=== PATIENT | male | born 1960 | race Caucasian/White ===

== ENCOUNTER 2017-07-22 06:05 | Day surgery (SDC) | payer OTHER ==
[2017-07-21 16:17] VITALS: BMI 27.3
[2017-07-22] MEDS ORDERED: BUPIVACAINE HCL/PF 0.5% (5MG/ML) 10 ML VIAL ONE (07:23)
[2017-07-22] MEDS ORDERED: MIDAZOLAM HCL 2 MG/2 ML SINGLE DOSE VIAL ONE (08:08)
--- NOTE | 2017-07-22 08:19 | HP ---
Admitting History and Physical - Admission Chief Complaint: epigastric bulge History of Present Illness: 56 y.o. male s/p open heart surgery developed bulging at the epigastric end of the median sternotomy scar. CT scan showed incisional hernia History Source: Patient Limitations to Obtaining History: No Limitations - Past Medical History Cardiovascular: Yes: CAD - Smoking History Smoking history: Former smoker Have you smoked in the past 12 months: No Aproximately how many cigarettes per day: 20 - Alcohol/Substance Use Hx Alcohol Use: Yes (occ beer) Home Medications - Allergies Allergies/Adverse Reactions: Allergies Allergy/AdvReac Type Severity Reaction Status Date / Time No Known Allergies Allergy Verified 07/21/17 15:59 - Home Medications Home Medications: Ambulatory Orders Aspirin [ASA -] 81 mg PO HS 10/12/15 Atorvastatin Ca [Lipitor] 40 mg PO HS 10/12/15 Clopidogrel Bisulfate [Plavix -] 75 mg PO DAILY 10/12/15 Metoprolol Tartrate 50 mg PO BID 10/12/15 Minocycline HCl 75 mg PO HS 10/12/15 Pantoprazole Sodium [Protonix] 40 mg PO DAILY 10/12/15 Ubidecarenone/Vit E Acet [Co Q-10 100 mg Softgel] 100 mg PO DAILY 07/21/17 Physical Examination Vital Signs: Vital Signs Temperature 98.8 F 07/22/17 06:29 Pulse Rate 60 07/22/17 06:29 Respiratory Rate 20 07/22/17 06:29 Blood Pressure 106/71 07/22/17 06:29 O2 Sat by Pulse Oximetry (%) Constitutional: Yes: Well Nourished Eyes: Yes: Conjunctiva Clear HENT: Yes: Normocephalic Neck: Yes: Supple Cardiovascular: Yes: Regular Rate and Rhythm Respiratory: Yes: CTA Bilaterally Gastrointestinal: Yes: Normal Bowel Sounds, Soft, Hernia (8 cm epigastric bulge) ...Rectal Exam: Yes: Deferred Wound/Incision: Yes: Other (+ median sternotomy scar) Psychiatric: Yes: Alert, Oriented Imaging - Results Cat Scan: Report Reviewed, Image Reviewed Problem List - Problems (1) Incisional hernia Assessment/Plan: Robotic assisted incisional hernia repair with mesh Code(s): K43.2 - INCISIONAL HERNIA WITHOUT OBSTRUCTION OR GANGRENE
[2017-07-22] MEDS ORDERED: PROPOFOL 20 ML ONE (08:23)
[2017-07-22] MEDS ORDERED: ROCURONIUM BROMIDE 50 MG/5 ML VIAL ONE ×5 (08:24→09:26)
[2017-07-22] MEDS ORDERED: ceFAZolin SODIUM 1 GM VIAL IVPB ONE (08:25)
[2017-07-22] MEDS ORDERED: BUPIVACAINE HCL/PF (5 MG/ML) 30 ML VIAL IJ ONE (08:47)
[2017-07-22] MEDS ORDERED: NEOSTIGMINE METHYLSULFATE 0.5 MG/ML - 10 ML MDV ONE (10:32)
[2017-07-22] MEDS ORDERED: ONDANSETRON 4 MG/2 ML VIAL IVPUSH PRN ×2 (10:59→11:14)
--- NOTE | 2017-07-22 11:03 | OP ---
Operative Note - Note: Operative Date: 07/22/17 Pre-Operative Diagnosis: epigastric incisional hernia Operation: Robotic incisional hernia repair with mesh Findings: 6 x 6 cm incisional hernia at epigastric region at level of xyphoid process Implants: progrip mesh Post-Operative Diagnosis: Same as Pre-op Surgeon: Elliot Price [employer]ry Go Round Attendant: Dandy Geiger Anesthesia: General Estimated Blood Loss (mls): 15 Operative Report Dictated: Yes
--- NOTE | 2017-07-22 11:38 | OP ---
DATE OF OPERATION: 07/22/2017 PROCEDURE: Robotic-assisted laparoscopic incisional hernia repair. PREOPERATIVE DIAGNOSIS: Epigastric incisional hernia. POSTOPERATIVE DIAGNOSIS: Epigastric incisional hernia. SURGEON: Elliot Price MD SUBCONTRACT ADMINISTRATOR: BULL Hernandes ANESTHESIA: General endotracheal. FINDINGS ON PROCEDURE: This is a 56-year-old male who is status post CABG Jun, 2015, who developed a bulge of the epigastric region just below the xiphoid process. On physical examination, patient has a long median sternotomy scar, which extended down through the epigastric region where a 6 x 6 cm bulge is palpable and visible. When patient is asked to perform a Valsalva maneuver, the defect of about the same size was noted. A CT scan of the abdomen and pelvis showed a hernia of the area in question. So, patient was advised elective incisional hernia repair, and consent was obtained after discussing the risks, benefits, and alternatives of the procedure. DESCRIPTION OF PROCEDURE: Patient was brought to the operating room and placed in supine position. General endotracheal anesthesia was administered. The abdomen was prepped and draped in the usual sterile fashion. Using 0.5% Marcaine, local anesthesia was administered to the proposed incision site. The peritoneal cavity was entered using the Veress needle technique via an 8-mm periumbilical incision to the left of midline using scalpel blade No. 15. The pneumoperitoneum was established. An 8-mm port was then inserted through the peritoneal incision followed by insertion of the 3D 30-degree laparoscope. The peritoneal cavity was carefully inspected and was noted to be free of inadvertent injury. Two other 8-mm ports were inserted, one at the left, 8 mm away from the middle, and the umbilical port on both sides. Afterwards, the robotic arms were out. The target organ was sent, and the robotic arms were docked to the ports. The fenestrated bipolar forceps was inserted to the right-sided port, and EndoWrist betsy was inserted in the left-sided port and connected to monopolar cautery. The undersigned then scrubbed out to commence the consult part of the procedure. A preperitoneal pocket was made by making a 15-cm incision of the parietal peritoneum about 5 cm away from the hernia. At this point, the hernia defect was visualized and was noted to contain an empty hernia sac. The pocket was dissected, dissection was carried superiorly towards the hernia with careful dissection using the EndoWrist betsy aided by the bipolar forceps for traction. Dissection was carried also laterally to provide adequate space for the mesh placement. The superior dissection was carried superiorly with at least 5 cm from the superior edge of the hernia. Afterwards, the hernia defect was primarily closed with continuous V-Loc No. 1 non-absorbable suture. An 8 x 12 cm ProGrip mesh was then deployed to reinforce the primary closure of the hernia defect. After deployment was deemed satisfactory, the peritoneal pocket was closed by suturing the peritoneal incision with continuous V-Loc 2-0 absorbable sutures. The abdominal cavity was again carefully inspected and was noted to be free of active bleeding. The pneumoperitoneum was evacuated, all the robotic arms were undocked, and the pneumoperitoneum was evacuated. The ports were removed, and the wounds were closed with subcuticular Biosyn 4-0 sutures. The closure was reinforced with Dermabond. The patient was successfully extubated and transferred to the post-anesthesia care unit in satisfactory condition. ESTIMATED BLOOD LOSS: About 15 mL. WOUND CLASS: Clean. The patient received 2 g of Ancef prior to the start of the procedure. Renan [id number]
--- NOTE | 2017-07-22 13:18 | SURG ---
Surgery Medical Clerical Assistant Note Medical Clerical Assistant: Dandy Geiger PA-C Date of Service: 07/22/17 Diagnosis: epigastric incisional hernia Procedure: Robotic incisional hernia repair with mesh I was present for the entirety of the operative procedure. For further detail, please refer to operative report. Visit type - Case Type Case Type: Scheduled - New patient This patient is new to me today: Yes Date on this admission: 07/22/17
[2017-07-22] MEDS ORDERED: ACETAMINOPHEN 500 MG TABLET (FP) PO PRN (17:42)
[2017-07-22] MEDS ORDERED: PT OWN MED DRAWER 7, Y5N ONE (18:44)
[2017-07-22] MEDS: METOPROLOL TARTRATE 50 MG TABLET (FP) PO SCH (21:16)
[2017-07-22] MEDS: ASPIRIN 81 MG CHEWABLE TABLETS PO SCH ×2 (21:16→22:23)
[2017-07-22] MEDS: oxyCODONE HCL 5 MG TABLET PO PRN (21:17)
[2017-07-22] MEDS ORDERED: ATORVASTATIN CA 40 MG TABLET (FP) PO SCH (22:00)
[2017-07-22] MEDS ORDERED: MINOCYCLINE PO SCH (22:00)
[2017-07-22] MEDS ORDERED: ASPIRIN COATED 81 MG TABLET.EC PO SCH (22:15)
[2017-07-23] MEDS: oxyCODONE HCL 5 MG TABLET PO PRN ×3 (01:34→10:23)
[2017-07-23] MEDS: METOPROLOL TARTRATE 50 MG TABLET (FP) PO SCH (09:39)
[2017-07-23] MEDS ORDERED: ASPIRIN 81 MG CHEWABLE TABLETS PO SCH (10:00)
[2017-07-23] MEDS ORDERED: CLOPIDOGREL BISULFATE 75 MG TABLET (FP) PO SCH (10:00)
[2017-07-23] MEDS ORDERED: PANTOPRAZOLE 40 MG TABLET (FP) PO SCH (10:00)
--- NOTE | 2017-07-23 10:15 | PN ---
Progress Note, Physician Chief Complaint: Pt. pain controlled, no GA complaints. - Current Medication List Current Medications: Active Medications Acetaminophen (Tylenol -) 1,000 mg PO Q6H PRN PRN Reason: FEVER Last Admin: 07/22/17 18:46 Dose: 1,000 mg Aspirin (Ecotrin -) 81 mg PO [facility] Last Admin: 07/22/17 22:30 Dose: 81 mg Atorvastatin Calcium (Lipitor -) 40 mg PO [facility] Last Admin: 07/22/17 21:16 Dose: 40 mg Clopidogrel Bisulfate (Plavix -) 75 mg PO DAILY [facility] Last Admin: 07/23/17 09:38 Dose: 75 mg Fentanyl (Sublimaze Injection -) 50 mcg IVPUSH Q5M PRN PRN Reason: PAIN-PACU ORDER X 4 DOSES ONLY Metoprolol Tartrate (Lopressor -) 50 mg PO BID [facility] Last Admin: 07/23/17 09:39 Dose: 50 mg Non-Formulary Med ( Minocycline 75mg Cap ) 1 each PO [facility] Ondansetron HCl (Zofran Injection) 4 mg IVPUSH Q6H PRN PRN Reason: NAUSEA AND/OR VOMITING Oxycodone HCl (Roxicodone -) 5 mg PO Q4H PRN PRN Reason: PAIN Last Admin: 07/23/17 05:51 Dose: 5 mg Pantoprazole Sodium (Protonix -) 40 mg PO DAILY [facility] Last Admin: 07/23/17 09:39 Dose: 40 mg - Objective Vital Signs: Vital Signs Temperature 98.7 F 07/23/17 06:00 Pulse Rate 56 L 07/23/17 06:00 Respiratory Rate 18 07/23/17 06:00 Blood Pressure 132/74 07/23/17 06:00 O2 Sat by Pulse Oximetry (%) 97 07/22/17 15:45 Constitutional: Yes: Well Nourished, No Distress, Calm Musculoskeletal: Yes: WNL Neurological: Yes: WNL, Alert, Oriented Assessment/Plan POD#1 s/p Robotic lap incisional hernia repair with mesh under GA. Doing well. D/C from anesthesia care.
[2017-07-23 10:27] VITALS: BP 119/79; PULSE 76; TEMP 98.8
== END 2017-07-23 10:48 | disposition home or self-care (01) ==
LOC: JASUSAT 06:05 → J5S 15:47 → JASUSAT 07-23 10:48
PROVIDERS: ATTEND Surgery
PROC: 8E0W4CZ Robotic Assisted Procedure of Trunk Region, Percutaneous Endoscopic Approach (ICD-10-PCS; 2017-07-22)
PROC: 0WUF4JZ Supplement Abdominal Wall with Synthetic Substitute, Percutaneous Endoscopic Approach (ICD-10-PCS; principal; 2017-07-22 08:00)
DX: K43.2 Incisional hernia without obstruction or gangrene (principal)
CPT/HCPCS: 49654; S2900; 94760

== ENCOUNTER 2018-07-02 21:44 | Inpatient (IN) | payer BC, OTHER | END 2018-07-05 15:13 | disposition home or self-care (01) | LOC: J4W 07-03 16:22 → JER 21:44 → JERBED 23:47 ==

== ENCOUNTER 2019-03-08 08:20 | Day surgery (SDC) | payer OTHER ==
[2019-03-07 11:27] VITALS: BMI 27.3
[2019-03-08 09:21] LABS: BASO % 0.6 % (0-2.0); EOS % 3.6 % (0-4.5); HEMATOCRIT 39.8 % (35.4-49); HEMOGLOBIN 13.7 GM/dL (11.7-16.9); LYMPH % 16.3 % (8-40); MCH 31.2 pg (25.7-33.7); MCHC 34.5 g/dl (32.0-35.9); MEAN CELL VOLUME 90.4 fl (80-96); MEAN PLT VOLUME 7.4 fl (7.5-11.1); MONO % 7.5 % (3.8-10.2); PLATELET COUNT 156 K/MM3 (134-434); RDW 13.4 % (11.9-15.9); WHITE BLOOD COUNT 7.7 K/mm3 (4.0-10.0)
[2019-03-08 10:47] LABS: INR 1.05 (0.83-1.09); PROTHROMBIN TIME (PATIENT) 12.4 SEC (9.7-13.0)
[2019-03-08] MEDS ORDERED: ACETAMINOPHEN 325 MG TABLET (FP) PO ONE (12:22)
[2019-03-08] MEDS ORDERED: ACETAMINOPHEN 325 MG TABLET (FP) ONE (12:24)
[2019-03-08 15:54] VITALS: TEMP 98.3
[2019-03-08 15:59] VITALS: BP 140/77
[2019-03-08 16:08] VITALS: PULSE 80
--- NOTE | 2019-03-23 18:45 | PATH ---
Surgical Pathology Report Patient Name: HARRISON MUHAMMAD [facility]. Rec. #: [id number] /Age/Gender: 1960 (Age: 58) / M Account: [id number] Location: RADIOLOGY INTER Taken: 03/08/2019 Received: 03/08/2019 Reported: 03/23/2019 Physicians: Soy Foster M.D. Specimen(s) Received RIGHT LUNG BIOPSY Clinical History 58-year-old male with COPD and IPF. 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 Foci of highly atypical gland-like structures and nests with lumen-formation are also seen, as are scattered entrapped reactive alveoli. There are areas of tumor necrosis and scattered mitoses are seen. Immunohistochemical stains performed in your laboratory show that the tumor is positive for vimentin, Cam5.2 (weak), and TTF-1(patchy). Focal staining with CK7 and cytokeratin AE1/AE3 is seen in the atypical gland-like areas, that are also intensely TTF-1 positive. Napsin A stains scattered entrapped pneumocytes. No mucin is seen on mucicarmine stain, and the tumor is negative for p40, CK5/6, NKX3.1, S100, Melan-A, and CD45, the latter of which highlights scattered inflammatory cells. In summary, the right lung biopsy shows a non-small cell carcinoma, favor adenocarcinoma. This diagnosis is supported by the tumor immunophenotype (positive Cam5.2 and TTF-1), which in the absence of the thyroid mass is consistent with lung origin. 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 However, this diagnosis requires a resection on which at least 10% of the tumor should be comprised of the spindle cell and/or giant cell component. This case was sent to Dr. Hugo Goldberg at [facility], [address] [place] [address] for his expertise and this diagnosis reflects his opinion. Electronically Signed Sergey Guzman M.D. Gross Description Received in formalin labeled "right lung biopsy," are 3 guzman, cylindrical portions of soft tissue ranging from 0.4-0.7 cm in length and averaging 0.1 cm in diameter. The specimens are submitted in toto in one cassette. 03/08/201903/08/2019
== END 2019-03-08 15:30 | disposition home or self-care (01) ==
LOC: JRADIR 08:20
PROVIDERS: ATTEND Internal Medicine Pulmonary Disease
PROC: 0BBC3ZX Excision of Right Upper Lung Lobe, Percutaneous Approach, Diagnostic (ICD-10-PCS; principal; 2019-03-08)
DX: C34.11 Malignant neoplasm of upper lobe, right bronchus or lung (principal)
CPT/HCPCS: 32405; 36415; 71045-TC-FY; 77012-TC; 85025; 85610; 88305-TC

== ENCOUNTER 2019-03-28 14:36 | Inpatient (IN) | payer OTHER ==
[2019-03-28 14:48] VITALS: BMI 26.7
--- NOTE | 2019-03-28 14:53 | PDOC ---
History of Present Illness - General Chief Complaint: Shortness of Breath Stated Complaint: SHORTNESS OF BREATH Time Seen by Provider: 03/28/19 14:52 History Source: Patient Exam Limitations: No Limitations - History of Present Illness Initial Comments: 03/28/19 14:53 58yM w PMHx COPD (RA day, 2L night), interstitial pulmonary fibrosis, RUL lung CA stage 1, HTN, HLD, angina, CAD (STEMI s/p stent 2013, quadruple bypass 2015) , past smoker, GERD presenting w sudden onset SOB 9worse lying down) and miah chest tightness after vacuuming yesterday evening. Turned portable O2 to 5L NC overnight, did not take any meds for symptoms. Had lung biopsy done 03/08/[address] Pleitez, told he had RUL lung CA stage 1 5d ago, hasnt started treatment. Denies fever, cough, nausea/vomiting, abd pain. CT surgeon - Dr Eron Canchola - Dr Pleitez Past History - Past Medical History Allergies/Adverse Reactions: Allergies Allergy/AdvReac Type Severity Reaction Status Date / Time No Known Allergies Allergy Verified 03/08/19 09:25 Home Medications: Ambulatory Orders Atorvastatin Ca [Lipitor] 20 mg PO HS 10/12/15 Clopidogrel Bisulfate [Plavix -] 75 mg PO DAILY 10/12/15 Metoprolol Tartrate 50 mg PO BID 10/12/15 Minocycline HCl 75 mg PO HS 10/12/15 Pantoprazole Sodium [Protonix] 40 mg PO DAILY 10/12/15 Umeclidinium Brm/Vilanterol Tr [Anoro Ellipta 62.5-25 Mcg INH] 1 each IH DAILY 07/03/18 Pirfenidone [Esbriet] 801 mg PO TID 03/07/19 Ubidecarenone/Vit E Acet [Co Q-10 100 mg Softgel] 2 each PO DAILY 03/08/19 Aspirin [Aspirin EC] 81 mg PO DAILY 03/28/19 Anemia: No Asthma: No Cancer: No Cardiac Disorders: Yes (CO 04/06/13 with stent, quadruple bypass 2015 ([facility])) CVA: No COPD: Yes (IPF) CHF: Yes Dementia: No Diabetes: No GI Disorders: Yes (GERD) Disorders: No HTN: Yes (HX) Hypercholesterolemia: Yes (HX) Liver Disease: No Seizures: No Thyroid Disease: No - Surgical History Abdominal Surgery: No Appendectomy: No Cardiac Surgery: Yes (05/2013-CABG 1 stent, angioplasty, 4byp2015) Cholecystectomy: No Lung Surgery: No Neurologic Surgery: No Orthopedic Surgery: Yes - Psycho Social/Smoking Cessation Hx Smoking History: Former smoker Have you smoked in the past 12 months: No Number of Cigarettes Smoked Daily: 20 Information on smoking cessation initiated: No Hx Alcohol Use: No Drug/Substance Use Hx: No Substance Use Type: None Hx Substance Use Treatment: No Review of Systems - Review of Systems Constitutional: No: Chills, Fever HEENTM: No: Eye Pain, Nose Pain, Nose Congestion Respiratory: Yes: Shortness of Breath. No: Cough Cardiac (ROS): Yes: Chest Pain. No: Palpitations ABD/GI: No: Abdominal Distended, Constipated, Diarrhea, Nausea, Vomiting : No: Burning, Dysuria Musculoskeletal: No: Back Pain, Joint Pain Integumentary: No: Bruising, Flushing Neurological: No: Headache, Seizure Psychiatric: No: Anxiety, Depression Endocrine: No: Intolerance to Cold, Intolerance to Heat Hematologic/Lymphatic: No: Anemia, Blood Clots *Physical Exam - Vital Signs Last Vital Signs Temp Pulse Resp BP Pulse Ox 98.2 F 87 22 H 145/90 91 L 03/28/19 14:46 03/28/19 14:46 03/28/19 14:46 03/28/19 14:46 03/28/19 14:46 - Physical Exam General Appearance: Yes: Nourished, Appropriately Dressed, Mild Distress HEENT: positive: EOMI, DEWAYNE Respiratory/Chest: positive: Decreased Breath Sounds (R lung), Crackles (LLL). negative: Chest Tender, Rhonchi, Stridor, Wheezing Cardiovascular: positive: Regular Rhythm, Regular Rate, S1, S2. negative: Murmur Gastrointestinal/Abdominal: positive: Normal Bowel Sounds, Flat, Soft. negative : Tender, Organomegaly Extremity: negative: Pedal Edema Integumentary: positive: Normal Color. negative: Dry Neurologic: positive: guard lieutenant II-XII NML intact, Fully Oriented, Alert, Normal Response, Responsive. negative: Sensory Deficit, Confused, Disoriented ED Treatment Course - LABORATORY CBC & Chemistry Diagram: 03/28/19 15:45 03/28/19 15:50 Medical Decision Making - Medical Decision Making 03/28/19 14:57 CXR - 50% R sided pneumothorax EKG - NSR, RBBB, HR 73, QTc 500, unchanged TWI V1, lateral q waves since 2019 --- 58yM w PMHx COPD (RA day, 2L night), interstitial pulmonary fibrosis, RUL lung CA stage 1, HTN, HLD, angina, STEMI( s/p stent 2013, quadruple bypass 2015), past smoker, GERD presenting w 1d sudden onset SOB and miah chest tightness d/t R sided pneuomthorax (hx somker). Low concern for ACS (no ST changes, neg trop) Given 2 morphine. Placed on 4L O2. Pt consented procedure, placed pigtail catheter, confirmed placement w CXR w resolving PTX Updated Dr Daniel/Maik and Dr Awad (detention deputy for Dr Littlejohn) w pt's ED course, all agreed to plan. Admitted tele Dr Soler for pneumothorax, acute on chronic respiratory failure requiring supplemental O2 Discharge - Discharge Information Problems reviewed: Yes Clinical Impression/Diagnosis: Pneumothorax Qualifiers: Pneumothorax type: spontaneous, primary Qualified Code(s): J93.11 - Primary spontaneous pneumothorax Acute and chronic respiratory failure Qualifiers: Respiratory failure complication: hypoxia Qualified Code(s): J96.21 - Acute and chronic respiratory failure with hypoxia Condition: Improved - Follow up/Referral Referrals: Sp Galloway MD [Primary Care Provider] - - Patient Discharge Instructions - Post Discharge Activity
[2019-03-28 16:25] LABS: BASO % 0.4 % (0-2.0); EOS % 2.1 % (0-4.5); HEMATOCRIT 42.4 % (35.4-49); HEMOGLOBIN 14.7 GM/dL (11.7-16.9); LYMPH % 15.4 % (8-40); MCH 32.1 pg (25.7-33.7); MCHC 34.6 g/dl (32.0-35.9); MEAN CELL VOLUME 92.5 fl (80-96); MEAN PLT VOLUME 7.4 fl (7.5-11.1); MONO % 7.3 % (3.8-10.2); NEUT % 74.8 % (42.8-82.8); PLATELET COUNT 164 K/MM3 (134-434); RBC 4.58 M/mm3 (4.00-5.60); RDW 13.8 % (11.9-15.9); WHITE BLOOD COUNT 8.6 K/mm3 (4.0-10.0)
[2019-03-28 16:38] LABS: INR 1.14 (0.83-1.09); PROTHROMBIN TIME (PATIENT) 13.5 SEC (9.7-13.0)
[2019-03-28 16:53] LABS: ALBUMIN 4.2 g/dl (3.4-5.0); BILIRUBIN,TOTAL 0.5 mg/dL (0.2-1); BLOOD UREA NITROGEN 22.3 mg/dL (7-18); CREATININE 1.2 mg/dL (0.55-1.3); POTASSIUM 3.8 mmol/L (3.5-5.1); TOT PROT 7.4 g/dl (6.4-8.2)
--- NOTE | 2019-03-28 16:53 | PDOC ---
Documentation entered by Maritza Wharton SCRIBE, acting as scribe for Peter Dc MD. Peter Dc MD: This documentation has been prepared by the Dio reyna Adrianna, SCRIBE, under my direction and personally reviewed by me in its entirety. I confirm that the documentation accurately reflects all work, treatment, procedures, and medical decision making performed by me. Attending Attestation - Resident Resident Name: Mello Melgoza - ED Attending Attestation I have performed the following: I have examined & evaluated the patient, The case was reviewed & discussed with the resident, I agree w/resident's findings & plan, Exceptions are as noted - HPI HPI: The patient is a 58 year old male, with a significant PMH of COPD, interstitial pulmonary fibrosis, RUL lung CA stage 1, HTN, HLD, CHF, angina, STEMI( s/p stent 2013, quadruple bypass 2015) and GERD, who presents to the ED for evaluation of SOB for one day. Patient notes he was vacuuming yesterday, when he developed sudden onset SOB. Patient had a lung biopsy ~2 weeks ago. Allergies: NKA, NKDA Surgical History: CABG. stent, angioplasty, quadruple bypass Social History: Former smoker PCP: Dr. Galloway Pulm: Dr. Pleitez - Physicial Exam PE: Vitals: Triage vital signs reviewed General Appearance: No acute distress, well nourished, well developed Chest Wall: Nontender Cardiac: Regular rate and rhythm, no murmurs, no rubs, no gallops Lungs: +Decreased breath sounds of the right lung. Abdomen: Soft, nondistended, normal bowel sounds, nontender to palpation Extremities: Full range of motion to all extremities, no cyanosis, clubbing, or edema Skin: Warm and dry, no rashes or lesions, no rash, no petechiae Neuro: AOX3; Cranial Nerves 2-12 grossly intact, Strength intact to all extremities, Sensation intact to all extremities. Psych: Normal mood, normal affect - Medical Decision Making 58 year old male, with history of COPD, interstitial pulmonary fibrosis, RUL lung CA stage 1, HTN, HLD, CHF, angina, STEMI( s/p stent 2013, quadruple bypass 2015) and GERD, presents to the ED with SOB. Plan: labs, CXR, ECG, PICC tail 03/28/19 16:53 Status post lung biopsy March 08 with sudden onset shortness of breath yesterday chest x-ray demonstrates pneumothorax no obvious tension patient hemodynamically stable Given that patient is stable will check labs CT to rule out bleb observe and reassess Dr. Martinez to follow CT. Chest tube if not a bleb
[2019-03-28] MEDS ORDERED: BUPIVACAINE HCL 0.5% 250 MG/50 ML VIAL IJ ONE (17:09)
[2019-03-28] MEDS ORDERED: BUPIVACAINE HCL/PF 0.5% (5 MG/ML) 30 ML VIAL IJ ONE (17:18)
[2019-03-28] MEDS ORDERED: MORPHINE SULFATE 2 MG/ML VIAL ONE ×2 (18:01→20:54)
[2019-03-28] MEDS ORDERED: morphine CARPU-JECT 4 MG/1 ML DISP.SYRIN IVPUSH ONE (18:43)
[2019-03-28 19:47] LABS: ARTERIAL BLOOD GAS BASE EXCESS 1.6 meq/l (-2-2); ARTERIAL BLOOD GAS PO2 74.3 mmHg (80-100); ARTERIAL BLOOD GAS pH 7.45 (7.35-7.45); CARBOXYHEMOGLOBIN 1.6 % (0-2)
[2019-03-28 19:50] LABS: ALLENS TEST POSITIVE
[2019-03-28] MEDS ORDERED: morphine CARPU-JECT 2 MG/1 ML DISP.SYRIN IVPUSH ONE (20:33)
--- NOTE | 2019-03-28 22:54 | HP ---
Admitting History and Physical - Admission History of Present Illness: Pt is a 58 y/o male w/ PMH significant for COPD (RA day, 2L night), interstitial pulmonary fibrosis, RUL lung CA stage 1, HTN, HLD, angina, CAD ( STEMI s/p stent 2013, quadruple bypass 2015), and GERD. Pt underwent lung bx on 03/08/19 and dx'ed w/ stage 1 lung cancer. Pt now presented to ER w/ sudden onset SOB associated w/ chest tightness after vacuuming yesterday evening. Turned portable O2 to 5L NC overnight, did not take any meds for symptoms. 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[place], [place]) History of Recent Travel: No Home Medications - Allergies Allergies/Adverse Reactions: Allergies Allergy/AdvReac Type Severity Reaction Status Date / Time No Known Allergies Allergy Verified 03/08/19 09:25 - Home Medications Home Medications: Ambulatory Orders Atorvastatin Ca [Lipitor] 20 mg PO HS 10/12/15 Clopidogrel Bisulfate [Plavix -] 75 mg PO DAILY 10/12/15 Metoprolol Tartrate 50 mg PO BID 10/12/15 Minocycline HCl 75 mg PO HS 10/12/15 Pantoprazole Sodium [Protonix] 40 mg PO DAILY 10/12/15 Umeclidinium Brm/Vilanterol Tr [Anoro Ellipta 62.5-25 Mcg INH] 1 each IH DAILY 07/03/18 Pirfenidone [Esbriet] 801 mg PO TID 03/07/19 Ubidecarenone/Vit E Acet [Co Q-10 100 mg Softgel] 2 each PO DAILY 03/08/19 Aspirin [Aspirin EC] 81 mg PO DAILY 03/28/19 Family Medical History Family History: Unremarkable Review of Systems - Review of Systems Constitutional: reports: No Symptoms Eyes: reports: No Symptoms HENT: reports: No Symptoms Neck: reports: No Symptoms Cardiovascular: reports: Chest Pain, Shortness of Breath Respiratory: reports: SOB Gastrointestinal: reports: No Symptoms Genitourinary: reports: No Symptoms Physical Examination Vital Signs: Vital Signs Temperature 98.2 F 03/28/19 14:46 Pulse Rate 78 03/28/19 18:25 Respiratory Rate 22 H 03/28/19 18:25 Blood Pressure 139/106 H 03/28/19 18:25 O2 Sat by Pulse Oximetry (%) 100 03/28/19 18:25 Eyes: Yes: WNL HENT: Yes: WNL Neck: Yes: WNL, Supple Cardiovascular: Yes: WNL, Regular Rate and Rhythm Respiratory: Yes: Diminished, Other ((+) cath Rt chest wall) Gastrointestinal: Yes: WNL, Normal Bowel Sounds, Soft Extremities: Yes: WNL Edema: No Neurological: Yes: WNL, Alert, Oriented ...Motor Strength: WNL Labs: CBC, BMP 03/28/19 15:45 03/28/19 15:50 Problem List - Problems (1) Pneumothorax Assessment/Plan: Cont chest tube Check CXR in am Pulmonary consult Cont nebulizers Code(s): J93.9 - PNEUMOTHORAX, UNSPECIFIED Qualifiers: Pneumothorax type: spontaneous, primary Qualified Code(s): J93.11 - Primary spontaneous pneumothorax (2) Lung cancer Assessment/Plan: As per pulmonary Code(s): C34.90 - MALIGNANT NEOPLASM OF UNSP PART OF UNSP BRONCHUS OR LUNG (3) COPD (chronic obstructive pulmonary disease) Assessment/Plan: Cont nebulizers Code(s): J44.9 - CHRONIC OBSTRUCTIVE PULMONARY DISEASE, UNSPECIFIED (4) HTN (hypertension) Assessment/Plan: BP stable Code(s): I10 - ESSENTIAL (PRIMARY) HYPERTENSION (5) Interstitial lung disease Code(s): J84.9 - INTERSTITIAL PULMONARY DISEASE, UNSPECIFIED
[2019-03-29] MEDS ORDERED: morphine CARPU-JECT 2 MG/1 ML DISP.SYRIN IVPUSH ONE ×2 (00:14→04:54)
[2019-03-29] MEDS ORDERED: MORPHINE SULFATE 2 MG/ML VIAL ONE ×5 (00:17→18:49)
[2019-03-29] MEDS ORDERED: ALBUTEROL SO4 2.5/IPRATROPIUM 0.5 INH SOL 3 ML VIAL.NEB. NEB PRN (00:43)
[2019-03-29 07:07] LABS: BILIRUBIN,TOTAL 0.6 mg/dL (0.2-1); CREATININE 1.2 mg/dL (0.55-1.3); POTASSIUM 4.1 mmol/L (3.5-5.1); TOT PROT 7.3 g/dl (6.4-8.2)
[2019-03-29 07:14] LABS: BASO % 0.3 % (0-2.0); EOS % 3.8 % (0-4.5); HEMATOCRIT 41.2 % (35.4-49); HEMOGLOBIN 14.3 GM/dL (11.7-16.9); LYMPH % 15.8 % (8-40); MCH 31.9 pg (25.7-33.7); MCHC 34.7 g/dl (32.0-35.9); MEAN CELL VOLUME 91.8 fl (80-96); MEAN PLT VOLUME 7.3 fl (7.5-11.1); MONO % 7.4 % (3.8-10.2); NEUT % 72.7 % (42.8-82.8); PLATELET COUNT 162 K/MM3 (134-434); RBC 4.48 M/mm3 (4.00-5.60); RDW 13.9 % (11.9-15.9); WHITE BLOOD COUNT 8.2 K/mm3 (4.0-10.0)
[2019-03-29] MEDS ORDERED: ASPIRIN COATED 81 MG TABLET.EC PO SCH (10:00)
[2019-03-29] MEDS ORDERED: CLOPIDOGREL BISULFATE 75 MG TABLET (FP) PO SCH (10:00)
[2019-03-29] MEDS ORDERED: PATIENT'S OWN MEDICATION (NON-FORMULARY) (Ubidecarenone/Vit E Acet [Co Q-10 100 Mg Softgel PO SCH (10:00)
[2019-03-29] MEDS ORDERED: UMECLIDINIUM/VILANTEROL (ANORO) 62.5/25 MCG INHALER IH SCH (10:00)
[2019-03-29] MEDS ORDERED: PANTOPRAZOLE 40 MG TABLET PO SCH (10:00)
[2019-03-29] MEDS ORDERED: HEPARIN NA (PORCINE) 5,000 UNITS/ML 1ML VIAL ONE ×2 (10:26→23:16)
[2019-03-29] MEDS: HEPARIN NA (PORCINE) 5,000 UNITS/ML 1ML VIAL SQ SCH ×2 (10:35→23:27)
[2019-03-29] MEDS: METOPROLOL TARTRATE 50 MG TABLET (FP) PO SCH ×2 (10:35→23:28)
[2019-03-29] MEDS: MORPHINE SULFATE 2 MG/ML VIAL IVPUSH PRN ×2 (10:35→18:55)
--- NOTE | 2019-03-29 11:13 | PN ---
Progress Note (short form) - Note Progress Note: PULMONARY CONSULTATION DICTATED 03/29/19 IMP ACUTE ON CHRONIC HYPOXEMIC RESPIRATORY FAILURE LARGE R PNEUMOTHORAX ?SPONTANEOUS,? IATROGENIC ADVANCED EMPHYSEMA/ILD ON NOCTURNAL 02 RUL NODULE + ADENO CA ASHD S/P [place],S/P CABG X4 HTN HLD GERD PLAN PIGTAIL INSERTION THORACIC SURGERY EVALUATION PET SCAN OUTPATIENT O2 F/U CHEST X-RAYS DR HANSON Problem List - Problems (1) Acute and chronic respiratory failure Code(s): J96.20 - ACUTE AND CHR RESP FAILURE, UNSP W HYPOXIA OR HYPERCAPNIA Qualifiers: Respiratory failure complication: hypoxia Qualified Code(s): J96.21 - Acute and chronic respiratory failure with hypoxia (2) Lung cancer Code(s): C34.90 - MALIGNANT NEOPLASM OF UNSP PART OF UNSP BRONCHUS OR LUNG (3) Pneumothorax Code(s): J93.9 - PNEUMOTHORAX, UNSPECIFIED Qualifiers: Pneumothorax type: spontaneous, primary Qualified Code(s): J93.11 - Primary spontaneous pneumothorax (4) COPD (chronic obstructive pulmonary disease) Code(s): J44.9 - CHRONIC OBSTRUCTIVE PULMONARY DISEASE, UNSPECIFIED (5) HLD (hyperlipidemia) Code(s): E78.5 - HYPERLIPIDEMIA, UNSPECIFIED (6) HTN (hypertension) Code(s): I10 - ESSENTIAL (PRIMARY) HYPERTENSION (7) Interstitial lung disease Code(s): J84.9 - INTERSTITIAL PULMONARY DISEASE, UNSPECIFIED
--- NOTE | 2019-03-29 12:10 | CONS ---
PULMONARY CONSULTATION DATE OF CONSULTATION: 03/29/2019 REFERRING PHYSICIAN: Enriqueta Sloer MD HISTORY OF PRESENT ILLNESS: Patient is a 58-year-old male with past medical history ASHD, status post NE, status post CABG with 4-vessel disease, advanced interstitial pulmonary fibrosis, emphysema on nocturnal O2 as well as with exertion, a recently diagnosed right upper lobe lung adenocarcinoma currently being worked up for possible surgery and/or radiation, hypertension, hyperlipidemia, GERD, admitted to [facility] with acute onset of shortness of breath. Patient underwent a CT-guided needle aspiration biopsy on March 08, 2019. At the time he had a followup chest x-ray which revealed within normal limits. Yesterday he started developing increasing shortness of breath, chest tightness. He started increasing his O2 without any significant improvement at which time he presented to the emergency room. In the ER he was found to have a large right pneumothorax at which time a pigtail catheter was inserted. Patient has a history of tobacco use, quit approximately 6 years ago. There is no history of occupational exposure to chemical fumes. As stated before, he was recently diagnosed with combination emphysema, pulmonary fibrosis and was to be scheduled for a possible transplant. Of note is he recently underwent a CAT scan which revealed a new nodule in the right upper lobe for which a biopsy was obtained which revealed adenocarcinoma. He was evaluated by Thoracic Surgery for possible resection and/or localized radiation. Patient denies any cough or hemoptysis, denies any fevers, weight loss or night sweats. PAST MEDICAL HISTORY: Again, includes advanced pulmonary fibrosis, emphysema on O2 at night as well as with exertion, a history of recent right upper lobe lung nodule consistent with adenocarcinoma, hypertension, hyperlipidemia, ASHD, status post stent 2013, status post quadruple bypass in 2015, GERD. REVIEW OF SYSTEMS: No orthopnea. Positive dyspnea. Positive chest tightness. No fever. No chills. No hemoptysis. No abdominal pain. CURRENT MEDICATIONS: Include , Anoro Ellipta, DuoNeb, Lopressor, Lipitor, Ecotrin, morphine, Plavix and Protonix. PHYSICAL EXAMINATION: General: Patient is a well-developed, well-nourished male awake, alert in no acute distress. Vital Signs: He is afebrile. Blood pressure is 135/93. Respiratory rate is 25. HEENT: Normocephalic, atraumatic. Neck: Supple. Heart: Regular S1, S2. Chest: Diminished, bilateral crackles throughout. Abdomen: Soft, bowel sounds are positive. Extremities: No cyanosis or edema. LABORATORIES: WBC is 8.2, hemoglobin 14.3, hematocrit 41.2 and platelet count 162,000. INR is 1.14. Blood gas: pH 7.45, pCO2 of 37, a pO2 of 74, bicarbonate of 25, saturating 94%. That was on unknown quantity of oxygen. Chemistries: BUN 22, creatinine 1.2. Chest CT reveals right upper lobe nodule which increased in size from previous, shotty mediastinal adenopathy with no significant change. IMPRESSION: [id number] hypoxic respiratory failure secondary to: 1. Large right pneumothorax, questionable spontaneous, questionable iatrogenic. 2. Advanced emphysema, interstitial lung disease on nocturnal O2. 3. Right upper lobe nodule consistent with adenocarcinoma. 4. Arteriosclerotic heart disease, status post myocardial infarction, status post coronary artery bypass grafting x4. 5. Hypertension. 6. Hyperlipidemia. 7. Gastroesophageal reflux disease. PLAN: Continue pigtail insertion, chest tube insertion. Follow up chest x-ray. Supplemental O2. Obtain PET scan as outpatient. Also, thoracic surgical consultation. ANUJ HANSON M.D. [id number]
--- NOTE | 2019-03-29 12:38 | CONSULT ---
Consultation: CONSULT SERVICE: Hematology/Oncology Resident HISTORY OF PRESENT ILLNESS: 58yo M with h/o CAD s/p CABG, COPD (2LNC nights), Interstitial lung Disease, HTN, HLD and newly diagnosed adenocarcinoma of the lung who presents originally due to sudden shortness of breath. Pt received biopsy on 03/08/19 which diagnosed his lung Ca. Since then he reports he was vacuuming and then developed his sudden shortness of breath. On workup, pt was noted to have PTX and pigtail was placed. We were asked to medically evaluate this patient due to his new lung Ca. PMHx: As above PSHx: CABG and Lung biopsy SoHx; Tobacco - None currently, previous smoker Alcohol - None Drugs- None REVIEW OF SYSTEMS: As per HPI PHYSICAL EXAMINATION Vital Signs - 24 hr 03/28/19 03/28/19 03/28/19 14:46 15:15 18:25 Temperature 98.2 F Pulse Rate 87 Pulse Rate [ 78 Apical] Respiratory 22 H 22 H Rate Blood Pressure 145/90 Blood Pressure 139/106 H [Right Arm] O2 Sat by Pulse 91 L 96 100 Oximetry (%) 03/28/19 03/28/19 03/29/19 19:45 23:00 01:00 Temperature Pulse Rate Pulse Rate [ 73 67 Apical] Respiratory 18 24 H Rate Blood Pressure Blood Pressure 123/90 123/90 [Right Arm] O2 Sat by Pulse 96 99 100 Oximetry (%) 03/29/19 03/29/19 03/29/19 06:00 07:30 11:10 Temperature 98.5 F 98.5 F Pulse Rate Pulse Rate [ 75 71 73 Apical] Respiratory 22 H 23 H 25 H Rate Blood Pressure Blood Pressure 123/83 132/89 135/93 [Right Arm] O2 Sat by Pulse 98 100 100 Oximetry (%) GENERAL: Awake, alert, and fully oriented, in no acute distress. HEENT: NC/AT, EOMI, [place], sclera anicteric, MMM NECK: No JVD, no LN, trachea midline. LUNGS: Diminished on R side. CT in place without leak. No wheezes. No accessory muscle use. NC HEART: RRRR, normal S1 and S2 without murmur ABDOMEN: Soft, Nt/ND, normoactive bowel sounds, no guarding, No hepatomegaly EXTREMITIES: 2+ pulses, warm, well-perfused. No calf tenderness. No peripheral edema. PSYCHIATRIC: Cooperative. Good eye contact. Appropriate mood and affect. SKIN: Warm, dry, no rashes or lesions noted. Laboratory Results - last 24 hr 03/28/19 03/28/19 03/28/19 15:45 15:45 15:45 WBC 8.6 RBC 4.58 Hgb 14.7 Hct 42.4 MCV 92.5 MCH 32.1 MCHC 34.6 RDW 13.8 Plt Count 164 MPV 7.4 L Absolute Neuts (auto) 6.4 Neutrophils % 74.8 Lymphocytes % 15.4 Monocytes % 7.3 Eosinophils % 2.1 Basophils % 0.4 Nucleated RBC % 0 PT with INR 13.50 H INR 1.14 H PTT (Actin FS) 33.0 Puncture Site ABG pH ABG pCO2 at Pt Temp ABG pO2 at Pt Temp ABG HCO3 ABG O2 Sat (Measured) ABG O2 Content ABG Base Excess Elfego Test Carboxyhemoglobin Methemoglobin Oxygen Flow Rate Sodium Potassium Chloride Carbon Dioxide Anion Gap BUN Creatinine Est GFR (CKD-EPI)AfAm Est GFR (CKD-EPI)NonAf Random Glucose Calcium Total Bilirubin AST ALT Alkaline Phosphatase Creatine Kinase Creatine Kinase Index CK-MB (CK-2) Troponin I B-Natriuretic Peptide 858.4 H Total Protein Albumin 03/28/19 03/28/19 03/29/19 15:50 19:40 06:05 WBC 8.2 RBC 4.48 Hgb 14.3 Hct 41.2 MCV 91.8 MCH 31.9 MCHC 34.7 RDW 13.9 Plt Count 162 MPV 7.3 L Absolute Neuts (auto) 6.0 Neutrophils % 72.7 Lymphocytes % 15.8 Monocytes % 7.4 Eosinophils % 3.8 D Basophils % 0.3 Nucleated RBC % 0 PT with INR INR PTT (Actin FS) Puncture Site Right radial ABG pH 7.45 ABG pCO2 at Pt Temp 37.0 ABG pO2 at Pt Temp 74.3 L ABG HCO3 25.0 ABG O2 Sat (Measured) 94.0 L ABG O2 Content 18.2 ABG Base Excess 1.6 Elfego Test Positive Carboxyhemoglobin 1.6 Methemoglobin 1.1 Oxygen Flow Rate Yes Sodium 137 Potassium 3.8 Chloride 105 Carbon Dioxide 26 Anion Gap 7 L BUN 22.3 H Creatinine 1.2 Est GFR (CKD-EPI)AfAm 75.72 Est GFR (CKD-EPI)NonAf 65.33 Random Glucose 86 Calcium 9.0 Total Bilirubin 0.5 AST 20 ALT 20 Alkaline Phosphatase 86 Creatine Kinase 190 Creatine Kinase Index 2.0 CK-MB (CK-2) 3.9 H Troponin I 0.03 B-Natriuretic Peptide Total Protein 7.4 Albumin 4.2 03/29/19 06:05 WBC RBC Hgb Hct MCV MCH MCHC RDW Plt Count MPV Absolute Neuts (auto) Neutrophils % Lymphocytes % Monocytes % Eosinophils % Basophils % Nucleated RBC % PT with INR INR PTT (Actin FS) Puncture Site ABG pH ABG pCO2 at Pt Temp ABG pO2 at Pt Temp ABG HCO3 ABG O2 Sat (Measured) ABG O2 Content ABG Base Excess Elfego Test Carboxyhemoglobin Methemoglobin Oxygen Flow Rate Sodium 139 Potassium 4.1 Chloride 105 Carbon Dioxide 29 Anion Gap 6 L BUN 22.0 H Creatinine 1.2 Est GFR (CKD-EPI)AfAm 75.72 Est GFR (CKD-EPI)NonAf 65.33 Random Glucose 95 Calcium 9.0 Total Bilirubin 0.6 AST 18 ALT 18 Alkaline Phosphatase 87 Creatine Kinase Creatine Kinase Index CK-MB (CK-2) Troponin I B-Natriuretic Peptide Total Protein 7.3 Albumin 4.0 Active Medications Generic Name Dose Route Start Last Admin Trade Name Freq PRN Reason Stop Dose Admin Albuterol/Ipratropium 1 amp 03/29/19 00:43 Duoneb - NEB Q6H PRN SHORTNESS OF BREATH Aspirin 81 mg 03/29/19 10:00 03/29/19 10:35 Ecotrin - PO 81 mg DAILY VEENA Administration Atorvastatin Calcium 20 mg 03/29/19 22:00 Lipitor - PO HS VEENA Clopidogrel Bisulfate 75 mg 03/29/19 10:00 03/29/19 10:35 Plavix - PO 75 mg DAILY VEENA Administration Heparin Sodium (Porcine) 5,000 unit 03/29/19 10:00 03/29/19 10:35 Heparin - SQ 5,000 unit BID VEENA Administration Metoprolol Tartrate 50 mg 03/29/19 10:00 03/29/19 10:35 Lopressor - PO 50 mg BID VEENA Administration Morphine Sulfate 2 mg 03/29/19 08:51 03/29/19 10:35 Morphine Sulfate IVPUSH 2 mg Q6H PRN Administration PAIN LEVEL 6-10 Non-Formulary Medication 801 mg 03/29/19 14:00 Pirfenidone [Esbriet] PO TID VEENA Non-Formulary Medication 2 each 03/29/19 10:00 Ubidecarenone/Vit E Acet [Co Q-10 100 Mg Softgel] PO DAILY VEENA Pantoprazole Sodium 40 mg 03/29/19 10:00 03/29/19 10:35 Protonix - PO 40 mg DAILY VEENA Administration Umeclidinium/Vilanterol 1 puff 03/29/19 10:00 03/29/19 11:19 Anoro Ellipta 62.5-25 Mcg Inh IH 1 puff DAILY VEENA Administration ASSESSMENT/PLAN: Right Pneumothorax Adenocarcinoma of the lung Atherosclerotic cardiac disease COPD Interstitial lung disease History of HTN History of HLD --CT reviewed with questionable mediastinal lymphadenopathy --Would benefit from PET scan for assessment as this would change staging --CT Surgery consult --Pending above workup may change surgery vs. surgery + adjuvant therapy Case discussed with Dr. Bri Phipps Visit type - Emergency Visit Emergency Visit: Yes ED Registration Date: 03/28/19 Care time: The patient presented to the Emergency Department on the above date and was hospitalized for further evaluation of their emergent condition. - New Patient This patient is new to me today: Yes Date on this admission: 03/29/19 - Critical Care Critical Care patient: No ATTENDING PHYSICIAN STATEMENT I saw and evaluated the patient. I reviewed the resident's note and discussed the case with the resident. I agree with the resident's findings and plan as documented. SUBJECTIVE: OBJECTIVE: ASSESSMENT AND PLAN:
[2019-03-29] MEDS ORDERED: PIRFENIDONE 801 MG PO SCH (14:00)
--- NOTE | 2019-03-29 14:18 | EKG ---
Test Reason : Blood Pressure : / mmHG Vent. Rate : 073 BPM Atrial Rate : 073 BPM P-R Int : 144 ms QRS Dur : 138 ms QT Int : 454 ms P-R-T Axes : -19 198 022 degrees QTc Int : 500 ms NORMAL SINUS RHYTHM RIGHT BUNDLE BRANCH BLOCK , PLUS RIGHT VENTRICULAR HYPERTROPHY LATERAL INFARCT (CITED ON OR BEFORE 02-JUL-2018) ABNORMAL ECG WHEN COMPARED WITH ECG OF 02-JUL-2018 21:56, CRITERIA FOR INFERIOR INFARCT ARE NO LONGER PRESENT QUESTIONABLE CHANGE IN INITIAL FORCES OF LATERAL LEADS Confirmed by MUNIR THACKER MD ([id number]) on 03/29/2019 2:17:52 PM Referred By: Confirmed By:MUNIR THACKER MD
[2019-03-29 18:32] VITALS: TEMP 99
--- NOTE | 2019-03-29 21:39 | PN ---
Teaching Attending Note Name of Resident: Owen Phipps ATTENDING PHYSICIAN STATEMENT I saw and evaluated the patient. I reviewed the resident's note and discussed the case with the resident. I agree with the resident's findings and plan as documented. ASSESSMENT AND PLAN: Right Pneumothorax s/p bx of RUL nodular lesions Adenocarcinoma of the lung + TTF1,?? pleomorphic/ sarcomatoid variant Atherosclerotic cardiac disease COPD Interstitial lung disease History of HTN History of HLD 3cm RUL nodular lesion ---pneumothorax s/p biopsy reportedly had PET in 01/25 which was neg. for distant mets needs MRI brain w/ and w/o contrast when medically stabilized for staging w/u Mediastinal node sampling per CT surgery team , given nonspecific adenopathy on CT scan discussed with patient
[2019-03-29] MEDS ORDERED: ATORVASTATIN CA 20 MG TABLET (FP) PO SCH (22:00)
[2019-03-29] MEDS ORDERED: ATORVASTATIN CA 20 MG TABLET (FP) ONE (23:15)
[2019-03-29] MEDS ORDERED: METOPROLOL TARTRATE 50 MG TABLET (FP) ONE (23:16)
--- NOTE | 2019-03-29 23:35 | PN ---
Progress Note, Physician - Current Medication List Current Medications: Active Medications Albuterol/Ipratropium (Duoneb -) 1 amp NEB Q6H PRN PRN Reason: SHORTNESS OF BREATH Aspirin (Ecotrin -) 81 mg PO DAILY [facility] Last Admin: 03/29/19 10:35 Dose: 81 mg Atorvastatin Calcium (Lipitor -) 20 mg PO HS [facility] Last Admin: 03/29/19 23:28 Dose: 20 mg Clopidogrel Bisulfate (Plavix -) 75 mg PO DAILY [facility] Last Admin: 03/29/19 10:35 Dose: 75 mg Heparin Sodium (Porcine) (Heparin -) 5,000 unit SQ BID [facility] Last Admin: 03/29/19 23:27 Dose: 5,000 unit Metoprolol Tartrate (Lopressor -) 50 mg PO BID [facility] Last Admin: 03/29/19 23:28 Dose: 50 mg Morphine Sulfate (Morphine Sulfate) 2 mg IVPUSH Q6H PRN PRN Reason: PAIN LEVEL 6-10 Last Admin: 03/29/19 18:55 Dose: 2 mg Non-Formulary Medication (Pirfenidone [Esbriet]) 801 mg PO TID [facility] Non-Formulary Medication (Ubidecarenone/Vit E Acet [Co Q-10 100 Mg Softgel]) 2 each PO DAILY [facility] Pantoprazole Sodium (Protonix -) 40 mg PO DAILY [facility] Last Admin: 03/29/19 10:35 Dose: 40 mg Umeclidinium/Vilanterol (Anoro Ellipta 62.5-25 Mcg Inh) 1 puff IH DAILY [facility] Last Admin: 03/29/19 11:19 Dose: 1 puff - Objective Vital Signs: Vital Signs Temperature 99 F 03/29/19 18:00 Pulse Rate 78 03/29/19 23:25 Respiratory Rate 16 03/29/19 23:25 Blood Pressure 122/89 03/29/19 23:25 O2 Sat by Pulse Oximetry (%) 98 03/29/19 23:25 Labs: CBC, BMP 03/29/19 06:05 03/29/19 06:05 INR, PTT INR 1.14 (0.83-1.09) H 03/28/19 15:45 Problem List - Problems (1) Pneumothorax Code(s): J93.9 - PNEUMOTHORAX, UNSPECIFIED Qualifiers: Pneumothorax type: spontaneous, primary Qualified Code(s): J93.11 - Primary spontaneous pneumothorax (2) Lung cancer Code(s): C34.90 - MALIGNANT NEOPLASM OF UNSP PART OF UNSP BRONCHUS OR LUNG (3) COPD (chronic obstructive pulmonary disease) Code(s): J44.9 - CHRONIC OBSTRUCTIVE PULMONARY DISEASE, UNSPECIFIED (4) HTN (hypertension) Code(s): I10 - ESSENTIAL (PRIMARY) HYPERTENSION (5) Interstitial lung disease Code(s): J84.9 - INTERSTITIAL PULMONARY DISEASE, UNSPECIFIED
[2019-03-30] MEDS ORDERED: MORPHINE SULFATE 2 MG/ML VIAL ONE (01:51)
[2019-03-30] MEDS: MORPHINE SULFATE 2 MG/ML VIAL IVPUSH PRN (01:55)
[2019-03-30 06:05] VITALS: BP 115/80; PULSE 61
--- NOTE | 2019-03-30 09:46 | PN ---
Progress Note (short form) - Note Progress Note: THORACIC SURGERY 58 y/o male w/ PMH significant for COPD (RA day, on 2L night), interstitial pulmonary fibrosis, RUL lung CA stage 1, HTN, HLD, angina, CAD (STEMI s/p stent 2013, quadruple bypass 2015), Presents to [facility] w/ c/o sudden onset SOB and chest tightness. STAT CXR identified a RIGHT pneumothorax. A pigtail cath introduced and placed on to pleurovac suction. Repeat CXR yesterday showed complete lung re-expansion. Currently, resting in position of comfort. C/o mild incisional discomfort where tube is inserted. Denies n/v/f/c, CP, SOB or ERICKSON. Last Vital Signs Temp Pulse Resp BP Pulse Ox 99 F 61 19 115/80 99 03/29/19 18:00 03/30/19 06:03 03/30/19 06:03 03/30/19 06:03 03/30/19 06:03 Gen: alert. nad Right Chest: pigtail on wall suction Problem List - Problems (1) Pneumothorax Assessment/Plan: f/u CXR, possible place on waterseal pending results Cont medical management Surgery team to cont following Code(s): J93.9 - PNEUMOTHORAX, UNSPECIFIED Qualifiers: Pneumothorax type: spontaneous, primary Qualified Code(s): J93.11 - Primary spontaneous pneumothorax (2) Lung cancer Code(s): C34.90 - MALIGNANT NEOPLASM OF UNSP PART OF UNSP BRONCHUS OR LUNG (3) CAD (coronary artery disease) Code(s): I25.10 - ATHSCL HEART DISEASE OF [place] CORONARY ARTERY W/O ANG PCTRS (4) COPD (chronic obstructive pulmonary disease) Code(s): J44.9 - CHRONIC OBSTRUCTIVE PULMONARY DISEASE, UNSPECIFIED (5) HLD (hyperlipidemia) Code(s): E78.5 - HYPERLIPIDEMIA, UNSPECIFIED (6) HTN (hypertension) Code(s): I10 - ESSENTIAL (PRIMARY) HYPERTENSION (7) Interstitial lung disease Code(s): J84.9 - INTERSTITIAL PULMONARY DISEASE, UNSPECIFIED
--- NOTE | 2019-03-30 13:40 | PN ---
Progress Note, Physician - Current Medication List Current Medications: Active Medications Albuterol/Ipratropium (Duoneb -) 1 amp NEB Q6H PRN PRN Reason: SHORTNESS OF BREATH Aspirin (Ecotrin -) 81 mg PO DAILY [facility] Last Admin: 03/29/19 10:35 Dose: 81 mg Atorvastatin Calcium (Lipitor -) 20 mg PO HS [facility] Last Admin: 03/29/19 23:28 Dose: 20 mg Clopidogrel Bisulfate (Plavix -) 75 mg PO DAILY [facility] Last Admin: 03/29/19 10:35 Dose: 75 mg Heparin Sodium (Porcine) (Heparin -) 5,000 unit SQ BID [facility] Last Admin: 03/29/19 23:27 Dose: 5,000 unit Metoprolol Tartrate (Lopressor -) 50 mg PO BID [facility] Last Admin: 03/29/19 23:28 Dose: 50 mg Morphine Sulfate (Morphine Sulfate) 2 mg IVPUSH Q6H PRN PRN Reason: PAIN LEVEL 6-10 Last Admin: 03/30/19 01:55 Dose: 2 mg Non-Formulary Medication (Pirfenidone [Esbriet]) 801 mg PO TID [facility] Non-Formulary Medication (Ubidecarenone/Vit E Acet [Co Q-10 100 Mg Softgel]) 2 each PO DAILY [facility] Pantoprazole Sodium (Protonix -) 40 mg PO DAILY [facility] Last Admin: 03/29/19 10:35 Dose: 40 mg Umeclidinium/Vilanterol (Anoro Ellipta 62.5-25 Mcg Inh) 1 puff IH DAILY [facility] Last Admin: 03/29/19 11:19 Dose: 1 puff - Objective Vital Signs: Vital Signs Temperature 99 F 03/29/19 18:00 Pulse Rate 61 03/30/19 06:03 Respiratory Rate 19 03/30/19 06:03 Blood Pressure 115/80 03/30/19 06:03 O2 Sat by Pulse Oximetry (%) 99 03/30/19 06:03 Labs: CBC, BMP 03/29/19 06:05 03/29/19 06:05 INR, PTT INR 1.14 (0.83-1.09) H 03/28/19 15:45 Problem List - Problems (1) Acute and chronic respiratory failure Code(s): J96.20 - ACUTE AND CHR RESP FAILURE, UNSP W HYPOXIA OR HYPERCAPNIA Qualifiers: Respiratory failure complication: hypoxia Qualified Code(s): J96.21 - Acute and chronic respiratory failure with hypoxia (2) Lung cancer Code(s): C34.90 - MALIGNANT NEOPLASM OF UNSP PART OF UNSP BRONCHUS OR LUNG (3) Pneumothorax Code(s): J93.9 - PNEUMOTHORAX, UNSPECIFIED Qualifiers: Pneumothorax type: spontaneous, primary Qualified Code(s): J93.11 - Primary spontaneous pneumothorax (4) COPD (chronic obstructive pulmonary disease) Code(s): J44.9 - CHRONIC OBSTRUCTIVE PULMONARY DISEASE, UNSPECIFIED (5) HLD (hyperlipidemia) Code(s): E78.5 - HYPERLIPIDEMIA, UNSPECIFIED (6) HTN (hypertension) Code(s): I10 - ESSENTIAL (PRIMARY) HYPERTENSION (7) Interstitial lung disease Code(s): J84.9 - INTERSTITIAL PULMONARY DISEASE, UNSPECIFIED Assessment/Plan Problem List - Problems (1) Pneumonia Code(s): J18.9 - PNEUMONIA, UNSPECIFIED ORGANISM Qualifiers: Pneumonia type: due to unspecified organism Laterality: right Lung location: lower lobe of lung Qualified Code(s): J18.9 - Pneumonia, unspecified organism (2) Anemia Code(s): D64.9 - ANEMIA, UNSPECIFIED Qualifiers: Anemia type: unspecified type Qualified Code(s): D64.9 - Anemia, unspecified (3) Chronic renal insufficiency Code(s): N18.9 - CHRONIC KIDNEY DISEASE, UNSPECIFIED (4) ERICKSON (dyspnea on exertion) Code(s): R06.09 - OTHER FORMS OF DYSPNEA (5) Presence of stent in coronary artery in patient with coronary artery disease Code(s): I25.10 - ATHSCL HEART DISEASE OF [place] CORONARY ARTERY W/O ANG PCTRS; Z95.5 - PRESENCE OF CORONARY ANGIOPLASTY IMPLANT AND GRAFT (6) Retinopathy due to secondary diabetes Code(s): E13.319 - OTH DIABETES W UNSP DIABETIC RETINOPATHY W/O MACULAR EDEMA (7) SOB (shortness of breath) Code(s): R06.02 - SHORTNESS OF BREATH (8) CAD (coronary artery disease) Code(s): I25.10 - ATHSCL HEART DISEASE OF [place] CORONARY ARTERY W/O ANG PCTRS (9) COPD (chronic obstructive pulmonary disease) Code(s): J44.9 - CHRONIC OBSTRUCTIVE PULMONARY DISEASE, UNSPECIFIED (10) Diabetes mellitus Code(s): E11.9 - TYPE 2 DIABETES MELLITUS WITHOUT COMPLICATIONS (11) HLD (hyperlipidemia) Code(s): E78.5 - HYPERLIPIDEMIA, UNSPECIFIED (12) HTN (hypertension) Code(s): I10 - ESSENTIAL (PRIMARY) HYPERTENSION Assessment/Plan Rocephin / Zithromax BD TX standing and PRN Medrol Urine antigen Do not suspect Influenza No smoking was counseled Will follow Thank you. Dr Daniel
== END 2019-03-30 06:45 | disposition short-term general hospital (02) | DRG 199 ==
LOC: JER 14:36 → JERBED 15:28
PROVIDERS: ADMIT Internal Medicine; ATTEND Internal Medicine
PROC: 0W9930Z Drainage of Right Pleural Cavity with Drainage Device, Percutaneous Approach (ICD-10-PCS; principal; 2019-03-30)
DX: J93.9 Pneumothorax, unspecified (principal); J96.21 Acute and chronic respiratory failure with hypoxia; J84.9 Interstitial pulmonary disease, unspecified; C34.90 Malignant neoplasm of unspecified part of unspecified bronchus or lung; J44.9 Chronic obstructive pulmonary disease, unspecified; E78.5 Hyperlipidemia, unspecified; I10 Essential (primary) hypertension; I25.10 Atherosclerotic heart disease of native coronary artery without angina pectoris; J84.10 Pulmonary fibrosis, unspecified; Z95.1 Presence of aortocoronary bypass graft; K21.9 Gastro-esophageal reflux disease without esophagitis
CPT/HCPCS: 36415; 36600; 71045-TC-FY; 71250-TC; 80053; 82375; 82550; 82553; 82803; 83050; 83880; 84484; 85025; 85610; 85730; 93005; 93010; 99285-25; J1644

== ENCOUNTER 2019-08-24 09:14 | Inpatient (IN) | payer OTHER ==
--- NOTE | 2019-08-24 09:52 | PDOC ---
History of Present Illness - General Chief Complaint: Back Pain Stated Complaint: BACK PAIN Time Seen by Provider: 08/24/19 09:29 - History of Present Illness Initial Comments: Cali Castro is a 58 y/o male with PMH significant for COPD, CAD, ILD, Stage 3 lung CA s/p chemo, currently on radiation, presenting today with back pain. Reports that he was recently diagnosed with lung CA, seen for chemotherapy with Dr. Gregory, and started radiation therapy a couple weeks ago. Reports that he has had chronic lower back pain, but on Tuesday started having severe lower and upper back pain. Reports that this is exacerbated with movement. Pain is usually in the right lower and left lower back with intermittent radiation to the upper back. No fall or trauma to the back. No fever. No chills. No chest pain. Chronically short of breath. No abd pain. No dysuria/diarrhea. No urinary or stool incontinence. At present no back pain at rest. Pain does not radiate down the legs. No weakness, numbness, tingling. Past History - Medical History Allergies/Adverse Reactions: Allergies Allergy/AdvReac Type Severity Reaction Status Date / Time No Known Allergies Allergy Verified 08/24/19 09:30 Home Medications: Ambulatory Orders Acetaminophen W/ Codeine #3 [Tylenol # 3 -] 1 - 2 tab PO Q4H 08/24/19 Aspirin 81 mg PO HS 08/24/19 Atorvastatin Ca [Lipitor] 20 mg PO HS 08/24/19 Cyclobenzaprine HCl [Flexeril -] 10 mg PO TID 08/24/19 Metoprolol Tartrate 50 mg PO BID 08/24/19 Pantoprazole Sodium [Protonix] 40 mg PO BID 08/24/19 Prednisone 10 mg PO DAILY 08/24/19 Anemia: No Asthma: No Cancer: (Yes; Lung CA -stage 2) Cardiac Disorders: Yes ([place] 04/06/13 with stent, quadruple bypass 2015 ([facility])) CVA: No COPD: No CHF: Yes Dementia: No Diabetes: No GI Disorders: Yes (GERD) Disorders: No HTN: Yes Hypercholesterolemia: Yes Liver Disease: No Seizures: No Thyroid Disease: No Lung CA: Yes (RIGHT) - Surgical History Abdominal Surgery: No Appendectomy: No Cardiac Surgery: Yes (05/2013-CABG 1 stent, angioplasty, yp2015) Cholecystectomy: No Lung Surgery: No Neurologic Surgery: No Orthopedic Surgery: Yes (1989 Fractured Ankle) - Immunization History Immunization Up to Date: Yes - Psycho-Social/Smoking History Smoking History: Former smoker Have you smoked in the past 12 months: No Number of Cigarettes Smoked Daily: 20 If you are a former smoker, when did you quit?: 2013 Information on smoking cessation initiated: No - Substance Abuse Hx (Audit-C & DAST Scrn) How often the patient has a drink containing alcohol: Never Score: In Men: 4 or > Positive; In Women: 3 or > Positive: 0 Screen Result (Pos requires Nsg. Audit-10AR): Negative In the last yr the pt used illegal drug/Rx for NonMed reason: No Score: Yes response is considered Positive: 0 Screen Result (Positive result requires Nsg. DAST-10): Negative Review of Systems - Review of Systems Comments:: GENERAL/CONSTITUTIONAL: No fever or chills. No weakness._ HEAD, EYES, EARS, NOSE AND THROAT: No change in vision. No change in hearing. No sore throat._ CARDIOVASCULAR: No chest pain or shortness of breath_ RESPIRATORY: Denies cough, hemoptysis_ GASTROINTESTINAL: No nausea, vomiting, diarrhea or constipation._ GENITOURINARY: No dysuria, frequency, or change in urination._ MUSCULOSKELETAL: No joint or muscle swelling or pain. No neck. Reports back pain. SKIN: No rash_ NEUROLOGIC: No headache, vertigo, loss of consciousness, or change in strength/sensation._ ENDOCRINE: No increased thirst. No abnormal weight change_ HEMATOLOGIC/LYMPHATIC: No anemia, easy bleeding, or history of blood clots._ ALLERGIC/IMMUNOLOGIC: No hives or skin allergy._ *Physical Exam - Vital Signs Last Vital Signs Temp Pulse Resp BP Pulse Ox 98.2 F 100 H 18 118/80 97 08/24/19 09:30 08/24/19 09:30 08/24/19 09:30 08/24/19 09:30 08/24/19 09:30 - Physical Exam GENERAL: Awake, alert, and oriented to person/place/time, in no acute distress_ HEAD: No signs of trauma, normocephalic, atraumatic _ EYES: PERRLA, EOMI, sclera anicteric, conjunctiva clear_ ENT: Hearing grossly normal, nares patent, oropharynx clear without exudates. No uvular deviation. Moist mucosa_ NECK: Normal ROM, supple, no lymphadenopathy, JVD, or masses_ LUNGS: No distress, speaks in full sentences, clear to auscultation bilaterally _ HEART: Tachycardic, regular rhythm, normal S1 and S2, no murmurs appreciated, peripheral pulses normal and equal bilaterally._ ABDOMEN: Soft, nontender, normoactive bowel sounds. No guarding, no rebound. No masses_ EXTREMITIES: Normal inspection, Normal range of motion, no edema. No clubbing or cyanosis_ BACK: No c-spine, T-spine, or L-spine TTP. No obvious bruising or trauma. Negative straight leg test. NEUROLOGICAL: Cranial nerves II through XII grossly intact. Normal speech, normal gait. No loss of sensation in the bilateral lower extremities. 5/5 strength hip flexion/extension, knee flexion/extension, and ankle dorsi and plantar flexion in bilateral lower extremities. 2+ DP/PT pulses intact bilaterally. SKIN: Warm, Dry, normal turgor, no rashes or lesions noted_ ED Treatment Course - LABORATORY CBC & Chemistry Diagram: 08/24/19 13:00 08/24/19 13:00 Medical Decision Making - Medical Decision Making 08/24/19 10:01 58M hx of recently diagnosed stage III lung CA presenting with worsening back pain since Tuesday. No infectious symptoms. No acute neuro findings. DDx includes MSK back pain vs spine mets from primary CA. -CT thoracic and lumbar spine -lidoderm patch -percocet 08/24/19 12:42 D/w Dr. Hutchinson. Concern for compression fx T12 and possible spinal cord involvement. Will obtain MRI and neurosurgery consult. 08/24/19 12:54 EKG shows 101 bpm, sinus tachycardia, RBBB (seen on prior EKG June 2019), no ST elevation, QTc 495, normal axis. 08/24/19 12:56 D/w Dr. Gregory oncology who agrees with plan. 08/24/19 13:04 D/w Dr. Soler who accepts the patient for admission. 08/24/19 13:30 D/w Dr. Borges neurosurgery who is aware of this patient. 08/24/19 16:30 Called by MRI techs. Unable to perform MRI 2/2 pt body habitus (kyphosis). Dr. Borges aware. Prior to MRI Pt given 2 mg valium IV for anxiolysis. Discharge - Discharge Information Problems reviewed: Yes Clinical Impression/Diagnosis: Compression fracture of T12 vertebra Qualifiers: Encounter type: initial encounter Qualified Code(s): S22.080A - Wedge magui maria victoria fracture of T11-T12 vertebra, initial encounter for closed fracture Condition: Guarded - Admission Yes - Follow up/Referral - Patient Discharge Instructions - Post Discharge Activity
[2019-08-24] MEDS ORDERED: LIDOCAINE 5% TOPICAL PATCH TP ONE (10:06)
[2019-08-24] MEDS ORDERED: LIDOCAINE 5% TOPICAL PATCH ONE (11:00)
[2019-08-24 13:13] LABS: BASO % 0.2 % (0-2.0); EOS % 0.5 % (0-4.5); HEMATOCRIT 35.7 % (35.4-49); HEMOGLOBIN 12.4 GM/dL (11.7-16.9); LYMPH % 2.3 % (8-40); MCH 31.5 pg (25.7-33.7); MCHC 34.7 g/dl (32.0-35.9); MEAN CELL VOLUME 90.8 fl (80-96); MONO % 13.4 % (3.8-10.2); NEUT % 83.6 % (42.8-82.8); PLATELET COUNT 121 K/MM3 (134-434); RBC 3.93 M/mm3 (4.00-5.60); RDW 17.3 % (11.9-15.9); WHITE BLOOD COUNT 6.3 K/mm3 (4.0-10.0)
--- NOTE | 2019-08-24 13:15 | PDOC ---
Documentation entered by Hugo Howard SCRIBE, acting as scribe for Peter Dc MD. Peter Dc MD: This documentation has been prepared by the Lee reyna Nirvannie, SCRIBE, under my direction and personally reviewed by me in its entirety. I confirm that the documentation accurately reflects all work, treatment, procedures, and medical decision making performed by me. Attending Attestation - Resident Resident Name: Tommy Spangler - ED Attending Attestation I have performed the following: I have examined & evaluated the patient, The case was reviewed & discussed with the resident, I agree w/resident's findings & plan, Exceptions are as noted - HPI HPI: 08/24/19 11:07 The patient is a 58 year old male with a significant past ,medical history of COPD (chronic SOB), CAD, ILD, Stage 3 lung CA (s/p chemo, currently on radiation with Dr. Gregory) who presents to the ED with 5 days of acute on chronic lower back pain. As per patient, his chronic back pain was acutely exacerbated 5 days ago worsened with movement and radiating to the upper back. He denies any recent trauma to the back. He denies any weakness, numbness, or weight loss. Allergies: NKDA - Physicial Exam PE: 08/24/19 13:09 Vitals: Triage Vital signs reviewed General Appearance: No acute distress, well nourished well developed, Head: Atraumatic, Neck: Supple; no Nucal rigidity Chest Wall: Nontender Cardiac: Regular rate and rhythym, no murmurs, no rubs, no gallops, Lungs: Clear to auscultation bilateral, good air movement bilaterally, Abdomen: Soft, non distended, normal bowel sounds, non tender to palpation Musculoskeletal: Midline tenderness to palpation T11-L1 Extremities: Full range of motion to all extremities, no cyanosis, clubbing, or edema Skin: Warm and dry, no rashes or lesions, no rash, no petechiae Neuro: AOX3; cranial Nerves 2-12 grossly intact, strength intact to all extremities, sensation intact to all extremities, gait normal Psych: Normal mood, normal affect 08/24/19 13:15 - Medical Decision Making 08/24/19 13:09 58-year-old male stage III lung cancer on chemo acute on chronic back pain despite medication treatment at home pain medications ordered in ED sent to CAT scan for further evaluation received call from radiologist which demonstrates a T12 compression fracture likely secondary to underlying metastasis recommends MRI Will admit to medicine for further management. Heart Score/ECG Review - ECG Impressions Comment:: 08/24/19 13:15 EKG performed at 1255 demonstrates sinus tachycardia right bundle branch block ventricular hypertrophy no ST elevations Discharge - Discharge Information Problems reviewed: Yes Clinical Impression/Diagnosis: Compression fracture of T12 vertebra Qualifiers: Encounter type: initial encounter Qualified Code(s): S22.080A - Wedge compression fracture of T11-T12 vertebra, initial encounter for closed fracture Condition: Guarded - Admission Yes - Follow up/Referral - Patient Discharge Instructions - Post Discharge Activity
[2019-08-24 13:20] LABS: INR 1.04 (0.83-1.09); PROTHROMBIN TIME (PATIENT) 12.3 SEC (9.7-13.0)
[2019-08-24 13:23] LABS: ACTIVATED PTT 30.1 SECONDS (25.2-36.5)
[2019-08-24 13:39] LABS: ALBUMIN 3.4 g/dl (3.4-5.0); BILIRUBIN,TOTAL 0.5 mg/dL (0.2-1); BLOOD UREA NITROGEN 19.1 mg/dL (7-18); CALCIUM 9.7 mg/dL (8.5-10.1); TOT PROT 6.6 g/dl (6.4-8.2)
[2019-08-24] MEDS ORDERED: diazePAM 5 MG TABLET PO ONE (14:49)
[2019-08-24] MEDS ORDERED: diazePAM CARPU-JECT 10 MG/2 ML DISP.SYRIN IVPUSH ONE (14:50)
[2019-08-24] MEDS ORDERED: diazePAM CARPU-JECT 10 MG/2 ML DISP.SYRIN ONE (14:52)
--- NOTE | 2019-08-24 17:17 | PN ---
Progress Note (short form) - Note Progress Note: NEUROSURGERY CONSULT DICTATED Pt examined History obtained CT T and LS spine reviewed 3 week h/o worsening mid and low back pain; no weakness/numbness/tingling LE or sphinchter dysfunction PE: AF, VSS General- unremarkable CN- intact; Motor- 5/5 b UE/LE; Sensation- intact LT; DTR- 2+; Back- tender over TL junction R > L T/LS spine CT (prelim)- osteopenia; T11 vertebral fx with kyphosis and mild sup endplate retropulsion Lung CA (NSC) on chemo and RT Osteoporosis (steroid related) vs metastatic vertebral involvement Needs T spine MRI with indira to r/o pathological fx/met : Unable to tolerate [facility] closed MRI Neurosurgical intervention not recommended TLSO brace for immobilization when OOB, though may be poorly tolerated due to COPD/ILD; pt will consider trying it but is thinking about it Vertebroplasty a possibility though adjacent level fx incidence could increase and canal could be further compromise by possible cement leak Pros and cons of tx approaches discussed All questions answered
[2019-08-24] MEDS: LIDOCAINE PATCH REMOVAL MC SCH ×2 (21:34→21:39)
[2019-08-24] MEDS ORDERED: ACETAMINOPHEN 325 MG TABLET (FP) PO PRN (22:32)
[2019-08-24] MEDS ORDERED: ASPIRIN 81 MG CHEWABLE TABLETS ONE (22:55)
[2019-08-24] MEDS: ASPIRIN 81 MG CHEWABLE TABLETS PO SCH (22:56)
[2019-08-24] MEDS: METOPROLOL TARTRATE 50 MG TABLET (FP) PO SCH (22:56)
[2019-08-24] MEDS: oxyCODONE HCL 5 MG TABLET PO PRN (22:59)
[2019-08-24] MEDS: ATORVASTATIN CA 20 MG TABLET (FP) PO SCH (22:59)
[2019-08-25] MEDS: CYCLOBENZAPRINE HCL 10 MG TABLET (FP) PO SCH ×3 (05:49→22:22)
[2019-08-25 07:54] LABS: BASO % 0.5 % (0-2.0); EOS % 1.9 % (0-4.5); HEMATOCRIT 35.1 % (35.4-49); MCH 30.9 pg (25.7-33.7); MCHC 34.2 g/dl (32.0-35.9); MEAN CELL VOLUME 90.2 fl (80-96); MONO % 17.2 % (3.8-10.2); NEUT % 72.4 % (42.8-82.8); PLATELET COUNT 125 K/MM3 (134-434); RBC 3.89 M/mm3 (4.00-5.60); RDW 17.5 % (11.9-15.9)
[2019-08-25 08:21] LABS: ALBUMIN 3.2 g/dl (3.4-5.0); CALCIUM 9.6 mg/dL (8.5-10.1)
[2019-08-25 08:36] LABS: BILIRUBIN,TOTAL 0.7 mg/dL (0.2-1); TOT PROT 6.4 g/dl (6.4-8.2)
--- NOTE | 2019-08-25 08:44 | CONSULT ---
Consult - text type - Consultation Consultation Note: Cali Castro is a 58 y/o male with PMH significant for COPD, CAD, ILD, Stage IIIC lung CA s/p RT 08/21, presenting today with back pain. Reports that he has had chronic lower back pain, but on Tuesday started having severe lower and upper back pain. Reports that this is exacerbated with movement. Pain is usually in the right lower and left lower back with intermittent radiation to the upper back. No fall or trauma to the back. No fever. No chills. No chest pain. Chronically short of breath. No abd pain. No dysuria/diarrhea. No urinary or stool incontinence. At present no back pain at rest. Pain does not radiate down the legs. No weakness, numbness, tingling. Past History - Medical History Allergies/Adverse Reactions: Allergies Allergy/AdvReac Type Severity Reaction Status Date / Time No Known Allergies Allergy Verified 08/24/19 09:30 Home Medications: Ambulatory Orders Acetaminophen W/ Codeine #3 [Tylenol # 3 -] 1 - 2 tab PO Q4H 08/24/19 Aspirin 81 mg PO HS 08/24/19 Atorvastatin Ca [Lipitor] 20 mg PO HS 08/24/19 Cyclobenzaprine HCl [Flexeril -] 10 mg PO TID 08/24/19 Metoprolol Tartrate 50 mg PO BID 08/24/19 Pantoprazole Sodium [Protonix] 40 mg PO BID 08/24/19 Prednisone 10 mg PO DAILY 08/24/19 PMH Cancer: (Yes; Lung CA -stage IIIC) Cardiac Disorders: Yes ([place] 04/06/13 with stent, quadruple bypass 2015 ([facility])) CHF: Yes GI Disorders: Yes (GERD) HTN: Yes Hypercholesterolemia: Yes Lung CA: Yes (RIGHT) - Surgical History Cardiac Surgery: Yes (05/2013-CABG 1 stent, angioplasty, 4bypass 2015) Orthopedic Surgery: Yes (1989 Fractured Ankle) - Immunization History Immunization Up to Date: Yes - Psycho-Social/Smoking History Smoking History: Former smoker *Physical Exam - Vital Signs Last Vital Signs Temp Pulse Resp BP Pulse Ox 98.2 F 100 H 18 118/80 97 08/24/19 09:30 08/24/19 09:30 08/24/19 09:30 08/24/19 09:30 07/17/20 09:30 - Physical Exam Cor: RSR, No murmurs, No gallops Lungs: Crackles at bases Abd: Soft, Normal bowel sounds, No organomegaly Ext:No significant edema Skin: No rashes, Integument intact A/P 58M hx of 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 T/LS spine CT (prelim)- osteopenia; T11 vertebral fx with kyphosis and mild sup endplate retropulsion Osteoporosis (steroid related) vs metastatic vertebral involvement Needs T spine MRI with indira to r/o pathological fx/met : Unable to tolerate closed MRI. Will schedule outpatient Neurosurgical intervention not recommended TLSO brace for immobilization per neurosurgery Vertebroplasty --will discuss with IR Tylenol/flexeril systemic therapy f/u liquid biopsy will follow
[2019-08-25] MEDS ORDERED: ACETAMINOPHEN 325 MG TABLET (FP) PO PRN (09:05)
[2019-08-25] MEDS: oxyCODONE HCL 5 MG TABLET PO PRN (09:16)
[2019-08-25] MEDS: PANTOPRAZOLE 40 MG TABLET PO SCH (09:16)
[2019-08-25] MEDS: predniSONE 10 MG TABLET (UD) PO SCH (09:17)
[2019-08-25] MEDS: METOPROLOL TARTRATE 50 MG TABLET (FP) PO SCH ×2 (09:17→22:22)
--- NOTE | 2019-08-25 09:34 | PN ---
Progress Note (short form) - Note Progress Note: NEUROSURGERY 3 week h/o worsening mid and low back pain; no weakness/numbness/tingling LE or sphinchter dysfunction PE: Tmax 99, AF, VSS General- unremarkable CN- intact; Motor- 5/5 b UE/LE; Sensation- intact LT; DTR- 2+; Back- tender over TL junction R > L T/LS spine CT (prelim)- osteopenia; T11 vertebral fx with kyphosis and mild sup endplate retropulsion Lung CA (NSC) on chemo and RT Osteoporosis (steroid related?) vs metastatic vertebral involvement Needs T spine MRI with indira to r/o pathological fx/met : Unable to tolerate [facility] closed MRI, possible outpatient open MRI Neurosurgical intervention not recommended TLSO brace for immobilization when OOB, though may be poorly tolerated due to COPD/ILD; pt decided to try it; please order from central supply a large TLSO Vertebroplasty also possibility though adjacent level fx incidence could increase and canal could be further compromise by possible cement leak Pros and cons of tx approaches discussed Bowel regimen as pt is on narotic painkillers All questions answered
[2019-08-25 09:58] LABS: ANISOCYTOSIS 1+; PLATELET ESTIMATE DECREASED
[2019-08-25] MEDS: UMECLIDINIUM/VILANTEROL (ANORO) 62.5/25 MCG INHALER IH SCH (13:02)
--- NOTE | 2019-08-25 14:07 | CON.PULM ---
Consult Consult Specialty:: PULM/CCM Referred by:: FIDE Reason for Consultation:: COPD - History of Present Illness Chief Complaint: LBP History of Present Illness: 58 M, COPD on home O2, CAD, ILD, and Stage 3 lung CA (chemo/radiation). Admitted via the ER due to 5 days of acute on chronic lower back pain. Pain seems worsened with movement and radiation to the upper back. He denies any recent trauma to the back. He denies any weakness, numbness, or weight loss. He does report some chronic ERICKSON. - History Source History Provided By: Patient Limitations to Obtaining History: No Limitations - Past Medical History Cardio/Vascular: Yes: CAD, HTN, Hyperlipdemia, [place] Pulmonary: Yes: COPD, O2 Dependent, Pulmonary Fibrosis, Other (Post biopsy pneumothorax) Gastrointestinal: Yes: GERD - Past Surgical History Past Surgical History: Yes: CABG, Hernia Repair, Tonsillectomy - Alcohol/Substance Use Hx Alcohol Use: No History of Substance Use: reports: None - Smoking History Smoking history: Former smoker Have you smoked in the past 12 months: No Aproximately how many cigarettes per day: 20 If you are a former smoker, when did you quit?: 2013 - Social History Usual Living Arrangement: With Spouse 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[place], [place]) History of Recent Travel: No Home Medications - Allergies Allergies/Adverse Reactions: Allergies Allergy/AdvReac Type Severity Reaction Status Date / Time No Known Allergies Allergy Verified 08/24/19 09:30 - Home Medications Home Medications: Ambulatory Orders Acetaminophen W/ Codeine #3 [Tylenol # 3 -] 1 - 2 tab PO Q4H 08/24/19 Aspirin 81 mg PO HS 08/24/19 Atorvastatin Ca [Lipitor] 20 mg PO HS 08/24/19 Cyclobenzaprine HCl [Flexeril -] 10 mg PO TID 08/24/19 Metoprolol Tartrate 50 mg PO BID 08/24/19 Pantoprazole Sodium [Protonix] 40 mg PO BID 08/24/19 Prednisone 10 mg PO DAILY 08/24/19 Review of Systems - Review of Systems Constitutional: reports: Malaise. denies: Chills, Fever, Night Sweats Eyes: reports: No Symptoms HENT: reports: No Symptoms Neck: reports: Decreased ROM, Pain on Movement, Stiffness Cardiovascular: reports: Shortness of Breath. denies: Chest Pain, Edema, Palpitations Respiratory: reports: Cough, SOB, SOB on Exertion. denies: Snoring, Wheezing Gastrointestinal: reports: No Symptoms Genitourinary: reports: No Symptoms Breasts: reports: No Symptoms Reported Musculoskeletal: reports: Back Pain, Decreased ROM, Extremity Pain, Joint Pain, Joint Swelling, Muscle Cramps, Muscle Weakness Integumentary: reports: No Symptoms Neurological: reports: No Symptoms Endocrine: reports: No Symptoms Hematology/Lymphatic: reports: No Symptoms Psychiatric: reports: No Symptoms Physical Exam Vital Sings: Vital Signs Temperature 97.8 F 08/25/19 09:00 Pulse Rate 118 H 08/25/19 09:00 Respiratory Rate 20 08/25/19 09:00 Blood Pressure 107/66 08/25/19 09:00 O2 Sat by Pulse Oximetry (%) 91 L 08/25/19 09:00 Constitutional: Yes: No Distress Eyes: Yes: Conjunctiva Clear, EOM Intact HENT: Yes: Atraumatic, Normocephalic Neck: Yes: Supple, Trachea Midline Cardiovascular: Yes: Regular Rate and Rhythm Respiratory: Yes: Cough, Diminished, Rhonchi, SOB on Exertion. No: Accessory Muscle Use, Rales, SOB, Stridor, Tachypnea, Wheezes ...Inspection: Yes: WNL ...Clubbing: No Gastrointestinal: Yes: Normal Bowel Sounds, Soft Renal/: Yes: WNL Musculoskeletal: Yes: WNL Extremities: Yes: WNL Edema: No Peripheral Pulses WNL: Yes Integumentary: Yes: WNL Neurological: Yes: WNL, Alert, Oriented ...Motor Strength: WNL Psychiatric: Yes: WNL, Alert, Oriented Labs: CBC, BMP 08/25/19 07:05 08/25/19 07:05 Imaging - Results Chest X-ray: Report Reviewed, Image Reviewed Problem List - Problems (1) Chronic respiratory failure Code(s): J96.10 - CHRONIC RESPIRATORY FAILURE, UNSP W HYPOXIA OR HYPERCAPNIA (2) Compression fracture of T12 vertebra Code(s): S22.080A - WEDGE COMPRESSION FRACTURE OF T11-T12 VERTEBRA, INIT Qualifiers: Encounter type: initial encounter Qualified Code(s): S22.080A - Wedge compression fracture of T11-T12 vertebra, initial encounter for closed fracture (3) CAD (coronary artery disease) Code(s): I25.10 - ATHSCL HEART DISEASE OF [place] CORONARY ARTERY W/O ANG PCTRS (4) COPD (chronic obstructive pulmonary disease) Code(s): J44.9 - CHRONIC OBSTRUCTIVE PULMONARY DISEASE, UNSPECIFIED (5) HLD (hyperlipidemia) Code(s): E78.5 - HYPERLIPIDEMIA, UNSPECIFIED (6) HTN (hypertension) Code(s): I10 - ESSENTIAL (PRIMARY) HYPERTENSION (7) Interstitial lung disease Code(s): J84.9 - INTERSTITIAL PULMONARY DISEASE, UNSPECIFIED (8) Lung cancer Code(s): C34.90 - MALIGNANT NEOPLASM OF UNSP PART OF UNSP BRONCHUS OR LUNG Assessment/Plan Supplemental O2 as needed Noted Prednisone 10mg OD BD TX PRN Back pain workup per Neurosurgery VTE prophylaxis Anoro OD No smoking Will follow Thank you. Dr Dnaiel
--- NOTE | 2019-08-25 15:06 | EKG ---
Test Reason : Blood Pressure : / mmHG Vent. Rate : 101 BPM Atrial Rate : 101 BPM P-R Int : 120 ms QRS Dur : 138 ms QT Int : 382 ms P-R-T Axes : 017 179 -07 degrees QTc Int : 495 ms SINUS TACHYCARDIA INDETERMINATE AXIS RIGHT BUNDLE BRANCH BLOCK , PLUS RIGHT VENTRICULAR HYPERTROPHY POSSIBLE LATERAL INFARCT (CITED ON OR BEFORE 02-JUL-2018) ABNORMAL ECG WHEN COMPARED WITH ECG OF 07-JUL-2019 00:28, CRITERIA FOR INFERIOR INFARCT ARE NO LONGER PRESENT QUESTIONABLE CHANGE IN INITIAL FORCES OF LATERAL LEADS T WAVE INVERSION NOW EVIDENT IN INFERIOR LEADS T WAVE INVERSION NO LONGER EVIDENT IN LATERAL LEADS Confirmed by GIANNA BROWN MD ([id number]) on 08/25/2019 3:05:46 PM Referred By: Confirmed By:GIANNA BROWN MD
--- NOTE | 2019-08-25 15:42 | HP ---
Admitting History and Physical - Admission History of Present Illness: Pt is a 58 y/o male with PMH significant for COPD, HTN, HLD, CAD, [place](S/P cardiac stents/CABG), COPD, ILD, Stage IIIC lung CA(s/p RT 08/22/19), GERD presenting to ER w/ back pain. Reports that he has had chronic lower back pain, but on Tuesday started having increased severe lower and upper back pain. Reports that this is exacerbated with movement. Pain is in the right lower and left lower back with intermittent radiation to the upper back. No fall or trauma to the back. 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[place], [place]) History of Recent Travel: No Home Medications - Allergies Allergies/Adverse Reactions: Allergies Allergy/AdvReac Type Severity Reaction Status Date / Time No Known Allergies Allergy Verified 08/24/19 09:30 - Home Medications Home Medications: Ambulatory Orders Acetaminophen W/ Codeine #3 [Tylenol # 3 -] 1 - 2 tab PO Q4H 08/24/19 Aspirin 81 mg PO HS 08/24/19 Atorvastatin Ca [Lipitor] 20 mg PO HS 08/24/19 Cyclobenzaprine HCl [Flexeril -] 10 mg PO TID 08/24/19 Metoprolol Tartrate 50 mg PO BID 08/24/19 Pantoprazole Sodium [Protonix] 40 mg PO BID 08/24/19 Prednisone 10 mg PO DAILY 08/24/19 Family Medical History Family History: Unremarkable Review of Systems - Review of Systems Constitutional: reports: No Symptoms Eyes: reports: No Symptoms HENT: reports: No Symptoms Neck: reports: No Symptoms Cardiovascular: reports: Shortness of Breath Respiratory: reports: SOB Gastrointestinal: reports: No Symptoms Genitourinary: reports: No Symptoms Physical Examination Vital Signs: Vital Signs Temperature 97.8 F 08/25/19 09:00 Pulse Rate 118 H 08/25/19 09:00 Respiratory Rate 20 08/25/19 09:00 Blood Pressure 107/66 08/25/19 09:00 O2 Sat by Pulse Oximetry (%) 91 L 08/25/19 09:00 Constitutional: Yes: Anxious Eyes: Yes: WNL HENT: Yes: WNL Neck: Yes: WNL, Supple Cardiovascular: Yes: WNL, Regular Rate and Rhythm Respiratory: Yes: Diminished Gastrointestinal: Yes: WNL, Normal Bowel Sounds, Soft Edema: No Neurological: Yes: WNL, Alert, Oriented ...Motor Strength: WNL Labs: CBC, BMP 08/25/19 07:05 08/25/19 07:05 Problem List - Problems (1) Vertebral fracture Assessment/Plan: NSG consult noted No surgical intervention at this time Spoke to pt at length about STR however pt refuses TLSO brace ordered however pt has not worn yet PT eval Pain management consult Cont lidocaine patch/oxycodone Code(s): [id number] - (2) Lung cancer Assessment/Plan: Stage IIIC S/P RT As per onco Code(s): C34.90 - MALIGNANT NEOPLASM OF UNSP PART OF UNSP BRONCHUS OR LUNG (3) COPD (chronic obstructive pulmonary disease) Assessment/Plan: Pulmonary consult noted Cont inhalers Code(s): J44.9 - CHRONIC OBSTRUCTIVE PULMONARY DISEASE, UNSPECIFIED (4) HLD (hyperlipidemia) Assessment/Plan: Cont lipitor Code(s): E78.5 - HYPERLIPIDEMIA, UNSPECIFIED (5) HTN (hypertension) Assessment/Plan: BP stable Cont metoprolol Code(s): I10 - ESSENTIAL (PRIMARY) HYPERTENSION (6) Interstitial lung disease Assessment/Plan: Cont prednisone? Code(s): J84.9 - INTERSTITIAL PULMONARY DISEASE, UNSPECIFIED (7) CAD (coronary artery disease) Code(s): I25.10 - ATHSCL HEART DISEASE OF [place] CORONARY ARTERY W/O ANG PCTRS
--- NOTE | 2019-08-25 16:37 | PN.HO ---
Progress Note (short form) - Note Progress Note: Cali Castro is a 58 y/o gentleman with PMH significant for COPD, CAD, ILD, Stage IIIC lung CA s/p RT 08/21, presenting today with back pain. Reports that he has had chronic lower back pain, but on Tuesday started having severe lower and upper back pain. Reports that this is exacerbated with movement. Pain is usually in the right lower and left lower back with intermittent radiation to the upper back. No fall or trauma to the back. No fever. No chills. No chest pain. Chronically short of breath. No abd pain. No dysuria/diarrhea. No urinary or stool incontinence. At present no back pain at rest. Pain does not radiate down the legs. No weakness, numbness, tingling. 08/24: Breathing at baseline. O2 at 4 L (Home 3 1/2 L). OK during interview but screaming in pain several minutes after Past History - Medical History Allergies/Adverse Reactions: Allergies Allergy/AdvReac Type Severity Reaction Status Date / Time No Known Allergies Allergy Verified 08/24/19 09:30 Home Medications: Ambulatory Orders Acetaminophen W/ Codeine #3 [Tylenol # 3 -] 1 - 2 tab PO Q4H 08/24/19 Aspirin 81 mg PO HS 08/24/19 Atorvastatin Ca [Lipitor] 20 mg PO HS 08/24/19 Cyclobenzaprine HCl [Flexeril -] 10 mg PO TID 08/24/19 Metoprolol Tartrate 50 mg PO BID 08/24/19 Pantoprazole Sodium [Protonix] 40 mg PO BID 08/24/19 Prednisone 10 mg PO DAILY 08/24/19 PMH Cancer: (Yes; Lung CA -stage IIIC) Cardiac Disorders: Yes ([place] 04/06/13 with stent, quadruple bypass 2015 ([facility])) CHF: Yes GI Disorders: Yes (GERD) HTN: Yes Hypercholesterolemia: Yes Lung CA: Yes (RIGHT) - Surgical History Cardiac Surgery: Yes (05/2013-CABG 1 stent, angioplasty, yp2015) Orthopedic Surgery: Yes (1989 Fractured Ankle) - Immunization History Immunization Up to Date: Yes - Psycho-Social/Smoking History Smoking History: Former smoker *Physical Exam - Vital Signs Last Vital Signs Temp Pulse Resp BP Pulse Ox 98.5 F 116 H 20 105/65 91 L 08/25/19 15:44 08/25/19 15:44 08/25/19 15:44 08/25/19 15:44 08/25/19 09:00 - Physical Exam Cor: RSR, No murmurs, No gallops Lungs: Crackles at bases Abd: Soft, Normal bowel sounds, No organomegaly Ext:No significant edema Skin: No rashes, Integument intact A/P 58 y/o gentleman hx of 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 T/LS spine CT (prelim)- osteopenia; T11 vertebral fx with kyphosis and mild sup endplate retropulsion Osteoporosis (steroid related) vs metastatic vertebral involvement Needs T spine MRI with indira to r/o pathological fx/met : Unable to tolerate closed MRI. Will schedule outpatient Neurosurgical intervention not recommended TLSO brace for immobilization per neurosurgery delivered Vertebroplasty --will discuss with IR 08/24: Pain management suboptimal with pt screaming at the top of his lungs in pain. Will add Morphine 1 mg IV Q4 prn pain. Will request pain management service consultation systemic therapy f/u liquid biopsy will follow
[2019-08-25] MEDS: MORPHINE SULFATE 2 MG/ML VIAL IVPUSH PRN ×2 (16:47→22:20)
[2019-08-25] MEDS: LIDOCAINE 5% TOPICAL PATCH TP SCH (16:48)
[2019-08-25] MEDS: ATORVASTATIN CA 20 MG TABLET (FP) PO SCH (22:22)
[2019-08-25] MEDS: DOCUSATE SODIUM 100 MG CAPSULE (FP) PO SCH ×2 (22:22→22:50)
[2019-08-25] MEDS: ASPIRIN 81 MG CHEWABLE TABLETS PO SCH (22:22)
[2019-08-25] MEDS: MINOCYCLINE PO SCH (22:23)
[2019-08-26] MEDS: MORPHINE SULFATE 2 MG/ML VIAL IVPUSH PRN ×4 (04:03→21:28)
[2019-08-26] MEDS: ACETAMINOPHEN 325 MG TABLET (FP) PO PRN (04:57)
[2019-08-26] MEDS: oxyCODONE HCL 5 MG TABLET PO PRN ×3 (04:58→18:39)
[2019-08-26] MEDS: LIDOCAINE PATCH REMOVAL MC SCH (05:05)
[2019-08-26] MEDS: CYCLOBENZAPRINE HCL 10 MG TABLET (FP) PO SCH ×3 (05:05→21:29)
[2019-08-26] MEDS: DOCUSATE SODIUM 100 MG CAPSULE (FP) PO SCH ×3 (05:05→21:29)
--- NOTE | 2019-08-26 08:46 | PN ---
Progress Note (short form) - Note Progress Note: NEUROSURGERY 3 week h/o worsening mid and low back pain Intermittent exacerbation Received MS and percocet which helped in combination PE: AF, VSS General- unremarkable CN- intact; Motor- 5/5 b UE/LE; Sensation- intact LT; DTR- 2+; Back- tender over TL junction R > L T/LS spine CT: osteopenia; T11 vertebral fx with kyphosis and mild sup endplate retropulsion Lung CA (NSC) on chemo and RT Osteoporosis (steroid related?) vs metastatic vertebral involvement T spine MRI with indira to r/o pathological fx/met : Unable to tolerate [facility] closed MRI earlier, possible outpatient open MRI Neurosurgical intervention not recommended TLSO brace for immobilization when OOB - large size needed Vertebroplasty also possibility though adjacent level fx incidence could increase and canal could be further compromise by possible cement leak Pros and cons of tx approaches discussed Bowel regimen as pt is on narcotic painkiller regimen can consider pain management input prn All questions answered
[2019-08-26] MEDS: UMECLIDINIUM/VILANTEROL (ANORO) 62.5/25 MCG INHALER IH SCH (10:00)
[2019-08-26] MEDS: predniSONE 10 MG TABLET (UD) PO SCH (10:15)
[2019-08-26] MEDS: METOPROLOL TARTRATE 50 MG TABLET (FP) PO SCH ×2 (10:15→21:29)
[2019-08-26] MEDS: PANTOPRAZOLE 40 MG TABLET PO SCH (10:16)
--- NOTE | 2019-08-26 13:51 | PN ---
Progress Note (short form) - Note Progress Note: Breathing feels stable. Concerned about slightly elevated HR. No CP. Denies SOB. Back pain slightly better. Intake & Output 08/23/19 08/24/19 08/25/19 08/26/19 23:59 23:59 23:59 23:59 Intake Total 390.5 210.5 Output Total 800 500 Balance -409.5 -289.5 Weight 202 lb 8 oz 202 lb 8 oz Last Vital Signs Temp Pulse Resp BP Pulse Ox 98.3 F 95 H 20 91/69 91 L 08/26/19 03:00 08/26/19 03:00 08/26/19 03:00 08/26/19 03:00 08/25/19 23:00 Active Medications Acetaminophen (Tylenol -) 325 mg PO Q6H PRN PRN Reason: PAIN LEVEL 6-10 Last Admin: 08/26/19 04:57 Dose: 325 mg Documented by: Aspirin (Asa -) 81 mg PO [facility] Last Admin: 08/25/19 22:22 Dose: 81 mg Documented by: Atorvastatin Calcium (Lipitor -) 20 mg PO [facility] Last Admin: 08/25/19 22:22 Dose: 20 mg Documented by: Cyclobenzaprine HCl (Flexeril -) 10 mg PO TID [facility] Last Admin: 08/26/19 05:05 Dose: 10 mg Documented by: Docusate Sodium (Colace -) 100 mg PO TID [facility] Last Admin: 08/26/19 05:05 Dose: 100 mg Documented by: Lidocaine (Lidoderm Patch -) 1 patch TP DAILY@1600 [facility] Last Admin: 08/25/19 16:48 Dose: 1 patch Documented by: Metoprolol Tartrate (Lopressor -) 50 mg PO BID [facility] Last Admin: 08/25/19 22:22 Dose: 50 mg Documented by: Miscellaneous (Lidoderm Patch Removal) 1 each MC DAILY@0500 [facility] Last Admin: 08/26/19 05:05 Dose: 1 each Documented by: Morphine Sulfate (Morphine Sulfate) 1 mg IVPUSH Q4H PRN PRN Reason: PAIN LEVEL 4 - 6 Last Admin: 08/26/19 04:03 Dose: 1 mg Documented by: Minocycline 75 Mg Capsule - Patient Own Med 1 each PO [facility] Last Admin: 08/25/19 22:23 Dose: 1 each Documented by: Oxycodone HCl (Roxicodone -) 5 mg PO Q6H PRN PRN Reason: PAIN LEVEL 6-10 Last Admin: 08/26/19 04:58 Dose: 5 mg Documented by: Pantoprazole Sodium (Protonix -) 40 mg PO DAILY [facility] Last Admin: 08/25/19 09:16 Dose: 40 mg Documented by: Prednisone (Deltasone -) 10 mg PO DAILY [facility] Last Admin: 08/25/19 09:17 Dose: 10 mg Documented by: Umeclidinium/Vilanterol (Anoro Ellipta 62.5-25 Mcg Inh) 1 puff IH DAILY [facility] Last Admin: 08/25/19 13:02 Dose: 1 puff Documented by: Constitutional: Yes: No Distress Eyes: Yes: Conjunctiva Clear, EOM Intact HENT: Yes: Atraumatic, Normocephalic Neck: Yes: Supple, Trachea Midline Cardiovascular: Yes: Regular Rate and Rhythm Respiratory: Yes: Cough, Diminished, Rhonchi, SOB on Exertion. No: Accessory Muscle Use, Rales, SOB, Stridor, Tachypnea, Wheezes ...Inspection: Yes: WNL ...Clubbing: No Gastrointestinal: Yes: Normal Bowel Sounds, Soft Renal/: Yes: WNL Musculoskeletal: Yes: WNL Extremities: Yes: WNL Edema: No Peripheral Pulses WNL: Yes Integumentary: Yes: WNL Neurological: Yes: WNL, Alert, Oriented ...Motor Strength: WNL Psychiatric: Yes: WNL, Alert, Oriented Labs: Laboratory Results - last 24 hr 08/24/19 08/25/19 13:00 11:48 COVID-19 ([place]) Not detected Blood Type B POSITIVE Antibody Screen Negative Imaging - Results Chest X-ray: Report Reviewed, Image Reviewed Problem List - Problems (1) Chronic respiratory failure Code(s): J96.10 - CHRONIC RESPIRATORY FAILURE, UNSP W HYPOXIA OR HYPERCAPNIA (2) Compression fracture of T12 vertebra Code(s): S22.080A - WEDGE COMPRESSION FRACTURE OF T11-T12 VERTEBRA, INIT Qualifiers: Encounter type: initial encounter Qualified Code(s): S22.080A - Wedge compression fracture of T11-T12 vertebra, initial encounter for closed fracture (3) CAD (coronary artery disease) Code(s): I25.10 - ATHSCL HEART DISEASE OF [place] CORONARY ARTERY W/O ANG PCTRS (4) COPD (chronic obstructive pulmonary disease) Code(s): J44.9 - CHRONIC OBSTRUCTIVE PULMONARY DISEASE, UNSPECIFIED (5) HLD (hyperlipidemia) Code(s): E78.5 - HYPERLIPIDEMIA, UNSPECIFIED (6) HTN (hypertension) Code(s): I10 - ESSENTIAL (PRIMARY) HYPERTENSION (7) Interstitial lung disease Code(s): J84.9 - INTERSTITIAL PULMONARY DISEASE, UNSPECIFIED (8) Lung cancer Code(s): C34.90 - MALIGNANT NEOPLASM OF UNSP PART OF UNSP BRONCHUS OR LUNG Assessment/Plan Supplemental O2 as needed Noted Prednisone 10mg OD BD TX PRN Back pain workup per Neurosurgery VTE prophylaxis Anoro OD No smoking Dr Daniel Problem List - Problems (1) Chronic respiratory failure Code(s): J96.10 - CHRONIC RESPIRATORY FAILURE, UNSP W HYPOXIA OR HYPERCAPNIA (2) Compression fracture of T12 vertebra Code(s): S22.080A - WEDGE COMPRESSION FRACTURE OF T11-T12 VERTEBRA, INIT Qualifiers: Encounter type: initial encounter Qualified Code(s): S22.080A - Wedge compression fracture of T11-T12 vertebra, initial encounter for closed fracture (3) CAD (coronary artery disease) Code(s): I25.10 - ATHSCL HEART DISEASE OF [place] CORONARY ARTERY W/O ANG PCTRS (4) COPD (chronic obstructive pulmonary disease) Code(s): J44.9 - CHRONIC OBSTRUCTIVE PULMONARY DISEASE, UNSPECIFIED (5) HLD (hyperlipidemia) Code(s): E78.5 - HYPERLIPIDEMIA, UNSPECIFIED (6) HTN (hypertension) Code(s): I10 - ESSENTIAL (PRIMARY) HYPERTENSION (7) Interstitial lung disease Code(s): J84.9 - INTERSTITIAL PULMONARY DISEASE, UNSPECIFIED (8) Lung cancer Code(s): C34.90 - MALIGNANT NEOPLASM OF UNSP PART OF UNSP BRONCHUS OR LUNG
--- NOTE | 2019-08-26 14:31 | CONS ---
DATE OF CONSULTATION: 08/24/2019 REQUESTING PHYSICIAN: Tommy Spangler MD of the Emergency Department. [employer] W[employer]ERGY INSTALLER: Carlos Borges MD, Neurosurgery CHIEF COMPLAINT: Mid and lower back pain. HISTORY OF PRESENT ILLNESS: Patient is a 58-year-old right-handed male with recently diagnosed non-small cell lung cancer who complains of a 3-week history of increasing mid and lower back pain. Approximately 3 months ago he underwent a lung biopsy for a lung lesion and developed pneumothorax subsequently. He had multiple bronchoscopic procedures done to "plug the leaks" and some of the plugs were subsequently removed. His pneumothorax has since improved. He was undergoing chemotherapy treatments for 2 sessions, and subsequently was undergoing irradiation for the lungs. During the start of radiation he started experiencing more midback pain. The pain also radiates to his lower back. It does not radiate down to the lower extremity. Pain is rated 10 on a 1-10 scale when he tries to get up. He denies any recent trauma or falls. He has been a heavy smoker for many years, and also drinks alcohol socially. He has no known history of osteoporosis. He did mention that his activity level has been significantly decreased ever since his lung cancer diagnosis and subsequent episode of the pneumothorax. Presently he denies any leg weakness, numbness and tingling and has no bowel or bladder dysfunction. His pain has gotten worse over the last couple of weeks. PAST MEDICAL HISTORY: Significant for lung CA, pneumothorax, interstitial lung disease, COPD. MEDICATIONS: Include Tylenol, Lipitor, baby aspirin, Flexeril, metoprolol, Protonix and prednisone. ALLERGIES: There is no known drug allergy. REVIEW OF SYSTEMS: Otherwise negative for major constitutional, head, neck, cardiovascular, pulmonary, gastrointestinal, genitourinary, endocrinological, neurological or psychological problem except for coronary stent 6 years ago and cardiac bypass 4 years ago as well as gastroesophageal reflux disease. PHYSICAL EXAMINATION: Vital Signs: Temperature is 98.2. Blood pressure is 118/80 with pulse rate of 100. O2 saturation is 97% on room air. HEENT: Shows him to be normocephalic, atraumatic. Anicteric. Neck: Supple with no carotid bruit. Coronary: Demonstrates a regular rhythm. Lungs: Clear bilaterally. Abdomen: Benign. Extremities: No signs of DVT. Back: Shows tenderness at the thoracolumbar junction, right greater than left. Neurologic: Shows him to have normal mental status with fluent speech. Cranial nerve examination is intact II through XII. Motor examination shows 5/5 strength in the upper and lower extremity. Sensory examination is intact to light touch. Deep tendon reflexes are 2+ throughout. There is no pathologic long tract sign. LABORATORY: Shows white blood cell count of 6.3, hemoglobin of 12.4 and platelet count is 121,000. INR is 1.04 and PTT is 30.1. Serum sodium is 139. Potassium is 4.0. BUN is 19 and creatinine 1.0. LFTs are normal except for borderline elevated AST of 50. Albumin is 3.4. COVID-[address] scan of the thoracic spine and lumbar spine was reviewed and it demonstrated diffuse osteopenia. There is multilevel spondylosis. There is a T11 vertebral fracture with approximately 50% reduction in vertebral column height and mild kyphosis. There is retropulsion of the superior cortex posteriorly into the spinal canal. This is a preliminary reading. IMPRESSION: 1. Probable acute T11 compression fracture with superior bony element retropulsion. 2. Non-small cell lung carcinoma undergoing chemotherapy and radiation. 3. Interstitial lung disease on chronic steroids. 4. Chronic obstructive pulmonary disease. 5. Hypertension. 6. Coronary artery disease. RECOMMENDATION: Patient presents with a 3-week history of increasing mid and lower back pain. He has no radiating pain down the lower extremity and has no sphincter dysfunction. There is no lower extremity weakness, numbness or tingling. His pain was predominantly right-sided. His CT scan demonstrated T11 vertebral fracture with superior bony retropulsion. An MRI of the thoracic spine with and without gadolinium is recommended to rule out metastatic disease versus osteoporotic fracture. He is likely osteoporotic because of the steroid use for his COPD/interstitial lung disease. Nutritional supplement including calcium, vitamin D3 including high protein intake is needed to help counteract some of the forces of osteoporosis. Good activity level is also needed. In the meantime, I do recommend a 3-month use of a TLSO brace whenever out of bed. The above was discussed with the patient and the patient is thinking about the pros and cons of using a brace. A brace is sometimes not well tolerated in somebody with COPD and interstitial lung disease. Vertebroplasty is also a possibility, but one will need to get an MRI first. It is my understanding that patient could not tolerate a closed MRI on site at [facility]. There is the possibility that this may be metastatic disease even though his bone scan was reportedly negative a few months ago. The above was discussed with the patient in detail at bedside in the emergency room. The pros and cons of treatment approaches were discussed and all questions were answered. CARLOS BORGES M.D. EDD/[id number]
--- NOTE | 2019-08-26 14:39 | CONSULT ---
Consult Consult Specialty:: Pain Management Reason for Consultation:: Back pain - History of Present Illness Chief Complaint: Back pain History of Present Illness: 58 yr old male with Back pain s/p Compression Fx with h/o COPD, HTN, CAD and CA lung. He is c/o back pain 0-10/10 , excruciating pain on spine mobility. He is also on o2 via nasal cannula. H was evaluated by spine Surgeon Dr. Borges . - History Source History Provided By: Patient Limitations to Obtaining History: No Limitations - Past Medical History Cardio/Vascular: Yes: CAD, HTN, Hyperlipdemia, [place] Pulmonary: Yes: COPD, O2 Dependent, Pulmonary Fibrosis, Other (Post biopsy pneumothorax) Gastrointestinal: Yes: GERD - Past Surgical History Past Surgical History: Yes: CABG, Hernia Repair, Tonsillectomy - Alcohol/Substance Use Hx Alcohol Use: No History of Substance Use: reports: None - Smoking History Smoking history: Former smoker Have you smoked in the past 12 months: No Aproximately how many cigarettes per day: 20 If you are a former smoker, when did you quit?: 2013 - Social History Usual Living Arrangement: With Spouse 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[employer] [place] History of Recent Travel: No Home Medications - Allergies Allergies/Adverse Reactions: Allergies Allergy/AdvReac Type Severity Reaction Status Date / Time No Known Allergies Allergy Verified 08/24/19 09:30 - Home Medications Home Medications: Ambulatory Orders Acetaminophen W/ Codeine #3 [Tylenol # 3 -] 1 - 2 tab PO Q4H 08/24/19 Aspirin 81 mg PO HS 08/24/19 Atorvastatin Ca [Lipitor] 20 mg PO HS 08/24/19 Cyclobenzaprine HCl [Flexeril -] 10 mg PO TID 08/24/19 Metoprolol Tartrate 50 mg PO BID 08/24/19 Pantoprazole Sodium [Protonix] 40 mg PO BID 08/24/19 Prednisone 10 mg PO DAILY 08/24/19 Review of Systems - Review of Systems Constitutional: reports: No Symptoms Eyes: reports: No Symptoms HENT: reports: No Symptoms Respiratory: reports: SOB Gastrointestinal: reports: Constipation Genitourinary: reports: No Symptoms Musculoskeletal: reports: Back Pain Neurological: reports: No Symptoms Hematology/Lymphatic: reports: No Symptoms Pain Intensity: 0 Physical Exam Vital Signs: Vital Signs Temperature 98.3 F 08/26/19 03:00 Pulse Rate 95 H 08/26/19 03:00 Respiratory Rate 20 08/26/19 03:00 Blood Pressure 91/69 08/26/19 03:00 O2 Sat by Pulse Oximetry (%) 91 L 08/25/19 23:00 Constitutional: Yes: Well Nourished Eyes: Yes: WNL HENT: Yes: WNL Neck: Yes: WNL Respiratory: Yes: On Nasal O2 Gastrointestinal: Yes: WNL Musculoskeletal: Yes: Back Pain, Other (kyphotic spine) Extremities: Yes: WNL Edema: No Neurological: Yes: WNL ...Motor Strength: WNL Labs: CBC, BMP 08/25/19 07:05 08/25/19 07:05 Current Medications Generic Name Dose Route Start Last Admin Trade Name Freq PRN Reason Stop Dose Admin Acetaminophen 325 mg 08/25/19 16:30 08/26/19 04:57 Tylenol - PO 325 mg Q6H PRN Administration PAIN LEVEL 6-10 Aspirin 81 mg 08/24/19 23:00 08/25/19 22:22 Asa - PO 81 mg HS VEENA Administration Atorvastatin Calcium 20 mg 08/24/19 23:00 08/25/19 22:22 Lipitor - PO 20 mg HS VEENA Administration Cyclobenzaprine HCl 10 mg 08/25/19 06:00 08/26/19 05:05 Flexeril - PO 10 mg TID VEENA Administration Docusate Sodium 100 mg 08/25/19 22:00 08/26/19 05:05 Colace - PO 100 mg TID VEENA Administration Lidocaine 1 patch 08/25/19 16:00 08/25/19 16:48 Lidoderm Patch - TP 1 patch DAILY@1600 VEENA Administration Metoprolol Tartrate 50 mg 08/24/19 22:30 08/25/19 22:22 Lopressor - PO 50 mg BID VEENA Administration Miscellaneous 1 each 08/26/19 05:00 08/26/19 05:05 Lidoderm Patch Removal MC 1 each DAILY@0500 VEENA Administration Morphine Sulfate 1 mg 08/25/19 16:28 08/26/19 04:03 Morphine Sulfate IVPUSH 1 mg Q4H PRN Administration PAIN LEVEL 4 - 6 Minocycline 75 Mg 1 each 08/25/19 22:00 08/25/19 22:23 Capsule - Patient PO 1 each Own Med HS VEENA Administration Oxycodone HCl 5 mg 08/25/19 16:30 08/26/19 04:58 Roxicodone - PO 5 mg Q6H PRN Administration PAIN LEVEL 6-10 Pantoprazole Sodium 40 mg 08/25/19 10:00 08/25/19 09:16 Protonix - PO 40 mg DAILY VEENA Administration Prednisone 10 mg 08/25/19 10:00 08/25/19 09:17 Deltasone - PO 10 mg DAILY VEENA Administration Umeclidinium/Vilanterol 1 puff 08/25/19 12:15 08/25/19 13:02 Anoro Ellipta 62.5-25 Mcg Inh IH 1 puff DAILY VEENA Administration Imaging - Results Cat Scan: Image Reviewed Problem List - Problems (1) Back pain Code(s): M54.9 - DORSALGIA, UNSPECIFIED Assessment/Plan Discussed in detail and answered all his question. 1. contiue Oxycodone and Morphine . 2. Weaning of medication 3. Neurontin 100 mg PO BID 4. Physical therapy 5. Regular Vitals check/ O2 sat 6. use of TLSO if possible 7. Ambulation on floor with RW with supervision. Thanks for allowing me to participate in his care. Farshad Cates MD.\ [phone]
[2019-08-26] MEDS ORDERED: GABAPENTIN 100 MG CAPSULE PO SCH (15:00)
[2019-08-26] MEDS: LIDOCAINE 5% TOPICAL PATCH TP SCH (16:00)
--- NOTE | 2019-08-26 16:54 | PN.HO ---
Progress Note (short form) - Note Progress Note: Cali Castro is a 58 y/o gentleman with PMH significant for COPD, CAD, ILD, Stage IIIC lung CA s/p RT 08/21, presenting today with back pain. Reports that he has had chronic lower back pain, but on Tuesday started having severe lower and upper back pain. Reports that this is exacerbated with movement. Pain is usually in the right lower and left lower back with intermittent radiation to the upper back. No fall or trauma to the back. No fever. No chills. No chest pain. Chronically short of breath. No abd pain. No dysuria/diarrhea. No urinary or stool incontinence. At present no back pain at rest. Pain does not radiate down the legs. No weakness, numbness, tingling. 08/25: Doing well with the combination of Morphine and Oxycodone. Breathing at baseline. O2 at 4.5 L (Home 3 1/2 L). Past History - Medical History Allergies/Adverse Reactions: Allergies Allergy/AdvReac Type Severity Reaction Status Date / Time No Known Allergies Allergy Verified 08/24/19 09:30 PMH Cancer: (Yes; Lung CA -stage IIIC) Cardiac Disorders: Yes ([place] 04/06/13 with stent, quadruple bypass 2015 ([facility])) CHF: Yes GI Disorders: Yes (GERD) HTN: Yes Hypercholesterolemia: Yes Lung CA: Yes (RIGHT) - Surgical History Cardiac Surgery: Yes (05/2013-CABG 1 stent, angioplasty, 4bypass 2015) Orthopedic Surgery: Yes (1989 Fractured Ankle) - Immunization History Immunization Up to Date: Yes - Psycho-Social/Smoking History Smoking History: Former smoker *Physical Exam - Vital Signs Last Vital Signs Temp Pulse Resp BP Pulse Ox 98.3 F 95 H 20 91/69 91 L 08/26/19 03:00 08/26/19 03:00 08/26/19 03:00 08/26/19 03:00 08/25/19 23:00 - Physical Exam Cor: RSR, No murmurs, No gallops Lungs: Crackles at bases Abd: Soft, Normal bowel sounds, No organomegaly Ext:No significant edema Skin: No rashes, Integument intact 08/25/19 07:05 08/25/19 07:05 Current Medications Generic Name Dose Route Start Last Admin Trade Name Freq PRN Reason Stop Dose Admin Acetaminophen 325 mg 08/25/19 16:30 08/26/19 04:57 Tylenol - PO 325 mg Q6H PRN Administration PAIN LEVEL 6-10 Aspirin 81 mg 08/24/19 23:00 08/25/19 22:22 Asa - PO 81 mg HS VEENA Administration Atorvastatin Calcium 20 mg 08/24/19 23:00 08/25/19 22:22 Lipitor - PO 20 mg HS VEENA Administration Cyclobenzaprine HCl 10 mg 08/25/19 06:00 08/26/19 05:05 Flexeril - PO 10 mg TID VEENA Administration Docusate Sodium 100 mg 08/25/19 22:00 08/26/19 05:05 Colace - PO 100 mg TID VEENA Administration Gabapentin 100 mg 08/26/19 15:00 Neurontin - PO DAILY [facility] Lidocaine 1 patch 08/25/19 16:00 08/25/19 16:48 Lidoderm Patch - TP 1 patch DAILY@1600 VEENA Administration Metoprolol Tartrate 50 mg 08/24/19 22:30 08/25/19 22:22 Lopressor - PO 50 mg BID VEENA Administration Miscellaneous 1 each 08/26/19 05:00 08/26/19 05:05 Lidoderm Patch Removal MC 1 each DAILY@0500 VEENA Administration Morphine Sulfate 1 mg 08/25/19 16:28 08/26/19 04:03 Morphine Sulfate IVPUSH 1 mg Q4H PRN Administration PAIN LEVEL 4 - 6 Minocycline 75 Mg 1 each 08/25/19 22:00 08/25/19 22:23 Capsule - Patient PO 1 each Own Med HS VEENA Administration Oxycodone HCl 5 mg 08/25/19 16:30 08/26/19 04:58 Roxicodone - PO 5 mg Q6H PRN Administration PAIN LEVEL 6-10 Pantoprazole Sodium 40 mg 08/25/19 10:00 08/25/19 09:16 Protonix - PO 40 mg DAILY VEENA Administration Prednisone 10 mg 08/25/19 10:00 08/25/19 09:17 Deltasone - PO 10 mg DAILY VEENA Administration Umeclidinium/Vilanterol 1 puff 08/25/19 12:15 08/25/19 13:02 Anoro Ellipta 62.5-25 Mcg Inh IH 1 puff DAILY VEENA Administration A/P 58 y/o gentleman hx of 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 T/LS spine CT (prelim)- osteopenia; T11 vertebral fx with kyphosis and mild sup endplate retropulsion Osteoporosis (steroid related) vs metastatic vertebral involvement Needs T spine MRI with indira to r/o pathological fx/met : Unable to tolerate closed MRI. Will schedule outpatient Neurosurgical intervention not recommended TLSO brace for immobilization per neurosurgery delivered Vertebroplasty --will discuss with IR 08/25: Pain management has now improved with the combination of Morphine IV and Oxycodone. Padmini Dr. Cates's input. Added Neurontin. systemic therapy planned f/u liquid biopsy will follow
[2019-08-26] MEDS ORDERED: PT OWN MED DRAWER 7, Y5N ONE ×2 (21:25→22:26)
[2019-08-26] MEDS: ASPIRIN 81 MG CHEWABLE TABLETS PO SCH (21:29)
[2019-08-26] MEDS: ATORVASTATIN CA 20 MG TABLET (FP) PO SCH (21:29)
[2019-08-26] MEDS: MINOCYCLINE PO SCH (21:32)
--- NOTE | 2019-08-26 21:35 | PN ---
Progress Note, Physician History of Present Illness: Pain is improving - Current Medication List Current Medications: Active Medications Acetaminophen (Tylenol -) 325 mg PO Q6H PRN PRN Reason: PAIN LEVEL 6-10 Last Admin: 08/26/19 04:57 Dose: 325 mg Documented by: Aspirin (Asa -) 81 mg PO [facility] Last Admin: 08/25/19 22:22 Dose: 81 mg Documented by: Atorvastatin Calcium (Lipitor -) 20 mg PO [facility] Last Admin: 08/25/19 22:22 Dose: 20 mg Documented by: Cyclobenzaprine HCl (Flexeril -) 10 mg PO TID [facility] Last Admin: 08/26/19 14:16 Dose: 10 mg Documented by: Docusate Sodium (Colace -) 100 mg PO TID [facility] Last Admin: 08/26/19 14:10 Dose: 100 mg Documented by: Gabapentin (Neurontin -) 100 mg PO DAILY [facility] Last Admin: 08/26/19 16:00 Dose: 100 mg Documented by: Lidocaine (Lidoderm Patch -) 1 patch TP DAILY@1600 [facility] Last Admin: 08/26/19 16:00 Dose: Not Given Documented by: Metoprolol Tartrate (Lopressor -) 50 mg PO BID [facility] Last Admin: 08/26/19 10:15 Dose: 50 mg Documented by: Miscellaneous (Lidoderm Patch Removal) 1 each MC DAILY@0500 [facility] Last Admin: 08/26/19 05:05 Dose: 1 each Documented by: Morphine Sulfate (Morphine Sulfate) 1 mg IVPUSH Q4H PRN PRN Reason: PAIN LEVEL 4 - 6 Last Admin: 08/26/19 15:41 Dose: 1 mg Documented by: Minocycline 75 Mg Capsule - Patient Own Med 1 each PO [facility] Last Admin: 08/25/19 22:23 Dose: 1 each Documented by: Oxycodone HCl (Roxicodone -) 5 mg PO Q6H PRN PRN Reason: PAIN LEVEL 6-10 Last Admin: 08/26/19 18:39 Dose: 5 mg Documented by: Pantoprazole Sodium (Protonix -) 40 mg PO DAILY [facility] Last Admin: 08/26/19 10:16 Dose: 40 mg Documented by: Prednisone (Deltasone -) 10 mg PO DAILY [facility] Last Admin: 08/26/19 10:15 Dose: 10 mg Documented by: Umeclidinium/Vilanterol (Anoro Ellipta 62.5-25 Mcg Inh) 1 puff IH DAILY [facility] Last Admin: 08/26/19 10:00 Dose: 1 puff Documented by: - Objective Vital Signs: Vital Signs Temperature 98.7 F 08/26/19 15:00 Pulse Rate 93 H 08/26/19 15:00 Respiratory Rate 16 08/26/19 15:00 Blood Pressure 101/66 08/26/19 15:00 O2 Sat by Pulse Oximetry (%) 92 L 08/26/19 15:00 Cardiovascular: Yes: WNL, Regular Rate and Rhythm Respiratory: Yes: WNL, Regular, CTA Bilaterally Gastrointestinal: Yes: WNL, Normal Bowel Sounds, Soft Labs: CBC, BMP 08/25/19 07:05 08/25/19 07:05 INR, PTT INR 1.04 (0.83-1.09) 08/24/19 13:00 Problem List - Problems (1) Vertebral fracture Assessment/Plan: NSG consult noted No surgical intervention at this time Spoke to pt at length about STR however pt refuses TLSO brace ordered however pt has not worn yet PT eval Pain management consult noted Neurontin aded Cont lidocaine patch/oxycodone/morphine Code(s): [id number] - (2) Lung cancer Assessment/Plan: Stage IIIC S/P RT As per onco Code(s): C34.90 - MALIGNANT NEOPLASM OF UNSP PART OF UNSP BRONCHUS OR LUNG (3) COPD (chronic obstructive pulmonary disease) Assessment/Plan: Pulmonary consult noted Cont inhalers Code(s): J44.9 - CHRONIC OBSTRUCTIVE PULMONARY DISEASE, UNSPECIFIED (4) HLD (hyperlipidemia) Assessment/Plan: Cont lipitor Code(s): E78.5 - HYPERLIPIDEMIA, UNSPECIFIED (5) HTN (hypertension) Assessment/Plan: BP stable Cont metoprolol Code(s): I10 - ESSENTIAL (PRIMARY) HYPERTENSION (6) Interstitial lung disease Assessment/Plan: Cont prednisone? Code(s): J84.9 - INTERSTITIAL PULMONARY DISEASE, UNSPECIFIED (7) CAD (coronary artery disease) Code(s): I25.10 - ATHSCL HEART DISEASE OF [place] CORONARY ARTERY W/O ANG PCTRS
[2019-08-27] MEDS: oxyCODONE HCL 5 MG TABLET PO PRN ×4 (01:09→20:14)
[2019-08-27] MEDS: ACETAMINOPHEN 325 MG TABLET (FP) PO PRN ×4 (01:10→20:14)
[2019-08-27] MEDS: MORPHINE SULFATE 2 MG/ML VIAL IVPUSH PRN ×4 (04:49→21:58)
[2019-08-27] MEDS: LIDOCAINE PATCH REMOVAL MC SCH (05:22)
[2019-08-27] MEDS: CYCLOBENZAPRINE HCL 10 MG TABLET (FP) PO SCH ×3 (05:45→21:43)
[2019-08-27] MEDS: DOCUSATE SODIUM 100 MG CAPSULE (FP) PO SCH ×3 (05:45→21:43)
[2019-08-27] MEDS: GABAPENTIN 100 MG CAPSULE PO SCH ×2 (10:47→21:43)
[2019-08-27] MEDS: PANTOPRAZOLE 40 MG TABLET PO SCH (10:47)
[2019-08-27] MEDS: predniSONE 10 MG TABLET (UD) PO SCH (10:47)
[2019-08-27] MEDS: METOPROLOL TARTRATE 50 MG TABLET (FP) PO SCH ×2 (10:47→21:46)
[2019-08-27] MEDS: UMECLIDINIUM/VILANTEROL (ANORO) 62.5/25 MCG INHALER IH SCH (10:58)
--- NOTE | 2019-08-27 12:32 | PN ---
Progress Note (short form) - Note Progress Note: Breathing feels stable. No CP. Denies SOB. Back pain slightly better. Intake & Output 08/24/19 08/25/19 08/26/19 08/27/19 23:59 23:59 23:59 23:59 Intake Total 390.5 510.5 10.5 Output Total 800 2050 500 Balance -409.5 -1539.5 -489.5 Weight 202 lb 8 oz 202 lb 8 oz Last Vital Signs Temp Pulse Resp BP Pulse Ox 98 F 108 H 18 106/85 93 L 08/27/19 10:00 08/27/19 10:00 08/27/19 10:00 08/27/19 10:00 08/27/19 10:00 Active Medications Acetaminophen (Tylenol -) 325 mg PO Q6H PRN PRN Reason: PAIN LEVEL 6-10 Last Admin: 08/27/19 07:20 Dose: 325 mg Documented by: Aspirin (Asa -) 81 mg PO [facility] Last Admin: 08/26/19 21:29 Dose: 81 mg Documented by: Atorvastatin Calcium (Lipitor -) 20 mg PO [facility] Last Admin: 08/26/19 21:29 Dose: 20 mg Documented by: Cyclobenzaprine HCl (Flexeril -) 10 mg PO TID [facility] Last Admin: 08/27/19 05:45 Dose: 10 mg Documented by: Docusate Sodium (Colace -) 100 mg PO TID [facility] Last Admin: 08/27/19 05:45 Dose: 100 mg Documented by: Gabapentin (Neurontin -) 100 mg PO BID [facility] Last Admin: 08/27/19 10:47 Dose: 100 mg Documented by: Lidocaine (Lidoderm Patch -) 1 patch TP DAILY@1600 [facility] Last Admin: 08/26/19 16:00 Dose: Not Given Documented by: Metoprolol Tartrate (Lopressor -) 50 mg PO BID [facility] Last Admin: 08/27/19 10:47 Dose: 50 mg Documented by: Miscellaneous (Lidoderm Patch Removal) 1 each MC DAILY@0500 [facility] Last Admin: 08/27/19 05:22 Dose: Not Given Documented by: Morphine Sulfate (Morphine Sulfate) 1 mg IVPUSH Q4H PRN PRN Reason: PAIN LEVEL 4 - 6 Last Admin: 08/27/19 10:48 Dose: 1 mg Documented by: Minocycline 75 Mg Capsule - Patient Own Med 1 each PO HS [facility] Last Admin: 08/26/19 21:32 Dose: 1 each Documented by: Oxycodone HCl (Roxicodone -) 5 mg PO Q6H PRN PRN Reason: PAIN LEVEL 6-10 Last Admin: 08/27/19 07:20 Dose: 5 mg Documented by: Pantoprazole Sodium (Protonix -) 40 mg PO DAILY [facility] Last Admin: 08/27/19 10:47 Dose: 40 mg Documented by: Prednisone (Deltasone -) 10 mg PO DAILY [facility] Last Admin: 08/27/19 10:47 Dose: 10 mg Documented by: Umeclidinium/Vilanterol (Anoro Ellipta 62.5-25 Mcg Inh) 1 puff IH DAILY [facility] Last Admin: 08/27/19 10:58 Dose: 1 puff Documented by: Constitutional: Yes: No Distress Eyes: Yes: Conjunctiva Clear, EOM Intact HENT: Yes: Atraumatic, Normocephalic Neck: Yes: Supple, Trachea Midline Cardiovascular: Yes: Regular Rate and Rhythm Respiratory: Yes: Cough, Diminished, Rhonchi. No: Accessory Muscle Use, Rales, SOB, Stridor, Tachypnea, Wheezes ...Inspection: Yes: WNL ...Clubbing: No Gastrointestinal: Yes: Normal Bowel Sounds, Soft Renal/: Yes: WNL Musculoskeletal: Yes: WNL Extremities: Yes: WNL Edema: No Peripheral Pulses WNL: Yes Integumentary: Yes: WNL Neurological: Yes: WNL, Alert, Oriented ...Motor Strength: WNL Psychiatric: Yes: WNL, Alert, Oriented Labs: Imaging - Results Chest X-ray: Report Reviewed, Image Reviewed Problem List - Problems (1) Chronic respiratory failure Code(s): J96.10 - CHRONIC RESPIRATORY FAILURE, UNSP W HYPOXIA OR HYPERCAPNIA (2) Compression fracture of T12 vertebra Code(s): S22.080A - WEDGE COMPRESSION FRACTURE OF T11-T12 VERTEBRA, INIT Qualifiers: Encounter type: initial encounter Qualified Code(s): S22.080A - Wedge compression fracture of T11-T12 vertebra, initial encounter for closed fracture (3) CAD (coronary artery disease) Code(s): I25.10 - ATHSCL HEART DISEASE OF [place] CORONARY ARTERY W/O ANG PCTRS (4) COPD (chronic obstructive pulmonary disease) Code(s): J44.9 - CHRONIC OBSTRUCTIVE PULMONARY DISEASE, UNSPECIFIED (5) HLD (hyperlipidemia) Code(s): E78.5 - HYPERLIPIDEMIA, UNSPECIFIED (6) HTN (hypertension) Code(s): I10 - ESSENTIAL (PRIMARY) HYPERTENSION (7) Interstitial lung disease Code(s): J84.9 - INTERSTITIAL PULMONARY DISEASE, UNSPECIFIED (8) Lung cancer Code(s): C34.90 - MALIGNANT NEOPLASM OF UNSP PART OF UNSP BRONCHUS OR LUNG Assessment/Plan Supplemental O2 as needed Noted Prednisone 10mg OD BD TX PRN Back pain workup per Neurosurgery VTE prophylaxis Anoro OD No smoking Dr Daniel Problem List - Problems (1) Chronic respiratory failure Code(s): J96.10 - CHRONIC RESPIRATORY FAILURE, UNSP W HYPOXIA OR HYPERCAPNIA (2) Compression fracture of T12 vertebra Code(s): S22.080A - WEDGE COMPRESSION FRACTURE OF T11-T12 VERTEBRA, INIT Qualifiers: Encounter type: initial encounter Qualified Code(s): S22.080A - Wedge compression fracture of T11-T12 vertebra, initial encounter for closed fracture (3) CAD (coronary artery disease) Code(s): I25.10 - ATHSCL HEART DISEASE OF [place] CORONARY ARTERY W/O ANG PCTRS (4) COPD (chronic obstructive pulmonary disease) Code(s): J44.9 - CHRONIC OBSTRUCTIVE PULMONARY DISEASE, UNSPECIFIED (5) HLD (hyperlipidemia) Code(s): E78.5 - HYPERLIPIDEMIA, UNSPECIFIED (6) HTN (hypertension) Code(s): I10 - ESSENTIAL (PRIMARY) HYPERTENSION (7) Interstitial lung disease Code(s): J84.9 - INTERSTITIAL PULMONARY DISEASE, UNSPECIFIED (8) Lung cancer Code(s): C34.90 - MALIGNANT NEOPLASM OF UNSP PART OF UNSP BRONCHUS OR LUNG
--- NOTE | 2019-08-27 15:45 | PN ---
Progress Note (short form) - Note Progress Note: NEUROSURGERY 3 week h/o worsening mid and low back pain Intermittent exacerbation Pain better Sitting up at bedside TLSO brace delivered PE: AF, VSS General- unremarkable CN- intact; Motor- 5/5 b UE/LE; Sensation- intact LT; DTR- 2+; Back- tender over TL junction R > L T/LS spine CT: osteopenia; T11 vertebral fx with kyphosis and mild sup endplate retropulsion Lung CA (NSC) on chemo and RT Osteoporosis (steroid related?) vs metastatic vertebral involvement T spine MRI with indira to r/o pathological fx/met Neurosurgical intervention not recommended TLSO brace for immobilization when OOB Vertebroplasty also possibility though adjacent level fx incidence could in crease and canal could be further compromise by possible cement leak Pros and cons of tx approaches discussed Bowel regimen as pt is on narcotic painkiller regimen can consider pain management input prn All questions answered
[2019-08-27] MEDS: LIDOCAINE 5% TOPICAL PATCH TP SCH ×2 (16:28→18:11)
[2019-08-27] MEDS: ATORVASTATIN CA 20 MG TABLET (FP) PO SCH (21:43)
[2019-08-27] MEDS: ASPIRIN 81 MG CHEWABLE TABLETS PO SCH (21:43)
[2019-08-27] MEDS: MINOCYCLINE PO SCH (21:43)
--- NOTE | 2019-08-27 21:52 | PN ---
Progress Note, Physician History of Present Illness: Pt is awaiting KYE middleton - Current Medication List Current Medications: Active Medications Acetaminophen (Tylenol -) 325 mg PO Q6H PRN PRN Reason: PAIN LEVEL 6-10 Last Admin: 08/27/19 20:14 Dose: 325 mg Documented by: Aspirin (Asa -) 81 mg PO [facility] Last Admin: 08/27/19 21:43 Dose: 81 mg Documented by: Atorvastatin Calcium (Lipitor -) 20 mg PO [facility] Last Admin: 08/27/19 21:43 Dose: 20 mg Documented by: Cyclobenzaprine HCl (Flexeril -) 10 mg PO TID [facility] Last Admin: 08/27/19 21:43 Dose: 10 mg Documented by: Docusate Sodium (Colace -) 100 mg PO TID [facility] Last Admin: 08/27/19 21:43 Dose: 100 mg Documented by: Gabapentin (Neurontin -) 100 mg PO BID [facility] Last Admin: 08/27/19 21:43 Dose: 100 mg Documented by: Lidocaine (Lidoderm Patch -) 1 patch TP DAILY@1600 [facility] Last Admin: 08/27/19 18:11 Dose: 1 patch Documented by: Metoprolol Tartrate (Lopressor -) 50 mg PO BID [facility] Last Admin: 08/27/19 21:46 Dose: 50 mg Documented by: Miscellaneous (Lidoderm Patch Removal) 1 each MC DAILY@0500 [facility] Last Admin: 08/27/19 05:22 Dose: Not Given Documented by: Morphine Sulfate (Morphine Sulfate) 1 mg IVPUSH Q4H PRN PRN Reason: PAIN LEVEL 4 - 6 Last Admin: 08/27/19 17:20 Dose: 1 mg Documented by: Minocycline 75 Mg Capsule - Patient Own Med 1 each PO [facility] Last Admin: 08/27/19 21:43 Dose: 1 each Documented by: Oxycodone HCl (Roxicodone -) 5 mg PO Q6H PRN PRN Reason: PAIN LEVEL 6-10 Last Admin: 08/27/19 20:14 Dose: 5 mg Documented by: Pantoprazole Sodium (Protonix -) 40 mg PO DAILY [facility] Last Admin: 08/27/19 10:47 Dose: 40 mg Documented by: Prednisone (Deltasone -) 10 mg PO DAILY [facility] Last Admin: 08/27/19 10:47 Dose: 10 mg Documented by: Umeclidinium/Vilanterol (Anoro Ellipta 62.5-25 Mcg Inh) 1 puff IH DAILY [facility] Last Admin: 08/27/19 10:58 Dose: 1 puff Documented by: - Objective Vital Signs: Vital Signs Temperature 98.3 F 08/27/19 18:00 Pulse Rate 118 H 08/27/19 18:00 Respiratory Rate 18 08/27/19 18:00 Blood Pressure 96/75 08/27/19 18:00 O2 Sat by Pulse Oximetry (%) 93 L 08/27/19 18:00 Cardiovascular: Yes: WNL, Regular Rate and Rhythm Respiratory: Yes: WNL, Regular, CTA Bilaterally Gastrointestinal: Yes: WNL, Normal Bowel Sounds, Soft Labs: CBC, BMP 08/25/19 07:05 08/25/19 07:05 INR, PTT INR 1.04 (0.83-1.09) 08/24/19 13:00 Problem List - Problems (1) Vertebral fracture Assessment/Plan: NSG consult noted No surgical intervention at this time Spoke to pt at length about STR however pt refuses TLSO brace ordered however pt has not worn yet PT eval Pain management consult noted Neurontin aded Cont lidocaine patch/oxycodone Will dc morphine Code(s): [id number] - (2) Lung cancer Assessment/Plan: Stage IIIC S/P RT As per onco Code(s): C34.90 - MALIGNANT NEOPLASM OF UNSP PART OF UNSP BRONCHUS OR LUNG (3) COPD (chronic obstructive pulmonary disease) Assessment/Plan: Pulmonary consult noted Cont inhalers Code(s): J44.9 - CHRONIC OBSTRUCTIVE PULMONARY DISEASE, UNSPECIFIED (4) HLD (hyperlipidemia) Assessment/Plan: Cont lipitor Code(s): E78.5 - HYPERLIPIDEMIA, UNSPECIFIED (5) HTN (hypertension) Assessment/Plan: BP stable Cont metoprolol Pt slightly tachy Will get cardio consult Code(s): I10 - ESSENTIAL (PRIMARY) HYPERTENSION (6) Interstitial lung disease Assessment/Plan: Cont prednisone? Code(s): J84.9 - INTERSTITIAL PULMONARY DISEASE, UNSPECIFIED (7) CAD (coronary artery disease) Code(s): I25.10 - ATHSCL HEART DISEASE OF [place] CORONARY ARTERY W/O ANG PCTRS
[2019-08-28] MEDS: oxyCODONE HCL 5 MG TABLET PO PRN ×4 (02:33→22:42)
[2019-08-28] MEDS: ACETAMINOPHEN 325 MG TABLET (FP) PO PRN ×4 (02:34→22:43)
[2019-08-28] MEDS: DOCUSATE SODIUM 100 MG CAPSULE (FP) PO SCH ×3 (05:13→21:11)
[2019-08-28] MEDS: CYCLOBENZAPRINE HCL 10 MG TABLET (FP) PO SCH ×3 (05:13→21:12)
[2019-08-28] MEDS: LIDOCAINE PATCH REMOVAL MC SCH (05:13)
--- NOTE | 2019-08-28 05:30 | PN.HO ---
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 T/LS spine CT (prelim)- osteopenia; T11 vertebral fx with kyphosis and mild sup endplate retropulsion Osteoporosis (steroid related) vs metastatic vertebral involvement Needs T spine MRI with indira to r/o pathological fx/met : Unable to tolerate closed MRI. Will schedule outpatient Neurosurgical intervention not recommended TLSO brace for immobilization per neurosurgery Vertebroplasty --will discuss with IR. Patient has some reservations . pain control systemic therapy f/u liquid biopsy will follow
--- NOTE | 2019-08-28 08:48 | PN ---
Progress Note (short form) - Note Progress Note: NEUROSURGERY 3 week h/o worsening mid and low back saadia Pain better Sitting up at bedside TLSO brace delivered but not tried yet PE: AF, VSS General- unremarkable CN- intact; Motor- 5/5 b UE/LE; Sensation- intact LT; DTR- 2+; Back- tender over TL junction R > L T/LS spine CT: osteopenia; T11 vertebral fx with kyphosis and mild sup endplate retropulsion Lung CA (NSC) on chemo and RT Osteoporosis (steroid related?) vs metastatic vertebral involvement T spine MRI with indira to r/o pathological fx/met; being done outpatient Neurosurgical intervention not recommended TLSO brace for immobilization when OOB; trial use before dsicharage Bowel regimen as pt is on narcotic painkiller regimen can consider pain management input prn
[2019-08-28] MEDS: METOPROLOL TARTRATE 50 MG TABLET (FP) PO SCH ×2 (09:35→21:12)
[2019-08-28] MEDS: PANTOPRAZOLE 40 MG TABLET PO SCH (09:35)
[2019-08-28] MEDS: GABAPENTIN 100 MG CAPSULE PO SCH ×2 (09:35→21:12)
[2019-08-28] MEDS: predniSONE 10 MG TABLET (UD) PO SCH (09:35)
[2019-08-28] MEDS: UMECLIDINIUM/VILANTEROL (ANORO) 62.5/25 MCG INHALER IH SCH (09:40)
--- NOTE | 2019-08-28 12:08 | PN ---
Progress Note (short form) - Note Progress Note: Pain is better today. Now with ERICKSON on 4.5 L NC O2. Saturation remains stable @ 94%. No wheezing or increase in cough. Constitutional: Yes: mildly tachypneic at rest Eyes: Yes: Conjunctiva Clear, EOM Intact HENT: Yes: Atraumatic, Normocephalic Neck: Yes: Supple, Trachea Midline Cardiovascular: Yes: Regular Rate and Rhythm Respiratory: Yes: Cough, Diminished, Rhonchi. No: Accessory Muscle Use, Rales, SOB, Stridor, Tachypnea, Wheezes ...Inspection: Yes: WNL ...Clubbing: No Gastrointestinal: Yes: Normal Bowel Sounds, Soft Renal/: Yes: WNL Musculoskeletal: Yes: WNL Extremities: Yes: WNL Edema: No Peripheral Pulses WNL: Yes Integumentary: Yes: WNL Neurological: Yes: WNL, Alert, Oriented ...Motor Strength: WNL Psychiatric: Yes: WNL, Alert, Oriented Labs: Imaging - Results Chest X-ray: Report Reviewed, Image Reviewed Problem List - Problems (1) Chronic respiratory failure Code(s): J96.10 - CHRONIC RESPIRATORY FAILURE, UNSP W HYPOXIA OR HYPERCAPNIA (2) Compression fracture of T12 vertebra Code(s): S22.080A - WEDGE COMPRESSION FRACTURE OF T11-T12 VERTEBRA, INIT Qualifiers: Encounter type: initial encounter Qualified Code(s): S22.080A - Wedge compression fracture of T11-T12 vertebra, initial encounter for closed fracture (3) CAD (coronary artery disease) Code(s): I25.10 - ATHSCL HEART DISEASE OF [place] CORONARY ARTERY W/O ANG PCTRS (4) COPD (chronic obstructive pulmonary disease) Code(s): J44.9 - CHRONIC OBSTRUCTIVE PULMONARY DISEASE, UNSPECIFIED (5) HLD (hyperlipidemia) Code(s): E78.5 - HYPERLIPIDEMIA, UNSPECIFIED (6) HTN (hypertension) Code(s): I10 - ESSENTIAL (PRIMARY) HYPERTENSION (7) Interstitial lung disease Code(s): J84.9 - INTERSTITIAL PULMONARY DISEASE, UNSPECIFIED (8) Lung cancer Code(s): C34.90 - MALIGNANT NEOPLASM OF UNSP PART OF UNSP BRONCHUS OR LUNG Assessment/Plan Supplemental O2 as needed Prednisone 10mg OD BD TX PRN Back pain workup per Neurosurgery VTE prophylaxis Anoro OD No smoking Monitor off IV systemic steroids for now Dr Daniel Problem List - Problems (1) Chronic respiratory failure Code(s): J96.10 - CHRONIC RESPIRATORY FAILURE, UNSP W HYPOXIA OR HYPERCAPNIA (2) Compression fracture of T12 vertebra Code(s): S22.080A - WEDGE COMPRESSION FRACTURE OF T11-T12 VERTEBRA, INIT Qualifiers: Encounter type: initial encounter Qualified Code(s): S22.080A - [place] compression fracture of T11-T12 vertebra, initial encounter for closed fracture (3) CAD (coronary artery disease) Code(s): I25.10 - ATHSCL HEART DISEASE OF [place] CORONARY ARTERY W/O ANG PCTRS (4) COPD (chronic obstructive pulmonary disease) Code(s): J44.9 - CHRONIC OBSTRUCTIVE PULMONARY DISEASE, UNSPECIFIED (5) HLD (hyperlipidemia) Code(s): E78.5 - HYPERLIPIDEMIA, UNSPECIFIED (6) HTN (hypertension) Code(s): I10 - ESSENTIAL (PRIMARY) HYPERTENSION (7) Interstitial lung disease Code(s): J84.9 - INTERSTITIAL PULMONARY DISEASE, UNSPECIFIED (8) Lung cancer Code(s): C34.90 - MALIGNANT NEOPLASM OF UNSP PART OF UNSP BRONCHUS OR LUNG
--- NOTE | 2019-08-28 13:36 | CON.CARD ---
Cardiology Consult (text) - Consultation Consultation Note: Consult Specialty:: Cardiology Referred by:: Medicine Reason for Consultation:: tachycardia - History of Present Illness Chief Complaint: tachycardia, back pain History of Present Illness: 58M h/o CAD s/p CABG, COPD, IPF, HTN, HLD, lung adenoca stage IIA s/p umbrella valve placement p/w back pain. Notes HR is higher than usual here, often 90s- 120s. Sees Dr. Portillo for cardio. No chest pain. Dyspnea stable but has episodes where it feels worse. 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[place], [place]) History of Recent Travel: No Home Medications - Allergies Allergies/Adverse Reactions: Allergies Allergy/AdvReac Type Severity Reaction Status Date / Time No Known Allergies Allergy Verified 08/24/19 09:30 Home Medications Medication Instructions Recorded Acetaminophen W/ Codeine #3 1 - 2 tab PO Q4H 08/24/19 [Tylenol # 3 -] Aspirin 81 mg PO HS 08/24/19 Atorvastatin Ca [Lipitor] 20 mg PO HS 08/24/19 Cyclobenzaprine HCl [Flexeril -] 10 mg PO TID 08/24/19 Metoprolol Tartrate 50 mg PO BID 08/24/19 Pantoprazole Sodium [Protonix] 40 mg PO BID 08/24/19 Prednisone 10 mg PO DAILY 08/24/19 Family Medical History Family History: Unremarkable Review of Systems - Review of Systems Constitutional: reports: No Symptoms Eyes: reports: No Symptoms HENT: reports: No Symptoms Neck: reports: No Symptoms Cardiovascular: reports: No Symptoms Respiratory: reports: No Symptoms Gastrointestinal: reports: No Symptoms Genitourinary: reports: No Symptoms Musculoskeletal: reports: No Symptoms Integumentary: reports: No Symptoms Neurological: reports: No Symptoms Endocrine: reports: No Symptoms Hematology/Lymphatic: reports: No Symptoms Psychiatric: reports: No Symptoms Vital Signs Period Temp Pulse Resp BP Sys/Dodge Pulse Ox Last 24 Hr 97.7 F-98.3 F 92-122 18-22 96-116/75-79 90-93 Constitutional: Yes: No Distress, Calm Eyes: Yes: Conjunctiva Clear, EOM Intact HENT: Yes: Atraumatic, Normocephalic Neck: Yes: Supple, Trachea Midline Respiratory: Yes: Regular, Rales, Wheezes Gastrointestinal: Yes: Normal Bowel Sounds, Soft Cardiovascular: Yes: Regular Rate and Rhythm JVD: No Extremities: No: Cold Edema: Yes Edema: LLE: Trace, RLE: Trace Integumentary: No: Jaundice Neurological: Yes: Alert, Oriented Psychiatric: No: Agitated Laboratory Last Values WBC 5.0 K/mm3 (4.0-10.0) 08/25/19 07:05 RBC 3.89 M/mm3 (4.00-5.60) L 08/25/19 07:05 Hgb 12.0 GM/dL (11.7-16.9) 08/25/19 07:05 Hct 35.1 % (35.4-49) L 08/25/19 07:05 MCV 90.2 fl (80-96) 08/25/19 07:05 MCH 30.9 pg (25.7-33.7) 08/25/19 07:05 MCHC 34.2 g/dl (32.0-35.9) 08/25/19 07:05 RDW 17.5 % (11.9-15.9) H 08/25/19 07:05 Plt Count 125 K/MM3 (134-434) L 08/25/19 07:05 MPV 7.0 fl (7.5-11.1) L 08/25/19 07:05 Absolute Neuts (auto) 3.6 K/mm3 (1.5-8.0) 08/25/19 07:05 Neutrophils % 72.4 % (42.8-82.8) 08/25/19 07:05 Neutrophils % (Manual) 74.8 % (42.8-82.8) 08/25/19 07:05 Band Neutrophils % 2.0 % 08/25/19 07:05 Lymphocytes % 8.0 % (8-40) D 08/25/19 07:05 Lymphocytes % (Manual) 8.1 % (8-40) 08/25/19 07:05 Monocytes % 17.2 % (3.8-10.2) H 08/25/19 07:05 Monocytes % (Manual) 11 % (3.8-10.2) H 08/25/19 07:05 Eosinophils % 1.9 % (0-4.5) D 08/25/19 07:05 Eosinophils % (Manual) 2.0 % (0-4.5) D 08/25/19 07:05 Basophils % 0.5 % (0-2.0) 08/25/19 07:05 Basophils % (Manual) 0.0 % (0-2.0) 08/25/19 07:05 Myelocytes % (Man) 0 % (0-2) D 08/25/19 07:05 Promyelocytes % (Man) 0 % (0-2) 08/25/19 07:05 Blast Cells % (Manual) 0 % (0-0) 08/25/19 07:05 Nucleated RBC % 0 % (0-0) 08/25/19 07:05 Metamyelocytes 1 % (0-2) D 08/25/19 07:05 Hypochromia 0 08/25/19 07:05 Platelet Estimate Decreased 08/25/19 07:05 Polychromasia 0 08/25/19 07:05 Anisocytosis 1+ 08/25/19 07:05 Microcytosis 1+ 08/25/19 07:05 PT with INR 12.30 SEC (9.7-13.0) 08/24/19 13:00 INR 1.04 (0.83-1.09) 08/24/19 13:00 PTT (Actin FS) 30.1 SECONDS (25.2-36.5) 08/24/19 13:00 Sodium 137 mmol/L (136-145) 08/25/19 07:05 Potassium 4.0 mmol/L (3.5-5.1) 08/25/19 07:05 Chloride 98 mmol/L (98-107) 08/25/19 07:05 Carbon Dioxide 32 mmol/L (21-32) 08/25/19 07:05 Anion Gap 7 MMOL/L (8-16) L 08/25/19 07:05 BUN 19.0 mg/dL (7-18) H 08/25/19 07:05 Creatinine 1.0 mg/dL (0.55-1.3) 08/25/19 07:05 Est GFR (CKD-EPI)AfAm 94.39 08/25/19 07:05 Est GFR (CKD-EPI)NonAf 81.44 08/25/19 07:05 Random Glucose 92 mg/dL (74-106) 08/25/19 07:05 Calcium 9.6 mg/dL (8.5-10.1) 08/25/19 07:05 Total Bilirubin 0.7 mg/dL (0.2-1) 08/25/19 07:05 AST 52 U/L (15-37) H 08/25/19 07:05 ALT 14 U/L (13-61) 08/25/19 07:05 Alkaline Phosphatase 80 U/L (45-117) 08/25/19 07:05 Troponin I < 0.02 ng/ml (0.00-0.05) 08/24/19 21:05 Total Protein 6.4 g/dl (6.4-8.2) 08/25/19 07:05 Albumin 3.2 g/dl (3.4-5.0) L 08/25/19 07:05 COVID-19 (BRITTNEY) Not detected (Not Detected) 08/24/19 13:00 Blood Type B POSITIVE 08/25/19 11:48 Antibody Screen Negative 08/25/19 11:48 Assessment/Plan EKG: sinus tach, RBBB, RVH stress echo 07/2018 nl EF, no ischemia tachycardia - sinus tachycardia likely in the setting of back pain - management of back pain per neurosurgery, primary - cont metoprolol abnormal EKG - EKG with RBBB, RVH likely 2/2 underlying pulmonary dz, stable COPD, lung adenoca - manage per onc, pulm CAD s/p CABG - cont aspirin, statin, bb, plavix HTN - cont home meds HLD - cont statin
[2019-08-28] MEDS: LIDOCAINE 5% TOPICAL PATCH TP SCH (19:26)
[2019-08-28] MEDS: ASPIRIN 81 MG CHEWABLE TABLETS PO SCH (21:12)
[2019-08-28] MEDS: ATORVASTATIN CA 20 MG TABLET (FP) PO SCH (21:12)
[2019-08-28] MEDS: MINOCYCLINE PO SCH (21:12)
[2019-08-28] MEDS ORDERED: PT OWN MED DRAWER 7, Y5N ONE (21:17)
--- NOTE | 2019-08-28 21:21 | PN ---
Progress Note, Physician History of Present Illness: Pt is unabke to wear TLSO while sitting/lying - Current Medication List Current Medications: Active Medications Acetaminophen (Tylenol -) 325 mg PO Q6H PRN PRN Reason: PAIN LEVEL 6-10 Last Admin: 08/28/19 16:42 Dose: 325 mg Documented by: Aspirin (Asa -) 81 mg PO [facility] Last Admin: 08/28/19 21:12 Dose: 81 mg Documented by: Atorvastatin Calcium (Lipitor -) 20 mg PO [facility] Last Admin: 08/28/19 21:12 Dose: 20 mg Documented by: Cyclobenzaprine HCl (Flexeril -) 10 mg PO TID [facility] Last Admin: 08/28/19 21:12 Dose: 10 mg Documented by: Docusate Sodium (Colace -) 100 mg PO TID [facility] Last Admin: 08/28/19 21:11 Dose: 100 mg Documented by: Gabapentin (Neurontin -) 100 mg PO BID [facility] Last Admin: 08/28/19 21:12 Dose: 100 mg Documented by: Lidocaine (Lidoderm Patch -) 1 patch TP DAILY@1600 [facility] Last Admin: 08/28/19 19:26 Dose: Not Given Documented by: Metoprolol Tartrate (Lopressor -) 50 mg PO BID [facility] Last Admin: 08/28/19 21:12 Dose: 50 mg Documented by: Miscellaneous (Lidoderm Patch Removal) 1 each MC DAILY@0500 [facility] Last Admin: 08/28/19 05:13 Dose: 1 each Documented by: Minocycline 75 Mg Capsule - Patient Own Med 1 each PO [facility] Last Admin: 08/28/19 21:12 Dose: 1 each Documented by: Oxycodone HCl (Roxicodone -) 5 mg PO Q6H PRN PRN Reason: PAIN LEVEL 6-10 Last Admin: 08/28/19 16:41 Dose: 5 mg Documented by: Pantoprazole Sodium (Protonix -) 40 mg PO DAILY [facility] Last Admin: 08/28/19 09:35 Dose: 40 mg Documented by: Prednisone (Deltasone -) 10 mg PO DAILY [facility] Last Admin: 08/28/19 09:35 Dose: 10 mg Documented by: Umeclidinium/Vilanterol (Anoro Ellipta 62.5-25 Mcg Inh) 1 puff IH DAILY [facility] Last Admin: 08/28/19 09:40 Dose: 1 puff Documented by: - Objective Vital Signs: Vital Signs Temperature 98.2 F 08/28/19 18:00 Pulse Rate 116 H 08/28/19 18:00 Respiratory Rate 20 08/28/19 18:00 Blood Pressure 100/63 08/28/19 18:00 O2 Sat by Pulse Oximetry (%) 93 L 08/28/19 18:00 Cardiovascular: Yes: WNL, Regular Rate and Rhythm Respiratory: Yes: WNL, Regular, CTA Bilaterally Gastrointestinal: Yes: WNL, Normal Bowel Sounds, Soft Labs: CBC, BMP 08/25/19 07:05 08/25/19 07:05 INR, PTT INR 1.04 (0.83-1.09) 08/24/19 13:00 Problem List - Problems (1) Vertebral fracture Assessment/Plan: NSG consult noted No surgical intervention at this time Spoke to pt at length about STR however pt refuses Cont lidocaine patch/oxycodone/neurontin Morphine dc'ed ?Lumbar brace bc pt unable to tolerate TLSO brace Code(s): [id number] - (2) Lung cancer Assessment/Plan: Stage IIIC S/P RT As per onco Code(s): C34.90 - MALIGNANT NEOPLASM OF UNSP PART OF UNSP BRONCHUS OR LUNG (3) COPD (chronic obstructive pulmonary disease) Assessment/Plan: Pulmonary consult noted Cont inhalers Code(s): J44.9 - CHRONIC OBSTRUCTIVE PULMONARY DISEASE, UNSPECIFIED (4) HLD (hyperlipidemia) Assessment/Plan: Cont lipitor Code(s): E78.5 - HYPERLIPIDEMIA, UNSPECIFIED (5) HTN (hypertension) Assessment/Plan: BP stable Cont metoprolol Pt slightly tachy Will get cardio consult Code(s): I10 - ESSENTIAL (PRIMARY) HYPERTENSION (6) Interstitial lung disease Assessment/Plan: Cont prednisone? Code(s): J84.9 - INTERSTITIAL PULMONARY DISEASE, UNSPECIFIED (7) CAD (coronary artery disease) Code(s): I25.10 - ATHSCL HEART DISEASE OF [place] CORONARY ARTERY W/O ANG PCTRS
[2019-08-29] MEDS: LIDOCAINE 5% TOPICAL PATCH TP SCH ×3 (03:38→18:59)
[2019-08-29] MEDS: DOCUSATE SODIUM 100 MG CAPSULE (FP) PO SCH ×3 (05:59→21:41)
[2019-08-29] MEDS: oxyCODONE HCL 5 MG TABLET PO PRN ×3 (05:59→19:00)
[2019-08-29] MEDS: CYCLOBENZAPRINE HCL 10 MG TABLET (FP) PO SCH ×3 (05:59→21:41)
[2019-08-29] MEDS: ACETAMINOPHEN 325 MG TABLET (FP) PO PRN ×3 (06:00→19:00)
[2019-08-29] MEDS: LIDOCAINE PATCH REMOVAL MC SCH (06:01)
[2019-08-29] MEDS: METOPROLOL TARTRATE 50 MG TABLET (FP) PO SCH ×2 (09:14→21:41)
[2019-08-29] MEDS: GABAPENTIN 100 MG CAPSULE PO SCH ×2 (09:14→21:42)
[2019-08-29] MEDS: predniSONE 10 MG TABLET (UD) PO SCH (09:14)
[2019-08-29] MEDS: PANTOPRAZOLE 40 MG TABLET PO SCH (09:14)
[2019-08-29] MEDS: UMECLIDINIUM/VILANTEROL (ANORO) 62.5/25 MCG INHALER IH SCH (09:15)
--- NOTE | 2019-08-29 09:19 | PN ---
Progress Note (short form) - Note Progress Note: NEUROSURGERY Pain better Sitting up at bedside eating PE: AF, VSS General- unremarkable CN- intact; Motor- 5/5 B UE/LE; Sensation- intact LT; DTR- 2+; Back- tender over TL junction R > L T/LS spine CT: osteopenia; T11 vertebral fx with kyphosis and mild sup endplate retropulsion Lung CA (NSC) on chemo and RT Osteoporosis (likely steroid related) vs metastatic vertebral involvement Outpatient T spine MRI with indira to r/o pathological fx/met; pt states he is following up with Dr Gregory Neurosurgical intervention not recommended TLSO brace adjusted and applied with RN at bedside Instructions and use timing d/w pt in detail Bowel regimen as pt is on narcotic painkiller regimen Consider pain management input prn
--- NOTE | 2019-08-29 10:05 | PN ---
Progress Note, Physician History of Present Illness: pulmonary alert,c/o sob with exertion,comfortable at rest on nasal o2,back pain improving - Current Medication List Current Medications: Active Medications Acetaminophen (Tylenol -) 325 mg PO Q6H PRN PRN Reason: PAIN LEVEL 6-10 Last Admin: 08/29/19 06:00 Dose: 325 mg Documented by: Aspirin (Asa -) 81 mg PO [facility] Last Admin: 08/28/19 21:12 Dose: 81 mg Documented by: Atorvastatin Calcium (Lipitor -) 20 mg PO [facility] Last Admin: 08/28/19 21:12 Dose: 20 mg Documented by: Cyclobenzaprine HCl (Flexeril -) 10 mg PO TID [facility] Last Admin: 08/29/19 05:59 Dose: 10 mg Documented by: Docusate Sodium (Colace -) 100 mg PO TID [facility] Last Admin: 08/29/19 05:59 Dose: 100 mg Documented by: Gabapentin (Neurontin -) 100 mg PO BID [facility] Last Admin: 08/29/19 09:14 Dose: 100 mg Documented by: Lidocaine (Lidoderm Patch -) 1 patch TP DAILY@1600 [facility] Last Admin: 08/29/19 03:38 Dose: 1 patch Documented by: Metoprolol Tartrate (Lopressor -) 50 mg PO BID [facility] Last Admin: 08/29/19 09:14 Dose: 50 mg Documented by: Miscellaneous (Lidoderm Patch Removal) 1 each MC DAILY@0500 [facility] Last Admin: 08/29/19 06:01 Dose: Not Given Documented by: Minocycline 75 Mg Capsule - Patient Own Med 1 each PO [facility] Last Admin: 08/28/19 21:12 Dose: 1 each Documented by: Oxycodone HCl (Roxicodone -) 5 mg PO Q6H PRN PRN Reason: PAIN LEVEL 6-10 Last Admin: 08/29/19 05:59 Dose: 5 mg Documented by: Pantoprazole Sodium (Protonix -) 40 mg PO DAILY [facility] Last Admin: 08/29/19 09:14 Dose: 40 mg Documented by: Prednisone (Deltasone -) 10 mg PO DAILY [facility] Last Admin: 08/29/19 09:14 Dose: 10 mg Documented by: Umeclidinium/Vilanterol (Anoro Ellipta 62.5-25 Mcg Inh) 1 puff IH DAILY [facility] Last Admin: 08/29/19 09:15 Dose: 1 puff Documented by: - Objective Vital Signs: Vital Signs Temperature 98 F 08/29/19 09:15 Pulse Rate 121 H 08/29/19 09:15 Respiratory Rate 18 08/29/19 09:15 Blood Pressure 110/70 08/29/19 09:15 O2 Sat by Pulse Oximetry (%) 95 08/29/19 09:15 Constitutional: Yes: Well Nourished, Calm Eyes: Yes: WNL HENT: Yes: WNL Neck: Yes: WNL Cardiovascular: Yes: Regular Rate and Rhythm, Pulse Irregular, S1 Respiratory: Yes: Rales (bilateral crackles) Gastrointestinal: Yes: Normal Bowel Sounds, Soft Extremities: Yes: WNL Edema: No Labs: CBC, BMP 08/25/19 07:05 08/25/19 07:05 INR, PTT INR 1.04 (0.83-1.09) 08/24/19 13:00 Assessment/Plan - Problems (1) Chronic respiratory failure Code(s): J96.10 - CHRONIC RESPIRATORY FAILURE, UNSP W HYPOXIA OR HYPERCAPNIA (2) Compression fracture of T12 vertebra Code(s): S22.080A - WEDGE COMPRESSION FRACTURE OF T11-T12 VERTEBRA, INIT Qualifiers: Encounter type: initial encounter Qualified Code(s): S22.080A - Wedge compression fracture of T11-T12 vertebra, initial encounter for closed fracture (3) CAD (coronary artery disease) Code(s): I25.10 - ATHSCL HEART DISEASE OF [place] CORONARY ARTERY W/O ANG PCTRS (4) COPD (chronic obstructive pulmonary disease) Code(s): J44.9 - CHRONIC OBSTRUCTIVE PULMONARY DISEASE, UNSPECIFIED (5) HLD (hyperlipidemia) Code(s): E78.5 - HYPERLIPIDEMIA, UNSPECIFIED (6) HTN (hypertension) Code(s): I10 - ESSENTIAL (PRIMARY) HYPERTENSION (7) Interstitial lung disease Code(s): J84.9 - INTERSTITIAL PULMONARY DISEASE, UNSPECIFIED (8) Lung cancer Code(s): C34.90 - MALIGNANT NEOPLASM OF UNSP PART OF UNSP BRONCHUS OR LUNG Assessment/Plan Supplemental O2 as needed Prednisone 10mg OD BD TX PRN Back pain workup per Neurosurgery VTE prophylaxis Anoro OD analgesics DR HANSON Problem List - Problems (1) Chronic respiratory failure Code(s): J96.10 - CHRONIC RESPIRATORY FAILURE, UNSP W HYPOXIA OR HYPERCAPNIA (2) Compression fracture of T12 vertebra Code(s): S22.080A - WEDGE COMPRESSION FRACTURE OF T11-T12 VERTEBRA, INIT Qualifiers: Encounter type: initial encounter Qualified Code(s): S22.080A - Wedge compression fracture of T11-T12 vertebra, initial encounter for closed fracture (3) CAD (coronary artery disease) Code(s): I25.10 - ATHSCL HEART DISEASE OF [place] CORONARY ARTERY W/O ANG PCTRS (4) COPD (chronic obstructive pulmonary disease) Code(s): J44.9 - CHRONIC OBSTRUCTIVE PULMONARY DISEASE, UNSPECIFIED (5) HLD (hyperlipidemia) Code(s): E78.5 - HYPERLIPIDEMIA, UNSPECIFIED (6) HTN (hypertension) Code(s): I10 - ESSENTIAL (PRIMARY) HYPERTENSION (7) Interstitial lung disease Code(s): J84.9 - INTERSTITIAL PULMONARY DISEASE, UNSPECIFIED (8) Lung cancer Code(s): C34.90 - MALIGNANT NEOPLASM OF UNSP PART OF UNSP BRONCHUS OR LUNG
--- NOTE | 2019-08-29 12:47 | PN ---
Progress Note (short form) - Note Progress Note: cc: tachycardia s: no chest pain, palps, dizziness Current Medications Generic Name Dose Route Start Last Admin Trade Name Freq PRN Reason Stop Dose Admin Acetaminophen 325 mg 08/25/19 16:30 08/29/19 06:00 Tylenol - PO 325 mg Q6H PRN Administration PAIN LEVEL 6-10 Aspirin 81 mg 08/24/19 23:00 08/28/19 21:12 Asa - PO 81 mg HS VEENA Administration Atorvastatin Calcium 20 mg 08/24/19 23:00 08/28/19 21:12 Lipitor - PO 20 mg HS VEENA Administration Cyclobenzaprine HCl 10 mg 08/25/19 06:00 08/29/19 05:59 Flexeril - PO 10 mg TID VEENA Administration Docusate Sodium 100 mg 08/25/19 22:00 08/29/19 05:59 Colace - PO 100 mg TID VEENA Administration Gabapentin 100 mg 08/27/19 03:14 08/29/19 09:14 Neurontin - PO 100 mg BID VEENA Administration Lidocaine 1 patch 08/25/19 16:00 08/29/19 03:38 Lidoderm Patch - TP 1 patch DAILY@1600 VEENA Administration Metoprolol Tartrate 50 mg 08/24/19 22:30 08/29/19 09:14 Lopressor - PO 50 mg BID VEENA Administration Miscellaneous 1 each 08/26/19 05:00 08/29/19 06:01 Lidoderm Patch Removal MC Not Given DAILY@0500 VEENA Minocycline 75 Mg 1 each 08/25/19 22:00 08/28/19 21:12 Capsule - Patient PO 1 each Own Med HS VEENA Administration Oxycodone HCl 5 mg 08/25/19 16:30 08/29/19 05:59 Roxicodone - PO 5 mg Q6H PRN Administration PAIN LEVEL 6-10 Pantoprazole Sodium 40 mg 08/25/19 10:00 08/29/19 09:14 Protonix - PO 40 mg DAILY [facility]EENA Administration Prednisone 10 mg 08/25/19 10:00 08/29/19 09:14 Deltasone - PO 10 mg DAILY [facility]EENA Administration Umeclidinium/Vilanterol 1 puff 08/25/19 12:15 08/29/19 09:15 Anoro Ellipta 62.5-25 Mcg Inh IH 1 puff DAILY [facility]EENA Administration Vital Signs Period Temp Pulse Resp BP Sys/Dodge Pulse Ox Last 24 Hr 97.7 F-98.8 F 97-121 18-22 93-110/63-83 91-95 Constitutional: Yes: No Distress, Calm Eyes: Yes: Conjunctiva Clear, EOM Intact HENT: Yes: Atraumatic, Normocephalic Neck: Yes: Supple, Trachea Midline Respiratory: Yes: Regular, Rales, Wheezes Gastrointestinal: Yes: Normal Bowel Sounds, Soft Cardiovascular: Yes: Regular Rate and Rhythm JVD: No Extremities: No: Cold Edema: Yes Edema: LLE: Trace, RLE: Trace Integumentary: No: Jaundice Neurological: Yes: Alert, Oriented Psychiatric: No: Agitated Assessment/Plan EKG: sinus tach, RBBB, RVH stress echo 07/2018 nl EF, no ischemia tachycardia - sinus tachycardia likely in the setting of back pain - management of back pain per neurosurgery, primary - pain improving - cont metoprolol abnormal EKG - EKG with RBBB, RVH likely 2/2 underlying pulmonary dz, stable COPD, lung adenoca - manage per onc, pulm CAD s/p CABG - cont aspirin, statin, bb, plavix HTN - cont home meds HLD - cont statin
--- NOTE | 2019-08-29 17:13 | PN ---
Progress Note, Physician History of Present Illness: ambulating has back pain now - Current Medication List Current Medications: Active Medications Acetaminophen (Tylenol -) 325 mg PO Q6H PRN PRN Reason: PAIN LEVEL 6-10 Last Admin: 08/29/19 12:51 Dose: 325 mg Documented by: Aspirin (Asa -) 81 mg PO [facility] Last Admin: 08/28/19 21:12 Dose: 81 mg Documented by: Atorvastatin Calcium (Lipitor -) 20 mg PO [facility] Last Admin: 08/28/19 21:12 Dose: 20 mg Documented by: Calcium Carbonate/Cholecalciferol (Os-Faisal 500+D -) 1 tab PO BID [facility] Cyclobenzaprine HCl (Flexeril -) 10 mg PO TID [facility] Last Admin: 08/29/19 14:11 Dose: 10 mg Documented by: Docusate Sodium (Colace -) 100 mg PO TID [facility] Last Admin: 08/29/19 14:11 Dose: 100 mg Documented by: Gabapentin (Neurontin -) 100 mg PO BID [facility] Last Admin: 08/29/19 09:14 Dose: 100 mg Documented by: Lidocaine (Lidoderm Patch -) 1 patch TP DAILY@1600 [facility] Last Admin: 08/29/19 15:59 Dose: Not Given Documented by: Metoprolol Tartrate (Lopressor -) 50 mg PO BID [facility] Last Admin: 08/29/19 09:14 Dose: 50 mg Documented by: Miscellaneous (Lidoderm Patch Removal) 1 each MC DAILY@0500 [facility] Last Admin: 08/29/19 06:01 Dose: Not Given Documented by: Minocycline 75 Mg Capsule - Patient Own Med 1 each PO [facility] Last Admin: 08/28/19 21:12 Dose: 1 each Documented by: Oxycodone HCl (Roxicodone -) 5 mg PO Q6H PRN PRN Reason: PAIN LEVEL 6-10 Last Admin: 08/29/19 12:50 Dose: 5 mg Documented by: Pantoprazole Sodium (Protonix -) 40 mg PO DAILY [facility] Last Admin: 08/29/19 09:14 Dose: 40 mg Documented by: Prednisone (Deltasone -) 10 mg PO DAILY [facility] Last Admin: 08/29/19 09:14 Dose: 10 mg Documented by: Umeclidinium/Vilanterol (Anoro Ellipta 62.5-25 Mcg Inh) 1 puff IH DAILY [facility] Last Admin: 08/29/19 09:15 Dose: 1 puff Documented by: - Objective Vital Signs: Vital Signs Temperature 98.7 F 08/29/19 14:02 Pulse Rate 111 H 08/29/19 14:02 Respiratory Rate 08/29/19 14:02 Blood Pressure 96/64 08/29/19 14:02 O2 Sat by Pulse Oximetry (%) 91 L 08/29/19 14:02 Constitutional: Yes: No Distress HENT: Yes: Atraumatic Neck: Yes: Supple Cardiovascular: Yes: Regular Rate and Rhythm Respiratory: Yes: Rhonchi Gastrointestinal: Yes: Normal Bowel Sounds Extremities: Yes: WNL Edema: No Neurological: Yes: Alert Labs: CBC, BMP 08/25/19 07:05 08/25/19 07:05 INR, PTT INR 1.04 (0.83-1.09) 08/24/19 13:00 Problem List - Problems (1) Back pain Assessment/Plan: pain control back brace ALL CONSULTS REVIEWED Code(s): M54.9 - DORSALGIA, UNSPECIFIED (2) Compression fracture of T12 vertebra Code(s): S22.080A - WEDGE COMPRESSION FRACTURE OF T11-T12 VERTEBRA, INIT Qualifiers: Encounter type: initial encounter Qualified Code(s): S22.080A - Wedge compression fracture of T11-T12 vertebra, initial encounter for closed fracture (3) Vertebral fracture Code(s): [id number] - (4) COPD (chronic obstructive pulmonary disease) Assessment/Plan: prn nebs prn oxygen Code(s): J44.9 - CHRONIC OBSTRUCTIVE PULMONARY DISEASE, UNSPECIFIED (5) HLD (hyperlipidemia) Assessment/Plan: on meds Code(s): E78.5 - HYPERLIPIDEMIA, UNSPECIFIED (6) HTN (hypertension) Assessment/Plan: on meds Code(s): I10 - ESSENTIAL (PRIMARY) HYPERTENSION Assessment/Plan COVERING FOR DR YUNIOR BLAKELY
--- NOTE | 2019-08-29 18:58 | PN.HO ---
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 T/LS spine CT (prelim)- osteopenia; T4, T11 vertebral fx with kyphosis and mild sup endplate retropulsion Osteoporosis (steroid related) vs metastatic vertebral involvement Needs T spine MRI with indira to r/o pathological fx/met : Unable to tolerate closed MRI. Will schedule outpatient Neurosurgical intervention not recommended TLSO brace for immobilization per neurosurgery Vertebroplasty -- patient reluctant after he discussed risks/benefits with neurosurgery CT suggestive of osteoporotic fx pain control start oscal + D3 prolia as outpatient systemic therapy after discharge f/u liquid biopsy Discussed with patient and his mother
[2019-08-29] MEDS ORDERED: PT OWN MED DRAWER 7, Y5N ONE (20:50)
[2019-08-29] MEDS: ATORVASTATIN CA 20 MG TABLET (FP) PO SCH (21:41)
[2019-08-29] MEDS: ASPIRIN 81 MG CHEWABLE TABLETS PO SCH (21:41)
[2019-08-29] MEDS: CALCIUM 500MG/VIT-D 200 UNITS COMBO TABLET (FP) PO SCH (21:42)
[2019-08-29] MEDS: MINOCYCLINE PO SCH (21:42)
[2019-08-29] MEDS: HEPARIN NA (PORCINE) 5,000 UNITS/ML 1ML VIAL SQ SCH (22:46)
[2019-08-30] MEDS ORDERED: PT OWN MED DRAWER 7, Y5N ONE (00:07)
[2019-08-30] MEDS: oxyCODONE HCL 5 MG TABLET PO PRN ×2 (00:55→06:59)
[2019-08-30] MEDS: ACETAMINOPHEN 325 MG TABLET (FP) PO PRN ×3 (00:56→22:38)
[2019-08-30] MEDS: DOCUSATE SODIUM 100 MG CAPSULE (FP) PO SCH ×3 (05:24→21:42)
[2019-08-30] MEDS: CYCLOBENZAPRINE HCL 10 MG TABLET (FP) PO SCH ×3 (05:24→21:42)
[2019-08-30] MEDS: LIDOCAINE PATCH REMOVAL MC SCH (05:27)
[2019-08-30 07:32] LABS: BASO % 0.5 % (0-2.0); EOS % 2.1 % (0-4.5); HEMATOCRIT 31.5 % (35.4-49); HEMOGLOBIN 10.8 GM/dL (11.7-16.9); LYMPH % 7.2 % (8-40); MCH 30.9 pg (25.7-33.7); MCHC 34.2 g/dl (32.0-35.9); MEAN CELL VOLUME 90.3 fl (80-96); MONO % 17.1 % (3.8-10.2); NEUT % 73.1 % (42.8-82.8); PLATELET COUNT 121 K/MM3 (134-434); RBC 3.49 M/mm3 (4.00-5.60); RDW 18.6 % (11.9-15.9); WHITE BLOOD COUNT 5.1 K/mm3 (4.0-10.0)
[2019-08-30 08:09] LABS: ALBUMIN 2.8 g/dl (3.4-5.0); BILIRUBIN,TOTAL 0.4 mg/dL (0.2-1); BLOOD UREA NITROGEN 20.8 mg/dL (7-18); CALCIUM 8.8 mg/dL (8.5-10.1); CREATININE 0.9 mg/dL (0.55-1.3); POTASSIUM 3.9 mmol/L (3.5-5.1); TOT PROT 5.8 g/dl (6.4-8.2)
[2019-08-30 08:17] LABS: ANISOCYTOSIS 0; MACROCYTOSIS 0; PLATELET ESTIMATE DECREASED
[2019-08-30] MEDS: CALCIUM 500MG/VIT-D 200 UNITS COMBO TABLET (FP) PO SCH ×2 (11:01→21:43)
[2019-08-30] MEDS: predniSONE 10 MG TABLET (UD) PO SCH (11:01)
[2019-08-30] MEDS: UMECLIDINIUM/VILANTEROL (ANORO) 62.5/25 MCG INHALER IH SCH (11:01)
[2019-08-30] MEDS: HEPARIN NA (PORCINE) 5,000 UNITS/ML 1ML VIAL SQ SCH ×2 (11:01→21:42)
[2019-08-30] MEDS: METOPROLOL TARTRATE 50 MG TABLET (FP) PO SCH ×2 (11:01→21:43)
[2019-08-30] MEDS: GABAPENTIN 100 MG CAPSULE PO SCH ×2 (11:01→21:43)
[2019-08-30] MEDS: PANTOPRAZOLE 40 MG TABLET PO SCH (11:01)
--- NOTE | 2019-08-30 11:25 | PN ---
Progress Note (short form) - Note Progress Note: cc: tachycardia s: no chest pain, palps, dizziness; +chronic garza Current Medications Generic Name Dose Route Start Last Admin Trade Name Freq PRN Reason Stop Dose Admin Acetaminophen 325 mg 08/25/19 16:30 08/30/19 07:00 Tylenol - PO 325 mg Q6H PRN Administration PAIN LEVEL 6-10 Aspirin 81 mg 08/24/19 23:00 08/29/19 21:41 Asa - PO 81 mg HS VEENA Administration Atorvastatin Calcium 20 mg 08/24/19 23:00 08/29/19 21:41 Lipitor - PO 20 mg HS VEENA Administration Calcium Carbonate/Cholecalciferol 1 tab 08/29/19 22:00 08/30/19 11:01 Os-Faisal 500+D - PO 1 tab BID VEENA Administration Cyclobenzaprine HCl 10 mg 08/25/19 06:00 08/30/19 05:24 Flexeril - PO 10 mg TID VEENA Administration Docusate Sodium 100 mg 08/25/19 22:00 08/30/19 05:24 Colace - PO Not Given TID VEENA Gabapentin 100 mg 08/27/19 03:14 08/30/19 11:01 Neurontin - PO 100 mg BID VEENA Administration Heparin Sodium (Porcine) 5,000 unit 08/29/19 22:15 08/30/19 11:01 Heparin - SQ 5,000 unit BID VEENA Administration Lidocaine 1 patch 08/25/19 16:00 08/29/19 18:59 Lidoderm Patch - TP 1 patch DAILY@1600 VEENA Administration Metoprolol Tartrate 50 mg 08/24/19 22:30 08/30/19 11:01 Lopressor - PO 50 mg BID VEENA Administration Miscellaneous 1 each 08/26/19 05:00 08/30/19 05:27 Lidoderm Patch Removal MC Not Given DAILY@0500 COUNT INCLUDES [facility] Minocycline 75 Mg 1 each 08/25/19 22:00 08/29/19 21:42 Capsule - Patient PO 1 each Own Med HS VEENA Administration Oxycodone HCl 5 mg 08/25/19 16:30 08/30/19 06:59 Roxicodone - PO 5 mg Q6H PRN Administration PAIN LEVEL 6-10 Pantoprazole Sodium 40 mg 08/25/19 10:00 08/30/19 11:01 Protonix - PO 40 mg DAILY VEENA Administration Prednisone 10 mg 08/25/19 10:00 08/30/19 11:01 Deltasone - PO 10 mg DAILY VEENA Administration Umeclidinium/Vilanterol 1 puff 08/25/19 12:15 08/30/19 11:01 Anoro Ellipta 62.5-25 Mcg Inh IH 1 puff DAILY VEENA Administration Vital Signs Period Temp Pulse Resp BP Sys/Dodge Pulse Ox Last 24 Hr 97.6 F-99.1 F 101-128 - 96-108/63-74 90-96 Constitutional: Yes: No Distress, Calm Eyes: Yes: Conjunctiva Clear, EOM Intact HENT: Yes: Atraumatic, Normocephalic Neck: Yes: Supple, Trachea Midline Respiratory: Yes: Regular, Rales, Wheezes Gastrointestinal: Yes: Normal Bowel Sounds, Soft Cardiovascular: Yes: Regular Rate and Rhythm JVD: No Extremities: No: Cold Edema: no Integumentary: No: Jaundice Neurological: Yes: Alert, Oriented Psychiatric: No: Agitated CBC, BMP 08/30/19 06:40 08/30/19 06:40 Assessment/Plan EKG: sinus tach, RBBB, RVH stress echo 07/2018 nl EF, no ischemia tachycardia - sinus tachycardia likely in the setting of back pain - management of back pain per neurosurgery, primary - pain improving - cont metoprolol abnormal EKG - EKG with RBBB, RVH likely 2/2 underlying pulmonary dz, stable COPD, lung adenoca - manage per onc, pulm CAD s/p CABG - cont aspirin, statin, bb, plavix HTN - cont home meds HLD - cont statin
--- NOTE | 2019-08-30 12:58 | PN ---
Progress Note (short form) - Note Progress Note: Still with ERICKSON. Remains on 4.5 L NC O2. Saturation remains stable @ 94%. No wheezing or increase in cough. Intake & Output 08/27/19 08/28/19 08/29/19 08/30/19 23:59 23:59 23:59 23:59 Intake Total 530.5 980 800 200 Output Total 500 1700 1450 600 Balance 30.5 -720 -650 -400 Weight 207 lb 9.6 oz 207 lb 9.6 oz Last Vital Signs Temp Pulse Resp BP Pulse Ox 97.6 F 101 H 20 100/74 93 L 08/30/19 05:47 08/30/19 05:47 08/30/19 09:00 08/30/19 05:47 08/30/19 09:00 Active Medications Acetaminophen (Tylenol -) 325 mg PO Q6H PRN PRN Reason: PAIN LEVEL 6-10 Last Admin: 08/30/19 07:00 Dose: 325 mg Documented by: Aspirin (Asa -) 81 mg PO [facility] Last Admin: 08/29/19 21:41 Dose: 81 mg Documented by: Atorvastatin Calcium (Lipitor -) 20 mg PO [facility] Last Admin: 08/29/19 21:41 Dose: 20 mg Documented by: Calcium Carbonate/Cholecalciferol (Os-Faisal 500+D -) 1 tab PO BID [facility] Last Admin: 08/30/19 11:01 Dose: 1 tab Documented by: Cyclobenzaprine HCl (Flexeril -) 10 mg PO TID [facility] Last Admin: 08/30/19 05:24 Dose: 10 mg Documented by: Docusate Sodium (Colace -) 100 mg PO TID [facility] Last Admin: 08/30/19 05:24 Dose: Not Given Documented by: Gabapentin (Neurontin -) 100 mg PO BID [facility] Last Admin: 08/30/19 11:01 Dose: 100 mg Documented by: Heparin Sodium (Porcine) (Heparin -) 5,000 unit SQ BID [facility] Last Admin: 08/30/19 11:01 Dose: 5,000 unit Documented by: Lidocaine (Lidoderm Patch -) 1 patch TP DAILY@1600 [facility] Last Admin: 08/29/19 18:59 Dose: 1 patch Documented by: Metoprolol Tartrate (Lopressor -) 50 mg PO BID [facility] Last Admin: 08/30/19 11:01 Dose: 50 mg Documented by: Miscellaneous (Lidoderm Patch Removal) 1 each MC DAILY@0500 [facility] Last Admin: 08/30/19 05:27 Dose: Not Given Documented by: Minocycline 75 Mg Capsule - Patient Own Med 1 each PO HS [facility] Last Admin: 08/29/19 21:42 Dose: 1 each Documented by: Oxycodone HCl (Roxicodone -) 5 mg PO Q6H PRN PRN Reason: PAIN LEVEL 6-10 Last Admin: 08/30/19 06:59 Dose: 5 mg Documented by: Pantoprazole Sodium (Protonix -) 40 mg PO DAILY [facility] Last Admin: 08/30/19 11:01 Dose: 40 mg Documented by: Prednisone (Deltasone -) 10 mg PO DAILY [facility] Last Admin: 08/30/19 11:01 Dose: 10 mg Documented by: Umeclidinium/Vilanterol (Anoro Ellipta 62.5-25 Mcg Inh) 1 puff IH DAILY [facility] Last Admin: 08/30/19 11:01 Dose: 1 puff Documented by: Constitutional: Yes: mildly tachypneic at rest Eyes: Yes: Conjunctiva Clear, EOM Intact HENT: Yes: Atraumatic, Normocephalic Neck: Yes: Supple, Trachea Midline Cardiovascular: Yes: Regular Rate and Rhythm Respiratory: Yes: Cough, Diminished, Rhonchi. No: Accessory Muscle Use, Rales, SOB, Stridor, Tachypnea, Wheezes ...Inspection: Yes: WNL ...Clubbing: No Gastrointestinal: Yes: Normal Bowel Sounds, Soft Renal/: Yes: WNL Musculoskeletal: Yes: WNL Extremities: Yes: WNL Edema: No Peripheral Pulses WNL: Yes Integumentary: Yes: WNL Neurological: Yes: WNL, Alert, Oriented ...Motor Strength: WNL Psychiatric: Yes: WNL, Alert, Oriented Labs: Laboratory Results - last 24 hr 08/30/19 08/30/19 06:40 06:40 WBC 5.1 RBC 3.49 L Hgb 10.8 L Hct 31.5 L MCV 90.3 MCH 30.9 MCHC 34.2 RDW 18.6 H Plt Count 121 L MPV 7.0 L Absolute Neuts (auto) 3.7 Neutrophils % 73.1 Neutrophils % (Manual) 79.0 Band Neutrophils % 0.0 Lymphocytes % 7.2 L Lymphocytes % (Manual) 6.0 L D Monocytes % 17.1 H Monocytes % (Manual) 14 H Eosinophils % 2.1 Eosinophils % (Manual) 1.0 Basophils % 0.5 Basophils % (Manual) 0.0 Myelocytes % (Man) 0 Promyelocytes % (Man) 0 Blast Cells % (Manual) 0 Nucleated RBC % 1 H Metamyelocytes 0 D Hypochromia 0 Platelet Estimate Decreased Polychromasia 1+ Poikilocytosis 0 Anisocytosis 0 Macrocytosis 0 Sodium 142 Potassium 3.9 Chloride 102 Carbon Dioxide 31 Anion Gap 9 BUN 20.8 H Creatinine 0.9 Est GFR (CKD-EPI)AfAm 107.22 Est GFR (CKD-EPI)NonAf 92.51 Random Glucose 82 Calcium 8.8 Total Bilirubin 0.4 AST 46 H ALT 12 L Alkaline Phosphatase 73 Total Protein 5.8 L Albumin 2.8 L Imaging - Results Chest X-ray: Report Reviewed, Image Reviewed Problem List - Problems (1) Chronic respiratory failure Code(s): J96.10 - CHRONIC RESPIRATORY FAILURE, UNSP W HYPOXIA OR HYPERCAPNIA (2) Compression fracture of T12 vertebra Code(s): S22.080A - WEDGE COMPRESSION FRACTURE OF T11-T12 VERTEBRA, INIT Qualifiers: Encounter type: initial encounter Qualified Code(s): S22.080A - Wedge compression fracture of T11-T12 vertebra, initial encounter for closed fracture (3) CAD (coronary artery disease) Code(s): I25.10 - ATHSCL HEART DISEASE OF [place] CORONARY ARTERY W/O ANG PCTRS (4) COPD (chronic obstructive pulmonary disease) Code(s): J44.9 - CHRONIC OBSTRUCTIVE PULMONARY DISEASE, UNSPECIFIED (5) HLD (hyperlipidemia) Code(s): E78.5 - HYPERLIPIDEMIA, UNSPECIFIED (6) HTN (hypertension) Code(s): I10 - ESSENTIAL (PRIMARY) HYPERTENSION (7) Interstitial lung disease Code(s): J84.9 - INTERSTITIAL PULMONARY DISEASE, UNSPECIFIED (8) Lung cancer Code(s): C34.90 - MALIGNANT NEOPLASM OF UNSP PART OF UNSP BRONCHUS OR LUNG Assessment/Plan Incentive Spirometry Supplemental O2 as needed Prednisone 10mg OD BD TX PRN Pain control VTE prophylaxis Anoro OD No smoking Dr Daniel Problem List - Problems (1) Chronic respiratory failure Code(s): J96.10 - CHRONIC RESPIRATORY FAILURE, UNSP W HYPOXIA OR HYPERCAPNIA (2) Compression fracture of T12 vertebra Code(s): S22.080A - WEDGE COMPRESSION FRACTURE OF T11-T12 VERTEBRA, INIT Qualifiers: Encounter type: initial encounter Qualified Code(s): S22.080A - [place] compression fracture of T11-T12 vertebra, initial encounter for closed fracture (3) CAD (coronary artery disease) Code(s): I25.10 - ATHSCL HEART DISEASE OF [place] CORONARY ARTERY W/O ANG PCTRS (4) COPD (chronic obstructive pulmonary disease) Code(s): J44.9 - CHRONIC OBSTRUCTIVE PULMONARY DISEASE, UNSPECIFIED (5) HLD (hyperlipidemia) Code(s): E78.5 - HYPERLIPIDEMIA, UNSPECIFIED (6) HTN (hypertension) Code(s): I10 - ESSENTIAL (PRIMARY) HYPERTENSION (7) Interstitial lung disease Code(s): J84.9 - INTERSTITIAL PULMONARY DISEASE, UNSPECIFIED (8) Lung cancer Code(s): C34.90 - MALIGNANT NEOPLASM OF UNSP PART OF UNSP BRONCHUS OR LUNG
[2019-08-30] MEDS: LIDOCAINE 5% TOPICAL PATCH TP SCH (16:47)
[2019-08-30] MEDS: ASPIRIN 81 MG CHEWABLE TABLETS PO SCH (21:42)
[2019-08-30] MEDS: ATORVASTATIN CA 20 MG TABLET (FP) PO SCH (21:43)
[2019-08-30] MEDS: MINOCYCLINE PO SCH (21:43)
--- NOTE | 2019-08-30 21:52 | PN ---
Progress Note, Physician - Current Medication List Current Medications: Active Medications Acetaminophen (Tylenol -) 325 mg PO Q6H PRN PRN Reason: PAIN LEVEL 6-10 Last Admin: 08/30/19 07:00 Dose: 325 mg Documented by: Aspirin (Asa -) 81 mg PO [facility] Last Admin: 08/30/19 21:42 Dose: 81 mg Documented by: Atorvastatin Calcium (Lipitor -) 20 mg PO [facility] Last Admin: 08/30/19 21:43 Dose: 20 mg Documented by: Calcium Carbonate/Cholecalciferol (Os-Faisal 500+D -) 1 tab PO BID [facility] Last Admin: 08/30/19 21:43 Dose: 1 tab Documented by: Cyclobenzaprine HCl (Flexeril -) 10 mg PO TID [facility] Last Admin: 08/30/19 21:42 Dose: 10 mg Documented by: Docusate Sodium (Colace -) 100 mg PO TID [facility] Last Admin: 08/30/19 21:42 Dose: Not Given Documented by: Gabapentin (Neurontin -) 100 mg PO BID [facility] Last Admin: 08/30/19 21:43 Dose: Not Given Documented by: Heparin Sodium (Porcine) (Heparin -) 5,000 unit SQ BID [facility] Last Admin: 08/30/19 21:42 Dose: 5,000 unit Documented by: Lidocaine (Lidoderm Patch -) 1 patch TP DAILY@1600 [facility] Last Admin: 08/30/19 16:47 Dose: 1 patch Documented by: Metoprolol Tartrate (Lopressor -) 50 mg PO BID [facility] Last Admin: 08/30/19 21:43 Dose: 50 mg Documented by: Miscellaneous (Lidoderm Patch Removal) 1 each MC DAILY@0500 [facility] Last Admin: 08/30/19 05:27 Dose: Not Given Documented by: Minocycline 75 Mg Capsule - Patient Own Med 1 each PO [facility] Last Admin: 08/30/19 21:43 Dose: 1 each Documented by: Oxycodone HCl (Roxicodone -) 5 mg PO Q6H PRN PRN Reason: PAIN LEVEL 6-10 Last Admin: 08/30/19 06:59 Dose: 5 mg Documented by: Pantoprazole Sodium (Protonix -) 40 mg PO DAILY [facility] Last Admin: 08/30/19 11:01 Dose: 40 mg Documented by: Prednisone (Deltasone -) 10 mg PO DAILY [facility] Last Admin: 08/30/19 11:01 Dose: 10 mg Documented by: Umeclidinium/Vilanterol (Anoro Ellipta 62.5-25 Mcg Inh) 1 puff IH DAILY [facility] Last Admin: 08/30/19 11:01 Dose: 1 puff Documented by: - Objective Vital Signs: Vital Signs Temperature 98.3 F 08/30/19 18:00 Pulse Rate 116 H 08/30/19 18:00 Respiratory Rate 08/30/19 18:00 Blood Pressure 117/69 08/30/19 18:00 O2 Sat by Pulse Oximetry (%) 93 L 08/30/19 18:00 Labs: CBC, BMP 08/30/19 06:40 08/30/19 06:40 INR, PTT INR 1.04 (0.83-1.09) 08/24/19 13:00 Problem List - Problems (1) Vertebral fracture Code(s): [id number] - (2) Lung cancer Code(s): C34.90 - MALIGNANT NEOPLASM OF UNSP PART OF UNSP BRONCHUS OR LUNG (3) COPD (chronic obstructive pulmonary disease) Code(s): J44.9 - CHRONIC OBSTRUCTIVE PULMONARY DISEASE, UNSPECIFIED (4) HLD (hyperlipidemia) Code(s): E78.5 - HYPERLIPIDEMIA, UNSPECIFIED (5) HTN (hypertension) Code(s): I10 - ESSENTIAL (PRIMARY) HYPERTENSION (6) Interstitial lung disease Code(s): J84.9 - INTERSTITIAL PULMONARY DISEASE, UNSPECIFIED (7) CAD (coronary artery disease) Code(s): I25.10 - ATHSCL HEART DISEASE OF [place] CORONARY ARTERY W/O ANG PCTRS
[2019-08-30] MEDS ORDERED: ACETAMINOPHEN 325 MG TABLET (FP) PO PRN (22:00)
[2019-08-31] MEDS: LIDOCAINE PATCH REMOVAL MC SCH (05:25)
[2019-08-31] MEDS: ACETAMINOPHEN 325 MG TABLET (FP) PO PRN (05:26)
[2019-08-31] MEDS: CYCLOBENZAPRINE HCL 10 MG TABLET (FP) PO SCH ×2 (05:26→14:24)
[2019-08-31] MEDS: DOCUSATE SODIUM 100 MG CAPSULE (FP) PO SCH ×2 (05:26→14:24)
[2019-08-31] MEDS: METOPROLOL TARTRATE 50 MG TABLET (FP) PO SCH (09:44)
[2019-08-31] MEDS: CALCIUM 500MG/VIT-D 200 UNITS COMBO TABLET (FP) PO SCH (09:44)
[2019-08-31] MEDS: predniSONE 10 MG TABLET (UD) PO SCH (09:44)
[2019-08-31] MEDS: PANTOPRAZOLE 40 MG TABLET PO SCH (09:44)
[2019-08-31] MEDS: HEPARIN NA (PORCINE) 5,000 UNITS/ML 1ML VIAL SQ SCH (09:44)
[2019-08-31] MEDS: GABAPENTIN 100 MG CAPSULE PO SCH (09:47)
[2019-08-31] MEDS: UMECLIDINIUM/VILANTEROL (ANORO) 62.5/25 MCG INHALER IH SCH (09:56)
--- NOTE | 2019-08-31 09:59 | PN ---
Progress Note, Physician Chief Complaint: denies CP Chronic ERICKSON No dizziness History of Present Illness: CAD Lung CA Back pain Former smoker - Current Medication List Current Medications: Active Medications Acetaminophen (Tylenol -) 325 mg PO Q6H PRN PRN Reason: PAIN LEVEL 6-10 Last Admin: 08/30/19 07:00 Dose: 325 mg Documented by: Acetaminophen (Tylenol -) 650 mg PO Q6H PRN PRN Reason: PAIN SCALE 4-6 Last Admin: 08/31/19 05:26 Dose: 650 mg Documented by: Aspirin (Asa -) 81 mg PO [facility] Last Admin: 08/30/19 21:42 Dose: 81 mg Documented by: Atorvastatin Calcium (Lipitor -) 20 mg PO [facility] Last Admin: 08/30/19 21:43 Dose: 20 mg Documented by: Calcium Carbonate/Cholecalciferol (Os-Faisal 500+D -) 1 tab PO BID [facility] Last Admin: 08/31/19 09:44 Dose: 1 tab Documented by: Cyclobenzaprine HCl (Flexeril -) 10 mg PO TID [facility] Last Admin: 08/31/19 05:26 Dose: 10 mg Documented by: Docusate Sodium (Colace -) 100 mg PO TID [facility] Last Admin: 08/31/19 05:26 Dose: Not Given Documented by: Gabapentin (Neurontin -) 100 mg PO BID [facility] Last Admin: 08/31/19 09:47 Dose: Not Given Documented by: Heparin Sodium (Porcine) (Heparin -) 5,000 unit SQ BID [facility] Last Admin: 08/31/19 09:44 Dose: 5,000 unit Documented by: Lidocaine (Lidoderm Patch -) 1 patch TP DAILY@1600 [facility] Last Admin: 08/30/19 16:47 Dose: 1 patch Documented by: Metoprolol Tartrate (Lopressor -) 50 mg PO BID [facility] Last Admin: 08/31/19 09:44 Dose: 50 mg Documented by: Miscellaneous (Lidoderm Patch Removal) 1 each MC DAILY@0500 [facility] Last Admin: 08/31/19 05:25 Dose: 1 each Documented by: Minocycline 75 Mg Capsule - Patient Own Med 1 each PO [facility] Last Admin: 08/30/19 21:43 Dose: 1 each Documented by: Oxycodone HCl (Roxicodone -) 5 mg PO Q6H PRN PRN Reason: PAIN LEVEL 6-10 Last Admin: 08/30/19 06:59 Dose: 5 mg Documented by: Pantoprazole Sodium (Protonix -) 40 mg PO DAILY [facility] Last Admin: 08/31/19 09:44 Dose: 40 mg Documented by: Prednisone (Deltasone -) 10 mg PO DAILY [facility] Last Admin: 08/31/19 09:44 Dose: 10 mg Documented by: Umeclidinium/Vilanterol (Anoro Ellipta 62.5-25 Mcg Inh) 1 puff IH DAILY [facility] Last Admin: 08/31/19 09:56 Dose: 1 puff Documented by: - Objective Vital Signs: Vital Signs Temperature 98.0 F 08/31/19 05:50 Pulse Rate 92 H 08/31/19 05:50 Respiratory Rate 08/31/19 05:50 Blood Pressure 99/63 08/31/19 05:50 O2 Sat by Pulse Oximetry (%) 93 L 08/31/19 05:50 Constitutional: Yes: No Distress Cardiovascular: Yes: Regular Rate and Rhythm Respiratory: Yes: Other (decreased breath sounds right) Gastrointestinal: Yes: Soft (nt) Edema: No Neurological: Yes: Alert, Oriented Labs: CBC, BMP 08/30/19 06:40 08/30/19 06:40 INR, PTT INR 1.04 (0.83-1.09) 08/24/19 13:00 Assessment/Plan Assessment/Plan EKG: sinus tach, RBBB, RVH stress echo 07/2018 nl EF, no ischemia tachycardia: - sinus tachycardia likely in the setting of back pain - management of back pain per neurosurgery, primary - pain improving - cont metoprolol abnormal EKG: - EKG with RBBB, RVH likely 2/2 underlying pulmonary dz, stable COPD, lung adenoca: - manage per onc, pulm CAD s/p CABG: - cont aspirin, statin, bb, plavix HTN: - cont home meds HLD: - cont statin
[2019-08-31 11:44] VITALS: BMI 25.2
--- NOTE | 2019-08-31 12:57 | PN ---
Progress Note, Physician History of Present Illness: ambulating has back pain - Current Medication List Current Medications: Active Medications Acetaminophen (Tylenol -) 325 mg PO Q6H PRN PRN Reason: PAIN LEVEL 6-10 Last Admin: 08/30/19 07:00 Dose: 325 mg Documented by: Acetaminophen (Tylenol -) 650 mg PO Q6H PRN PRN Reason: PAIN SCALE 4-6 Last Admin: 08/31/19 05:26 Dose: 650 mg Documented by: Aspirin (Asa -) 81 mg PO [facility] Last Admin: 08/30/19 21:42 Dose: 81 mg Documented by: Atorvastatin Calcium (Lipitor -) 20 mg PO [facility] Last Admin: 08/30/19 21:43 Dose: 20 mg Documented by: Calcium Carbonate/Cholecalciferol (Os-Faisal 500+D -) 1 tab PO BID [facility] Last Admin: 08/31/19 09:44 Dose: 1 tab Documented by: Cyclobenzaprine HCl (Flexeril -) 10 mg PO TID [facility] Last Admin: 08/31/19 05:26 Dose: 10 mg Documented by: Docusate Sodium (Colace -) 100 mg PO TID [facility] Last Admin: 08/31/19 05:26 Dose: Not Given Documented by: Gabapentin (Neurontin -) 100 mg PO BID [facility] Last Admin: 08/31/19 09:47 Dose: Not Given Documented by: Heparin Sodium (Porcine) (Heparin -) 5,000 unit SQ BID [facility] Last Admin: 08/31/19 09:44 Dose: 5,000 unit Documented by: Lidocaine (Lidoderm Patch -) 1 patch TP DAILY@1600 [facility] Last Admin: 08/30/19 16:47 Dose: 1 patch Documented by: Metoprolol Tartrate (Lopressor -) 50 mg PO BID [facility] Last Admin: 08/31/19 09:44 Dose: 50 mg Documented by: Miscellaneous (Lidoderm Patch Removal) 1 each MC DAILY@0500 [facility] Last Admin: 08/31/19 05:25 Dose: 1 each Documented by: Minocycline 75 Mg Capsule - Patient Own Med 1 each PO [facility] Last Admin: 08/30/19 21:43 Dose: 1 each Documented by: Oxycodone HCl (Roxicodone -) 5 mg PO Q6H PRN PRN Reason: PAIN LEVEL 6-10 Last Admin: 08/30/19 06:59 Dose: 5 mg Documented by: Pantoprazole Sodium (Protonix -) 40 mg PO DAILY [facility] Last Admin: 08/31/19 09:44 Dose: 40 mg Documented by: Prednisone (Deltasone -) 10 mg PO DAILY [facility] Last Admin: 08/31/19 09:44 Dose: 10 mg Documented by: Umeclidinium/Vilanterol (Anoro Ellipta 62.5-25 Mcg Inh) 1 puff IH DAILY [facility] Last Admin: 08/31/19 09:56 Dose: 1 puff Documented by: - Objective Vital Signs: Vital Signs Temperature 98.0 F 08/31/19 05:50 Pulse Rate 92 H 08/31/19 05:50 Respiratory Rate 20 08/31/19 05:50 Blood Pressure 99/63 08/31/19 05:50 O2 Sat by Pulse Oximetry (%) 93 L 08/31/19 05:50 Constitutional: Yes: Anxious HENT: Yes: Atraumatic Neck: Yes: Supple Cardiovascular: Yes: Regular Rate and Rhythm Respiratory: Yes: Rhonchi Gastrointestinal: Yes: Normal Bowel Sounds Extremities: Yes: WNL Neurological: Yes: Alert, Oriented Labs: CBC, BMP 08/30/19 06:40 08/30/19 06:40 INR, PTT INR 1.04 (0.83-1.09) 08/24/19 13:00 Problem List - Problems (1) Back pain Assessment/Plan: pain control back brace Code(s): M54.9 - DORSALGIA, UNSPECIFIED (2) Compression fracture of T12 vertebra Assessment/Plan: need mri Code(s): S22.080A - WEDGE COMPRESSION FRACTURE OF T11-T12 VERTEBRA, INIT Qualifiers: Encounter type: initial encounter Qualified Code(s): S22.080A - Wedge compression fracture of T11-T12 vertebra, initial encounter for closed fracture (3) Vertebral fracture Code(s): [id number] - (4) COPD (chronic obstructive pulmonary disease) Assessment/Plan: prn nebs prn oxygen Code(s): J44.9 - CHRONIC OBSTRUCTIVE PULMONARY DISEASE, UNSPECIFIED (5) HLD (hyperlipidemia) Assessment/Plan: on meds Code(s): E78.5 - HYPERLIPIDEMIA, UNSPECIFIED (6) HTN (hypertension) Assessment/Plan: on meds Code(s): I10 - ESSENTIAL (PRIMARY) HYPERTENSION (7) Lung cancer Assessment/Plan: oncology note reviewed out patint treatment in plan Code(s): C34.90 - MALIGNANT NEOPLASM OF UNSP PART OF UNSP BRONCHUS OR LUNG Assessment/Plan COVERING DR MOJICA TODAY
--- NOTE | 2019-08-31 16:09 | DS ---
Physical Examination Vital Signs: Vital Signs Temperature 98.0 F 08/31/19 05:50 Pulse Rate 92 H 08/31/19 05:50 Respiratory Rate 20 08/31/19 05:50 Blood Pressure 99/63 08/31/19 05:50 O2 Sat by Pulse Oximetry (%) 93 L 08/31/19 05:50 Constitutional: Yes: No Distress HENT: Yes: Atraumatic Neck: Yes: Supple Cardiovascular: Yes: Regular Rate and Rhythm Respiratory: Yes: CTA Bilaterally Gastrointestinal: Yes: Normal Bowel Sounds Extremities: Yes: WNL Neurological: Yes: Alert, Oriented Labs: CBC, BMP 08/30/19 06:40 08/30/19 06:40 Discharge Summary Problems reviewed: Yes Reason For Visit: COMPRESSION FRACTURE OF T12 VERTEBRA Current Active Problems Back pain (Acute) Chronic respiratory failure (Acute) Compression fracture of T12 vertebra (Acute) Vertebral fracture (Acute) Condition: Good - Instructions Diet, Activity, Other Instructions: Regular diet See Dr sp Galloway in 1 week Referrals: Sp Galloway MD [Primary Care Provider] - Disposition: HOME - Home Medications Comprehensive Discharge Medication List: Ambulatory Orders Aspirin 81 mg PO HS 08/24/19 Atorvastatin Ca [Lipitor] 20 mg PO HS 08/24/19 Cyclobenzaprine HCl [Flexeril -] 10 mg PO TID 08/24/19 Metoprolol Tartrate 50 mg PO BID 08/24/19 Prednisone 10 mg PO DAILY 08/24/19 Acetaminophen [Tylenol .Regular Strength -] 325 mg PO Q6H PRN #90 tablet 08/31/19 Calcium 500Mg/Vit-D 200 Units [Os-Faisal 500+D -] 1 tab PO BID tab 08/31/19 Docusate Sodium [Colace -] 100 mg PO TID #90 capsule 08/31/19 Gabapentin [Neurontin -] 100 mg PO BID #60 capsule 08/31/19 Lidocaine 5% Patch [Lidoderm -] 1 patch TP DAILY@1600 #30 patch 08/31/19 Umeclidinium Brm/Vilanterol Tr [Anoro Ellipta 62.5-25 Mcg INH] 1 puff IH DAILY inhaler 08/31/19 dc home d/w dr giron\ COVERING FOR DR GIRON
[2019-08-31 16:40] VITALS: BP 139/89; PULSE 115; TEMP 97.8
== END 2019-08-31 16:33 | disposition home or self-care (01) | DRG 552 ==
LOC: JER 09:14 → JERBED 13:04 → J7W 20:30
PROVIDERS: ADMIT Internal Medicine; ATTEND Internal Medicine
DX: S22.080A Wedge compression fracture of T11-T12 vertebra, initial encounter for closed fracture (principal); C34.91 Malignant neoplasm of unspecified part of right bronchus or lung; J84.9 Interstitial pulmonary disease, unspecified; J96.10 Chronic respiratory failure, unspecified whether with hypoxia or hypercapnia; I10 Essential (primary) hypertension; E78.5 Hyperlipidemia, unspecified; J44.9 Chronic obstructive pulmonary disease, unspecified; I25.10 Atherosclerotic heart disease of native coronary artery without angina pectoris; K21.9 Gastro-esophageal reflux disease without esophagitis; E78.00 Pure hypercholesterolemia, unspecified; I45.10 Unspecified right bundle-branch block; M81.8 Other osteoporosis without current pathological fracture; M81.0 Age-related osteoporosis without current pathological fracture; Z95.1 Presence of aortocoronary bypass graft; R00.0 Tachycardia, unspecified; X58.XXXA Exposure to other specified factors, initial encounter; Y93.9 Activity, unspecified; Y92.89 Other specified places as the place of occurrence of the external cause; Y99.9 Unspecified external cause status
CPT/HCPCS: 36415; 71045-TC-FY; 72128-TC; 72131-TC; 80053; 84484; 85025; 85610; 85730; 86850; 86900; 86901; 93005; 93010; 94010; 97116-GP; 97161-GP; 99285-25; J1644; U0003

== ENCOUNTER 2019-09-22 17:31 | Inpatient (IN) | payer OTHER ==
[2019-09-22] MEDS ORDERED: MINERAL OIL ENEMA 133 ML ENEMA PR ONE (18:21)
[2019-09-22] MEDS ORDERED: SODIUM PHOSPHATE/NA BIPHOS 133 ML ENEMA PR ONE ×2 (18:21→19:30)
--- NOTE | 2019-09-22 18:45 | PDOC ---
History of Present Illness - General Chief Complaint: Constipation Stated Complaint: CONSTIPATION/RECTAL/PAIN Time Seen by Provider: 09/22/19 18:02 History Source: Patient Exam Limitations: No Limitations - History of Present Illness Initial Comments: 09/22/19 18:45 Pt is a 58 y/o male with PMH significant for COPD, HTN, HLD, CAD, [place](S/P cardiac stents/CABG), COPD, ILD, Stage IIIC lung CA(s/p RT 08/22/19), GERD, new spine fracture, recently admitted here for back pain presents to the ED with 2 weeks of no bowel movement. Pt states he was placed on oxycodone when he was found to have a spinal compression fracture and since starting the narcotics hsa had trouble having a bowel movement. Pt states that he has the urge to go but is unable to pass stool. He is also complaining of diffuse abdominal pain which is non radiaing. Of note pt using home O2 and his normal O2 sat is between 88-92 on 5-6L at rest. Pt otherwise denies: fevers, chills, syncope, lightheadedness, dizziness, headaches, neck pain, chest pain, palpitations, nausea, vomiting, diarrhea. Past History - Medical History Allergies/Adverse Reactions: Allergies Allergy/AdvReac Type Severity Reaction Status Date / Time No Known Allergies Allergy Verified 09/22/19 18:20 Home Medications: Ambulatory Orders Aspirin 81 mg PO HS 08/24/19 Atorvastatin Ca [Lipitor] 20 mg PO HS 08/24/19 Cyclobenzaprine HCl [Flexeril -] 10 mg PO TID 08/24/19 Metoprolol Tartrate 50 mg PO BID 08/24/19 Prednisone 10 mg PO DAILY 08/24/19 Acetaminophen [Tylenol .Regular Strength -] 325 mg PO Q6H PRN #90 tablet 08/30 Calcium 500Mg/Vit-D 200 Units [Os-Faisal 500+D -] 1 tab PO BID tab 08/31/19 Docusate Sodium [Colace -] 100 mg PO TID #90 capsule 08/31/19 Gabapentin [Neurontin -] 100 mg PO BID #60 capsule 08/31/19 Lidocaine 5% Patch [Lidoderm -] 1 patch TP DAILY@1600 #30 patch 08/31/19 Umeclidinium Brm/Vilanterol Tr [Anoro Ellipta 62.5-25 Mcg INH] 1 puff IH DAILY inhaler 08/31/19 Pantoprazole Sodium [Protonix -] 20 mg PO DAILY 09/22/19 Polyethylene Glycol 3350 [Miralax (For Bowel Prep) -] 17 gm PO DAILY 09/22/19 Anemia: No Asthma: No Cancer: (Yes; Lung CA -stage 2) Cardiac Disorders: Yes (LA 04/06/13 with stent, quadruple bypass 2015 ([facility])) CVA: No COPD: Yes CHF: Yes Dementia: No Diabetes: No GI Disorders: Yes (GERD) Disorders: No HTN: Yes Hypercholesterolemia: Yes Liver Disease: No Seizures: No Thyroid Disease: No Lung CA: Yes (RIGHT) - Surgical History Abdominal Surgery: No Appendectomy: No Cardiac Surgery: Yes (05/2013-CABG 1 stent, angioplasty, 4bypass 2015) Cholecystectomy: No Lung Surgery: No Neurologic Surgery: No Orthopedic Surgery: Yes (1989 Fractured Ankle) - Immunization History Immunization Up to Date: Yes - Psycho-Social/Smoking History Smoking History: Unknown if ever smoked Have you smoked in the past 12 months: No Number of Cigarettes Smoked Daily: 20 If you are a former smoker, when did you quit?: 2013 Information on smoking cessation initiated: No - Substance Abuse Hx (Audit-C & DAST Scrn) How often the patient has a drink containing alcohol: Never Score: In Men: 4 or > Positive; In Women: 3 or > Positive: 0 Screen Result (Pos requires Nsg. Audit-10AR): Negative In the last yr the pt used illegal drug/Rx for NonMed reason: No Score: Yes response is considered Positive: 0 Screen Result (Positive result requires Nsg. DAST-10): Negative *Physical Exam - Vital Signs Last Vital Signs Temp Pulse Resp BP Pulse Ox 97.9 F 118 H 24 H 113/76 100 09/22/19 17:35 09/22/19 17:35 09/22/19 17:35 09/22/19 17:35 09/22/19 17:35 - Physical Exam 09/22/19 19:20 Gen: AAOx 3, no acute distress, comfortable, no signs of respiratory distress HENT: atraumatic, normocephalic with no laceration or contusion. Nasal mucosa without erythema. Oropharynx without erythema or exudates. Mucous membranes mo ist. EYES: PERRL, EOM intact, conjunctiva pink NECK: supple; trachea midline; no JVD, no lymphadenopathy, or thyromegaly CV: RRR no murmurs, gallops, or rubs. CHEST: CTA b/l no wheezing, rales or rhonchi ABD: +BS/ND. mildly TTP throughout; no rebound, no guarding RECTAL: no rectal tenderness; non tender, no discharge/bleeding; hard brown stool in the vault EXTREMITY: no cyanosis or erythema. 2+ dorsalis pedis, posterior tibial, and radial pulse. No pedal edema; no calf swelling or tenderness SKIN: no rash, warm and dry, no diaphoresis HEME: no purpura or ecchymosis NEURO: normal speech, CN II-XII intact, sensation intact, normal gait, no cerebellar deficits MS: 5/5 strength in all extremities, FROM intact in all extremities. ED Treatment Course - LABORATORY CBC & Chemistry Diagram: 09/22/19 20:04 09/22/19 20:04 Medical Decision Making - Medical Decision Making 09/22/19 19:21 Pt is a 58 y/o male with PMH significant for COPD, HTN, HLD, CAD, [place](S/P cardiac stents/CABG), COPD, ILD, Stage IIIC lung CA(s/p RT 08/22/19), GERD spinal compression fracture Vitals sigficant for O2 sat of 90% on 6L NC and tachycardia to 120's Will obtain labs, EKG, CT abdomen and pelvis with PO contrast Will give NS and 2 enemas Will reassess based on results Three attempts were made to reach Dr Soler's service without response Pts labs show: WBC 938 H/H 13/37 Plt 160 Cr 1.2 BUN 19.9 AST 93 Trop negative BNP 574 Pt is pending EKG and CT abdomen and pelvis Due to shift change pt signed out pending results and admission Discharge - Discharge Information Problems reviewed: Yes Clinical Impression/Diagnosis: Constipation Qualifiers: Constipation type: drug induced constipation Qualified Code(s): K59.03 - Drug induced constipation - Follow up/Referral Referrals: Enriqueta Soler MD [Primary Care Provider] - - Patient Discharge Instructions - Post Discharge Activity
[2019-09-22] MEDS ORDERED: SODIUM CHLORIDE 0.9% 500 ML INFUS.BAG IV ONE (18:46)
[2019-09-22 20:22] LABS: BASO % 0.3 % (0-2.0); EOS % 0.2 % (0-4.5); HEMATOCRIT 37.7 % (35.4-49); MCH 31.4 pg (25.7-33.7); MCHC 34.4 g/dl (32.0-35.9); MEAN CELL VOLUME 91.1 fl (80-96); MEAN PLT VOLUME 7.5 fl (7.5-11.1); MONO % 9.8 % (3.8-10.2); NEUT % 85.7 % (42.8-82.8); PLATELET COUNT 160 K/MM3 (134-434); RBC 4.14 M/mm3 (4.00-5.60); RDW 17.8 % (11.9-15.9); WHITE BLOOD COUNT 9.8 K/mm3 (4.0-10.0)
[2019-09-22 20:28] LABS: INR 1.13 (0.83-1.09); PROTHROMBIN TIME (PATIENT) 13.3 SEC (9.7-13.0)
[2019-09-22 20:30] LABS: ACTIVATED PTT 29.6 SECONDS (25.2-36.5)
[2019-09-22 21:01] LABS: ALBUMIN 3.7 g/dl (3.4-5.0); ALK PHOS 107 U/L (45-117); ANION GAP 11 MMOL/L (8-16); BILIRUBIN,TOTAL 0.8 mg/dL (0.2-1); BLOOD UREA NITROGEN 19.9 mg/dL (7-18); CALCIUM 10.3 mg/dL (8.5-10.1); CHLORIDE 96 mmol/L (98-107); CO2 30 mmol/L (21-32); CREATININE 1.2 mg/dL (0.55-1.3); GLUCOSE,RANDOM 102 mg/dL (74-106); N-TERMINAL BNP 574.8 pg/ml (5-125); POTASSIUM 5.1 mmol/L (3.5-5.1); SGOT/AST 93 U/L (15-37); SGPT/ALT 20 U/L (13-61); SODIUM 137 mmol/L (136-145); TOT PROT 7.4 g/dl (6.4-8.2)
--- NOTE | 2019-09-22 21:43 | PDOC ---
*Physical Exam - Vital Signs Last Vital Signs Temp Pulse Resp BP Pulse Ox 97.9 F 118 H 24 H 113/76 100 09/22/19 17:35 09/22/19 17:35 09/22/19 17:35 09/22/19 17:35 09/22/19 17:35 - Physical Exam Patient was sign out from [facility]. Patient is a 58 year old M with a hx of COPD, HTN, HLD, CAD, ILD, stage 3C lung cancer, and LA s/p stents and CABG who presented to the emergency department with no bowel movement for 2 weeks A disimpaction was attempted and minimally successful. At the time of sign out, the patient had a pending admission. ED Treatment Course - LABORATORY CBC & Chemistry Diagram: 10/04/19 06:15 10/03/19 20:00 - ADDITIONAL ORDERS Additional order review: Laboratory Results 09/22/19 09/22/19 09/22/19 20:04 20:04 20:04 PT with INR 13.30 H INR 1.13 H PTT (Actin FS) 29.6 Sodium 137 Potassium 5.1 Chloride 96 L Carbon Dioxide 30 Anion Gap 11 BUN 19.9 H Creatinine 1.2 Est GFR (CKD-EPI)AfAm 75.72 Est GFR (CKD-EPI)NonAf 65.33 Random Glucose 102 Calcium 10.3 H Total Bilirubin 0.8 AST 93 H ALT 20 Alkaline Phosphatase 107 Creatine Kinase 54 Troponin I < 0.02 B-Natriuretic Peptide 574.8 H Total Protein 7.4 Albumin 3.7 Lipase 111 09/22/19 20:04 RBC 4.14 MCV 91.1 MCHC 34.4 RDW 17.8 H MPV 7.5 Neutrophils % 85.7 H Lymphocytes % 4.0 L D Monocytes % 9.8 Eosinophils % 0.2 D Basophils % 0.3 - Medications Given in the ED: ED Medications Discontinued Medications Generic Name Dose Route Start Last Admin Trade Name Freq PRN Reason Stop Dose Admin Mineral Oil 133 ml 09/22/19 18:21 09/22/19 19:19 Fleet Mineral Oil Rectal Enema - ND 09/22/19 18:22 133 ml NOW ONE Administration Sodium Chloride 1,000 ml 09/22/19 18:46 09/22/19 20:02 Normal Saline - IV 09/22/19 18:47 1,000 ml ONCE ONE Administration Sodium Phosphate 133 ml 09/22/19 18:21 09/22/19 19:19 Fleet Adult Rectal Enema - ND 09/22/19 18:22 133 ml ONCE ONE Administration Sodium Phosphate 133 ml 09/22/19 19:30 09/22/19 20:03 Fleet Adult Rectal Enema - ND 09/22/19 19:31 133 ml ONCE ONE Administration Medical Decision Making - Medical Decision Making Spoke to admitting team who accepted the patient for admission Discharge - Discharge Information Problems reviewed: Yes Clinical Impression/Diagnosis: Constipation Qualifiers: Constipation type: drug induced constipation Qualified Code(s): K59.03 - Drug induced constipation - Follow up/Referral - Patient Discharge Instructions - Post Discharge Activity
[2019-09-22] MEDS ORDERED: ACETAMINOPHEN 1000 MG/100 ML VIAL (NON FORMULARY) IVPB ONE (21:45)
[2019-09-22] MEDS ORDERED: ACETAMINOPHEN INJECTION 100 ML IVPB ONE (21:55)
--- NOTE | 2019-09-23 01:44 | PN ---
Teaching Attending Note Name of Resident: Gregory Sevilla ATTENDING PHYSICIAN STATEMENT I saw and evaluated the patient. I reviewed the resident's note and discussed the case with the resident. I agree with the resident's findings and plan as documented. SUBJECTIVE: Patient is a 58 year old man with a PMH of COPD (on home oxygen), HTN, HLD, CAD, [place](s/p angioplasty, cardiac stents and CABG), ILD, Stage IIIC L cancer(s/p RT 08/22/19), GERD and new Spine fracture, recently admitted here for back pain presents to the ER with 2 weeks of no bowel movement. States he was placed on Oxycodone when he was found to have a spinal compression fracture and since starting then has had constipation. Has the urge to go but is unable to pass stool. He is also complaining of diffuse abdominal pain which is nonradiating. On home O2 and his normal O2 saturation is between 88-92 on 5-6L at rest. Patient denies fevers, chills, syncope, lightheadedness, dizziness, headaches, neck pain, chest pain, palpitations, nausea, vomiting or diarrhea. Denies alcohol, tobacco or illicit drug use. No sick contacts or recent travels. Family history is unremarkable. OBJECTIVE: Alert Vital Signs Period Temp Pulse Resp BP Sys/Dodge Pulse Ox Last 24 Hr 97.9 F 118 24 113/76 100 HEENT: No Jaundice, eye redness or discharge, PERRLA, EOMI. Normocephalic, atraumatic. External ears are normal and hearing is grossly intact. No nasal discharge. Neck: Supple, nontender. No palpable adenopathy or thyromegaly. No JVD Chest: Good effort. Clear to auscultation and percussion. Heart: Regular. No S3, rub or murmur Abdomen: Not distended, soft, mild periumblical tenderness and no HSM. No rebound or guarding. Normal bowel sounds. Ext: Peripheral pulses intact. No leg edema. Skin: Warm and dry. No petechiae, rash or ecchymosis. Neuro: Alert. Oriented x3. CN 2-12 grossly intact. Sensation grossly intact in all four extremities and DTR are symmetric. Psych: Appropriate mood and affect. Good insight. Home Medications Medication Instructions Recorded Aspirin 81 mg PO HS 08/24/19 Atorvastatin Ca [Lipitor] 20 mg PO HS 08/24/19 Cyclobenzaprine HCl [Flexeril -] 10 mg PO TID 08/24/19 Metoprolol Tartrate 50 mg PO BID 08/24/19 Prednisone 10 mg PO DAILY 08/24/19 Acetaminophen [Tylenol .Regular 325 mg PO Q6H PRN #90 tablet 08/31/19 Strength -] Calcium 500Mg/Vit-D 200 Units 1 tab PO BID tab 08/31/19 [Os-Faisal 500+D -] Docusate Sodium [Colace -] 100 mg PO TID #90 capsule 08/31/19 Gabapentin [Neurontin -] 100 mg PO BID #60 capsule 08/31/19 Lidocaine 5% Patch [Lidoderm -] 1 patch TP DAILY@1600 #30 patch 08/31/19 Umeclidinium Brm/Vilanterol Tr 1 puff IH DAILY inhaler 08/31/19 [Anoro Ellipta 62.5-25 Mcg INH] Pantoprazole Sodium [Protonix -] 20 mg PO DAILY 09/22/19 Polyethylene Glycol 3350 [Miralax 17 gm PO DAILY 09/22/19 (For Bowel Prep) -] Abnormal Lab Results 09/22/19 09/22/19 09/22/19 20:04 20:04 20:04 RDW 17.8 H Absolute Neuts (auto) 8.4 H Neutrophils % 85.7 H Lymphocytes % 4.0 L D PT with INR 13.30 H INR 1.13 H Chloride 96 L BUN 19.9 H Calcium 10.3 H AST 93 H B-Natriuretic Peptide 574.8 H ASSESSMENT AND PLAN: 1. Abdominal pain/drug-induced constipation - CT abdomen/pelvis shows significant stool burden with no evidence of bowel obstruction. Patient given enema x 2 in the ER. Will give one dose of Citroma, repeat enema and continue Miralax 17 gm bid and encourage liberal oral fluids. Will ensure he gets a bowel regimen upon discharge. Consult GI. Mild hypercalcemia may be related Oscal-Vit D therapy and/or lung cancer - will stop Oscal-Vit D, measure PTH and PTH-like substances and give IV NS to enhance calcium excretion. Get CXR and urinalysis. EKG shows sinus tachycardia at 123/minute and QTc 503 with no significant ischemic ST-T wave changes. Initial troponin is negative. Will avoid drugs that may prolong QTc. Viral testing for COVID-19 ordered and patient placed on airborne, droplet and contact isolation. Will continue comprehensive care for all of patients comorbid conditions including cancer care. 2. Hypertension Will restart suitable outpatient antihypertensive drugs when clinically appropriate. Subsequently, will revise regimen to ensure [id number] excellent BP control. Patient counseled on the injurious effects of uncontrolled hypertension. Nonpharmacologic measures to control hypertension like weight loss, salt restriction and exercise stressed. Importance of adherence to treatment regimen and attainment of normotension emphasized. 3. DVT prophylaxis - Lovenox 40 mg SQ q 24 hours. 4. Advance directives - Full code
[2019-09-23] MEDS ORDERED: MAGNESIUM CITRATE 300 ML BOTTLE PO ONE (03:39)
--- NOTE | 2019-09-23 03:47 | HP ---
CHIEF COMPLAINT: constipation X 16 days PCP: HISTORY OF PRESENT ILLNESS: 58 M presents with constipation for 16 days. Last BM was on September 05. Pt had a T11 compression fracture that was evaluated by [facility] neurosurgery, and no surgical intervention was indicated. Due to the intense pain, pt used some of the tylenol/codeine from previous prescriptions given to him during his radiation sessions. The pain was not adequately treated, so he spoke to Dr. Gregory. Pt reported that he was given a script for oxycodone 5 mg. Since starting codeine and oxycodone, the pt was unable to have a BM. Coalce and miralax did not improve his symptoms. ER course was notable for: (1) 3 mineral oil enemas; produced some stool, but not much. pt endorsed feeling slightly better after enema. (2)CTAP: no bowel wall thickening, bowel dilatation, evidence of obstruction. Signficant stool throughout colon (3) BNP 574.8 Recent Travel: denies PAST MEDICAL HISTORY: COPD, HTN, HLD, CAD, [place], (s/p CABG/stent), ILD, stage IIII lung cancer (s/p RT 08/22/19), GERD PAST SURGICAL HISTORY: CABG, umbrella valve placement in right lung Family Hx: denies Social History: Smoking: none. quit smoking in 2013. Formerly 1 ppd Alcohol: denies Drugs: denies Lives with hisi used to work for [employer]. now on disability Allergies No Known Allergies Allergy (Verified 09/22/19 18:20) HOME MEDICATIONS: Home Medications Medication Instructions Recorded Aspirin 81 mg PO HS 08/24/19 Atorvastatin Ca [Lipitor] 20 mg PO HS 08/24/19 Cyclobenzaprine HCl [Flexeril -] 10 mg PO TID 08/24/19 Metoprolol Tartrate 50 mg PO BID 08/24/19 Prednisone 10 mg PO DAILY 08/24/19 Acetaminophen [Tylenol .Regular 325 mg PO Q6H PRN #90 tablet 08/31/19 Strength -] Calcium 500Mg/Vit-D 200 Units 1 tab PO BID tab 08/31/19 [Os-Faisal 500+D -] Docusate Sodium [Colace -] 100 mg PO TID #90 capsule 08/31/19 Gabapentin [Neurontin -] 100 mg PO BID #60 capsule 07/24/20 Lidocaine 5% Patch [Lidoderm -] 1 patch TP DAILY@1600 #30 patch 08/31/19 Umeclidinium Brm/Vilanterol Tr 1 puff IH DAILY inhaler 08/31/19 [Anoro Ellipta 62.5-25 Mcg INH] Pantoprazole Sodium [Protonix -] 20 mg PO DAILY 09/22/19 Polyethylene Glycol 3350 [Miralax 17 gm PO DAILY 09/22/19 (For Bowel Prep) -] REVIEW OF SYSTEMS CONSTITUTIONAL: Absent: fever, chills, diaphoresis, generalized weakness, malaise, loss of appetite, weight change HEENT: Absent: rhinorrhea, nasal congestion, throat pain, throat swelling, difficulty swallowing, mouth swelling, ear pain, eye pain, visual changes CARDIOVASCULAR: Absent: chest pain, syncope, palpitations, irregular heart rate, lightheadedness, peripheral edema RESPIRATORY: Absent: cough, shortness of breath, dyspnea with exertion, orthopnea, wheezing, stridor, hemoptysis GASTROINTESTINAL: constipation Absent: abdominal pain, abdominal distension, nausea, vomiting, diarrhea,, melena, hematochezia GENITOURINARY: Absent: dysuria, frequency, urgency, hesitancy, hematuria, flank pain, genital pain MUSCULOSKELETAL: Absent: myalgia, arthralgia, joint swelling, back pain, neck pain SKIN: Absent: rash, itching, pallor HEMATOLOGIC/IMMUNOLOGIC: Absent: easy bleeding, easy bruising, lymphadenopathy, frequent infections ENDOCRINE: Absent: unexplained weight gain, unexplained weight loss, heat intolerance, cold intolerance NEUROLOGIC: Absent: headache, focal weakness or paresthesias, dizziness, unsteady gait, seizure, mental status changes, bladder or bowel incontinence PSYCHIATRIC: Absent: anxiety, depression, suicidal or homicidal ideation, hallucinations. PHYSICAL EXAMINATION Vital Signs - 24 hr 09/22/19 09/22/19 09/23/19 17:35 21:46 03:38 Temperature 97.9 F Pulse Rate 118 H Pulse Rate [ 115 H 110 H Apical] Respiratory 24 H 20 20 Rate Blood Pressure 113/76 Blood Pressure 134/76 116/86 [Left Arm] O2 Sat by Pulse 100 97 97 Oximetry (%) GENERAL: Awake, alert, and fully oriented, in no acute distress. HEAD: Normal with no signs of trauma. EYES: Pupils equal, round and reactive to light, extraocular movements intact, No lid lag. EARS, NOSE, THROAT: Ears normal, nares patent, oropharynx clear without exudates. Moist mucous membranes. NECK: Normal range of motion, supple without lymphadenopathy, JVD, or masses. LUNGS: Breath sounds equal, clear to auscultation bilaterally. No wheezes, and no crackles. No accessory muscle use. HEART: Regular rate and rhythm, normal S1 and S2 without murmur, rub or gallop. ABDOMEN: nontender, not distended, normoactive bowel sounds, no guarding. Refused rectal exam UPPER EXTREMITIES: 2+ pulses, warm, well-perfused. No cyanosis. No clubbing. No peripheral edema. LOWER EXTREMITIES: 2+ pulses, warm, well-perfused. No calf tenderness. No peripheral edema. NEUROLOGICAL: Cranial nerves II-XII intact. Normal speech PSYCHIATRIC: Cooperative. Good eye contact. Appropriate mood and affect. Laboratory Results - last 24 hr 09/22/19 09/22/19 09/22/19 20:04 20:04 20:04 WBC 9.8 RBC 4.14 Hgb 13.0 Hct 37.7 D MCV 91.1 MCH 31.4 MCHC 34.4 RDW 17.8 H Plt Count 160 D MPV 7.5 Absolute Neuts (auto) 8.4 H Neutrophils % 85.7 H Lymphocytes % 4.0 L D Monocytes % 9.8 Eosinophils % 0.2 D Basophils % 0.3 Nucleated RBC % 0 PT with INR 13.30 H INR 1.13 H PTT (Actin FS) 29.6 Sodium 137 Potassium 5.1 Chloride 96 L Carbon Dioxide 30 Anion Gap 11 BUN 19.9 H Creatinine 1.2 Est GFR (CKD-EPI)AfAm 75.72 Est GFR (CKD-EPI)NonAf 65.33 Random Glucose 102 Calcium 10.3 H Total Bilirubin 0.8 AST 93 H ALT 20 Alkaline Phosphatase 107 Creatine Kinase 54 Troponin I < 0.02 B-Natriuretic Peptide 574.8 H Total Protein 7.4 Albumin 3.7 Lipase 09/22/19 20:04 WBC RBC Hgb Hct MCV MCH MCHC RDW Plt Count MPV Absolute Neuts (auto) Neutrophils % Lymphocytes % Monocytes % Eosinophils % Basophils % Nucleated RBC % PT with INR INR PTT (Actin FS) Sodium Potassium Chloride Carbon Dioxide Anion Gap BUN Creatinine Est GFR (CKD-EPI)AfAm Est GFR (CKD-EPI)NonAf Random Glucose Calcium Total Bilirubin AST ALT Alkaline Phosphatase Creatine Kinase Troponin I B-Natriuretic Peptide Total Protein Albumin Lipase 111 ASSESSMENT/PLAN: 58 YO M PMH COPD, HTN, HLD, CAD, [place], (s/p CABG/stent), ILD, stage IIII lung cancer (s/p RT 08/22/19), GERD, thoracic compression fracture presents with 2 weeks of no bowel movement. #Constipation likely 2/2 medication -took tylenol/codeine and later oxycodone at home -CTAP: no bowel wall thickening, bowel dilatation, evidence of obstruction. Signficant stool throughout colon -ordered citroma, fleet enema, & miralax -f/u GI c/s #Hypercalcemia -2/2 possibly Vitamin D supplement or from cancer -PTH ordered -PTHrp requires pre-authorization -c/w IVF to excrete Calcium #Prolonged QTC -QTC: 503 -avoid QTC prolonging medications #HTN #HLD #CAD #COPD will restart home meds once they have been reconciled with pharmacy. #DVT ppx lovenox 40 mg sq daily #DISPO maintain med surg Family Medical History Family History: As Documented Visit type - Emergency Visit Emergency Visit: Yes ED Registration Date: 09/23/19 Care time: The patient presented to the Emergency Department on the above date and was hospitalized for further evaluation of their emergent condition. - New Patient This patient is new to me today: Yes Date on this admission: 09/23/19 - Critical Care Critical Care patient: No ATTENDING PHYSICIAN STATEMENT I saw and evaluated the patient. I reviewed the resident's note and discussed the case with the resident. I agree with the resident's findings and plan as documented. SUBJECTIVE: OBJECTIVE: ASSESSMENT AND PLAN:
[2019-09-23] MEDS ORDERED: ACETAMINOPHEN 325 MG TABLET (FP) PO ONE (06:31)
[2019-09-23 08:09] LABS: BASO % 0.5 % (0-2.0); HEMATOCRIT 34.9 % (35.4-49); HEMOGLOBIN 12.1 GM/dL (11.7-16.9); LYMPH % 3.4 % (8-40); MCH 31.4 pg (25.7-33.7); MCHC 34.7 g/dl (32.0-35.9); MEAN CELL VOLUME 90.6 fl (80-96); MONO % 10.6 % (3.8-10.2); NEUT % 84.5 % (42.8-82.8); PLATELET COUNT 142 K/MM3 (134-434); RBC 3.85 M/mm3 (4.00-5.60); RDW 17.7 % (11.9-15.9); WHITE BLOOD COUNT 8.6 K/mm3 (4.0-10.0)
[2019-09-23 08:42] LABS: ALBUMIN 3.4 g/dl (3.4-5.0); BLOOD UREA NITROGEN 19.2 mg/dL (7-18); CALCIUM 9.8 mg/dL (8.5-10.1); MAGNESIUM 2.3 mg/dL (1.8-2.4); PHOSPHOROUS 5.1 mg/dL (2.5-4.9); POTASSIUM 3.6 mmol/L (3.5-5.1); TOT PROT 6.9 g/dl (6.4-8.2)
[2019-09-23 08:49] LABS: BILIRUBIN,TOTAL 1.1 mg/dL (0.2-1)
--- NOTE | 2019-09-23 10:26 | PN ---
Physical Exam: SUBJECTIVE: Patient seen and examined 09/23/19: Reports pos lower back pain, had a bm last night; no further abdominal discomfort; no nausea, vomiting, fevers or chills denies any cp, sob is chronic; afraid tot tawanna the pain meds due to constiaption OBJECTIVE: Vital Signs Period Temp Pulse Resp BP Sys/Dodge Pulse Ox Last 24 Hr 97.9 F-98.2 F 110-118 20-24 113-134/76-87 93-100 GENERAL: The patient is awake, alert, and fully oriented, Moaning in pain HEAD: Normal with no signs of trauma. EYES: extraocular movements intact, sclera anicteric, conjunctiva clear. No ptosis. ENT: Ears normal, nares patent, oropharynx clear without exudates, moist mucous membranes. NECK: Trachea midline, full range of motion, supple. LUNGS: Breath sounds equal, clear to auscultation bilaterally, no wheezes, POS crackles JAMES - FINE, no accessory muscle use. DECREASED BS JAMES HEART: Regular rate and rhythm, S1, S2 without murmur, rub or gallop. ABDOMEN: Soft, nontender, nondistended, normoactive bowel sounds, no guarding, no rebound, no hepatosplenomegaly, no masses. EXTREMITIES: 2+ pulses, warm, well-perfused, no edema. NEUROLOGICAL: Cranial nerves II through XII grossly intact. Normal speech, gait not observed. PSYCH: Normal mood, normal affect. SKIN: Warm, dry, normal turgor, no rashes or lesions noted Laboratory Results - last 24 hr 09/22/19 09/22/19 09/22/19 20:04 20:04 20:04 WBC 9.8 RBC 4.14 Hgb 13.0 Hct 37.7 D MCV 91.1 MCH 31.4 MCHC 34.4 RDW 17.8 H Plt Count 160 D MPV 7.5 Absolute Neuts (auto) 8.4 H Neutrophils % 85.7 H Lymphocytes % 4.0 L D Monocytes % 9.8 Eosinophils % 0.2 D Basophils % 0.3 Nucleated RBC % 0 PT with INR 13.30 H INR 1.13 H PTT (Actin FS) 29.6 Sodium 137 Potassium 5.1 Chloride 96 L Carbon Dioxide 30 Anion Gap 11 BUN 19.9 H Creatinine 1.2 Est GFR (CKD-EPI)AfAm 75.72 Est GFR (CKD-EPI)NonAf 65.33 Random Glucose 102 Calcium 10.3 H Phosphorus Magnesium Total Bilirubin 0.8 AST 93 H ALT 20 Alkaline Phosphatase 107 Creatine Kinase 54 Troponin I < 0.02 B-Natriuretic Peptide 574.8 H Total Protein 7.4 Albumin 3.7 Lipase 09/22/19 09/23/19 09/23/19 20:04 07:50 07:50 WBC 8.6 RBC 3.85 L Hgb 12.1 Hct 34.9 L MCV 90.6 MCH 31.4 MCHC 34.7 RDW 17.7 H Plt Count 142 MPV 7.0 L Absolute Neuts (auto) 7.3 Neutrophils % 84.5 H Lymphocytes % 3.4 L Monocytes % 10.6 H Eosinophils % 1.0 D Basophils % 0.5 Nucleated RBC % 1 H PT with INR INR PTT (Actin FS) Sodium 138 Potassium 3.6 Chloride 98 Carbon Dioxide 27 Anion Gap 14 BUN 19.2 H Creatinine 1.0 Est GFR (CKD-EPI)AfAm 94.39 Est GFR (CKD-EPI)NonAf 81.44 Random Glucose 97 Calcium 9.8 Phosphorus 5.1 H Magnesium 2.3 Total Bilirubin 1.1 H AST 95 H ALT 19 Alkaline Phosphatase 100 Creatine Kinase Troponin I B-Natriuretic Peptide Total Protein 6.9 Albumin 3.4 Lipase 111 Active Medications Generic Name Dose Route Start Last Admin Trade Name Freq PRN Reason Stop Dose Admin Acetaminophen 650 mg 09/23/19 10:00 Tylenol - PO Q4H PRN PAIN LEVEL 1-5 Aspirin 81 mg 09/23/19 10:00 Asa - PO DAILY [facility] Atorvastatin Calcium 10 mg 09/23/19 22:00 Lipitor - PO HS [facility] Cyclobenzaprine HCl 10 mg 09/23/19 14:00 Cyclobenzaprine Hcl PO TID [facility] Enoxaparin Sodium 40 mg 09/23/19 10:00 Lovenox - SQ DAILY [facility] Gabapentin 100 mg 09/23/19 10:00 Neurontin - PO BID [facility] Lidocaine 1 patch 09/23/19 10:00 Lidoderm Patch - TP DAILY [facility] Metoprolol Tartrate 50 mg 09/23/19 10:00 Lopressor - PO BID [facility] Miscellaneous 1 each 09/23/19 22:00 Lidoderm Patch Removal MC DAILY@2200 [facility] Oxycodone HCl 5 mg 09/23/19 09:59 Roxicodone - PO Q4H PRN PAIN LEVEL 4 - 6 Pantoprazole Sodium 40 mg 09/23/19 10:00 Protonix - PO DAILY [facility] Polyethylene Glycol 17 gm 09/23/19 10:00 Miralax (For Daily Use) - PO BID [facility] Prednisone 10 mg 09/23/19 10:00 Deltasone - PO DAILY [facility] Umeclidinium/Vilanterol 1 puff 09/23/19 10:00 Anoro Ellipta 62.5-25 Mcg Inh IH DAILY [facility] ASSESSMENT/PLAN: 58 year old man with a PMH of COPD (on home oxygen), HTN, HLD, CAD, [place](s/p angioplasty, cardiac stents and CABG), ILD, Stage IIIC L cancer(s/p RT 08/22/19), GERD and new Spine fracture, recently admitted here for back pain presents to the ER with 2 weeks of CONSTIPATION. States he was placed on Oxycodone when he was found to have a spinal compression fracture and since starting then has had constipation. On home O2 and his normal O2 saturation is b etween 88-92 on 5-6L at rest. 1. Abdominal pain/drug-induced constipation - CT abdomen/pelvis shows significant stool burden with no evidence of bowel obstruction. Patient given enema x 2 in the ER. Will give one dose of Citroma, repeat enema and continue Miralax 17 gm bid and encourage liberal oral fluids. Pt did have a bm last night Also to be givent relistor by GI for opioid induced constipation Will need relistor as an outpt upon dc 2. Mild hypercalcemia may be related Oscal-Vit D therapy and/or lung cancer - will stop Oscal-Vit D, measure PTH and PTH-like substances and give IV NS DC IVF now, crackels on exam Calcium normal today Can consider restarting upon dc, hypercalcemia may have been due to dehydration 3. Hypertension Currently stable. Restarted bb monitor for now Low sodium diet 4. cad - restarted asa, bb, statin 5. Lung Cancer - was getting radiation treatments on chronic steroids On 5liters at home usually, sats stable 6. DVT prophylaxis - Lovenox 40 mg SQ q 24 hours. 7. Advance directives - Full code Visit type - Emergency Visit Emergency Visit: Yes ED Registration Date: 09/23/19 Care time: The patient presented to the Emergency Department on the above date and was hospitalized for further evaluation of their emergent condition. - New Patient This patient is new to me today: Yes Date on this admission: 09/23/19 - Critical Care Critical Care patient: No - Discharge Referral Referred to [facility] No
[2019-09-23] MEDS: ACETAMINOPHEN 325 MG TABLET (FP) PO PRN ×2 (11:14→16:57)
[2019-09-23] MEDS: PANTOPRAZOLE 40 MG TABLET PO SCH (11:14)
[2019-09-23] MEDS: predniSONE 10 MG TABLET (UD) PO SCH (11:15)
[2019-09-23] MEDS: ASPIRIN 81 MG CHEWABLE TABLETS PO SCH (11:15)
[2019-09-23] MEDS: LIDOCAINE 5% TOPICAL PATCH TP SCH (11:15)
[2019-09-23] MEDS: ENOXAPARIN NA (PORCINE) 40 MG/0.4 ML DISP.SYRIN SQ SCH (11:16)
[2019-09-23] MEDS: POLYETHYLENE GLYCOL 3350 119 GM BTL PO SCH ×3 (11:16→23:00)
[2019-09-23] MEDS: METOPROLOL TARTRATE 50 MG TABLET (FP) PO SCH ×3 (11:16→21:00)
[2019-09-23] MEDS: oxyCODONE HCL 5 MG TABLET PO PRN ×3 (11:17→23:43)
[2019-09-23] MEDS: GABAPENTIN 100 MG CAPSULE PO SCH ×3 (11:17→21:00)
--- NOTE | 2019-09-23 11:49 | CON.GI ---
Consult Consult Specialty:: GI Reason for Consultation:: Constipation - History of Present Illness Chief Complaint: Severe constipation since taking narcotics for spinal fracture History of Present Illness: 58 y.o. M with recent spinal fracture, h/o lung ca., on oxycodone for spinal fracture without spontaneous BM x > 1 week, developed worsening distention and abdominal pain yesterday -> to ER. In ER had an enema and citrate of magnesia, according to patient, and had a small BM. Still feels bloated. He says he had a rectal exam in ER and was told that there was hard stool in the rectum, although the exam itself was not recorded in the notes. He says his last colonoscopy was in 2008. - History Source History Provided By: Patient, Medical Record Limitations to Obtaining History: No Limitations - Past Medical History Cardio/Vascular: Yes: CAD, HTN, Hyperlipdemia, [place] Pulmonary: Yes: Cancer, COPD, O2 Dependent, Pulmonary Fibrosis, Other (Post biopsy pneumothorax) Gastrointestinal: Yes: GERD Musculoskeletal: Yes: Other (spinal fracture) - Past Surgical History Past Surgical History: Yes: CABG, Hernia Repair, Tonsillectomy - Alcohol/Substance Use Hx Alcohol Use: No History of Substance Use: reports: None - Smoking History Smoking history: Former smoker Have you smoked in the past 12 months: No Aproximately how many cigarettes per day: 20 If you are a former smoker, when did you quit?: 2013 - Social History Usual Living Arrangement: With Spouse 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[place], [place]) History of Recent Travel: No Home Medications - Allergies Allergies/Adverse Reactions: Allergies Allergy/AdvReac Type Severity Reaction Status Date / Time No Known Allergies Allergy Verified 09/22/19 18:20 - Home Medications Home Medications: Ambulatory Orders Aspirin 81 mg PO HS 08/24/19 Atorvastatin Ca [Lipitor] 20 mg PO HS 08/24/19 Cyclobenzaprine HCl [Flexeril -] 10 mg PO TID 08/24/19 Metoprolol Tartrate 50 mg PO BID 08/24/19 Prednisone 10 mg PO DAILY 08/24/19 Acetaminophen [Tylenol .Regular Strength -] 325 mg PO Q6H PRN #90 tablet 08/31/19 Calcium 500Mg/Vit-D 200 Units [Os-Faisal 500+D -] 1 tab PO BID tab 08/31/19 Docusate Sodium [Colace -] 100 mg PO TID #90 capsule 08/31/19 Gabapentin [Neurontin -] 100 mg PO BID #60 capsule 08/31/19 Lidocaine 5% Patch [Lidoderm -] 1 patch TP DAILY@1600 #30 patch 08/31/19 Umeclidinium Brm/Vilanterol Tr [Anoro Ellipta 62.5-25 Mcg INH] 1 puff IH DAILY inhaler 08/31/19 Pantoprazole Sodium [Protonix -] 20 mg PO DAILY 09/22/19 Polyethylene Glycol 3350 [Miralax (For Bowel Prep) -] 17 gm PO DAILY 09/22/19 Family Medical History Family Hx Cardiac Disorders: Mother Family Hx Coronary Artery Disease: Father Physical Exam-GI Vital Signs: Vital Signs Temperature 98.2 F 09/23/19 05:16 Pulse Rate 110 H 09/23/19 05:16 Respiratory Rate 22 H 09/23/19 05:24 Blood Pressure 127/87 09/23/19 05:16 O2 Sat by Pulse Oximetry (%) 93 L 09/23/19 05:24 Constitutional: Yes: Well Nourished Eyes: Yes: WNL HENT: Yes: WNL Neck: Yes: WNL Cardiovascular: Yes: Regular Rate and Rhythm Respiratory: Yes: Regular ...Auscultate: Yes: Normoactive Bowel Sounds ...Palpate: Yes: Soft ...Rectal Exam: Yes: Other (He says was done in ER) Labs: CBC, BMP 09/23/19 07:50 09/23/19 07:50 INR, PTT INR 1.13 (0.83-1.09) H 09/22/19 20:04 Imaging - Results Cat Scan: Image Reviewed (Fecal retention seen (no radiologist reading yet.)) Problem List - Problems (1) Constipation Code(s): K59.00 - CONSTIPATION, UNSPECIFIED Qualifiers: Constipation type: drug induced constipation Qualified Code(s): K59.03 - Drug induced constipation Assessment/Plan Opiod-induced constipation. Will administer Relistor 12 mg SC today, should result in large BM. Pt can be discharged with either Movantik or Relistor to treat his opioid-induced constipation. With his recent spinal fracture would want to avoid any colonoscopy at present.
[2019-09-23] MEDS ORDERED: Methylnaltrexone Bromide 12 MG/0.6 ML KIT SQ ONE (12:00)
[2019-09-23] MEDS ORDERED: PT OWN MED DRAWER 7, Y5N ONE ×2 (13:12→14:38)
[2019-09-23] MEDS: CYCLOBENZAPRINE HCL 5 MG TABLET PO SCH ×3 (13:51→21:00)
[2019-09-23] MEDS: UMECLIDINIUM/VILANTEROL (ANORO) 62.5/25 MCG INHALER IH SCH (13:51)
[2019-09-23] MEDS: Methylnaltrexone Bromide 12 MG/0.6 ML KIT SQ SCH (14:39)
--- NOTE | 2019-09-23 18:10 | EKG ---
Test Reason : Blood Pressure : / mmHG Vent. Rate : 123 BPM Atrial Rate : 123 BPM P-R Int : 110 ms QRS Dur : 134 ms QT Int : 352 ms P-R-T Axes : 014 204 009 degrees QTc Int : 503 ms POOR DATA QUALITY, INTERPRETATION MAY BE ADVERSELY AFFECTED SINUS TACHYCARDIA WITH SHORT WY WITH PREMATURE SUPRAVENTRICULAR COMPLEXES AND WITH OCCASIONAL PREMATURE VENTRICULAR COMPLEXES RIGHT BUNDLE BRANCH BLOCK , PLUS RIGHT VENTRICULAR HYPERTROPHY POSSIBLE LATERAL INFARCT (CITED ON OR BEFORE 02-JUL-2018) CANNOT RULE OUT INFERIOR INFARCT , AGE UNDETERMINED ABNORMAL ECG Confirmed by MD RICARDA, DAMASO ([id number]) on 09/23/2019 6:09:58 PM Referred By: Confirmed By:DAMASO CHOWDARY MD
[2019-09-23] MEDS: ATORVASTATIN CA 10 MG TABLET (FP) PO SCH ×2 (20:33→21:00)
[2019-09-23] MEDS: LIDOCAINE PATCH REMOVAL MC SCH (21:00)
[2019-09-24] MEDS: CYCLOBENZAPRINE HCL 5 MG TABLET PO SCH ×4 (05:12→22:40)
[2019-09-24] MEDS: oxyCODONE HCL 5 MG TABLET PO PRN ×5 (05:38→23:48)
[2019-09-24 08:16] LABS: HEMATOCRIT 31.3 % (35.4-49); HEMOGLOBIN 10.8 GM/dL (11.7-16.9); MCH 31.5 pg (25.7-33.7); MCHC 34.6 g/dl (32.0-35.9); MEAN CELL VOLUME 90.9 fl (80-96); MEAN PLT VOLUME 7.1 fl (7.5-11.1); PLATELET COUNT 135 K/MM3 (134-434); RBC 3.44 M/mm3 (4.00-5.60); WHITE BLOOD COUNT 6.8 K/mm3 (4.0-10.0)
[2019-09-24 08:51] LABS: BLOOD UREA NITROGEN 17.2 mg/dL (7-18); CALCIUM 8.9 mg/dL (8.5-10.1); CREATININE 1.1 mg/dL (0.55-1.3); POTASSIUM 4.1 mmol/L (3.5-5.1)
[2019-09-24] MEDS ORDERED: PT OWN MED DRAWER 7, Y5N ONE (09:29)
[2019-09-24] MEDS: ASPIRIN 81 MG CHEWABLE TABLETS PO SCH (09:37)
[2019-09-24] MEDS: PANTOPRAZOLE 40 MG TABLET PO SCH (09:37)
[2019-09-24] MEDS: predniSONE 10 MG TABLET (UD) PO SCH (09:37)
[2019-09-24] MEDS: GABAPENTIN 100 MG CAPSULE PO SCH ×3 (09:37→22:41)
[2019-09-24] MEDS: METOPROLOL TARTRATE 50 MG TABLET (FP) PO SCH ×2 (09:37→22:13)
[2019-09-24] MEDS: Methylnaltrexone Bromide 12 MG/0.6 ML KIT SQ SCH (09:39)
[2019-09-24] MEDS: LIDOCAINE 5% TOPICAL PATCH TP SCH (09:44)
[2019-09-24] MEDS: ACETAMINOPHEN 325 MG TABLET (FP) PO PRN ×2 (10:39→23:49)
--- NOTE | 2019-09-24 11:17 | CONSULT ---
Consultation: Heme-Onc Resident note REQUESTING PROVIDER: Dr. Culver CONSULT REQUEST: We have been asked to medically evaluate this patient for metastatic Lung Ca, Breast mass. HISTORY OF PRESENT ILLNESS: Patient is a 58 year old male with past medical history of COPD, HTN, HLD, CAD, [place] s/p CABG, PCI, ILD, st III Lung Cancer (s/p RT 08/21), GERD, was admitted to the hospital for opioid-induced constipation. Patient reports he has not had a bowel movement of more than 2 weeks. Patient is known to have T11 compression fracture, and has been taking oxycodone and tylenol #3 for pain. Since then, patient had irregular bowel movement, and had constipation in the last 16 days prior to admission in the hospital. On admission, patient was started enemas and stool softeners with minimal bm. He was evaluated by GI and was given Relistor with subsequent [address] A/P was done on admission which showed no bowel wall thickening, bowel dilatation, evidence of obstruction. Signficant stool throughout colon. There was also note of a right breast mass with a chest wall mass, and a liver mass noted on CT. Patient reports back pain, but denies any fevers, chills, headache, dizziness, chest pain, SOB, abdominal pain, diarrhea, urinary symptoms. PMHx: COPD, HTN, HLD, CAD, [place] s/p CABG, PCI, ILD, st III Lung Cancer (s/p RT 08/21), GERD PSHx:CABG, umbrella valve placement in right lung Allergies: NKDA SHx: previous smoker, denies Etoh drinking, denies illicit drug use. Lives with . FHx: no history of cancer or blood disorders REVIEW OF SYSTEMS: CONSTITUTIONAL: Absent: fever, chills, diaphoresis, generalized weakness, malaise, loss of appetite, weight change HEENT: Absent: rhinorrhea, nasal congestion, throat pain, throat swelling, difficulty swallowing, mouth swelling, ear pain, eye pain, visual changes CARDIOVASCULAR: Absent: chest pain, syncope, palpitations, irregular heart rate, lightheadedness, peripheral edema RESPIRATORY: Absent: cough, shortness of breath, dyspnea with exertion, orthopnea, wheezing, stridor, hemoptysis GASTROINTESTINAL: Absent: abdominal pain, abdominal distension, nausea, vomiting, diarrhea, constipation, melena, hematochezia GENITOURINARY: Absent: dysuria, frequency, urgency, hesitancy, hematuria, flank pain, genital pain MUSCULOSKELETAL: back pain Absent: myalgia, arthralgia, joint swelling, neck pain SKIN: Absent: rash, itching, pallor HEMATOLOGIC/IMMUNOLOGIC: Absent: easy bleeding, easy bruising, lymphadenopathy, frequent infections ENDOCRINE: Absent: unexplained weight gain, unexplained weight loss, heat intolerance, cold intolerance NEUROLOGIC: Absent: headache, focal weakness or paresthesias, dizziness, unsteady gait, seizure, mental status changes, bladder or bowel incontinence PSYCHIATRIC: Absent: anxiety, depression, suicidal or homicidal ideation, hallucinations. PHYSICAL EXAMINATION Vital Signs - 24 hr 09/23/19 09/23/19 09/23/19 13:26 20:03 20:41 Temperature 98.1 F 98.6 F Pulse Rate 96 H 120 H Respiratory 20 20 20 Rate Blood Pressure 106/76 115/60 O2 Sat by Pulse 90 L 93 L Oximetry (%) 09/24/19 04:00 Temperature 98.9 F Pulse Rate 94 H Respiratory 20 Rate Blood Pressure 100/65 O2 Sat by Pulse 94 L Oximetry (%) GENERAL: Awake, alert, and fully oriented, on 2L NC HEAD: Normal with no signs of trauma. EYES: PERRLA, EOMI, sclera anicteric, conjunctiva clear. . EARS, NOSE, THROAT: Dry mucous membranes. NECK: Normal range of motion, supple LUNGS: bibasilar fine crackles HEART: Regular rate and rhythm, normal S1 and S2 CHEST: port noted on RUQ of right breast ABDOMEN: Soft, nontender, not distended, normoactive bowel sounds MUSCULOSKELETAL: Normal range of motion at all joints. +lower back TTP LOWER EXTREMITIES: 2+ pulses, warm, well-perfused. No calf tenderness. No peripheral edema. NEUROLOGICAL: Cranial nerves II-XII intact. Normal speech. PSYCHIATRIC: Cooperative. Good eye contact. Appropriate mood and affect. SKIN: Warm, dry, normal turgor Laboratory Results - last 24 hr 09/22/19 09/24/19 09/24/19 15:30 07:50 07:50 WBC 6.8 RBC 3.44 L Hgb 10.8 L Hct 31.3 L MCV 90.9 MCH 31.5 MCHC 34.6 RDW 18.0 H Plt Count 135 MPV 7.1 L Sodium 140 Potassium 4.1 Chloride 98 Carbon Dioxide 35 H Anion Gap 7 L BUN 17.2 Creatinine 1.1 Est GFR (CKD-EPI)AfAm 84.12 Est GFR (CKD-EPI)NonAf 72.58 Random Glucose 87 Calcium 8.9 COVID-19 (BRITTNEY) Not detected Active Medications Generic Name Dose Route Start Last Admin Trade Name Freq PRN Reason Stop Dose Admin Acetaminophen 650 mg 09/23/19 10:00 09/24/19 10:39 Tylenol - PO 650 mg Q4H PRN Administration PAIN LEVEL 1-5 Aspirin 81 mg 09/23/19 10:00 09/24/19 09:37 Asa - PO 81 mg DAILY [facility] Administration Atorvastatin Calcium 10 mg 09/23/19 22:00 09/23/19 21:00 Lipitor - PO Not Given HS [facility] Cyclobenzaprine HCl 10 mg 09/23/19 14:00 09/24/19 05:12 Cyclobenzaprine Hcl PO 10 mg TID VEENA Administration Enoxaparin Sodium 40 mg 09/23/19 10:00 09/23/19 11:16 Lovenox - SQ 40 mg DAILY [facility] Administration Folic Acid 1 mg 09/24/19 10:00 Folic Acid - PO DAILY [facility] Gabapentin 100 mg 09/23/19 10:00 09/24/19 09:37 Neurontin - PO 100 mg BID [facility] Administration Lidocaine 1 patch 09/23/19 10:00 09/24/19 09:44 Lidoderm Patch - TP Not Given DAILY [facility] Methylnaltrexone [place] 12 mg 09/23/19 12:15 09/24/19 09:39 Relistor - SQ 12 mg DAILY [facility] Administration Metoprolol Tartrate 50 mg 09/23/19 10:00 09/24/19 09:37 Lopressor - PO 50 mg BID [facility] Administration Miscellaneous 1 each 09/23/19 22:00 09/23/19 21:00 Lidoderm Patch Removal MC Not Given DAILY@2200 [facility] Oxycodone HCl 5 mg 09/23/19 09:59 09/24/19 09:38 Roxicodone - PO 5 mg Q4H PRN Administration PAIN LEVEL 4 - 6 Pantoprazole Sodium 40 mg 09/23/19 10:00 09/24/19 09:37 Protonix - PO 40 mg DAILY [facility] Administration Polyethylene Glycol 17 gm 09/23/19 10:00 09/23/19 22:30 Miralax (For Daily Use) - PO 17 grams BID [facility] Administration Prednisone 10 mg 09/23/19 10:00 09/24/19 09:37 Deltasone - PO 10 mg DAILY [facility] Administration Umeclidinium/Vilanterol 1 puff 09/23/19 10:00 09/23/19 13:51 Anoro Ellipta 62.5-25 Mcg Inh IH 1 puff DAILY [facility] Administration ASSESSMENT/PLAN: Patient is a 58 year old male with past medical history of COPD, HTN, HLD, CAD, [place] s/p CABG, PCI, ILD, st III Lung Cancer (s/p RT 08/21), GERD, was admitted to the hospital for opioid-induced constipation. There was note of a right breast mass with a chest wall mass, and a liver mass noted on CT. We were called for further evaluation. 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 Thank you for this consultative opportunity. Visit type - Emergency Visit Emergency Visit: Yes ED Registration Date: 09/23/19 Care time: The patient presented to the Emergency Department on the above date and was hospitalized for further evaluation of their emergent condition. - New Patient This patient is new to me today: Yes Date on this admission: 09/24/19 - Critical Care Critical Care patient: No ATTENDING PHYSICIAN STATEMENT I saw and evaluated the patient. I reviewed the resident's note and discussed the case with the resident. I agree with the resident's findings and plan as documented. SUBJECTIVE: OBJECTIVE: ASSESSMENT AND PLAN:
[2019-09-24] MEDS: ENOXAPARIN NA (PORCINE) 40 MG/0.4 ML DISP.SYRIN SQ SCH (13:59)
[2019-09-24] MEDS: FOLIC ACID 1 MG TABLET (FP) PO SCH (13:59)
[2019-09-24] MEDS: POLYETHYLENE GLYCOL 3350 119 GM BTL PO SCH ×2 (13:59→22:13)
[2019-09-24] MEDS: UMECLIDINIUM/VILANTEROL (ANORO) 62.5/25 MCG INHALER IH SCH (14:00)
--- NOTE | 2019-09-24 17:57 | PN ---
Teaching Attending Note Name of Resident: Alejandra Sheth ATTENDING PHYSICIAN STATEMENT I saw and evaluated the patient. I reviewed the resident's note and discussed the case with the resident. I agree with the resident's findings and plan as documented. ASSESSMENT AND PLAN: 58 y/o patient with sever ILD , O2 dependent for> 1yr. adenoca with sarcomatoid ffeatures, stage IIIC s/p RT completed 08/23/19 , now with progressive disease PDL1-0%, Liquid biopsy shows no actionable mutations Rt. chest wall mass Discussed with patient regarding progressive disease Will start chemotherapy this admission transfer to when bed available
[2019-09-24] MEDS: ATORVASTATIN CA 10 MG TABLET (FP) PO SCH (22:13)
[2019-09-24] MEDS: LIDOCAINE PATCH REMOVAL MC SCH (22:14)
--- NOTE | 2019-09-24 22:30 | PN ---
Progress Note, Physician History of Present Illness: Pt did have BM today - Current Medication List Current Medications: Active Medications Acetaminophen (Tylenol -) 650 mg PO Q4H PRN PRN Reason: PAIN LEVEL 1-5 Last Admin: 09/24/19 10:39 Dose: 650 mg Documented by: Aspirin (Asa -) 81 mg PO DAILY [facility] Last Admin: 09/24/19 09:37 Dose: 81 mg Documented by: Atorvastatin Calcium (Lipitor -) 10 mg PO HS [facility] Last Admin: 09/24/19 22:13 Dose: 10 mg Documented by: Cyclobenzaprine HCl (Cyclobenzaprine Hcl) 10 mg PO TID [facility] Last Admin: 09/24/19 22:14 Dose: Not Given Documented by: Enoxaparin Sodium (Lovenox -) 40 mg SQ DAILY [facility] Last Admin: 09/24/19 13:59 Dose: 40 mg Documented by: Folic Acid (Folic Acid -) 1 mg PO DAILY [facility] Last Admin: 09/24/19 13:59 Dose: 1 mg Documented by: Gabapentin (Neurontin -) 100 mg PO BID [facility] Last Admin: 09/24/19 22:14 Dose: Not Given Documented by: Lidocaine (Lidoderm Patch -) 1 patch TP DAILY [facility] Last Admin: 09/24/19 09:44 Dose: Not Given Documented by: Methylnaltrexone [place] (Relistor -) 12 mg SQ DAILY [facility] Last Admin: 09/24/19 09:39 Dose: 12 mg Documented by: Metoprolol Tartrate (Lopressor -) 50 mg PO BID [facility] Last Admin: 09/24/19 22:13 Dose: 50 mg Documented by: Miscellaneous (Lidoderm Patch Removal) 1 each MC DAILY@2200 [facility] Last Admin: 09/24/19 22:14 Dose: Not Given Documented by: Oxycodone HCl (Roxicodone -) 5 mg PO Q4H PRN PRN Reason: PAIN LEVEL 4 - 6 Last Admin: 09/24/19 19:43 Dose: 5 mg Documented by: Pantoprazole Sodium (Protonix -) 40 mg PO DAILY [facility] Last Admin: 09/24/19 09:37 Dose: 40 mg Documented by: Polyethylene Glycol (Miralax (For Daily Use) -) 17 gm PO BID [facility] Last Admin: 09/24/19 22:13 Dose: 17 grams Documented by: Prednisone (Deltasone -) 10 mg PO DAILY [facility] Last Admin: 09/24/19 09:37 Dose: 10 mg Documented by: Umeclidinium/Vilanterol (Anoro Ellipta 62.5-25 Mcg Inh) 1 puff IH DAILY [facility] Last Admin: 09/24/19 14:00 Dose: 1 puff Documented by: - Objective Vital Signs: Vital Signs Temperature 98.2 F 09/24/19 22:20 Pulse Rate 109 H 09/24/19 22:20 Respiratory Rate 22 H 09/24/19 22:20 Blood Pressure 125/77 09/24/19 22:20 O2 Sat by Pulse Oximetry (%) 91 L 09/24/19 22:20 Cardiovascular: Yes: WNL, Regular Rate and Rhythm Respiratory: Yes: WNL, Regular, CTA Bilaterally Gastrointestinal: Yes: WNL, Normal Bowel Sounds, Soft Labs: CBC, BMP 09/24/19 07:50 09/24/19 07:50 INR, PTT INR 1.13 (0.83-1.09) H 09/22/19 20:04 Problem List - Problems (1) Therapeutic opioid induced constipation Assessment/Plan: Pt gievn relistor w/ BM Cont miralax Code(s): K59.03 - DRUG INDUCED CONSTIPATION; T40.2X5A - ADVERSE EFFECT OF OTHER OPIOIDS, INITIAL ENCOUNTER (2) Lung cancer Assessment/Plan: As per heme/onc consult Code(s): C34.90 - MALIGNANT NEOPLASM OF UNSP PART OF UNSP BRONCHUS OR LUNG (3) Vertebral fracture Assessment/Plan: Pt still requiring percocet Cont cyclobenzaprine/lidocaine patch Code(s): QVG6062 - (4) COPD (chronic obstructive pulmonary disease) Assessment/Plan: Cont ellipta Code(s): J44.9 - CHRONIC OBSTRUCTIVE PULMONARY DISEASE, UNSPECIFIED (5) Interstitial lung disease Assessment/Plan: Cont prednisone Code(s): J84.9 - INTERSTITIAL PULMONARY DISEASE, UNSPECIFIED (6) HLD (hyperlipidemia) Assessment/Plan: Cont lipitor Code(s): E78.5 - HYPERLIPIDEMIA, UNSPECIFIED (7) HTN (hypertension) Assessment/Plan: BP stable Cont metoprolol Code(s): I10 - ESSENTIAL (PRIMARY) HYPERTENSION (8) CAD (coronary artery disease) Code(s): I25.10 - ATHSCL HEART DISEASE OF [place] CORONARY ARTERY W/O ANG PCTRS
[2019-09-25] MEDS ORDERED: oxyCODONE HCL 5 MG TABLET PO PRN (00:15)
[2019-09-25] MEDS: ACETAMINOPHEN 325 MG TABLET (FP) PO PRN ×2 (04:14→21:20)
[2019-09-25] MEDS: CYCLOBENZAPRINE HCL 5 MG TABLET PO SCH ×3 (06:18→23:15)
[2019-09-25] MEDS ORDERED: CYANOCOBALAMIN (VITAMIN B-12) 1000 MCG/1 ML VIAL IM ONE (06:18)
--- NOTE | 2019-09-25 06:27 | PN.GI ---
GI Progress Note Subjective: patient had several bowel movements yesterday, stage III lung ca complicated by compound fracture of T12 and fracture of C6 - Objective Vital Signs: Vital Signs Temperature 97 F L 09/25/19 05:18 Pulse Rate 93 H 09/25/19 05:18 Respiratory Rate 22 H 09/25/19 05:18 Blood Pressure 109/75 09/25/19 05:18 O2 Sat by Pulse Oximetry (%) 96 09/25/19 05:18 Constitutional: Well Nourished, No Distress Eyes: Yes: Conjunctiva Clear HENT: Yes: Atraumatic Neck: Yes: Trachea Midline Cardiovascular: Yes: Regular Rate and Rhythm Respiratory: Yes: CTA Bilaterally ...Palpate: Yes: Soft. No: Firm/Rigid, Guarding, Hepatomegaly, Mass, Pulsatile Mass, Splenomegaly, Tenderness ...Rectal Exam: Yes: Other (performed in ER reporeted to be normal) Labs: CBC, BMP 09/24/19 07:50 09/24/19 07:50 INR, PTT INR 1.13 (0.83-1.09) H 09/22/19 20:04 Problem List - Problems (1) Constipation Assessment/Plan: opiod induced R> patient is high risk to undergo any GI procedure at this time because of the presence of T12 and C6 fracture, patient agrees to conservative management at this time Movantik 25mg daily as an outpatient if not covered Trulance 3 mg daily Miralax 34 grams tid FITor stool guaiac if not done recently Code(s): K59.00 - CONSTIPATION, UNSPECIFIED Qualifiers: Constipation type: drug induced constipation Qualified Code(s): K59.03 - Drug induced constipation
[2019-09-25] MEDS ORDERED: FOLIC ACID 1 MG TABLET (FP) PO SCH (10:00)
[2019-09-25] MEDS ORDERED: PT OWN MED DRAWER 7, Y5N ONE (10:05)
[2019-09-25] MEDS: CALCIUM 500MG/VIT-D 200 UNITS COMBO TABLET (FP) PO SCH ×2 (10:28→21:17)
[2019-09-25] MEDS: PANTOPRAZOLE 40 MG TABLET PO SCH (10:28)
[2019-09-25] MEDS: GABAPENTIN 100 MG CAPSULE PO SCH ×2 (10:28→21:17)
[2019-09-25] MEDS: predniSONE 10 MG TABLET (UD) PO SCH (10:29)
[2019-09-25] MEDS: ASPIRIN 81 MG CHEWABLE TABLETS PO SCH (10:29)
[2019-09-25] MEDS ORDERED: ACETAMINOPHEN 325 MG TABLET (FP) PO ONE ×2 (10:30→10:45)
[2019-09-25] MEDS ORDERED: oxyCODONE HCL 5 MG TABLET PO ONE ×2 (10:30→10:45)
[2019-09-25] MEDS: LIDOCAINE 5% TOPICAL PATCH TP SCH (10:32)
[2019-09-25] MEDS: METOPROLOL TARTRATE 50 MG TABLET (FP) PO SCH ×2 (10:32→21:17)
[2019-09-25] MEDS: ENOXAPARIN NA (PORCINE) 40 MG/0.4 ML DISP.SYRIN SQ SCH (10:36)
[2019-09-25] MEDS: FOLIC ACID 1 MG TABLET (FP) PO SCH (10:37)
[2019-09-25] MEDS: UMECLIDINIUM/VILANTEROL (ANORO) 62.5/25 MCG INHALER IH SCH (10:37)
[2019-09-25] MEDS: POLYETHYLENE GLYCOL 3350 119 GM BTL PO SCH ×2 (10:37→21:23)
--- NOTE | 2019-09-25 12:50 | PN ---
Physical Exam: SUBJECTIVE: Patient seen and examined. Few bowel movements yesterday. OBJECTIVE: Vital Signs Temperature 97 F L 09/25/19 05:18 Pulse Rate 93 H 09/25/19 05:18 Respiratory Rate 22 H 09/25/19 05:18 Blood Pressure 109/75 09/25/19 05:18 O2 Sat by Pulse Oximetry (%) 96 09/25/19 05:18 GENERAL: Awake, alert, and fully oriented, on 2L NC NECK: Normal range of motion, supple LUNGS: bibasilar fine crackles HEART: Regular rate and rhythm, normal S1 and S2 CHEST: port noted on RUQ of right breast ABDOMEN: Soft, nontender, not distended, normoactive bowel sounds MUSCULOSKELETAL: Normal range of motion at all joints. +lower back TTP LOWER EXTREMITIES: 2+ pulses, warm, well-perfused. No calf tenderness. No peripheral edema. SKIN: Warm, dry, normal turgor Laboratory Results - last 24 hr 09/23/19 07:50 PTH Intact 6 L Active Medications Generic Name Dose Route Start Last Admin Trade Name Gioq PRN Reason Stop Dose Admin Acetaminophen 650 mg 09/23/19 10:00 09/24/19 23:49 Tylenol - PO 325 mg Q4H PRN Administration PAIN LEVEL 1-5 Acetaminophen 325 mg 09/25/19 00:15 09/25/19 04:14 Tylenol - PO 09/28/19 00:14 325 mg Q4H PRN Administration PAIN LEVEL 4 - 6 Aspirin 81 mg 09/23/19 10:00 09/25/19 10:29 Asa - PO 81 mg DAILY VEENA Administration Atorvastatin Calcium 10 mg 09/23/19 22:00 09/24/19 22:13 Lipitor - PO 10 mg HS VEENA Administration Calcium Carbonate/Cholecalciferol 1 tab 09/25/19 10:00 09/25/19 10:28 Os-Faisal 500+D - PO 1 tab BID VEENA Administration Cyclobenzaprine HCl 10 mg 09/23/19 14:00 09/25/19 06:18 Cyclobenzaprine Hcl PO 10 mg TID VEENA Administration Enoxaparin Sodium 40 mg 09/23/19 10:00 09/25/19 10:36 Lovenox - SQ 40 mg DAILY VEENA Administration Folic Acid 1 mg 09/24/19 10:00 09/25/19 10:37 Folic Acid - PO 1 mg DAILY VEENA Administration Gabapentin 100 mg 09/23/19 10:00 09/25/19 10:28 Neurontin - PO 100 mg BID VEENA Administration Lidocaine 1 patch 09/23/19 10:00 09/25/19 10:32 Lidoderm Patch - TP 1 patch DAILY VEENA Administration Methylnaltrexone [place] 12 mg 09/23/19 12:15 09/24/19 09:39 Relistor - SQ 12 mg DAILY VEENA Administration Metoprolol Tartrate 50 mg 09/23/19 10:00 09/25/19 10:32 Lopressor - PO 50 mg BID VEENA Administration Miscellaneous 1 each 09/23/19 22:00 09/24/19 22:14 Lidoderm Patch Removal MC Not Given DAILY@2200 VEENA Oxycodone HCl 5 mg 09/25/19 00:15 09/25/19 04:14 Roxicodone - PO 5 mg Q4H PRN Administration PAIN LEVEL 4 - 6 Pantoprazole Sodium 40 mg 09/23/19 10:00 09/25/19 10:28 Protonix - PO 40 mg DAILY VEENA Administration Polyethylene Glycol 34 gm 09/25/19 06:18 09/25/19 10:37 Miralax (For Daily Use) - PO 34 grams BID VEENA Administration Prednisone 10 mg 09/23/19 10:00 09/25/19 10:29 Deltasone - PO 10 mg DAILY VEENA Administration Umeclidinium/Vilanterol 1 puff 09/23/19 10:00 09/25/19 10:37 Anoro Ellipta 62.5-25 Mcg Inh IH 1 puff DAILY VEENA Administration ASSESSMENT/PLAN: Patient is a 58 year old male with past medical history of COPD, HTN, HLD, CAD, [place] s/p CABG, PCI, ILD, st III Lung Cancer (s/p RT 08/21), GERD, was admitted to the hospital for opioid-induced constipation. There was note of a right breast mass with a chest wall mass, and a liver mass noted on CT. We were called for further evaluation. 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 - New Patient This patient is new to me today: No - Critical Care Critical Care patient: No ATTENDING PHYSICIAN STATEMENT I saw and evaluated the patient. I reviewed the resident's note and discussed the case with the resident. I agree with the resident's findings and plan as documented. SUBJECTIVE: OBJECTIVE: ASSESSMENT AND PLAN:
--- NOTE | 2019-09-25 15:59 | CONSULT ---
Consult Consult Specialty:: Pain Management Reason for Consultation:: Back apin - History of Present Illness Chief Complaint: Back pain History of Present Illness: 58 yr old male with Low back pain with g/o Compression Fx. had opioid induced constipation and has stage III Lung CA. He was getting RT. C/o Pain 2-05/17 with percocet 10 mg . He was also seen Spine surgeon on his last visit. - History Source History Provided By: Patient Limitations to Obtaining History: No Limitations - Past Medical History Cardio/Vascular: Yes: CAD, HTN, Hyperlipdemia, [place] Pulmonary: Yes: Cancer, COPD, O2 Dependent, Pulmonary Fibrosis, Other (Post biopsy pneumothorax) Gastrointestinal: Yes: GERD Musculoskeletal: Yes: Other (spinal fracture) - Past Surgical History Past Surgical History: Yes: CABG, Hernia Repair, Tonsillectomy - Alcohol/Substance Use Hx Alcohol Use: No History of Substance Use: reports: None - Smoking History Smoking history: Former smoker Have you smoked in the past 12 months: No Aproximately how many cigarettes per day: 20 If you are a former smoker, when did you quit?: 2013 - Social History Usual Living Arrangement: With Spouse 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[place], [place]) History of Recent Travel: No Home Medications - Allergies Allergies/Adverse Reactions: Allergies Allergy/AdvReac Type Severity Reaction Status Date / Time No Known Allergies Allergy Verified 09/22/19 18:20 - Home Medications Home Medications: Ambulatory Orders Aspirin 81 mg PO HS 08/24/19 Atorvastatin Ca [Lipitor] 20 mg PO HS 08/24/19 Cyclobenzaprine HCl [Flexeril -] 10 mg PO TID 08/24/19 Metoprolol Tartrate 50 mg PO BID 08/24/19 Prednisone 10 mg PO DAILY 08/24/19 Acetaminophen [Tylenol .Regular Strength -] 325 mg PO Q6H PRN #90 tablet 08/31/19 Calcium 500Mg/Vit-D 200 Units [Os-Faisal 500+D -] 1 tab PO BID tab 08/31/19 Docusate Sodium [Colace -] 100 mg PO TID #90 capsule 08/31/19 Gabapentin [Neurontin -] 100 mg PO BID #60 capsule 08/31/19 Lidocaine 5% Patch [Lidoderm -] 1 patch TP DAILY@1600 #30 patch 07/24/20 Umeclidinium Brm/Vilanterol Tr [Anoro Ellipta 62.5-25 Mcg INH] 1 puff IH DAILY inhaler 08/31/19 Pantoprazole Sodium [Protonix -] 20 mg PO DAILY 09/22/19 Polyethylene Glycol 3350 [Miralax (For Bowel Prep) -] 17 gm PO DAILY 09/22/19 Family Medical History Family Hx Cardiac Disorders: Mother Family Hx Coronary Artery Disease: Father Review of Systems - Review of Systems Constitutional: reports: No Symptoms Eyes: reports: No Symptoms HENT: reports: No Symptoms, Ocular Prosthesis Neck: reports: No Symptoms Cardiovascular: reports: No Symptoms Respiratory: reports: SOB Gastrointestinal: reports: Constipation Genitourinary: reports: No Symptoms Musculoskeletal: reports: Back Pain Integumentary: reports: No Symptoms Neurological: reports: No Symptoms Endocrine: reports: No Symptoms Hematology/Lymphatic: reports: No Symptoms Pain Intensity: 4 Physical Exam Vital Signs: Vital Signs Temperature 98.5 F 09/25/19 10:50 Pulse Rate 103 H 09/25/19 10:50 Respiratory Rate 22 H 09/25/19 10:50 Blood Pressure 116/81 09/25/19 10:50 O2 Sat by Pulse Oximetry (%) 94 L 09/25/19 10:50 Constitutional: Yes: Well Nourished Eyes: Yes: WNL HENT: Yes: WNL Neck: Yes: WNL Gastrointestinal: Yes: Soft Musculoskeletal: Yes: Back Pain, Muscle Pain, Other (parasspinal muscle spasm and tender T11-L2 level approx.) Labs: CBC, BMP 09/24/19 07:50 09/24/19 07:50 Imaging - Results X-ray: Report Reviewed Cat Scan: Report Reviewed Problem List - Problems (1) Compression fracture Assessment/Plan: Disccussed in detail and answered all the questions 1. continue current medication and care 1. Oxycodone 10 mg with Tylenol 650 mg PO TID PRN 3. Use of TLSO brace ( Patient has Brace at home ) 4. Physical therapy 5. Bed mobilty 6. Bowel regimen to be continued. Thank you very much for your kind referral Dr. Cates [phone] Code(s): [id number] -
--- NOTE | 2019-09-25 16:13 | PN ---
Progress Note (short form) - Note Progress Note: PULMONARY CONSULTATION DICTATED 09/25/19 IMP CHRONIC HYPOXEMIC RESPIRATORY FAILURE ADVANCED ILD LUNG CA STAGE 111B NON-SMALL CELL H/O TRAUMATIC PTX S/P LUNG BX COPD R BREAST MASS ASHD S/P CABG BACK PAIN SECONDARY TO COMPRESSION FX CONSTIPATION OPIOID INDUCED PLAN SUPPLEMENTAL O2 INHALED BRONCHODILATORS PREDNISONE RELISTOR CHEMO PER ONCOLOGY CHEST X-RAY DR HANSON Problem List - Problems (1) Compression fracture Code(s): [id number] - (2) Constipation Code(s): K59.00 - CONSTIPATION, UNSPECIFIED Qualifiers: Constipation type: drug induced constipation Qualified Code(s): K59.03 - Drug induced constipation (3) Lung cancer Code(s): C34.90 - MALIGNANT NEOPLASM OF UNSP PART OF UNSP BRONCHUS OR LUNG (4) Therapeutic opioid induced constipation Code(s): K59.03 - DRUG INDUCED CONSTIPATION; T40.2X5A - ADVERSE EFFECT OF OTHER OPIOIDS, INITIAL ENCOUNTER (5) Back pain Code(s): M54.9 - DORSALGIA, UNSPECIFIED (6) CAD (coronary artery disease) Code(s): I25.10 - ATHSCL HEART DISEASE OF [place] CORONARY ARTERY W/O ANG PCTRS (7) COPD (chronic obstructive pulmonary disease) Code(s): J44.9 - CHRONIC OBSTRUCTIVE PULMONARY DISEASE, UNSPECIFIED (8) Chronic respiratory failure Code(s): J96.10 - CHRONIC RESPIRATORY FAILURE, UNSP W HYPOXIA OR HYPERCAPNIA (9) Compression fracture of T12 vertebra Code(s): S22.080A - WEDGE COMPRESSION FRACTURE OF T11-T12 VERTEBRA, INIT Qualifiers: Encounter type: initial encounter Qualified Code(s): S22.080A - Wedge compression fracture of T11-T12 vertebra, initial encounter for closed fracture (10) HLD (hyperlipidemia) Code(s): E78.5 - HYPERLIPIDEMIA, UNSPECIFIED (11) HTN (hypertension) Code(s): I10 - ESSENTIAL (PRIMARY) HYPERTENSION (12) Interstitial lung disease Code(s): J84.9 - INTERSTITIAL PULMONARY DISEASE, UNSPECIFIED (13) Vertebral fracture Code(s): [id number] - (14) Chronic respiratory failure with hypoxia Code(s): J96.11 - CHRONIC RESPIRATORY FAILURE WITH HYPOXIA
--- NOTE | 2019-09-25 16:31 | PN ---
Progress Note, Physician History of Present Illness: stable - Current Medication List Current Medications: Active Medications Acetaminophen (Tylenol -) 650 mg PO Q4H PRN PRN Reason: PAIN LEVEL 1-5 Last Admin: 09/24/19 23:49 Dose: 325 mg Documented by: Acetaminophen (Tylenol -) 325 mg PO Q4H PRN PRN Reason: PAIN LEVEL 4 - 6 Stop: 09/28/19 00:14 Last Admin: 09/25/19 04:14 Dose: 325 mg Documented by: Aspirin (Asa -) 81 mg PO DAILY [facility] Last Admin: 09/25/19 10:29 Dose: 81 mg Documented by: Atorvastatin Calcium (Lipitor -) 10 mg PO HS [facility] Last Admin: 09/24/19 22:13 Dose: 10 mg Documented by: Calcium Carbonate/Cholecalciferol (Os-Faisal 500+D -) 1 tab PO BID [facility] Last Admin: 09/25/19 10:28 Dose: 1 tab Documented by: Cyclobenzaprine HCl (Cyclobenzaprine Hcl) 10 mg PO TID [facility] Last Admin: 09/25/19 16:21 Dose: 10 mg Documented by: Enoxaparin Sodium (Lovenox -) 40 mg SQ DAILY [facility] Last Admin: 09/25/19 10:36 Dose: 40 mg Documented by: Folic Acid (Folic Acid -) 1 mg PO DAILY [facility] Last Admin: 09/25/19 10:37 Dose: 1 mg Documented by: Gabapentin (Neurontin -) 100 mg PO BID [facility] Last Admin: 09/25/19 10:28 Dose: 100 mg Documented by: Lidocaine (Lidoderm Patch -) 1 patch TP DAILY [facility] Last Admin: 09/25/19 10:32 Dose: 1 patch Documented by: Methylnaltrexone [place] (Relistor -) 12 mg SQ DAILY [facility] Last Admin: 09/24/19 09:39 Dose: 12 mg Documented by: Metoprolol Tartrate (Lopressor -) 50 mg PO BID [facility] Last Admin: 09/25/19 10:32 Dose: 50 mg Documented by: Miscellaneous (Lidoderm Patch Removal) 1 each MC DAILY@2200 [facility] Last Admin: 09/24/19 22:14 Dose: Not Given Documented by: Oxycodone HCl (Roxicodone -) 5 mg PO Q4H PRN PRN Reason: PAIN LEVEL 4 - 6 Last Admin: 09/25/19 04:14 Dose: 5 mg Documented by: Oxycodone HCl (Roxicodone -) 10 mg PO Q6H PRN PRN Reason: PAIN LEVEL 4 - 6 Pantoprazole Sodium (Protonix -) 40 mg PO DAILY [facility] Last Admin: 09/25/19 10:28 Dose: 40 mg Documented by: Polyethylene Glycol (Miralax (For Daily Use) -) 34 gm PO BID [facility] Last Admin: 09/25/19 10:37 Dose: 34 grams Documented by: Prednisone (Deltasone -) 10 mg PO DAILY [facility] Last Admin: 09/25/19 10:29 Dose: 10 mg Documented by: Umeclidinium/Vilanterol (Anoro Ellipta 62.5-25 Mcg Inh) 1 puff IH DAILY [facility] Last Admin: 09/25/19 10:37 Dose: 1 puff Documented by: - Objective Vital Signs: Vital Signs Temperature 98.5 F 09/25/19 10:50 Pulse Rate 103 H 09/25/19 10:50 Respiratory Rate 22 H 09/25/19 10:50 Blood Pressure 116/81 09/25/19 10:50 O2 Sat by Pulse Oximetry (%) 94 L 09/25/19 10:50 Constitutional: Yes: No Distress HENT: Yes: Atraumatic Neck: Yes: Supple Cardiovascular: Yes: Regular Rate and Rhythm Respiratory: Yes: Rhonchi Gastrointestinal: Yes: Normal Bowel Sounds Extremities: Yes: WNL Edema: No Neurological: Yes: Alert, Oriented Labs: CBC, BMP 09/24/19 07:50 09/24/19 07:50 INR, PTT INR 1.13 (0.83-1.09) H 09/22/19 20:04 Problem List - Problems (1) Compression fracture Assessment/Plan: on pain meds per pain md Code(s): [id number] - (2) Constipation Assessment/Plan: bowel regimen...constipation resolving Code(s): K59.00 - CONSTIPATION, UNSPECIFIED Qualifiers: Constipation type: drug induced constipation Qualified Code(s): K59.03 - Drug induced constipation (3) Lung cancer Assessment/Plan: as per heme onc had RT Code(s): C34.90 - MALIGNANT NEOPLASM OF UNSP PART OF UNSP BRONCHUS OR LUNG (4) Therapeutic opioid induced constipation Code(s): K59.03 - DRUG INDUCED CONSTIPATION; T40.2X5A - ADVERSE EFFECT OF OTHER OPIOIDS, INITIAL ENCOUNTER (5) Acute and chronic respiratory failure Code(s): J96.20 - ACUTE AND CHR RESP FAILURE, UNSP W HYPOXIA OR HYPERCAPNIA Qualifiers: Respiratory failure complication: hypoxia Qualified Code(s): J96.21 - Acute and chronic respiratory failure with hypoxia (6) Back pain Code(s): M54.9 - DORSALGIA, UNSPECIFIED (7) CAD (coronary artery disease) Code(s): I25.10 - ATHSCL HEART DISEASE OF [place] CORONARY ARTERY W/O ANG PCTRS (8) COPD (chronic obstructive pulmonary disease) Code(s): J44.9 - CHRONIC OBSTRUCTIVE PULMONARY DISEASE, UNSPECIFIED (9) Compression fracture of T12 vertebra Code(s): S22.080A - WEDGE COMPRESSION FRACTURE OF T11-T12 VERTEBRA, INIT Qualifiers: Encounter type: initial encounter Qualified Code(s): S22.080A - Wedge compression fracture of T11-T12 vertebra, initial encounter for closed fracture (10) HLD (hyperlipidemia) Assessment/Plan: on lipitor Code(s): E78.5 - HYPERLIPIDEMIA, UNSPECIFIED (11) HTN (hypertension) Assessment/Plan: on meds monitor Code(s): I10 - ESSENTIAL (PRIMARY) HYPERTENSION (12) Interstitial lung disease Code(s): J84.9 - INTERSTITIAL PULMONARY DISEASE, UNSPECIFIED (13) Vertebral fracture Code(s): [id number] - Assessment/Plan COVERING FOR DR YUNIOR BLAKELY
[2019-09-25] MEDS: Methylnaltrexone Bromide 12 MG/0.6 ML KIT SQ SCH (17:28)
[2019-09-25] MEDS: ATORVASTATIN CA 10 MG TABLET (FP) PO SCH (21:18)
[2019-09-25] MEDS: LIDOCAINE PATCH REMOVAL MC SCH (21:18)
[2019-09-25] MEDS: oxyCODONE HCL 5 MG TABLET PO PRN (21:18)
[2019-09-26] MEDS: oxyCODONE HCL 5 MG TABLET PO PRN ×2 (05:35→16:31)
[2019-09-26] MEDS: ACETAMINOPHEN 325 MG TABLET (FP) PO PRN ×2 (05:36→16:39)
[2019-09-26] MEDS: CYCLOBENZAPRINE HCL 5 MG TABLET PO SCH (07:29)
[2019-09-26] MEDS ORDERED: PT OWN MED DRAWER 7, Y5N ONE ×3 (09:04→14:16)
[2019-09-26] MEDS: predniSONE 10 MG TABLET (UD) PO SCH (09:09)
[2019-09-26] MEDS: GABAPENTIN 100 MG CAPSULE PO SCH ×2 (09:09→21:48)
[2019-09-26] MEDS: METOPROLOL TARTRATE 50 MG TABLET (FP) PO SCH ×2 (09:09→21:47)
[2019-09-26] MEDS: ASPIRIN 81 MG CHEWABLE TABLETS PO SCH (09:09)
[2019-09-26] MEDS: PANTOPRAZOLE 40 MG TABLET PO SCH (09:09)
[2019-09-26] MEDS: FOLIC ACID 1 MG TABLET (FP) PO SCH (09:10)
[2019-09-26] MEDS: UMECLIDINIUM/VILANTEROL (ANORO) 62.5/25 MCG INHALER IH SCH (09:10)
[2019-09-26] MEDS: CALCIUM 500MG/VIT-D 200 UNITS COMBO TABLET (FP) PO SCH ×2 (09:10→21:48)
[2019-09-26] MEDS: ENOXAPARIN NA (PORCINE) 40 MG/0.4 ML DISP.SYRIN SQ SCH (09:10)
[2019-09-26] MEDS: POLYETHYLENE GLYCOL 3350 119 GM BTL PO SCH ×2 (09:12→21:46)
[2019-09-26] MEDS: LIDOCAINE 5% TOPICAL PATCH TP SCH (09:12)
--- NOTE | 2019-09-26 10:46 | PN ---
Progress Note, Physician History of Present Illness: pulmonary alert,breathing about the same,c/o neck stiffness - Current Medication List Current Medications: Active Medications Acetaminophen (Tylenol -) 325 mg PO Q4H PRN PRN Reason: PAIN LEVEL 4 - 6 Stop: 09/28/19 00:14 Last Admin: 09/25/19 04:14 Dose: 325 mg Documented by: Acetaminophen (Tylenol -) 650 mg PO Q8H PRN PRN Reason: PAIN LEVEL 7-10 Last Admin: 09/26/19 05:36 Dose: 650 mg Documented by: Aspirin (Asa -) 81 mg PO DAILY [facility] Last Admin: 09/26/19 09:09 Dose: 81 mg Documented by: Atorvastatin Calcium (Lipitor -) 10 mg PO HS [facility] Last Admin: 09/25/19 21:18 Dose: 10 mg Documented by: Calcium Carbonate/Cholecalciferol (Os-Faisal 500+D -) 1 tab PO BID [facility] Last Admin: 09/26/19 09:10 Dose: 1 tab Documented by: Cyclobenzaprine HCl (Cyclobenzaprine Hcl) 10 mg PO TID [facility] Last Admin: 09/26/19 07:29 Dose: Not Given Documented by: Enoxaparin Sodium (Lovenox -) 40 mg SQ DAILY [facility] Last Admin: 09/26/19 09:10 Dose: 40 mg Documented by: Folic Acid (Folic Acid -) 1 mg PO DAILY [facility] Last Admin: 09/26/19 09:10 Dose: 1 mg Documented by: Gabapentin (Neurontin -) 100 mg PO BID [facility] Last Admin: 09/26/19 09:09 Dose: 100 mg Documented by: Lidocaine (Lidoderm Patch -) 1 patch TP DAILY [facility] Last Admin: 09/26/19 09:12 Dose: Not Given Documented by: Methylnaltrexone [place] (Relistor -) 12 mg SQ DAILY [facility] Last Admin: 09/25/19 17:28 Dose: 12 mg Documented by: Metoprolol Tartrate (Lopressor -) 50 mg PO BID [facility] Last Admin: 09/26/19 09:09 Dose: 50 mg Documented by: Miscellaneous (Lidoderm Patch Removal) 1 each MC DAILY@2200 [facility] Last Admin: 09/25/19 21:18 Dose: Not Given Documented by: Oxycodone HCl (Roxicodone -) 5 mg PO Q4H PRN PRN Reason: PAIN LEVEL 4 - 6 Last Admin: 09/25/19 04:14 Dose: 5 mg Documented by: Oxycodone HCl (Roxicodone -) 10 mg PO Q8H PRN PRN Reason: PAIN LEVEL 7 - 10 Last Admin: 09/26/19 05:35 Dose: 10 mg Documented by: Pantoprazole Sodium (Protonix -) 40 mg PO DAILY [facility] Last Admin: 09/26/19 09:09 Dose: 40 mg Documented by: Polyethylene Glycol (Miralax (For Daily Use) -) 34 gm PO BID [facility] Last Admin: 09/26/19 09:12 Dose: Not Given Documented by: Prednisone (Deltasone -) 10 mg PO DAILY [facility] Last Admin: 09/26/19 09:09 Dose: 10 mg Documented by: Umeclidinium/Vilanterol (Anoro Ellipta 62.5-25 Mcg Inh) 1 puff IH DAILY [facility] Last Admin: 09/26/19 09:10 Dose: Not Given Documented by: - Objective Vital Signs: Vital Signs Temperature 98.8 F 09/26/19 05:48 Pulse Rate 83 09/26/19 05:48 Respiratory Rate 20 09/26/19 05:48 Blood Pressure 134/70 09/26/19 05:48 O2 Sat by Pulse Oximetry (%) 92 L 09/26/19 05:48 Constitutional: Yes: Well Nourished, Calm, Other (dyspneic) Eyes: Yes: WNL HENT: Yes: WNL Neck: Yes: Decreased ROM Cardiovascular: Yes: Regular Rate and Rhythm, S1, S2 Respiratory: Yes: Rales (bilateral crackles) Gastrointestinal: Yes: Normal Bowel Sounds, Soft Extremities: Yes: WNL Edema: No Labs: Problem List - Problems (1) Compression fracture Code(s): [id number] - (2) Constipation Code(s): K59.00 - CONSTIPATION, UNSPECIFIED Qualifiers: Constipation type: drug induced constipation Qualified Code(s): K59.03 - Drug induced constipation (3) Lung cancer Code(s): C34.90 - MALIGNANT NEOPLASM OF UNSP PART OF UNSP BRONCHUS OR LUNG (4) Therapeutic opioid induced constipation Code(s): K59.03 - DRUG INDUCED CONSTIPATION; T40.2X5A - ADVERSE EFFECT OF OTHER OPIOIDS, INITIAL ENCOUNTER (5) Back pain Code(s): M54.9 - DORSALGIA, UNSPECIFIED (6) CAD (coronary artery disease) Code(s): I25.10 - ATHSCL HEART DISEASE OF [place] CORONARY ARTERY W/O ANG PCTRS (7) COPD (chronic obstructive pulmonary disease) Code(s): J44.9 - CHRONIC OBSTRUCTIVE PULMONARY DISEASE, UNSPECIFIED (8) Chronic respiratory failure Code(s): J96.10 - CHRONIC RESPIRATORY FAILURE, UNSP W HYPOXIA OR HYPERCAPNIA (9) Compression fracture of T12 vertebra Code(s): S22.080A - WEDGE COMPRESSION FRACTURE OF T11-T12 VERTEBRA, INIT Qualifiers: Encounter type: initial encounter Qualified Code(s): S22.080A - Wedge compr ession fracture of T11-T12 vertebra, initial encounter for closed fracture (10) HLD (hyperlipidemia) Code(s): E78.5 - HYPERLIPIDEMIA, UNSPECIFIED (11) HTN (hypertension) Code(s): I10 - ESSENTIAL (PRIMARY) HYPERTENSION (12) Interstitial lung disease Code(s): J84.9 - INTERSTITIAL PULMONARY DISEASE, UNSPECIFIED (13) Vertebral fracture Code(s): [id number] - (14) Chronic respiratory failure with hypoxia Code(s): J96.11 - CHRONIC RESPIRATORY FAILURE WITH HYPOXIA Assessment/Plan IMP CHRONIC HYPOXEMIC RESPIRATORY FAILURE ADVANCED ILD LUNG CA STAGE 111B NON-SMALL CELL H/O TRAUMATIC PTX S/P LUNG BX COPD R BREAST MASS ASHD S/P CABG BACK PAIN SECONDARY TO COMPRESSION FX CONSTIPATION OPIOID INDUCED PLAN SUPPLEMENTAL O2 INHALED BRONCHODILATORS PREDNISONE RELISTOR CHEMO PER ONCOLOGY CHEST X-RAY DR HANSON Problem List - Problems (1) Compression fracture Code(s): [id number] - (2) Constipation Code(s): K59.00 - CONSTIPATION, UNSPECIFIED Qualifiers: Constipation type: drug induced constipation Qualified Code(s): K59.03 - Drug induced constipation (3) Lung cancer Code(s): C34.90 - MALIGNANT NEOPLASM OF UNSP PART OF UNSP BRONCHUS OR LUNG (4) Therapeutic opioid induced constipation Code(s): K59.03 - DRUG INDUCED CONSTIPATION; T40.2X5A - ADVERSE EFFECT OF OTHER OPIOIDS, INITIAL ENCOUNTER (5) Back pain Code(s): M54.9 - DORSALGIA, UNSPECIFIED (6) CAD (coronary artery disease) Code(s): I25.10 - ATHSCL HEART DISEASE OF [place] CORONARY ARTERY W/O ANG PCTRS (7) COPD (chronic obstructive pulmonary disease) Code(s): J44.9 - CHRONIC OBSTRUCTIVE PULMONARY DISEASE, UNSPECIFIED (8) Chronic respiratory failure Code(s): J96.10 - CHRONIC RESPIRATORY FAILURE, UNSP W HYPOXIA OR HYPERCAPNIA (9) Compression fracture of T12 vertebra Code(s): S22.080A - WEDGE COMPRESSION FRACTURE OF T11-T12 VERTEBRA, INIT Qualifiers: Encounter type: initial encounter Qualified Code(s): S22.080A - Wedge compression fracture of T11-T12 vertebra, initial encounter for closed fracture (10) HLD (hyperlipidemia) Code(s): E78.5 - HYPERLIPIDEMIA, UNSPECIFIED (11) HTN (hypertension) Code(s): I10 - ESSENTIAL (PRIMARY) HYPERTENSION (12) Interstitial lung disease Code(s): J84.9 - INTERSTITIAL PULMONARY DISEASE, UNSPECIFIED (13) Vertebral fracture Code(s): [id number] - (14) Chronic respiratory failure with hypoxia Code(s): J96.11 - CHRONIC RESPIRATORY FAILURE WITH HYPOXIA
[2019-09-26] MEDS ORDERED: ALBUTEROL SO4 2.5/IPRATROPIUM 0.5 INH SOL 3 ML VIAL.NEB. NEB PRN (11:45)
[2019-09-26] MEDS: ALBUTEROL SO4 2.5/IPRATROPIUM 0.5 INH SOL 3 ML VIAL.NEB. NEB SCH ×3 (12:34→20:50)
[2019-09-26] MEDS: CYCLOBENZAPRINE HCL 10 MG TABLET (FP) PO SCH ×3 (14:18→21:55)
[2019-09-26] MEDS: Methylnaltrexone Bromide 12 MG/0.6 ML KIT SQ SCH (14:19)
--- NOTE | 2019-09-26 20:39 | PN.HO ---
Progress Note (short form) - Note Progress Note: PAtient seen and examined c/o neck pain Xray shows C6 compression AFVSS Cor: RSR, No murmurs, Lungs: crackles at bases Abd: Soft, Normal bowel sounds, Ext:No significant edema LAbs/MEds reviewed A/P 58 y/o patient with sever ILD , O2 dependent for> 1yr. 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 chest wall mass, abdominal adenopathy, liver lesion Discussed at length with patient and his brother over the phone -- discussed given his ILD /performance status his treatment options were limted Recommended best supportive care Patient very keen on pursuing palliative chemotherapy Discussed low intensity options Also recommended biopsy pf chest wall mass to send tissue for next gen sequencing will request endocrine consult regarding management of osteoporosis discussed with Dr. Soler
[2019-09-26] MEDS: ATORVASTATIN CA 10 MG TABLET (FP) PO SCH (21:48)
[2019-09-26] MEDS: LIDOCAINE PATCH REMOVAL MC SCH (21:52)
--- NOTE | 2019-09-26 22:14 | PN ---
Progress Note, Physician History of Present Illness: Pt complains of neck pain - Current Medication List Current Medications: Active Medications Acetaminophen (Tylenol -) 325 mg PO Q4H PRN PRN Reason: PAIN LEVEL 4 - 6 Stop: 09/28/19 00:14 Last Admin: 09/25/19 04:14 Dose: 325 mg Documented by: Acetaminophen (Tylenol -) 650 mg PO Q8H PRN PRN Reason: PAIN LEVEL 7-10 Last Admin: 09/26/19 16:39 Dose: 650 mg Documented by: Albuterol/Ipratropium (Duoneb -) 1 amp NEB RQID [facility] Last Admin: 09/26/19 20:50 Dose: 1 amp Documented by: Albuterol/Ipratropium (Duoneb -) 1 amp NEB Q4H PRN PRN Reason: SHORTNESS OF BREATH Aspirin (Asa -) 81 mg PO DAILY [facility] Last Admin: 09/26/19 09:09 Dose: 81 mg Documented by: Atorvastatin Calcium (Lipitor -) 10 mg PO HS [facility] Last Admin: 09/26/19 21:48 Dose: 10 mg Documented by: Calcium Carbonate/Cholecalciferol (Os-Faisal 500+D -) 1 tab PO BID [facility] Last Admin: 09/26/19 21:48 Dose: 1 tab Documented by: Cyclobenzaprine HCl (Flexeril -) 10 mg PO TID [facility] Last Admin: 09/26/19 21:55 Dose: Not Given Documented by: Folic Acid (Folic Acid -) 1 mg PO DAILY [facility] Last Admin: 09/26/19 09:10 Dose: 1 mg Documented by: Gabapentin (Neurontin -) 100 mg PO BID [facility] Last Admin: 09/26/19 21:48 Dose: 100 mg Documented by: Lidocaine (Lidoderm Patch -) 1 patch TP DAILY [facility] Last Admin: 09/26/19 09:12 Dose: Not Given Documented by: Methylnaltrexone [place] (Relistor -) 12 mg SQ DAILY [facility] Last Admin: 09/26/19 14:19 Dose: 12 mg Documented by: Metoprolol Tartrate (Lopressor -) 50 mg PO BID [facility] Last Admin: 09/26/19 21:47 Dose: 50 mg Documented by: Miscellaneous (Lidoderm Patch Removal) 1 each MC DAILY@2200 [facility] Last Admin: 09/26/19 21:52 Dose: Not Given Documented by: Oxycodone HCl (Roxicodone -) 5 mg PO Q4H PRN PRN Reason: PAIN LEVEL 4 - 6 Last Admin: 09/25/19 04:14 Dose: 5 mg Documented by: Oxycodone HCl (Roxicodone -) 10 mg PO Q8H PRN PRN Reason: PAIN LEVEL 7 - 10 Last Admin: 09/26/19 16:31 Dose: 10 mg Documented by: Pantoprazole Sodium (Protonix -) 40 mg PO DAILY [facility] Last Admin: 09/26/19 09:09 Dose: 40 mg Documented by: Polyethylene Glycol (Miralax (For Daily Use) -) 34 gm PO BID [facility] Last Admin: 09/26/19 21:46 Dose: 34 grams Documented by: Prednisone (Deltasone -) 10 mg PO DAILY [facility] Last Admin: 09/26/19 09:09 Dose: 10 mg Documented by: - Objective Vital Signs: Vital Signs Temperature 98.0 F 09/26/19 14:39 Pulse Rate 81 09/26/19 14:39 Respiratory Rate 09/26/19 18:00 Blood Pressure 107/75 09/26/19 18:00 O2 Sat by Pulse Oximetry (%) 88 L 09/26/19 18:00 Cardiovascular: Yes: WNL, Regular Rate and Rhythm Respiratory: Yes: Diminished Gastrointestinal: Yes: WNL, Normal Bowel Sounds, Soft Labs: CBC, BMP 09/24/19 07:50 09/24/19 07:50 INR, PTT INR 1.13 (0.83-1.09) H 09/22/19 20:04 Problem List - Problems (1) Therapeutic opioid induced constipation Assessment/Plan: Pt given relistor w/ BM Cont miralax Code(s): K59.03 - DRUG INDUCED CONSTIPATION; T40.2X5A - ADVERSE EFFECT OF OTHER OPIOIDS, INITIAL ENCOUNTER (2) Lung cancer Assessment/Plan: As per heme/onc consult Pt to have bx of chest wall mass Pt to start chemotx as per onco Code(s): C34.90 - MALIGNANT NEOPLASM OF UNSP PART OF UNSP BRONCHUS OR LUNG (3) Vertebral fracture Assessment/Plan: Pt still requiring percocet Cont cyclobenzaprine/lidocaine patch Code(s): IFJ0910 - (4) COPD (chronic obstructive pulmonary disease) Assessment/Plan: Cont ellipta Code(s): J44.9 - CHRONIC OBSTRUCTIVE PULMONARY DISEASE, UNSPECIFIED (5) Interstitial lung disease Assessment/Plan: Cont prednisone Code(s): J84.9 - INTERSTITIAL PULMONARY DISEASE, UNSPECIFIED (6) HLD (hyperlipidemia) Code(s): E78.5 - HYPERLIPIDEMIA, UNSPECIFIED (7) HTN (hypertension) Assessment/Plan: BP stable Cont metoprolol Code(s): I10 - ESSENTIAL (PRIMARY) HYPERTENSION (8) CAD (coronary artery disease) Code(s): I25.10 - ATHSCL HEART DISEASE OF [place] CORONARY ARTERY W/O ANG PCTRS
[2019-09-27] MEDS: oxyCODONE HCL 5 MG TABLET PO PRN ×3 (00:06→22:01)
[2019-09-27] MEDS: ACETAMINOPHEN 325 MG TABLET (FP) PO PRN ×3 (00:09→22:02)
[2019-09-27] MEDS: CYCLOBENZAPRINE HCL 10 MG TABLET (FP) PO SCH ×3 (05:49→22:04)
[2019-09-27 06:57] LABS: BASO % 0.5 % (0-2.0); EOS % 2.2 % (0-4.5); HEMATOCRIT 29.7 % (35.4-49); HEMOGLOBIN 10.2 GM/dL (11.7-16.9); LYMPH % 7.9 % (8-40); MCHC 34.3 g/dl (32.0-35.9); MEAN CELL VOLUME 90.5 fl (80-96); MEAN PLT VOLUME 7.2 fl (7.5-11.1); MONO % 13.3 % (3.8-10.2); NEUT % 76.1 % (42.8-82.8); PLATELET COUNT 135 K/MM3 (134-434); RBC 3.28 M/mm3 (4.00-5.60); RDW 17.5 % (11.9-15.9); WHITE BLOOD COUNT 5.8 K/mm3 (4.0-10.0)
[2019-09-27 07:22] LABS: BLOOD UREA NITROGEN 15.7 mg/dL (7-18); CALCIUM 9.2 mg/dL (8.5-10.1); CREATININE 1.1 mg/dL (0.55-1.3); POTASSIUM 3.9 mmol/L (3.5-5.1); TOT PROT 5.9 g/dl (6.4-8.2)
[2019-09-27] MEDS: ALBUTEROL SO4 2.5/IPRATROPIUM 0.5 INH SOL 3 ML VIAL.NEB. NEB SCH ×4 (07:30→20:54)
[2019-09-27 08:48] LABS: ANISOCYTOSIS 2+; MACROCYTOSIS 0; PLATELET ESTIMATE DECREASED
[2019-09-27] MEDS: FOLIC ACID 1 MG TABLET (FP) PO SCH (10:19)
[2019-09-27] MEDS: predniSONE 10 MG TABLET (UD) PO SCH (10:19)
[2019-09-27] MEDS: CALCIUM 500MG/VIT-D 200 UNITS COMBO TABLET (FP) PO SCH ×2 (10:19→22:04)
[2019-09-27] MEDS: GABAPENTIN 100 MG CAPSULE PO SCH ×2 (10:19→22:04)
[2019-09-27] MEDS: ASPIRIN 81 MG CHEWABLE TABLETS PO SCH (10:19)
[2019-09-27] MEDS: PANTOPRAZOLE 40 MG TABLET PO SCH (10:19)
[2019-09-27] MEDS: METOPROLOL TARTRATE 50 MG TABLET (FP) PO SCH ×2 (10:19→22:04)
[2019-09-27] MEDS: POLYETHYLENE GLYCOL 3350 119 GM BTL PO SCH ×2 (10:20→22:08)
[2019-09-27] MEDS: LIDOCAINE 5% TOPICAL PATCH TP SCH (10:20)
[2019-09-27] MEDS: Methylnaltrexone Bromide 12 MG/0.6 ML KIT SQ SCH (10:21)
--- NOTE | 2019-09-27 13:54 | PN ---
Progress Note (short form) - Note Progress Note: NEUROSURGERY Pt seen on prior admission Pt examined History obtained; prior smoker, quit [address] Abd relative to spine and C spine x-rays reviewed 2 week h/o R sided neck pain after sleeping with a tall pillow; no weakness/numbness/tingling UE/LE or sphinchter dysfunction except constipation On increasing dosage of narcotic painkillers; was diagnosed with T11 fracture a month ago; no fever/chill/cough, Covid negative PE: AF, VSS General- unremarkable; kyphotic TL junction; B LE venous varicosity; Neck- R sided cervical and retroauricular tenderness CN- intact; Motor- 5/5 B UE/LE; Sensation- intact LT; DTR- 2+; Back- tender over TL junction R > L PMH: COPD, HTN, HLD, CAD, PA (s/p CABG/stent), stage IIII lung cancer (s/p RT 08/22/19 and on chemo), GERD MEDS: oxycodone, deltasone,lipitor, protonix, ASA NKDA ROS- negative except for the above; some weight loss WBC 5.6, Hgb 10.2, Cr 1.1, INR 1.14, ptt 29.6 CT Abd (relative to spine) - osteopenia; T11 vertebral fx with kyphosis T10-11 and sup endplate retropulsion, resulting in 30% anterior canal compromise Lung CA (NSC), stage IV, on chemo and RT C spine x-rays- spondylosis, mild C5-6 anterolisthesis, difficult to assess fx of C6 and C7 given shoulder bulk Osteoporosis (steroid related) most likely Never did outpatient T spine MRI with indira Needs C spine CT to r/o fx: Unable to tolerate SJ closed MRI and pt declines again Doubt significant fracture or dislocation given intact UE neuro exam Neurosurgical intervention not recommended Medical management only; pain management for optimal pain meds regimen On Neurontin and Oxycodone per pain management Consider adding zanaflex 2 mg tid prn for muscle spasm Bowel regimen Pros and cons of tx approaches discussed Chest wall lesion biopsy per oncology All questions answered
--- NOTE | 2019-09-27 14:36 | PN ---
Progress Note (short form) - Note Progress Note: Breathing feels at baseline. Pain issues persist. No acute events overnight. Intake & Output 09/24/19 09/25/19 09/26/19 09/27/19 23:59 23:59 23:59 23:59 Intake Total 1080 350 600 300 Output Total 500 Balance 1080 350 100 300 Weight 192 lb 4.8 oz 192 lb Last Vital Signs Temp Pulse Resp BP Pulse Ox 97.7 F 90 20 100/64 97 09/27/19 06:00 09/27/19 06:00 09/27/19 06:00 09/27/19 06:00 09/27/19 06:00 Active Medications Acetaminophen (Tylenol -) 325 mg PO Q4H PRN PRN Reason: PAIN LEVEL 4 - 6 Stop: 09/28/19 00:14 Last Admin: 09/27/19 07:35 Dose: 325 mg Documented by: Acetaminophen (Tylenol -) 650 mg PO Q8H PRN PRN Reason: PAIN LEVEL 7-10 Last Admin: 09/27/19 00:09 Dose: 650 mg Documented by: Albuterol/Ipratropium (Duoneb -) 1 amp NEB RQID [facility] Last Admin: 09/27/19 11:18 Dose: 1 amp Documented by: Albuterol/Ipratropium (Duoneb -) 1 amp NEB Q4H PRN PRN Reason: SHORTNESS OF BREATH Aspirin (Asa -) 81 mg PO DAILY [facility] Last Admin: 09/27/19 10:19 Dose: 81 mg Documented by: Atorvastatin Calcium (Lipitor -) 10 mg PO HS [facility] Last Admin: 09/26/19 21:48 Dose: 10 mg Documented by: Calcium Carbonate/Cholecalciferol (Os-Faisal 500+D -) 1 tab PO BID [facility] Last Admin: 09/27/19 10:19 Dose: 1 tab Documented by: Cyclobenzaprine HCl (Flexeril -) 10 mg PO TID [facility] Last Admin: 09/27/19 05:49 Dose: 10 mg Documented by: Folic Acid (Folic Acid -) 1 mg PO DAILY [facility] Last Admin: 09/27/19 10:19 Dose: 1 mg Documented by: Gabapentin (Neurontin -) 100 mg PO BID [facility] Last Admin: 09/27/19 10:19 Dose: 100 mg Documented by: Lidocaine (Lidoderm Patch -) 1 patch TP DAILY [facility] Last Admin: 09/27/19 10:20 Dose: Not Given Documented by: Methylnaltrexone [place] (Relistor -) 12 mg SQ DAILY [facility] Last Admin: 09/27/19 10:21 Dose: 12 mg Documented by: Metoprolol Tartrate (Lopressor -) 50 mg PO BID [facility] Last Admin: 09/27/19 10:19 Dose: 50 mg Documented by: Miscellaneous (Lidoderm Patch Removal) 1 each MC DAILY@2200 [facility] Last Admin: 09/26/19 21:52 Dose: Not Given Documented by: Oxycodone HCl (Roxicodone -) 5 mg PO Q4H PRN PRN Reason: PAIN LEVEL 4 - 6 Last Admin: 09/25/19 04:14 Dose: 5 mg Documented by: Oxycodone HCl (Roxicodone -) 10 mg PO Q8H PRN PRN Reason: PAIN LEVEL 7 - 10 Last Admin: 09/27/19 07:35 Dose: 10 mg Documented by: Pantoprazole Sodium (Protonix -) 40 mg PO DAILY [facility] Last Admin: 09/27/19 10:19 Dose: 40 mg Documented by: Polyethylene Glycol (Miralax (For Daily Use) -) 34 gm PO BID [facility] Last Admin: 09/27/19 10:20 Dose: 17 grams Documented by: Prednisone (Deltasone -) 10 mg PO DAILY [facility] Last Admin: 09/27/19 10:19 Dose: 10 mg Documented by: Constitutional: Yes: Mildly dyspneic with speaking Eyes: Yes: WNL HENT: Yes: WNL Neck: Yes: Decreased ROM Cardiovascular: Yes: Regular Rate and Rhythm, S1, S2 Respiratory: Yes: Scattered bilateral rhonchi Gastrointestinal: Yes: Normal Bowel Sounds, Soft Extremities: Yes: WNL Edema: No Labs: Laboratory Results - last 24 hr 09/27/19 09/27/19 05:25 05:25 WBC 5.8 RBC 3.28 L Hgb 10.2 L Hct 29.7 L MCV 90.5 MCH 31.0 MCHC 34.3 RDW 17.5 H Plt Count 135 MPV 7.2 L Absolute Neuts (auto) 4.4 Neutrophils % 76.1 Neutrophils % (Manual) 78.6 Band Neutrophils % 0.0 Lymphocytes % 7.9 L D Lymphocytes % (Manual) 9.2 D Monocytes % 13.3 H Monocytes % (Manual) 10 Eosinophils % 2.2 D Eosinophils % (Manual) 1.0 Basophils % 0.5 Basophils % (Manual) 0.0 Myelocytes % (Man) 0 Promyelocytes % (Man) 0 Blast Cells % (Manual) 0 Nucleated RBC % 0 Metamyelocytes 0 Hypochromia 0 Platelet Estimate Decreased Polychromasia 2+ Poikilocytosis 0 Anisocytosis 2+ Microcytosis 2+ Macrocytosis 0 Sodium 137 Potassium 3.9 Chloride 98 Carbon Dioxide 34 H Anion Gap 6 L BUN 15.7 Creatinine 1.1 Est GFR (CKD-EPI)AfAm 84.12 Est GFR (CKD-EPI)NonAf 72.58 Random Glucose 84 Calcium 9.2 Total Bilirubin 1.0 AST 81 H ALT 18 Alkaline Phosphatase 86 Total Protein 5.9 L Albumin 3.0 L Problem List - Problems (1) Compression fracture Code(s): KTH3306 - (2) Constipation Code(s): K59.00 - CONSTIPATION, UNSPECIFIED Qualifiers: Constipation type: drug induced constipation Qualified Code(s): K59.03 - Drug induced constipation (3) Lung cancer Code(s): C34.90 - MALIGNANT NEOPLASM OF UNSP PART OF UNSP BRONCHUS OR LUNG (4) Therapeutic opioid induced constipation Code(s): K59.03 - DRUG INDUCED CONSTIPATION; T40.2X5A - ADVERSE EFFECT OF OTHER OPIOIDS, INITIAL ENCOUNTER (5) Back pain Code(s): M54.9 - DORSALGIA, UNSPECIFIED (6) CAD (coronary artery disease) Code(s): I25.10 - ATHSCL HEART DISEASE OF [place] CORONARY ARTERY W/O ANG PCTRS (7) COPD (chronic obstructive pulmonary disease) Code(s): J44.9 - CHRONIC OBSTRUCTIVE PULMONARY DISEASE, UNSPECIFIED (8) Chronic respiratory failure Code(s): J96.10 - CHRONIC RESPIRATORY FAILURE, UNSP W HYPOXIA OR HYPERCAPNIA (9) Compression fracture of T12 vertebra Code(s): S22.080A - WEDGE COMPRESSION FRACTURE OF T11-T12 VERTEBRA, INIT Qualifiers: Encounter type: initial encounter Qualified Code(s): S22.080A - [place]ge compression fracture of T11-T12 vertebra, initial encounter for closed fracture (10) HLD (hyperlipidemia) Code(s): E78.5 - HYPERLIPIDEMIA, UNSPECIFIED (11) HTN (hypertension) Code(s): I10 - ESSENTIAL (PRIMARY) HYPERTENSION (12) Interstitial lung disease Code(s): J84.9 - INTERSTITIAL PULMONARY DISEASE, UNSPECIFIED (13) Vertebral fracture Code(s): [id number] - (14) Chronic respiratory failure with hypoxia Code(s): J96.11 - CHRONIC RESPIRATORY FAILURE WITH HYPOXIA Assessment/Plan IMP CHRONIC HYPOXEMIC RESPIRATORY FAILURE ADVANCED ILD LUNG CA STAGE 111B NON-SMALL CELL H/O TRAUMATIC PTX S/P LUNG BX COPD R BREAST MASS ASHD S/P CABG BACK PAIN SECONDARY TO COMPRESSION FX CONSTIPATION OPIOID INDUCED PLAN SUPPLEMENTAL O2 INHALED BRONCHODILATORS PREDNISONE 10mg OD RELISTOR CHEMO PER ONCOLOGY PAIN CONTROL Dr Daniel
--- NOTE | 2019-09-27 17:20 | PN.GI ---
GI Progress Note Subjective: patient had good response to relistor and Miralax - Objective Vital Signs: Vital Signs Temperature 97.7 F 09/27/19 06:00 Pulse Rate 90 09/27/19 06:00 Respiratory Rate 20 09/27/19 06:00 Blood Pressure 100/64 09/27/19 06:00 O2 Sat by Pulse Oximetry (%) 97 09/27/19 06:00 Constitutional: Well Nourished Eyes: Yes: Conjunctiva Clear HENT: Yes: Atraumatic Neck: Yes: Supple Cardiovascular: Yes: Regular Rate and Rhythm Respiratory: Yes: CTA Bilaterally ...Palpate: Yes: Soft. No: Firm/Rigid, Guarding, Hepatomegaly, Mass, Pulsatile Mass Labs: CBC, BMP 09/27/19 05:25 09/27/19 05:25 INR, PTT INR 1.13 (0.83-1.09) H 09/22/19 20:04 Problem List - Problems (1) Constipation Assessment/Plan: opiod induced R> continue present management please recall as necessary Code(s): K59.00 - CONSTIPATION, UNSPECIFIED Qualifiers: Constipation type: drug induced constipation Qualified Code(s): K59.03 - Drug induced constipation
[2019-09-27] MEDS: ATORVASTATIN CA 10 MG TABLET (FP) PO SCH (22:04)
[2019-09-27] MEDS: LIDOCAINE PATCH REMOVAL MC SCH (22:04)
--- NOTE | 2019-09-27 22:04 | PN ---
Progress Note, Physician - Current Medication List Current Medications: Active Medications Acetaminophen (Tylenol -) 325 mg PO Q4H PRN PRN Reason: PAIN LEVEL 4 - 6 Stop: 09/28/19 00:14 Last Admin: 09/27/19 07:35 Dose: 325 mg Documented by: Acetaminophen (Tylenol -) 650 mg PO Q8H PRN PRN Reason: PAIN LEVEL 7-10 Last Admin: 09/27/19 00:09 Dose: 650 mg Documented by: Albuterol/Ipratropium (Duoneb -) 1 amp NEB RQID [facility] Last Admin: 09/27/19 20:54 Dose: 1 amp Documented by: Albuterol/Ipratropium (Duoneb -) 1 amp NEB Q4H PRN PRN Reason: SHORTNESS OF BREATH Aspirin (Asa -) 81 mg PO DAILY [facility] Last Admin: 09/27/19 10:19 Dose: 81 mg Documented by: Atorvastatin Calcium (Lipitor -) 10 mg PO [facility] Last Admin: 09/26/19 21:48 Dose: 10 mg Documented by: Calcium Carbonate/Cholecalciferol (Os-Faisal 500+D -) 1 tab PO BID [facility] Last Admin: 09/27/19 10:19 Dose: 1 tab Documented by: Cyclobenzaprine HCl (Flexeril -) 10 mg PO TID [facility] Last Admin: 09/27/19 15:39 Dose: 10 mg Documented by: Folic Acid (Folic Acid -) 1 mg PO DAILY [facility] Last Admin: 09/27/19 10:19 Dose: 1 mg Documented by: Gabapentin (Neurontin -) 100 mg PO BID [facility] Last Admin: 09/27/19 10:19 Dose: 100 mg Documented by: Lidocaine (Lidoderm Patch -) 1 patch TP DAILY [facility] Last Admin: 09/27/19 10:20 Dose: Not Given Documented by: Methylnaltrexone [place] (Relistor -) 12 mg SQ DAILY [facility] Last Admin: 09/27/19 10:21 Dose: 12 mg Documented by: Metoprolol Tartrate (Lopressor -) 50 mg PO BID [facility] Last Admin: 09/27/19 10:19 Dose: 50 mg Documented by: Miscellaneous (Lidoderm Patch Removal) 1 each MC DAILY@2200 [facility] Last Admin: 09/26/19 21:52 Dose: Not Given Documented by: Minocycline 75mg (Capsule) 1 each PO [facility] Oxycodone HCl (Roxicodone -) 5 mg PO Q4H PRN PRN Reason: PAIN LEVEL 4 - 6 Last Admin: 09/25/19 04:14 Dose: 5 mg Documented by: Oxycodone HCl (Roxicodone -) 10 mg PO Q8H PRN PRN Reason: PAIN LEVEL 7 - 10 Last Admin: 09/27/19 07:35 Dose: 10 mg Documented by: Pantoprazole Sodium (Protonix -) 40 mg PO DAILY [facility] Last Admin: 09/27/19 10:19 Dose: 40 mg Documented by: Polyethylene Glycol (Miralax (For Daily Use) -) 34 gm PO BID [facility] Last Admin: 09/27/19 10:20 Dose: 17 grams Documented by: Prednisone (Deltasone -) 10 mg PO DAILY [facility] Last Admin: 09/27/19 10:19 Dose: 10 mg Documented by: - Objective Vital Signs: Vital Signs Temperature 98.4 F 09/27/19 18:00 Pulse Rate 114 H 09/27/19 18:00 Respiratory Rate 20 09/27/19 18:00 Blood Pressure 95/67 09/27/19 18:00 O2 Sat by Pulse Oximetry (%) 91 L 09/27/19 18:00 Labs: CBC, BMP 09/27/19 05:25 09/27/19 05:25 INR, PTT INR 1.13 (0.83-1.09) H 09/22/19 20:04 Problem List - Problems (1) Therapeutic opioid induced constipation Code(s): K59.03 - DRUG INDUCED CONSTIPATION; T40.2X5A - ADVERSE EFFECT OF OTHER OPIOIDS, INITIAL ENCOUNTER (2) Lung cancer Code(s): C34.90 - MALIGNANT NEOPLASM OF UNSP PART OF UNSP BRONCHUS OR LUNG (3) Vertebral fracture Code(s): [id number] - (4) COPD (chronic obstructive pulmonary disease) Code(s): J44.9 - CHRONIC OBSTRUCTIVE PULMONARY DISEASE, UNSPECIFIED (5) Interstitial lung disease Code(s): J84.9 - INTERSTITIAL PULMONARY DISEASE, UNSPECIFIED (6) HLD (hyperlipidemia) Code(s): E78.5 - HYPERLIPIDEMIA, UNSPECIFIED (7) HTN (hypertension) Code(s): I10 - ESSENTIAL (PRIMARY) HYPERTENSION (8) CAD (coronary artery disease) Code(s): I25.10 - ATHSCL HEART DISEASE OF [place] CORONARY ARTERY W/O ANG PCTRS (9) Severe malnutrition Code(s): E43 - UNSPECIFIED SEVERE PROTEIN-CALORIE MALNUTRITION
[2019-09-27] MEDS: MINOCYCLINE PO SCH (22:09)
--- NOTE | 2019-09-27 23:04 | CONSULT ---
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 Pt had a T11 compression fracture that was evaluated by [facility] neurosurgery, and no surgical intervention was indicated. has had progressive worsening of bone loss since starting steroids,over last several months has concerns over type of bone building therapy,and avoidance of further bone loss,given his current cancer stage,bone scan does not show bone mets. - Past Medical History Cardio/Vascular: Yes: CAD, HTN, Hyperlipdemia, CA Pulmonary: Yes: Cancer, COPD, O2 Dependent, Pulmonary Fibrosis, Other (Post bi opsy pneumothorax) Gastrointestinal: Yes: GERD Musculoskeletal: Yes: Other (spinal fracture) - Past Surgical History Past Surgical History: Yes: CABG, Hernia Repair, Tonsillectomy - Alcohol/Substance Use Hx Alcohol Use: No History of Substance Use: reports: None - Smoking History Smoking history: Former smoker Have you smoked in the past 12 months: No Aproximately how many cigarettes per day: 20 If you are a former smoker, when did you quit?: 2013 - Social History Usual Living Arrangement: With Spouse 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[place], [place]) History of Recent Travel: No Home Medications - Allergies Allergies/Adverse Reactions: Allergies Allergy/AdvReac Type Severity Reaction Status Date / Time No Known Allergies Allergy Verified 09/22/19 18:20 - Home Medications Home Medications: Ambulatory Orders Aspirin 81 mg PO HS 08/24/19 Atorvastatin Ca [Lipitor] 20 mg PO HS 08/24/19 Cyclobenzaprine HCl [Flexeril -] 10 mg PO TID 08/24/19 Metoprolol Tartrate 50 mg PO BID 08/24/19 Prednisone 10 mg PO DAILY 08/24/19 Acetaminophen [Tylenol .Regular Strength -] 325 mg PO Q6H PRN #90 tablet 08/31/19 Calcium 500Mg/Vit-D 200 Units [Os-Faisal 500+D -] 1 tab PO BID tab 08/31/19 Docusate Sodium [Colace -] 100 mg PO TID #90 capsule 08/31/19 Gabapentin [Neurontin -] 100 mg PO BID #60 capsule 08/31/19 Lidocaine 5% Patch [Lidoderm -] 1 patch TP DAILY@1600 #30 patch 08/31/19 Umeclidinium Brm/Vilanterol Tr [Anoro Ellipta 62.5-25 Mcg INH] 1 puff IH DAILY inhaler 08/31/19 Pantoprazole Sodium [Protonix -] 20 mg PO DAILY 09/22/19 Polyethylene Glycol 3350 [Miralax (For Bowel Prep) -] 17 gm PO DAILY 09/22/19 Family Medical History Family Hx Cardiac Disorders: Mother Family Hx Coronary Artery Disease: Father Review of Systems - Review of Systems Constitutional: reports: Loss of Appetite, Malaise, Weakness Eyes: reports: No Symptoms HENT: reports: No Symptoms Neck: reports: Pain on Movement, Tenderness Cardiovascular: reports: Edema, Shortness of Breath Respiratory: reports: Exercise Intolerance, SOB, SOB on Exertion Physical Exam Vital Signs: Vital Signs Temperature 98.4 F 09/27/19 18:00 Pulse Rate 114 H 09/27/19 18:00 Respiratory Rate 20 09/27/19 18:00 Blood Pressure 95/67 09/27/19 18:00 O2 Sat by Pulse Oximetry (%) 91 L 09/27/19 18:00 Labs: CBC, BMP 09/27/19 05:25 09/27/19 05:25 Problem List - Problems (1) Chronic respiratory failure with hypoxia Code(s): J96.11 - CHRONIC RESPIRATORY FAILURE WITH HYPOXIA (2) Compression fracture Code(s): [id number] - (3) Lung cancer Code(s): C34.90 - MALIGNANT NEOPLASM OF UNSP PART OF UNSP BRONCHUS OR LUNG (4) Therapeutic opioid induced constipation Code(s): K59.03 - DRUG INDUCED CONSTIPATION; T40.2X5A - ADVERSE EFFECT OF OTHER OPIOIDS, INITIAL ENCOUNTER (5) Acute and chronic respiratory failure Code(s): J96.20 - ACUTE AND CHR RESP FAILURE, UNSP W HYPOXIA OR HYPERCAPNIA Qualifiers: Respiratory failure complication: hypoxia Qualified Code(s): J96.21 - Acute and chronic respiratory failure with hypoxia (6) Back pain Code(s): M54.9 - DORSALGIA, UNSPECIFIED (7) CAD (coronary artery disease) Code(s): I25.10 - ATHSCL HEART DISEASE OF [place] CORONARY ARTERY W/O ANG PCTRS Assessment/Plan Current Active Problems Chronic respiratory failure with hypoxia (Acute) Compression fracture (Acute) Constipation (Acute) Lung cancer (Acute) Therapeutic opioid induced constipation (Acute) Abnormal Lab Results 09/27/19 09/27/19 05:25 05:25 RBC 3.28 L Hgb 10.2 L Hct 29.7 L RDW 17.5 H MPV 7.2 L Lymphocytes % 7.9 L D Monocytes % 13.3 H Carbon Dioxide 34 H Anion Gap 6 L AST 81 H Total Protein 5.9 L Albumin 3.0 L Abnormal Lab Results Laboratory Results - last 24 hr 09/27/19 09/27/19 05:25 05:25 WBC 5.8 RBC 3.28 L Hgb 10.2 L Hct 29.7 L MCV 90.5 MCH 31.0 MCHC 34.3 RDW 17.5 H Plt Count 135 MPV 7.2 L Absolute Neuts (auto) 4.4 Neutrophils % 76.1 Neutrophils % (Manual) 78.6 Band Neutrophils % 0.0 Lymphocytes % 7.9 L D Lymphocytes % (Manual) 9.2 D Monocytes % 13.3 H Monocytes % (Manual) 10 Eosinophils % 2.2 D Eosinophils % (Manual) 1.0 Basophils % 0.5 Basophils % (Manual) 0.0 Myelocytes % (Man) 0 Promyelocytes % (Man) 0 Blast Cells % (Manual) 0 Nucleated RBC % 0 Metamyelocytes 0 Hypochromia 0 Platelet Estimate Decreased Polychromasia 2+ Poikilocytosis 0 Anisocytosis 2+ Microcytosis 2+ Macrocytosis 0 Sodium 137 Potassium 3.9 Chloride 98 Carbon Dioxide 34 H Anion Gap 6 L BUN 15.7 Creatinine 1.1 Est GFR (CKD-EPI)AfAm 84.12 Est GFR (CKD-EPI)NonAf 72.58 Random Glucose 84 Calcium 9.2 Total Bilirubin 1.0 AST 81 H ALT 18 Alkaline Phosphatase 86 Total Protein 5.9 L Albumin 3.0 L plan: osteoporosis fractures steroid related BMD PROLIA 60MG IV Q6-12 MONTHS AWAIT BMD
[2019-09-28] MEDS ORDERED: oxyCODONE HCL 5 MG TABLET PO ONE (02:30)
[2019-09-28] MEDS ORDERED: MORPHINE SULFATE 2 MG/ML VIAL IVPUSH ONE (03:22)
[2019-09-28] MEDS: CYCLOBENZAPRINE HCL 10 MG TABLET (FP) PO SCH ×3 (05:54→21:42)
[2019-09-28] MEDS: oxyCODONE HCL 5 MG TABLET PO PRN ×3 (07:56→21:40)
[2019-09-28] MEDS: ACETAMINOPHEN 325 MG TABLET (FP) PO PRN ×3 (07:56→21:40)
[2019-09-28] MEDS: ALBUTEROL SO4 2.5/IPRATROPIUM 0.5 INH SOL 3 ML VIAL.NEB. NEB SCH ×4 (08:21→22:05)
[2019-09-28] MEDS: CALCIUM 500MG/VIT-D 200 UNITS COMBO TABLET (FP) PO SCH ×2 (10:11→21:41)
[2019-09-28] MEDS: PANTOPRAZOLE 40 MG TABLET PO SCH (10:11)
[2019-09-28] MEDS: GABAPENTIN 100 MG CAPSULE PO SCH ×2 (10:11→21:41)
[2019-09-28] MEDS: predniSONE 10 MG TABLET (UD) PO SCH (10:11)
[2019-09-28] MEDS: METOPROLOL TARTRATE 50 MG TABLET (FP) PO SCH ×2 (10:11→21:41)
[2019-09-28] MEDS: LIDOCAINE 5% TOPICAL PATCH TP SCH ×2 (10:11→10:17)
[2019-09-28] MEDS: ASPIRIN 81 MG CHEWABLE TABLETS PO SCH (10:11)
[2019-09-28] MEDS: FOLIC ACID 1 MG TABLET (FP) PO SCH (10:11)
[2019-09-28] MEDS: POLYETHYLENE GLYCOL 3350 119 GM BTL PO SCH ×2 (10:12→21:58)
[2019-09-28] MEDS: Methylnaltrexone Bromide 12 MG/0.6 ML KIT SQ SCH (11:52)
--- NOTE | 2019-09-28 12:28 | PN ---
Progress Note (short form) - Note Progress Note: PULMONARY Neck pain persists Breathing feels at baseline. No acute events overnight. VSS/AFEBRILE ANICTERIC/PALE DISTANT BUT CLEAR BREATH SOUNDS S1S2 BS+ NO EDEMA LABS/MEDS/NOTES/IMAGES REVIEWED IMP CHRONIC HYPOXEMIC RESPIRATORY FAILURE ADVANCED ILD LUNG CA STAGE 111B NON-SMALL CELL H/O TRAUMATIC PTX S/P LUNG BX COPD R BREAST MASS ASHD S/P CABG BACK PAIN SECONDARY TO COMPRESSION FX CONSTIPATION OPIOID INDUCED PLAN SUPPLEMENTAL O2 INHALED BRONCHODILATORS PREDNISONE 10mg OD RELISTOR CHEMO PER ONCOLOGY PAIN CONTROL Jeremiah CERRATO MD
--- NOTE | 2019-09-28 17:19 | PN.GI ---
GI Progress Note Subjective: no BM for the past three days, Miralax on hold to avoid accidents during w/u - Objective Vital Signs: Vital Signs Temperature 97.2 F L 09/28/19 14:01 Pulse Rate 87 09/28/19 14:01 Respiratory Rate 20 09/28/19 14:01 Blood Pressure 109/75 09/28/19 14:01 O2 Sat by Pulse Oximetry (%) 92 L 09/28/19 14:01 Constitutional: Well Nourished Eyes: Yes: Conjunctiva Clear HENT: Yes: Atraumatic Neck: Yes: Trachea Midline Cardiovascular: Yes: Regular Rate and Rhythm Respiratory: Yes: CTA Bilaterally ...Palpate: Yes: Soft. No: Firm/Rigid, Guarding, Hepatomegaly, Mass, Pulsatile Mass, Splenomegaly Labs: CBC, BMP 09/27/19 05:25 09/27/19 05:25 INR, PTT INR 1.13 (0.83-1.09) H 09/22/19 20:04 Problem List - Problems (1) Constipation Assessment/Plan: good response to Miralax and Relistor R> fleet enema as necessary Code(s): K59.00 - CONSTIPATION, UNSPECIFIED Qualifiers: Constipation type: drug induced constipation Qualified Code(s): K59.03 - Drug induced constipation
--- NOTE | 2019-09-28 17:54 | PN.HO ---
Progress Note (short form) - Note Progress Note: PAtient seen and examined c/o neck pain AFVSS Cor: RSR, No murmurs, Lungs: crackles at bases Abd: Soft, Normal bowel sounds, Ext:No significant edema LAbs/MEds reviewed A/P 58 y/o patient with sever ILD , O2 dependent for> 1yr. 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 chest wall mass, abdominal adenopathy, liver lesion Discussed at length with patient and his brother over the phone -- discussed given his ILD /performance status his treatment options were limted Recommended best supportive care Patient very keen on pursuing palliative chemotherapy To dose carbo/alimta on 09/30 Also recommended biopsy pf chest wall mass to send tissue for next gen sequencing Focal bone destructiono of C2 with heterogenous signal suspicious for bone metastasis. Will check bone scan. Will request rad-onc consult Discussed overall guarded prognosis with
[2019-09-28] MEDS: ATORVASTATIN CA 10 MG TABLET (FP) PO SCH (21:41)
[2019-09-28] MEDS: LIDOCAINE PATCH REMOVAL MC SCH (21:41)
[2019-09-28] MEDS: MINOCYCLINE PO SCH (21:59)
--- NOTE | 2019-09-28 22:11 | RAPID ---
Physical Examination Vital Signs: Vital Signs Temperature 97.2 F L 09/28/19 14:01 Pulse Rate 87 09/28/19 14:01 Respiratory Rate 20 09/28/19 14:01 Blood Pressure 109/75 09/28/19 14:01 O2 Sat by Pulse Oximetry (%) 92 L 09/28/19 14:01 Labs: CBC, BMP 09/27/19 05:25 09/27/19 05:25
[2019-09-28] MEDS ORDERED: KETOROLAC TROMETHAMINE 15 MG/ML VIAL IVPUSH ONE (22:15)
[2019-09-28] MEDS ORDERED: LIDOCAINE 5% TOPICAL PATCH TP ONE (22:20)
[2019-09-28] MEDS ORDERED: GABAPENTIN 100 MG CAPSULE PO ONE (22:20)
--- NOTE | 2019-09-28 22:57 | PN ---
Progress Note, Physician - Current Medication List Current Medications: Active Medications Acetaminophen (Tylenol -) 650 mg PO Q6H PRN PRN Reason: PAIN LEVEL 7-10 Last Admin: 09/28/19 21:40 Dose: 650 mg Documented by: Albuterol/Ipratropium (Duoneb -) 1 amp NEB RQID [facility] Last Admin: 09/28/19 15:11 Dose: 1 amp Documented by: Albuterol/Ipratropium (Duoneb -) 1 amp NEB Q4H PRN PRN Reason: SHORTNESS OF BREATH Aspirin (Asa -) 81 mg PO DAILY [facility] Last Admin: 09/28/19 10:11 Dose: 81 mg Documented by: Atorvastatin Calcium (Lipitor -) 10 mg PO HS [facility] Last Admin: 09/28/19 21:41 Dose: 10 mg Documented by: Calcium Carbonate/Cholecalciferol (Os-Faisal 500+D -) 1 tab PO BID [facility] Last Admin: 09/28/19 21:41 Dose: 1 tab Documented by: Cyclobenzaprine HCl (Flexeril -) 10 mg PO TID [facility] Last Admin: 09/28/19 21:42 Dose: 10 mg Documented by: Folic Acid (Folic Acid -) 1 mg PO DAILY [facility] Last Admin: 09/28/19 10:11 Dose: 1 mg Documented by: Gabapentin (Neurontin -) 100 mg PO BID [facility] Last Admin: 09/28/19 21:41 Dose: 100 mg Documented by: Lidocaine (Lidoderm Patch -) 1 patch TP DAILY [facility] Last Admin: 09/28/19 10:17 Dose: Not Given Documented by: Methylnaltrexone [place] (Relistor -) 12 mg SQ DAILY [facility] Last Admin: 09/28/19 11:52 Dose: 12 mg Documented by: Metoprolol Tartrate (Lopressor -) 50 mg PO BID [facility] Last Admin: 09/28/19 21:41 Dose: 50 mg Documented by: Miscellaneous (Lidoderm Patch Removal) 1 each MC DAILY@2200 [facility] Last Admin: 09/28/19 21:41 Dose: Not Given Documented by: Miscellaneous (Lidoderm Patch Removal) 1 each MC DAILY ONE Stop: 09/29/19 10:01 Minocycline 75mg (Capsule) 1 each PO HS [facility] Last Admin: 09/28/19 21:59 Dose: 1 each Documented by: Oxycodone HCl (Roxicodone -) 10 mg PO Q6H PRN PRN Reason: PAIN LEVEL 7 - 10 Last Admin: 09/28/19 21:40 Dose: 10 mg Documented by: Pantoprazole Sodium (Protonix -) 40 mg PO DAILY [facility] Last Admin: 09/28/19 10:11 Dose: 40 mg Documented by: Polyethylene Glycol (Miralax (For Daily Use) -) 34 gm PO BID [facility] Last Admin: 09/28/19 21:58 Dose: Not Given Documented by: Prednisone (Deltasone -) 10 mg PO DAILY [facility] Last Admin: 09/28/19 10:11 Dose: 10 mg Documented by: - Objective Vital Signs: Vital Signs Temperature 97.2 F L 09/28/19 14:01 Pulse Rate 87 09/28/19 14:01 Respiratory Rate 20 09/28/19 14:01 Blood Pressure 109/75 09/28/19 14:01 O2 Sat by Pulse Oximetry (%) 92 L 09/28/19 14:01 Labs: CBC, BMP 09/27/19 05:25 09/27/19 05:25 INR, PTT INR 1.13 (0.83-1.09) H 09/22/19 20:04 Problem List - Problems (1) Therapeutic opioid induced constipation Assessment/Plan: Cont relistor/miralax Code(s): K59.03 - DRUG INDUCED CONSTIPATION; T40.2X5A - ADVERSE EFFECT OF OTHER OPIOIDS, INITIAL ENCOUNTER (2) Lung cancer Assessment/Plan: As per heme/onc consult S/P chemotx RT consult noted Further RT as outpt Pt is refusing MRI c-spine Mets to C2 Code(s): C34.90 - MALIGNANT NEOPLASM OF UNSP PART OF UNSP BRONCHUS OR LUNG (3) Vertebral fracture Assessment/Plan: Pt still requiring percocet Cont cyclobenzaprine/lidocaine patch Code(s): [id number] - (4) COPD (chronic obstructive pulmonary disease) Assessment/Plan: Cont ellipta Code(s): J44.9 - CHRONIC OBSTRUCTIVE PULMONARY DISEASE, UNSPECIFIED (5) Interstitial lung disease Assessment/Plan: Cont prednisone Code(s): J84.9 - INTERSTITIAL PULMONARY DISEASE, UNSPECIFIED (6) HLD (hyperlipidemia) Assessment/Plan: Cont lipitor Code(s): E78.5 - HYPERLIPIDEMIA, UNSPECIFIED (7) HTN (hypertension) Assessment/Plan: BP stable Cont metoprolol Code(s): I10 - ESSENTIAL (PRIMARY) HYPERTENSION (8) CAD (coronary artery disease) Code(s): I25.10 - ATHSCL HEART DISEASE OF [place] CORONARY ARTERY W/O ANG PCTRS (9) Severe malnutrition Code(s): E43 - UNSPECIFIED SEVERE PROTEIN-CALORIE MALNUTRITION
[2019-09-29] MEDS: oxyCODONE HCL 5 MG TABLET PO PRN ×4 (05:06→22:33)
[2019-09-29] MEDS: ACETAMINOPHEN 325 MG TABLET (FP) PO PRN ×3 (05:08→22:34)
[2019-09-29] MEDS: CYCLOBENZAPRINE HCL 10 MG TABLET (FP) PO SCH ×3 (05:09→21:02)
[2019-09-29] MEDS: ALBUTEROL SO4 2.5/IPRATROPIUM 0.5 INH SOL 3 ML VIAL.NEB. NEB SCH ×4 (07:31→20:47)
[2019-09-29] MEDS: predniSONE 10 MG TABLET (UD) PO SCH (09:06)
[2019-09-29] MEDS: PANTOPRAZOLE 40 MG TABLET PO SCH (09:07)
[2019-09-29] MEDS: ASPIRIN 81 MG CHEWABLE TABLETS PO SCH (09:07)
[2019-09-29] MEDS: GABAPENTIN 100 MG CAPSULE PO SCH ×3 (09:07→21:01)
[2019-09-29] MEDS: METOPROLOL TARTRATE 50 MG TABLET (FP) PO SCH ×2 (09:07→21:09)
[2019-09-29] MEDS: FOLIC ACID 1 MG TABLET (FP) PO SCH (09:07)
[2019-09-29] MEDS: CALCIUM 500MG/VIT-D 200 UNITS COMBO TABLET (FP) PO SCH ×2 (09:07→21:01)
[2019-09-29] MEDS ORDERED: LIDOCAINE PATCH REMOVAL MC ONE (10:00)
--- NOTE | 2019-09-29 10:55 | PN ---
Progress Note (short form) - Note Progress Note: PULMONARY Neck pain persists( destructive lesion C2, vickeyley mets) HAD RAPID RESPONSE due to severe pain in neck and desaturation O2 was replaced(patient had removed it) with subsequent improvement in o2 sat VSS/AFEBRILE ANICTERIC/PALE DISTANT BUT CLEAR BREATH SOUNDS S1S2 BS+ NO EDEMA LABS/MEDS/NOTES/IMAGES REVIEWED IMP CHRONIC HYPOXEMIC RESPIRATORY FAILURE ADVANCED ILD LUNG CA STAGE 111B NON-SMALL CELL H/O TRAUMATIC PTX S/P LUNG BX COPD R BREAST MASS ASHD S/P CABG BACK PAIN SECONDARY TO COMPRESSION FX CONSTIPATION OPIOID INDUCED PLAN SUPPLEMENTAL O2 INHALED BRONCHODILATORS PREDNISONE RELISTOR CHEMO PER ONCOLOGY PAIN CONTROL CXR ordered Jeremiah CERRATO MD
[2019-09-29] MEDS: POLYETHYLENE GLYCOL 3350 119 GM BTL PO SCH ×2 (11:39→21:02)
[2019-09-29] MEDS: Methylnaltrexone Bromide 12 MG/0.6 ML KIT SQ SCH ×2 (12:18→20:16)
[2019-09-29] MEDS: LIDOCAINE 5% TOPICAL PATCH TP SCH (12:18)
[2019-09-29] MEDS ORDERED: ALPRAZolam 1 MG TABLET PO PRN (13:18)
[2019-09-29 13:43] LABS: BASO % 0.4 % (0-2.0); EOS % 0.6 % (0-4.5); HEMATOCRIT 33.9 % (35.4-49); HEMOGLOBIN 11.4 GM/dL (11.7-16.9); LYMPH % 2.9 % (8-40); MCH 31.1 pg (25.7-33.7); MCHC 33.6 g/dl (32.0-35.9); MEAN CELL VOLUME 92.5 fl (80-96); MEAN PLT VOLUME 7.2 fl (7.5-11.1); MONO % 6.6 % (3.8-10.2); NEUT % 89.5 % (42.8-82.8); PLATELET COUNT 154 K/MM3 (134-434); RBC 3.67 M/mm3 (4.00-5.60); RDW 17.5 % (11.9-15.9); WHITE BLOOD COUNT 8.4 K/mm3 (4.0-10.0)
[2019-09-29] MEDS: methylPREDNISolone NA SUCC 40 MG/1 ML VIAL IVPUSH SCH ×2 (13:59→18:12)
[2019-09-29] MEDS ORDERED: FUROSEMIDE 40 MG/4 ML INJECTABLE VIAL IVPUSH ONE (14:00)
[2019-09-29] MEDS ORDERED: FUROSEMIDE 20 MG TABLET (FP) PO ONE (14:00)
[2019-09-29 14:06] LABS: ALBUMIN 3.2 g/dl (3.4-5.0); CALCIUM 9.3 mg/dL (8.5-10.1); CREATININE 1.3 mg/dL (0.55-1.3); TOT PROT 6.7 g/dl (6.4-8.2)
[2019-09-29 14:43] LABS: BILIRUBIN,TOTAL 0.6 mg/dL (0.2-1)
--- NOTE | 2019-09-29 15:13 | PN ---
Progress Note (short form) - Note Progress Note: NEUROSURGERY 2 week h/o R sided neck pain after sleeping with a tall pillow; no weakness/numbness/tingling UE/LE or sphinchter dysfunction except constipation On increasing dosage of narcotic painkillers; was diagnosed with T11 fracture a month ago; no fever/chill/cough, Covid negative PE: AF, VSS General- unremarkable; kyphotic TL junction; B LE venous varicosity; Neck- R sided cervical and retroauricular tenderness CN- intact; Motor- 5/5 B UE/LE; Sensation- intact LT; DTR- 2+; Back- tender over TL junction R > L PMH: COPD, HTN, HLD, CAD, [place] (s/p CABG/stent), stage IIII lung cancer (s/p RT 08/22/19 and on chemo), GERD ROS- negative except for the above; some weight loss CT Abd (relative to spine) - osteopenia; T11 vertebral fx with kyphosis T10-11 and sup endplate retropulsion, resulting in 30% anterior canal compromise C spine CT- R C2 anterior lytic lesion with slight vertebral expansion; no canal or posterior element involvement; no C6 or C7 fracture Lung CA (NSC), stage IV, with R anterior C2 vertebral involvement? Osteoporosis (steroid related) most likely T11 osteoporotic fx, though never did outpatient MRI T spine Neurosurgical intervention not recommended Medical management only; pain management for optimal pain meds regimen Bone scan Could consider focal RT for palliative tx On Neurontin and Oxycodone per pain management Bowel regimen Pros and cons of tx approaches discussed
--- NOTE | 2019-09-29 16:28 | PN.HO ---
Progress Note (short form) - Note Progress Note: PAtient seen and examined c/o neck pain c/o cough with sputum production AFVSS Cor: RSR, No murmurs, Lungs: crackles at bases Abd: Soft, Normal bowel sounds, Ext:No significant edema LAbs/MEds reviewed A/P 58 y/o patient with sever ILD , O2 dependent for> 1yr. 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 chest wall mass, abdominal adenopathy, liver lesion Discussed at length with patient and his brother over the phone -- discussed given his ILD /performance status his treatment options were limted Recommended best supportive care Patient very keen on pursuing palliative chemotherapy To dose carbo/alimta on 09/30 Had an episode of resp. distress-- CXR --congestive changes . started medrol 40mg Q 8hrs./Levaquin. LAsix add xanax prn Also recommended biopsy pf chest wall mass to send tissue for next gen sequencing Focal bone destructiono of C2 with heterogenous signal suspicious for bone metastasis. Will check bone scan. Will request rad-onc consult
[2019-09-29] MEDS ORDERED: PT OWN MED DRAWER 7, Y5N ONE (19:19)
[2019-09-29] MEDS ORDERED: ALPRAZolam 0.25 MG TABLET PO PRN (19:49)
--- NOTE | 2019-09-29 20:41 | PN ---
Progress Note, Physician - Current Medication List Current Medications: Active Medications Acetaminophen (Tylenol -) 650 mg PO Q4H PRN PRN Reason: PAIN LEVEL 5-10 Stop: 10/02/19 08:14 Last Admin: 09/29/19 18:24 Dose: 650 mg Documented by: Albuterol/Ipratropium (Duoneb -) 1 amp NEB RQID [facility] Last Admin: 09/29/19 15:17 Dose: 1 amp Documented by: Albuterol/Ipratropium (Duoneb -) 1 amp NEB Q4H PRN PRN Reason: SHORTNESS OF BREATH Last Admin: 09/28/19 21:31 Dose: 1 amp Documented by: Alprazolam (Xanax -) 0.25 mg PO Q12H PRN PRN Reason: ANXIETY Aspirin (Asa -) 81 mg PO DAILY [facility] Last Admin: 09/29/19 09:07 Dose: 81 mg Documented by: Atorvastatin Calcium (Lipitor -) 10 mg PO HS [facility] Last Admin: 09/28/19 21:41 Dose: 10 mg Documented by: Calcium Carbonate/Cholecalciferol (Os-Faisal 500+D -) 1 tab PO BID [facility] Last Admin: 09/29/19 09:07 Dose: 1 tab Documented by: Cyclobenzaprine HCl (Flexeril -) 10 mg PO TID [facility] Last Admin: 09/29/19 14:00 Dose: 10 mg Documented by: Folic Acid (Folic Acid -) 1 mg PO DAILY [facility] Last Admin: 09/29/19 09:07 Dose: 1 mg Documented by: Gabapentin (Neurontin -) 100 mg PO TID [facility] Last Admin: 09/29/19 14:00 Dose: 100 mg Documented by: Levofloxacin (Levaquin 500 Mg Premixed Ivpb -) 500 mg in 100 mls @ 100 mls/hr IVPB DAILY [facility]; Protocol Last Admin: 09/29/19 14:00 Dose: 100 mls/hr Documented by: Lidocaine (Lidoderm Patch -) 1 patch TP DAILY [facility] Last Admin: 09/29/19 12:18 Dose: Not Given Documented by: Methylnaltrexone [place] (Relistor -) 12 mg SQ DAILY [facility] Last Admin: 09/29/19 20:16 Dose: 12 mg Documented by: Methylprednisolone Sodium Succinate (Solu-Medrol -) 40 mg IVPUSH Q8H-IV [facility] Last Admin: 09/29/19 18:12 Dose: 40 mg Documented by: Metoprolol Tartrate (Lopressor -) 50 mg PO BID [facility] Last Admin: 09/29/19 09:07 Dose: 50 mg Documented by: Miscellaneous (Lidoderm Patch Removal) 1 each MC DAILY@2200 [facility] Last Admin: 09/28/19 21:41 Dose: Not Given Documented by: Minocycline 75mg (Capsule) 1 each PO HS [facility] Last Admin: 09/28/19 21:59 Dose: 1 each Documented by: Oxycodone HCl (Roxicodone -) 10 mg PO Q4H PRN PRN Reason: PAIN LEVEL 5-10 Last Admin: 09/29/19 18:23 Dose: 10 mg Documented by: Pantoprazole Sodium (Protonix -) 40 mg PO DAILY [facility] Last Admin: 09/29/19 09:07 Dose: 40 mg Documented by: Polyethylene Glycol (Miralax (For Daily Use) -) 34 gm PO BID [facility] Last Admin: 09/29/19 11:39 Dose: 34 grams Documented by: - Objective Vital Signs: Vital Signs Temperature 98.0 F 09/29/19 20:12 Pulse Rate 130 H 09/29/19 20:12 Respiratory Rate 20 09/29/19 20:12 Blood Pressure 111/71 09/29/19 20:12 O2 Sat by Pulse Oximetry (%) 94 L 09/29/19 20:12 Cardiovascular: Yes: WNL, Regular Rate and Rhythm Respiratory: Yes: Diminished Gastrointestinal: Yes: WNL, Normal Bowel Sounds, Soft Labs: CBC, BMP 09/29/19 13:35 09/29/19 12:45 INR, PTT INR 1.13 (0.83-1.09) H 09/22/19 20:04 Problem List - Problems (1) Therapeutic opioid induced constipation Code(s): K59.03 - DRUG INDUCED CONSTIPATION; T40.2X5A - ADVERSE EFFECT OF OTHER OPIOIDS, INITIAL ENCOUNTER (2) Lung cancer Code(s): C34.90 - MALIGNANT NEOPLASM OF UNSP PART OF UNSP BRONCHUS OR LUNG (3) Vertebral fracture Code(s): [id number] - (4) COPD (chronic obstructive pulmonary disease) Code(s): J44.9 - CHRONIC OBSTRUCTIVE PULMONARY DISEASE, UNSPECIFIED (5) Interstitial lung disease Code(s): J84.9 - INTERSTITIAL PULMONARY DISEASE, UNSPECIFIED (6) HLD (hyperlipidemia) Code(s): E78.5 - HYPERLIPIDEMIA, UNSPECIFIED (7) HTN (hypertension) Code(s): I10 - ESSENTIAL (PRIMARY) HYPERTENSION (8) CAD (coronary artery disease) Code(s): I25.10 - ATHSCL HEART DISEASE OF [place] CORONARY ARTERY W/O ANG PCTRS (9) Severe malnutrition Code(s): E43 - UNSPECIFIED SEVERE PROTEIN-CALORIE MALNUTRITION
[2019-09-29] MEDS: ATORVASTATIN CA 10 MG TABLET (FP) PO SCH (21:01)
[2019-09-29] MEDS: LIDOCAINE PATCH REMOVAL MC SCH (21:02)
[2019-09-29] MEDS: MINOCYCLINE PO SCH (21:09)
[2019-09-30] MEDS: methylPREDNISolone NA SUCC 40 MG/1 ML VIAL IVPUSH SCH ×3 (02:41→17:40)
[2019-09-30] MEDS: oxyCODONE HCL 5 MG TABLET PO PRN ×4 (02:41→19:53)
[2019-09-30] MEDS: ACETAMINOPHEN 325 MG TABLET (FP) PO PRN ×4 (02:42→19:54)
[2019-09-30] MEDS: CYCLOBENZAPRINE HCL 10 MG TABLET (FP) PO SCH ×3 (06:05→21:31)
[2019-09-30] MEDS: GABAPENTIN 100 MG CAPSULE PO SCH ×3 (06:05→21:29)
[2019-09-30] MEDS: ALBUTEROL SO4 2.5/IPRATROPIUM 0.5 INH SOL 3 ML VIAL.NEB. NEB SCH ×4 (08:50→20:03)
[2019-09-30] MEDS: Methylnaltrexone Bromide 12 MG/0.6 ML KIT SQ SCH (09:49)
[2019-09-30] MEDS: POLYETHYLENE GLYCOL 3350 119 GM BTL PO SCH ×2 (09:49→21:30)
[2019-09-30] MEDS: LIDOCAINE 5% TOPICAL PATCH TP SCH (09:50)
[2019-09-30] MEDS: ASPIRIN 81 MG CHEWABLE TABLETS PO SCH (09:51)
[2019-09-30] MEDS: FOLIC ACID 1 MG TABLET (FP) PO SCH (09:51)
[2019-09-30] MEDS: METOPROLOL TARTRATE 50 MG TABLET (FP) PO SCH ×2 (09:51→21:29)
[2019-09-30] MEDS: CALCIUM 500MG/VIT-D 200 UNITS COMBO TABLET (FP) PO SCH ×2 (09:51→21:29)
[2019-09-30] MEDS: PANTOPRAZOLE 40 MG TABLET PO SCH (09:52)
--- NOTE | 2019-09-30 11:56 | PN ---
Progress Note (short form) - Note Progress Note: PULMONARY Neck pain persists( destructive lesion C2, likley mets) Complaining of humidified O2/ VSS/AFEBRILE ANICTERIC/PALE DISTANT BUT CLEAR BREATH SOUNDS S1S2 BS+ NO EDEMA LABS/MEDS/NOTES/IMAGES REVIEWED IMP CHRONIC HYPOXEMIC RESPIRATORY FAILURE ADVANCED ILD LUNG CA STAGE 111B NON-SMALL CELL H/O TRAUMATIC PTX S/P LUNG BX COPD R BREAST MASS ASHD S/P CABG BACK PAIN SECONDARY TO COMPRESSION FX CONSTIPATION OPIOID INDUCED PLAN SUPPLEMENTAL O2 INHALED BRONCHODILATORS PREDNISONE RELISTOR CHEMO PER ONCOLOGY PAIN CONTROL R SAQIB DASH
[2019-09-30] MEDS ORDERED: PORTA CATH FLUSH 10 ML IVPUSH PRN (19:04)
--- NOTE | 2019-09-30 21:27 | PN ---
Progress Note, Physician History of Present Illness: Pt complains of neck pain radiating to head - Current Medication List Current Medications: Active Medications Acetaminophen (Tylenol -) 650 mg PO Q4H PRN PRN Reason: PAIN LEVEL 5-10 Stop: 10/02/19 08:14 Last Admin: 09/30/19 19:54 Dose: 650 mg Documented by: Albuterol/Ipratropium (Duoneb -) 1 amp NEB RQID [facility] Last Admin: 09/30/19 20:03 Dose: 1 amp Documented by: Albuterol/Ipratropium (Duoneb -) 1 amp NEB Q4H PRN PRN Reason: SHORTNESS OF BREATH Last Admin: 09/28/19 21:31 Dose: 1 amp Documented by: Alprazolam (Xanax -) 0.25 mg PO Q12H PRN PRN Reason: ANXIETY Aspirin (Asa -) 81 mg PO DAILY [facility] Last Admin: 09/30/19 09:51 Dose: 81 mg Documented by: Atorvastatin Calcium (Lipitor -) 10 mg PO HS [facility] Last Admin: 09/29/19 21:01 Dose: 10 mg Documented by: Calcium Carbonate/Cholecalciferol (Os-Faisal 500+D -) 1 tab PO BID [facility] Last Admin: 09/30/19 09:51 Dose: 1 tab Documented by: Cyclobenzaprine HCl (Flexeril -) 10 mg PO TID [facility] Last Admin: 09/30/19 13:09 Dose: 10 mg Documented by: Folic Acid (Folic Acid -) 1 mg PO DAILY [facility] Last Admin: 09/30/19 09:51 Dose: 1 mg Documented by: Gabapentin (Neurontin -) 100 mg PO TID [facility] Last Admin: 09/30/19 13:09 Dose: 100 mg Documented by: IV Flush (Deborah-Cath Flush) 10 ml IVPUSH PRN PRN PRN Reason: protocol Levofloxacin (Levaquin 500 Mg Premixed Ivpb -) 500 mg in 100 mls @ 100 mls/hr IVPB DAILY [facility]; Protocol Last Admin: 09/30/19 09:50 Dose: 100 mls/hr Documented by: Lidocaine (Lidoderm Patch -) 1 patch TP DAILY [facility] Last Admin: 09/30/19 09:50 Dose: 1 patch Documented by: Methylnaltrexone [place] (Relistor -) 12 mg SQ DAILY [facility] Last Admin: 09/30/19 09:49 Dose: 12 mg Documented by: Methylprednisolone Sodium Succinate (Solu-Medrol -) 40 mg IVPUSH Q8H-IV [facility] Last Admin: 09/30/19 17:40 Dose: 40 mg Documented by: Metoprolol Tartrate (Lopressor -) 50 mg PO BID [facility] Last Admin: 09/30/19 09:51 Dose: 50 mg Documented by: Miscellaneous (Lidoderm Patch Removal) 1 each MC DAILY@2200 [facility] Last Admin: 09/29/19 21:02 Dose: Not Given Documented by: Minocycline 75mg (Capsule) 1 each PO HS [facility] Last Admin: 09/29/19 21:09 Dose: 1 each Documented by: Oxycodone HCl (Roxicodone -) 10 mg PO Q4H PRN PRN Reason: PAIN LEVEL 5-10 Last Admin: 09/30/19 19:53 Dose: 10 mg Documented by: Pantoprazole Sodium (Protonix -) 40 mg PO DAILY [facility] Last Admin: 09/30/19 09:52 Dose: 40 mg Documented by: Polyethylene Glycol (Miralax (For Daily Use) -) 34 gm PO BID [facility] Last Admin: 09/30/19 09:49 Dose: 34 grams Documented by: - Objective Vital Signs: Vital Signs Temperature 98.0 F 09/30/19 20:07 Pulse Rate 115 H 09/30/19 20:07 Respiratory Rate 20 09/30/19 20:07 Blood Pressure 119/71 09/30/19 20:07 O2 Sat by Pulse Oximetry (%) 98 09/30/19 20:07 Cardiovascular: Yes: WNL, Regular Rate and Rhythm Respiratory: Yes: WNL, Regular, CTA Bilaterally Gastrointestinal: Yes: WNL, Normal Bowel Sounds, Soft, Abdomen, Obese Labs: CBC, BMP 09/29/19 13:35 09/29/19 12:45 INR, PTT INR 1.13 (0.83-1.09) H 09/22/19 20:04 Problem List - Problems (1) Therapeutic opioid induced constipation Assessment/Plan: Cont relistor/miralax Code(s): K59.03 - DRUG INDUCED CONSTIPATION; T40.2X5A - ADVERSE EFFECT OF OTHER OPIOIDS, INITIAL ENCOUNTER (2) Lung cancer Assessment/Plan: As per heme/onc consult Pt to have bx of chest wall mass Pt to start chemotx as per onco Possible mets to C2 Will check ct scan head Code(s): C34.90 - MALIGNANT NEOPLASM OF UNSP PART OF UNSP BRONCHUS OR LUNG (3) Vertebral fracture Assessment/Plan: Pt still requiring percocet Cont cyclobenzaprine/lidocaine patch Code(s): [id number] - (4) COPD (chronic obstructive pulmonary disease) Assessment/Plan: Cont ellipta Code(s): J44.9 - CHRONIC OBSTRUCTIVE PULMONARY DISEASE, UNSPECIFIED (5) Interstitial lung disease Assessment/Plan: Cont prednisone Code(s): J84.9 - INTERSTITIAL PULMONARY DISEASE, UNSPECIFIED (6) HLD (hyperlipidemia) Assessment/Plan: Cont lipitor Code(s): E78.5 - HYPERLIPIDEMIA, UNSPECIFIED (7) HTN (hypertension) Assessment/Plan: BP stable Cont metoprolol Code(s): I10 - ESSENTIAL (PRIMARY) HYPERTENSION (8) CAD (coronary artery disease) Code(s): I25.10 - ATHSCL HEART DISEASE OF [place] CORONARY ARTERY W/O ANG PCTRS
[2019-09-30] MEDS: MINOCYCLINE PO SCH (21:28)
[2019-09-30] MEDS: ATORVASTATIN CA 10 MG TABLET (FP) PO SCH (21:29)
[2019-09-30] MEDS: LIDOCAINE PATCH REMOVAL MC SCH (21:30)
[2019-10-01] MEDS: oxyCODONE HCL 5 MG TABLET PO PRN ×5 (00:04→22:13)
[2019-10-01] MEDS: ACETAMINOPHEN 325 MG TABLET (FP) PO PRN ×5 (00:05→22:23)
[2019-10-01] MEDS: methylPREDNISolone NA SUCC 40 MG/1 ML VIAL IVPUSH SCH ×3 (01:12→18:55)
[2019-10-01] MEDS: CYCLOBENZAPRINE HCL 10 MG TABLET (FP) PO SCH ×3 (06:25→22:12)
[2019-10-01] MEDS: GABAPENTIN 100 MG CAPSULE PO SCH ×3 (06:25→22:13)
[2019-10-01] MEDS: ALBUTEROL SO4 2.5/IPRATROPIUM 0.5 INH SOL 3 ML VIAL.NEB. NEB SCH ×4 (07:37→20:18)
[2019-10-01 08:52] LABS: HEMATOCRIT 32.7 % (35.4-49); HEMOGLOBIN 10.9 GM/dL (11.7-16.9); MCH 30.8 pg (25.7-33.7); MCHC 33.2 g/dl (32.0-35.9); MEAN CELL VOLUME 92.9 fl (80-96); MEAN PLT VOLUME 7.5 fl (7.5-11.1); MONO % 5.1 % (3.8-10.2); NEUT % 91.9 % (42.8-82.8); PLATELET COUNT 159 K/MM3 (134-434); RBC 3.53 M/mm3 (4.00-5.60); RDW 17.7 % (11.9-15.9); WHITE BLOOD COUNT 11.8 K/mm3 (4.0-10.0)
[2019-10-01] MEDS: FOLIC ACID 1 MG TABLET (FP) PO SCH (09:02)
[2019-10-01] MEDS: METOPROLOL TARTRATE 50 MG TABLET (FP) PO SCH ×2 (09:02→22:12)
[2019-10-01] MEDS: CALCIUM 500MG/VIT-D 200 UNITS COMBO TABLET (FP) PO SCH ×2 (09:02→22:14)
[2019-10-01] MEDS: ASPIRIN 81 MG CHEWABLE TABLETS PO SCH (09:02)
[2019-10-01] MEDS: LIDOCAINE 5% TOPICAL PATCH TP SCH (09:03)
[2019-10-01] MEDS: POLYETHYLENE GLYCOL 3350 119 GM BTL PO SCH ×2 (09:05→22:15)
[2019-10-01] MEDS: PANTOPRAZOLE 40 MG TABLET PO SCH (09:05)
[2019-10-01] MEDS ORDERED: PT OWN MED DRAWER 7, Y5N ONE ×4 (09:07→22:27)
[2019-10-01 09:20] LABS: ALBUMIN 3.3 g/dl (3.4-5.0); ALK PHOS 103 U/L (45-117); ANION GAP 12 MMOL/L (8-16); BILIRUBIN,TOTAL 0.5 mg/dL (0.2-1); BLOOD UREA NITROGEN 28.3 mg/dL (7-18); CALCIUM 9.3 mg/dL (8.5-10.1); CHLORIDE 96 mmol/L (98-107); CO2 28 mmol/L (21-32); CREATININE 1.2 mg/dL (0.55-1.3); GLUCOSE,RANDOM 152 mg/dL (74-106); POTASSIUM 4.2 mmol/L (3.5-5.1); SGOT/AST 90 U/L (15-37); SGPT/ALT 44 U/L (13-61); SODIUM 136 mmol/L (136-145); TOT PROT 6.8 g/dl (6.4-8.2)
[2019-10-01 09:26] LABS: LDH > 1000 U/L (87-246)
[2019-10-01] MEDS ORDERED: DEXAMETHASONE SODIUM PHOSPHATE 12 MG in SODIUM CHLORIDE 50 ML IVPB ONE (11:00)
[2019-10-01] MEDS ORDERED: CYANOCOBALAMIN (VITAMIN B-12) 1000 MCG/1 ML VIAL IM ONE ×2 (11:00→17:00)
[2019-10-01] MEDS ORDERED: FOSAPREPITANT DIMEGLUMINE 150 MG in SODIUM CHLORIDE 150 ML IVPB ONE (11:00)
[2019-10-01] MEDS ORDERED: PALONOSETRON HCL 0.25 MG/5 ML VIAL IVPUSH ONE (11:00)
[2019-10-01] MEDS ORDERED: SODIUM CHLORIDE IVPB ONE ×3 (11:30→16:30)
[2019-10-01] MEDS ORDERED: PEMETREXED DISODIUM IVPB ONE (11:30)
[2019-10-01] MEDS: Methylnaltrexone Bromide 12 MG/0.6 ML KIT SQ SCH (11:58)
[2019-10-01 12:23] LABS: URIC ACID 7.2 mg/dL (2.6-7.2)
[2019-10-01] MEDS ORDERED: SODIUM CHLORIDE 1,000 ML IV STA (12:41)
[2019-10-01 13:06] LABS: PLATELET ESTIMATE ADEQUATE
[2019-10-01 13:07] LABS: OVALOCYTE 1+
[2019-10-01] MEDS: ALLOPURINOL 300 MG TABLET (FP) PO SCH (13:23)
[2019-10-01] MEDS ORDERED: CARBOPLATIN IVPB ONE ×2 (16:30)
[2019-10-01] MEDS ORDERED: FUROSEMIDE 40 MG/4 ML INJECTABLE VIAL IVPUSH ONE (16:35)
--- NOTE | 2019-10-01 16:40 | PN ---
Progress Note (short form) - Note Progress Note: PULMONARY States breathing better today. Still feels congested. Vital Signs Period Temp Pulse Resp BP Sys/Dodge Pulse Ox Last 24 Hr 97.5 F-98.0 F 101-117 20-32 109-132/64-82 90-98 Gen: tachypneic with exertion Heart: RRR Lung: bibasilar rales Abd: soft, nontender Ext: no edema CBC, BMP 10/01/19 08:24 10/01/19 08:24 Active Medications Acetaminophen (Tylenol -) 650 mg PO Q4H PRN PRN Reason: PAIN LEVEL 5-10 Stop: 10/02/19 08:14 Last Admin: 10/01/19 09:56 Dose: 650 mg Documented by: Albuterol/Ipratropium (Duoneb -) 1 amp NEB RQID [facility] Last Admin: 10/01/19 16:02 Dose: Not Given Documented by: Albuterol/Ipratropium (Duoneb -) 1 amp NEB Q4H PRN PRN Reason: SHORTNESS OF BREATH Last Admin: 09/28/19 21:31 Dose: 1 amp Documented by: Allopurinol (Zyloprim -) 300 mg PO DAILY [facility] Last Admin: 10/01/19 13:23 Dose: 300 mg Documented by: Alprazolam (Xanax -) 0.25 mg PO Q12H PRN PRN Reason: ANXIETY Aspirin (Asa -) 81 mg PO DAILY [facility] Last Admin: 10/01/19 09:02 Dose: 81 mg Documented by: Atorvastatin Calcium (Lipitor -) 10 mg PO HS [facility] Last Admin: 09/30/19 21:29 Dose: 10 mg Documented by: Calcium Carbonate/Cholecalciferol (Os-Faisal 500+D -) 1 tab PO BID [facility] Last Admin: 10/01/19 09:02 Dose: 1 tab Documented by: Cyclobenzaprine HCl (Flexeril -) 10 mg PO TID [facility] Last Admin: 10/01/19 13:52 Dose: 10 mg Documented by: Enoxaparin Sodium (Lovenox -) 40 mg SQ DAILY [facility] Folic Acid (Folic Acid -) 1 mg PO DAILY [facility] Last Admin: 10/01/19 09:02 Dose: 1 mg Documented by: Gabapentin (Neurontin -) 100 mg PO TID [facility] Last Admin: 10/01/19 13:52 Dose: 100 mg Documented by: IV Flush (Deborah-Cath Flush) 10 ml IVPUSH PRN PRN PRN Reason: protocol Levofloxacin (Levaquin 500 Mg Premixed Ivpb -) 500 mg in 100 mls @ 100 mls/hr IVPB DAILY [facility]; Protocol Last Admin: 10/01/19 09:03 Dose: 100 mls/hr Documented by: Sodium Chloride (Normal Saline -) 1,000 mls @ 75 mls/hr IV ASDIR STA Stop: 10/02/19 02:00 Last Admin: 10/01/19 13:23 Dose: 75 mls/hr Documented by: Carboplatin 430 mg/ Sodium (Chloride) 293 mls @ 586 mls/hr IVPB ONCE ONE Stop: 10/01/19 16:59 Lidocaine (Lidoderm Patch -) 1 patch TP DAILY [facility] Last Admin: 10/01/19 09:03 Dose: Not Given Documented by: Methylnaltrexone [place] (Relistor -) 12 mg SQ DAILY [facility] Last Admin: 10/01/19 11:58 Dose: 12 mg Documented by: Methylprednisolone Sodium Succinate (Solu-Medrol -) 40 mg IVPUSH Q8H-IV [facility] Last Admin: 10/01/19 09:02 Dose: 40 mg Documented by: Metoprolol Tartrate (Lopressor -) 50 mg PO BID [facility] Last Admin: 10/01/19 09:02 Dose: 50 mg Documented by: Miscellaneous (Lidoderm Patch Removal) 1 each MC DAILY@2200 [facility] Last Admin: 09/30/19 21:30 Dose: Not Given Documented by: Minocycline 75mg (Capsule) 1 each PO HS [facility] Last Admin: 09/30/19 21:28 Dose: 1 each Documented by: Oxycodone HCl (Roxicodone -) 10 mg PO Q4H PRN PRN Reason: PAIN LEVEL 5-10 Last Admin: 10/01/19 09:02 Dose: 10 mg Documented by: Pantoprazole Sodium (Protonix -) 40 mg PO DAILY [facility] Last Admin: 10/01/19 09:05 Dose: 40 mg Documented by: Polyethylene Glycol (Miralax (For Daily Use) -) 34 gm PO BID [facility] Last Admin: 10/01/19 09:05 Dose: 34 grams Documented by: A/P Chronic Hypoxic Respiratory Failure Interstitial Lung Disease Metastatic Lung Cancer CAD s/p CABG COPD - continue medrol - lasix today - monitor urine output, creatinine - on antibiotics - inhaled bronchodilators - O2 to keep SpO2 >90% - DVT prophylaxis
[2019-10-01] MEDS ORDERED: PORTA CATH FLUSH 10 ML IVPUSH ONE (17:00)
--- NOTE | 2019-10-01 19:05 | PN.HO ---
Progress Note (short form) - Note Progress Note: PAtient seen and examined c/o neck pain c/o cough with sputum production AFVSS Cor: RSR, No murmurs, Lungs: crackles at bases Abd: Soft, Normal bowel sounds, Ext:No significant edema LAbs/MEds reviewed A/P 58 y/o patient with sever ILD , O2 dependent for> 1yr. 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 chest wall mass, abdominal adenopathy, liver lesion Discussed at length with patient -- discussed given his ILD /performance status his treatment options were limted Recommended best supportive care . Patient very keen on pursuing palliative chemotherapy. Discussed uncertain benefits, toxicities, including potentially life threatening sepsis, vital organ damage. He understands risks/benefits and wishes to proceed. Discussed with his , his health care proxy in detail aswell. Had an episode of resp. distress on 09/28-- CXR --congestive changes . started medrol 40mg Q 8hrs./Levaquin. LAsix added xanax prn Also recommended biopsy of chest wall mass to send tissue for next gen sequencing Focal bone destruction of C2 with heterogenous signal suspicious for bone metastasis. Will check bone scan. Will request rad-onc consult
--- NOTE | 2019-10-01 21:46 | PN ---
Progress Note, Physician History of Present Illness: No new complaints - Current Medication List Current Medications: Active Medications Acetaminophen (Tylenol -) 650 mg PO Q4H PRN PRN Reason: PAIN LEVEL 5-10 Stop: 10/02/19 08:14 Last Admin: 10/01/19 17:19 Dose: 650 mg Documented by: Albuterol/Ipratropium (Duoneb -) 1 amp NEB RQID [facility] Last Admin: 10/01/19 20:18 Dose: 1 amp Documented by: Albuterol/Ipratropium (Duoneb -) 1 amp NEB Q4H PRN PRN Reason: SHORTNESS OF BREATH Last Admin: 09/28/19 21:31 Dose: 1 amp Documented by: Allopurinol (Zyloprim -) 300 mg PO DAILY [facility] Last Admin: 10/01/19 13:23 Dose: 300 mg Documented by: Alprazolam (Xanax -) 0.25 mg PO Q12H PRN PRN Reason: ANXIETY Aspirin (Asa -) 81 mg PO DAILY [facility] Last Admin: 10/01/19 09:02 Dose: 81 mg Documented by: Atorvastatin Calcium (Lipitor -) 10 mg PO HS [facility] Last Admin: 09/30/19 21:29 Dose: 10 mg Documented by: Calcium Carbonate/Cholecalciferol (Os-Faisal 500+D -) 1 tab PO BID [facility] Last Admin: 10/01/19 09:02 Dose: 1 tab Documented by: Cyclobenzaprine HCl (Flexeril -) 10 mg PO TID [facility] Last Admin: 10/01/19 13:52 Dose: 10 mg Documented by: Enoxaparin Sodium (Lovenox -) 40 mg SQ DAILY [facility] Folic Acid (Folic Acid -) 1 mg PO DAILY [facility] Last Admin: 10/01/19 09:02 Dose: 1 mg Documented by: Gabapentin (Neurontin -) 100 mg PO TID [facility] Last Admin: 10/01/19 13:52 Dose: 100 mg Documented by: IV Flush (Deborah-Cath Flush) 10 ml IVPUSH PRN PRN PRN Reason: protocol Levofloxacin (Levaquin 500 Mg Premixed Ivpb -) 500 mg in 100 mls @ 100 mls/hr IVPB DAILY [facility]; Protocol Last Admin: 10/01/19 09:03 Dose: 100 mls/hr Documented by: Sodium Chloride (Normal Saline -) 1,000 mls @ 75 mls/hr IV ASDIR STA Stop: 10/02/19 02:00 Last Admin: 10/01/19 13:23 Dose: 75 mls/hr Documented by: Lidocaine (Lidoderm Patch -) 1 patch TP DAILY [facility] Last Admin: 10/01/19 09:03 Dose: Not Given Documented by: Methylnaltrexone [place] (Relistor -) 12 mg SQ DAILY [facility] Last Admin: 10/01/19 11:58 Dose: 12 mg Documented by: Methylprednisolone Sodium Succinate (Solu-Medrol -) 40 mg IVPB Q8H-IV [facility] Metoprolol Tartrate (Lopressor -) 50 mg PO BID [facility] Last Admin: 10/01/19 09:02 Dose: 50 mg Documented by: Miscellaneous (Lidoderm Patch Removal) 1 each MC DAILY@2200 [facility] Last Admin: 09/30/19 21:30 Dose: Not Given Documented by: Minocycline 75mg (Capsule) 1 each PO HS [facility] Last Admin: 09/30/19 21:28 Dose: 1 each Documented by: Oxycodone HCl (Roxicodone -) 10 mg PO Q4H PRN PRN Reason: PAIN LEVEL 5-10 Last Admin: 10/01/19 17:18 Dose: 10 mg Documented by: Pantoprazole Sodium (Protonix -) 40 mg PO DAILY [facility] Last Admin: 10/01/19 09:05 Dose: 40 mg Documented by: Polyethylene Glycol (Miralax (For Daily Use) -) 34 gm PO BID [facility] Last Admin: 10/01/19 09:05 Dose: 34 grams Documented by: - Objective Vital Signs: Vital Signs Temperature 98.8 F 10/01/19 20:06 Pulse Rate 118 H 10/01/19 20:06 Respiratory Rate 24 H 10/01/19 20:06 Blood Pressure 129/77 10/01/19 20:06 O2 Sat by Pulse Oximetry (%) 94 L 10/01/19 20:06 Cardiovascular: Yes: WNL, Regular Rate and Rhythm Respiratory: Yes: WNL, Regular, CTA Bilaterally Gastrointestinal: Yes: WNL, Normal Bowel Sounds, Soft Labs: CBC, BMP 10/01/19 08:24 10/01/19 08:24 INR, PTT INR 1.13 (0.83-1.09) H 09/22/19 20:04 Problem List - Problems (1) Therapeutic opioid induced constipation Code(s): K59.03 - DRUG INDUCED CONSTIPATION; T40.2X5A - ADVERSE EFFECT OF OTHER OPIOIDS, INITIAL ENCOUNTER (2) Lung cancer Code(s): C34.90 - MALIGNANT NEOPLASM OF UNSP PART OF UNSP BRONCHUS OR LUNG (3) Vertebral fracture Code(s): [id number] - (4) COPD (chronic obstructive pulmonary disease) Code(s): J44.9 - CHRONIC OBSTRUCTIVE PULMONARY DISEASE, UNSPECIFIED (5) Interstitial lung disease Code(s): J84.9 - INTERSTITIAL PULMONARY DISEASE, UNSPECIFIED (6) HLD (hyperlipidemia) Code(s): E78.5 - HYPERLIPIDEMIA, UNSPECIFIED (7) HTN (hypertension) Code(s): I10 - ESSENTIAL (PRIMARY) HYPERTENSION (8) CAD (coronary artery disease) Code(s): I25.10 - ATHSCL HEART DISEASE OF [place] CORONARY ARTERY W/O ANG PCTRS (9) Severe malnutrition Code(s): E43 - UNSPECIFIED SEVERE PROTEIN-CALORIE MALNUTRITION
[2019-10-01] MEDS: ATORVASTATIN CA 10 MG TABLET (FP) PO SCH (22:13)
--- NOTE | 2019-10-01 22:16 | PN ---
Progress Note (short form) - Note Progress Note: NEUROSURGERY Pt seen and examined yesterday at bedside PE: AF, VSS General- unremarkable; kyphotic TL junction; B LE venous varicosity; Neck- R sided cervical and retroauricular tenderness CN- intact; Motor- 5/5 B UE/LE; Sensation- intact LT; DTR- 2+; Back- minimal tenderness C spine CT- R C2 anterior lytic lesion with slight vertebral expansion; no canal or posterior element involvement; no C6 or C7 fracture Lung CA (NSC/adeno), stage IV, with R anterior C2 vertebral involvement? Osteoporosis (steroid related) most likely T11 osteoporotic fx, though never did outpatient MRI T spine Neurosurgical intervention not recommended Medical management only; pain management for optimal pain meds regimen Bone scan pending Consider focal RT for palliative tx On Neurontin and Oxycodone per pain management; could adjust Neurontin upwards Bowel regimen Pros and cons of tx approaches discussed All questions answered
[2019-10-01] MEDS: MINOCYCLINE PO SCH (22:18)
[2019-10-01] MEDS: LIDOCAINE PATCH REMOVAL MC SCH (22:18)
[2019-10-02] MEDS: oxyCODONE HCL 5 MG TABLET PO PRN ×4 (02:57→20:08)
[2019-10-02] MEDS: ACETAMINOPHEN 325 MG TABLET (FP) PO PRN (02:59)
[2019-10-02] MEDS: CYCLOBENZAPRINE HCL 10 MG TABLET (FP) PO SCH ×3 (06:56→22:15)
[2019-10-02] MEDS: GABAPENTIN 100 MG CAPSULE PO SCH ×3 (06:56→21:51)
[2019-10-02] MEDS: ALBUTEROL SO4 2.5/IPRATROPIUM 0.5 INH SOL 3 ML VIAL.NEB. NEB SCH ×4 (08:30→20:10)
[2019-10-02] MEDS: Methylnaltrexone Bromide 12 MG/0.6 ML KIT SQ SCH (09:28)
[2019-10-02] MEDS: ENOXAPARIN NA (PORCINE) 40 MG/0.4 ML DISP.SYRIN SQ SCH (09:29)
[2019-10-02] MEDS: POLYETHYLENE GLYCOL 3350 119 GM BTL PO SCH ×2 (09:29→21:53)
[2019-10-02] MEDS: ALLOPURINOL 300 MG TABLET (FP) PO SCH (09:30)
[2019-10-02] MEDS: FOLIC ACID 1 MG TABLET (FP) PO SCH (09:30)
[2019-10-02] MEDS: METOPROLOL TARTRATE 50 MG TABLET (FP) PO SCH ×2 (09:30→21:51)
[2019-10-02] MEDS: CALCIUM 500MG/VIT-D 200 UNITS COMBO TABLET (FP) PO SCH ×2 (09:30→21:51)
[2019-10-02] MEDS: PANTOPRAZOLE 40 MG TABLET PO SCH (09:30)
[2019-10-02] MEDS: methylPREDNISolone NA SUCC 40 MG/1 ML VIAL IVPB SCH ×2 (09:30→17:06)
[2019-10-02] MEDS: ASPIRIN 81 MG CHEWABLE TABLETS PO SCH (09:30)
[2019-10-02] MEDS: LIDOCAINE 5% TOPICAL PATCH TP SCH (09:31)
--- NOTE | 2019-10-02 10:26 | PN ---
Progress Note, Physician History of Present Illness: pulmonary alert,less dysneic on nasal o2 - Current Medication List Current Medications: Active Medications Albuterol/Ipratropium (Duoneb -) 1 amp NEB RQID [facility] Last Admin: 10/02/19 08:30 Dose: 1 amp Documented by: Albuterol/Ipratropium (Duoneb -) 1 amp NEB Q4H PRN PRN Reason: SHORTNESS OF BREATH Last Admin: 09/28/19 21:31 Dose: 1 amp Documented by: Allopurinol (Zyloprim -) 300 mg PO DAILY [facility] Last Admin: 10/02/19 09:30 Dose: 300 mg Documented by: Alprazolam (Xanax -) 0.25 mg PO Q12H PRN PRN Reason: ANXIETY Aspirin (Asa -) 81 mg PO DAILY [facility] Last Admin: 10/02/19 09:30 Dose: 81 mg Documented by: Atorvastatin Calcium (Lipitor -) 10 mg PO HS [facility] Last Admin: 10/01/19 22:13 Dose: 10 mg Documented by: Calcium Carbonate/Cholecalciferol (Os-Faisal 500+D -) 1 tab PO BID [facility] Last Admin: 10/02/19 09:30 Dose: 1 tab Documented by: Cyclobenzaprine HCl (Flexeril -) 10 mg PO TID [facility] Last Admin: 10/02/19 06:56 Dose: 10 mg Documented by: Enoxaparin Sodium (Lovenox -) 40 mg SQ DAILY [facility] Last Admin: 10/02/19 09:29 Dose: 40 mg Documented by: Folic Acid (Folic Acid -) 1 mg PO DAILY [facility] Last Admin: 10/02/19 09:30 Dose: 1 mg Documented by: Gabapentin (Neurontin -) 100 mg PO TID [facility] Last Admin: 10/02/19 06:56 Dose: 100 mg Documented by: IV Flush (Deborah-Cath Flush) 10 ml IVPUSH PRN PRN PRN Reason: protocol Levofloxacin (Levaquin 500 Mg Premixed Ivpb -) 500 mg in 100 mls @ 100 mls/hr IVPB DAILY [facility]; Protocol Last Admin: 10/02/19 09:28 Dose: 100 mls/hr Documented by: Lidocaine (Lidoderm Patch -) 1 patch TP DAILY [facility] Last Admin: 10/02/19 09:31 Dose: Not Given Documented by: Methylnaltrexone [place] (Relistor -) 12 mg SQ DAILY [facility] Last Admin: 10/02/19 09:28 Dose: 12 mg Documented by: Methylprednisolone Sodium Succinate (Solu-Medrol -) 40 mg IVPB Q8H-IV [facility] Last Admin: 10/02/19 09:30 Dose: 40 mg Documented by: Metoprolol Tartrate (Lopressor -) 50 mg PO BID [facility] Last Admin: 10/02/19 09:30 Dose: 50 mg Documented by: Miscellaneous (Lidoderm Patch Removal) 1 each MC DAILY@2200 [facility] Last Admin: 10/01/19 22:18 Dose: Not Given Documented by: Minocycline 75mg (Capsule) 1 each PO HS [facility] Last Admin: 10/01/19 22:18 Dose: 1 each Documented by: Oxycodone HCl (Roxicodone -) 10 mg PO Q4H PRN PRN Reason: PAIN LEVEL 5-10 Last Admin: 10/02/19 10:12 Dose: 10 mg Documented by: Pantoprazole Sodium (Protonix -) 40 mg PO DAILY [facility] Last Admin: 10/02/19 09:30 Dose: 40 mg Documented by: Polyethylene Glycol (Miralax (For Daily Use) -) 34 gm PO BID [facility] Last Admin: 10/02/19 09:29 Dose: Not Given Documented by: - Objective Vital Signs: Vital Signs Temperature 97.3 F L 10/02/19 06:00 Pulse Rate 94 H 10/02/19 06:00 Respiratory Rate 22 H 10/02/19 06:00 Blood Pressure 106/72 10/02/19 06:00 O2 Sat by Pulse Oximetry (%) 86 L 10/02/19 06:00 Constitutional: Yes: Well Nourished, Calm Eyes: Yes: WNL HENT: Yes: WNL Neck: Yes: WNL Cardiovascular: Yes: Regular Rate and Rhythm, S1, S2 Respiratory: Yes: Rales (bilateral crackles) Gastrointestinal: Yes: Normal Bowel Sounds, Soft Extremities: Yes: WNL Edema: Yes Labs: CBC, BMP Problem List - Problems (1) Compression fracture Code(s): [id number] - (2) Constipation Code(s): K59.00 - CONSTIPATION, UNSPECIFIED Qualifiers: Constipation type: drug induced constipation Qualified Code(s): K59.03 - Drug induced constipation (3) Lung cancer Code(s): C34.90 - MALIGNANT NEOPLASM OF UNSP PART OF UNSP BRONCHUS OR LUNG (4) Therapeutic opioid induced constipation Code(s): K59.03 - DRUG INDUCED CONSTIPATION; T40.2X5A - ADVERSE EFFECT OF OTHER OPIOIDS, INITIAL ENCOUNTER (5) Back pain Code(s): M54.9 - DORSALGIA, UNSPECIFIED (6) CAD (coronary artery disease) Code(s): I25.10 - ATHSCL HEART DISEASE OF [place] CORONARY ARTERY W/O ANG PCTRS (7) COPD (chronic obstructive pulmonary disease) Code(s): J44.9 - CHRONIC OBSTRUCTIVE PULMONARY DISEASE, UNSPECIFIED (8) Chronic respiratory failure Code(s): J96.10 - CHRONIC RESPIRATORY FAILURE, UNSP W HYPOXIA OR HYPERCAPNIA (9) Compression fracture of T12 vertebra Code(s): S22.080A - WEDGE COMPRESSION FRACTURE OF T11-T12 VERTEBRA, INIT Qualifiers: Encounter type: initial encounter Qualified Code(s): S22.080A - [place] compression fracture of T11-T12 vertebra, initial encounter for closed fracture (10) HLD (hyperlipidemia) Code(s): E78.5 - HYPERLIPIDEMIA, UNSPECIFIED (11) HTN (hypertension) Code(s): I10 - ESSENTIAL (PRIMARY) HYPERTENSION (12) Interstitial lung disease Code(s): J84.9 - INTERSTITIAL PULMONARY DISEASE, UNSPECIFIED (13) Vertebral fracture Code(s): [id number] - (14) Chronic respiratory failure with hypoxia Code(s): J96.11 - CHRONIC RESPIRATORY FAILURE WITH HYPOXIA Assessment/Plan IMP CHRONIC HYPOXEMIC RESPIRATORY FAILURE ADVANCED ILD LUNG CA STAGE 111B NON-SMALL CELL H/O TRAUMATIC PTX S/P LUNG BX COPD R BREAST MASS ASHD S/P CABG BACK PAIN SECONDARY TO COMPRESSION FX CONSTIPATION OPIOID INDUCED PLAN SUPPLEMENTAL O2 INHALED BRONCHODILATORS PREDNISONE RELISTOR CHEMO PER ONCOLOGY CHEST X-RAY LASIX X 1 RESULTS OF BREAST BX PENDING DR HANSON Problem List - Problems (1) Compression fracture Code(s): [id number] - (2) Constipation Code(s): K59.00 - CONSTIPATION, UNSPECIFIED Qualifiers: Constipation type: drug induced constipation Qualified Code(s): K59.03 - Drug induced constipation (3) Lung cancer Code(s): C34.90 - MALIGNANT NEOPLASM OF UNSP PART OF UNSP BRONCHUS OR LUNG (4) Therapeutic opioid induced constipation Code(s): K59.03 - DRUG INDUCED CONSTIPATION; T40.2X5A - ADVERSE EFFECT OF OTHER OPIOIDS, INITIAL ENCOUNTER (5) Back pain Code(s): M54.9 - DORSALGIA, UNSPECIFIED (6) CAD (coronary artery disease) Code(s): I25.10 - ATHSCL HEART DISEASE OF [place] CORONARY ARTERY W/O ANG PCTRS (7) COPD (chronic obstructive pulmonary disease) Code(s): J44.9 - CHRONIC OBSTRUCTIVE PULMONARY DISEASE, UNSPECIFIED (8) Chronic respiratory failure Code(s): J96.10 - CHRONIC RESPIRATORY FAILURE, UNSP W HYPOXIA OR HYPERCAPNIA (9) Compression fracture of T12 vertebra Code(s): S22.080A - WEDGE COMPRESSION FRACTURE OF T11-T12 VERTEBRA, INIT Qualifiers: Encounter type: initial encounter Qualified Code(s): S22.080A - [place] compression fracture of T11-T12 vertebra, initial encounter for closed fracture (10) HLD (hyperlipidemia) Code(s): E78.5 - HYPERLIPIDEMIA, UNSPECIFIED (11) HTN (hypertension) Code(s): I10 - ESSENTIAL (PRIMARY) HYPERTENSION (12) Interstitial lung disease Code(s): J84.9 - INTERSTITIAL PULMONARY DISEASE, UNSPECIFIED (13) Vertebral fracture Code(s): [id number] - (14) Chronic respiratory failure with hypoxia Code(s): J96.11 - CHRONIC RESPIRATORY FAILURE WITH HYPOXIA
[2019-10-02] MEDS ORDERED: FUROSEMIDE 40 MG/4 ML INJECTABLE VIAL IVPUSH ONE (13:00)
--- NOTE | 2019-10-02 16:59 | CONSULT ---
Consult Consult Specialty:: Radiation Oncology Referred by:: Dr. 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 He developed upper and mid back pain from osteoporotic fractures of T4 and T11 with retropulsion and back brace was recommended. Recent CT A/P show progression of disease in lung, right chest wall, nodes and liver. Systemic therapy was being planned. Then began having right sided pain in posterior neck radiating to right occipital scalp where he also notes numbness. CT cervical spine shows a focal bone destruction and loss of anterior cortex of right C2 vertebral body suspicious for neoplastic process. Neurosurgeon Dr. Borges does not recommend surgical intervention. Denies headache, blurry vision, dizziness, nausea, arm weakness or numbness, chest pain, cough, increasing ERICKSON, hemopytis, odynophagia, dysphagia, hoarseness, fever, chills. Pain (3 out of 10) controlled with analgesics but feels opiate use has increased oxygen requirements (5-6L). - History Source History Provided By: Patient, Medical Record Limitations to Obtaining History: No Limitations - Past Medical History Cardio/Vascular: Yes: CAD, HTN, Hyperlipdemia, GA Pulmonary: Yes: Cancer, COPD, O2 Dependent, Pulmonary Fibrosis, Other (Post biopsy pneumothorax) Gastrointestinal: Yes: GERD Musculoskeletal: Yes: Other (T4 and T11 compression fractures) - Past Surgical History Past Surgical History: Yes: CABG, Hernia Repair, Tonsillectomy Additional Surgical History: Angioplasty, coronary stents 2013 and 2016 - Alcohol/Substance Use Hx Alcohol Use: No History of Substance Use: reports: None - Smoking History Smoking history: Former smoker Have you smoked in the past 12 months: No Aproximately how many cigarettes per day: 20 If you are a former smoker, when did you quit?: 2013 - Social History Usual Living Arrangement: With Spouse 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[place], [place]) History of Recent Travel: No Home Medications - Allergies Allergies/Adverse Reactions: Allergies Allergy/AdvReac Type Severity Reaction Status Date / Time No Known Allergies Allergy Verified 09/22/19 18:20 - Home Medications Home Medications: Ambulatory Orders Aspirin 81 mg PO HS 08/24/19 Atorvastatin Ca [Lipitor] 20 mg PO HS 08/24/19 Cyclobenzaprine HCl [Flexeril -] 10 mg PO TID 08/24/19 Metoprolol Tartrate 50 mg PO BID 08/24/19 Prednisone 10 mg PO DAILY 08/24/19 Acetaminophen [Tylenol .Regular Strength -] 325 mg PO Q6H PRN #90 tablet 08/31/19 Calcium 500Mg/Vit-D 200 Units [Os-Faisal 500+D -] 1 tab PO BID tab 08/31/19 Docusate Sodium [Colace -] 100 mg PO TID #90 capsule 08/31/19 Gabapentin [Neurontin -] 100 mg PO BID #60 capsule 08/31/19 Lidocaine 5% Patch [Lidoderm -] 1 patch TP DAILY@1600 #30 patch 08/31/19 Umeclidinium Brm/Vilanterol Tr [Anoro Ellipta 62.5-25 Mcg INH] 1 puff IH DAILY inhaler 08/31/19 Pantoprazole Sodium [Protonix -] 20 mg PO DAILY 09/22/19 Polyethylene Glycol 3350 [Miralax (For Bowel Prep) -] 17 gm PO DAILY 09/22/19 Family Medical History Family Hx Cardiac Disorders: Mother Family Hx Coronary Artery Disease: Father Other Family History: No cancer hx Review of Systems - Review of Systems Constitutional: reports: No Symptoms Eyes: reports: No Symptoms HENT: reports: No Symptoms Neck: reports: Pain on Movement, Tenderness Cardiovascular: reports: No Symptoms Respiratory: reports: SOB, SOB on Exertion Gastrointestinal: reports: No Symptoms Genitourinary: reports: No Symptoms Musculoskeletal: reports: Back Pain, Decreased ROM Integumentary: reports: No Symptoms Neurological: reports: Numbness (posterior right scalp) Endocrine: reports: No Symptoms Hematology/Lymphatic: reports: No Symptoms Psychiatric: reports: No Symptoms Pain Intensity: 3 (neck) Physical Exam Vital Signs: Vital Signs Temperature 98.0 F 10/02/19 13:27 Pulse Rate 108 H 10/02/19 13:27 Respiratory Rate 20 10/02/19 13:27 Blood Pressure 100/61 10/02/19 13:27 O2 Sat by Pulse Oximetry (%) 90 L 10/02/19 10:00 Constitutional: Yes: Well Nourished, No Distress, Calm Eyes: Yes: WNL HENT: Yes: WNL Neck: Yes: Other (Tenderness at cervical spine, no soft tissue mass or adenopathy) Respiratory: Yes: On Nasal O2, SOB on Exertion, Other (Decreased BS on right without wheeze or rhonchi) Gastrointestinal: Yes: Soft, Abdomen, Obese Breast(s): Yes: Mass (deep lower quadrant breast, nontender) Musculoskeletal: Yes: Back Pain (tenderness on thoracic spine without paraspinal mass) Extremities: Yes: WNL Edema: No Neurological: Yes: Alert, Oriented, Loss of Sensation, Numbness (posterior right scalp) ...Motor Strength: WNL Psychiatric: Yes: WNL Labs: CBC, BMP 10/01/19 08:24 10/01/19 08:24 Imaging - Results Cat Scan: Report Reviewed, Image Reviewed (See HPI) Assessment/Plan 58yo male oxygen dependent with 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 He has elected to proceed with palliative chemotherapy. We discussed adding palliative RT to the cervical spine to ameliorate pain and neurologic deficits. We discussed a short course regimen. We discussed further evaluation with MRI to evalute the soft tissues but he refuses due to claustrophobia and agrees to open MRI as outpatient. Dr. Borges has not recommended surgical intervention. His questions were addressed and he will follow up with me once discharged to begin palliative RT.
--- NOTE | 2019-10-02 17:37 | PN ---
Progress Note, Physician History of Present Illness: stable - Current Medication List Current Medications: Active Medications Albuterol/Ipratropium (Duoneb -) 1 amp NEB RQID [facility] Last Admin: 10/02/19 16:28 Dose: 1 amp Documented by: Albuterol/Ipratropium (Duoneb -) 1 amp NEB Q4H PRN PRN Reason: SHORTNESS OF BREATH Last Admin: 09/28/19 21:31 Dose: 1 amp Documented by: Allopurinol (Zyloprim -) 300 mg PO DAILY [facility] Last Admin: 10/02/19 09:30 Dose: 300 mg Documented by: Alprazolam (Xanax -) 0.25 mg PO Q12H PRN PRN Reason: ANXIETY Aspirin (Asa -) 81 mg PO DAILY [facility] Last Admin: 10/02/19 09:30 Dose: 81 mg Documented by: Atorvastatin Calcium (Lipitor -) 10 mg PO HS [facility] Last Admin: 10/01/19 22:13 Dose: 10 mg Documented by: Calcium Carbonate/Cholecalciferol (Os-Faisal 500+D -) 1 tab PO BID [facility] Last Admin: 10/02/19 09:30 Dose: 1 tab Documented by: Cyclobenzaprine HCl (Flexeril -) 10 mg PO TID [facility] Last Admin: 10/02/19 14:25 Dose: 10 mg Documented by: Enoxaparin Sodium (Lovenox -) 40 mg SQ DAILY [facility] Last Admin: 10/02/19 09:29 Dose: 40 mg Documented by: Folic Acid (Folic Acid -) 1 mg PO DAILY [facility] Last Admin: 10/02/19 09:30 Dose: 1 mg Documented by: Gabapentin (Neurontin -) 100 mg PO TID [facility] Last Admin: 10/02/19 14:25 Dose: 100 mg Documented by: IV Flush (Deborah-Cath Flush) 10 ml IVPUSH PRN PRN PRN Reason: protocol Levofloxacin (Levaquin 500 Mg Premixed Ivpb -) 500 mg in 100 mls @ 100 mls/hr IVPB DAILY [facility]; Protocol Last Admin: 10/02/19 09:28 Dose: 100 mls/hr Documented by: Lidocaine (Lidoderm Patch -) 1 patch TP DAILY [facility] Last Admin: 10/02/19 09:31 Dose: Not Given Documented by: Methylnaltrexone [place] (Relistor -) 12 mg SQ DAILY [facility] Last Admin: 10/02/19 09:28 Dose: 12 mg Documented by: Methylprednisolone Sodium Succinate (Solu-Medrol -) 40 mg IVPB Q8H-IV [facility] Last Admin: 10/02/19 17:06 Dose: 40 mg Documented by: Metoprolol Tartrate (Lopressor -) 50 mg PO BID [facility] Last Admin: 10/02/19 09:30 Dose: 50 mg Documented by: Miscellaneous (Lidoderm Patch Removal) 1 each MC DAILY@2200 [facility] Last Admin: 10/01/19 22:18 Dose: Not Given Documented by: Minocycline 75mg (Capsule) 1 each PO HS [facility] Last Admin: 10/01/19 22:18 Dose: 1 each Documented by: Oxycodone HCl (Roxicodone -) 10 mg PO Q4H PRN PRN Reason: PAIN LEVEL 5-10 Last Admin: 10/02/19 14:27 Dose: 10 mg Documented by: Pantoprazole Sodium (Protonix -) 40 mg PO DAILY [facility] Last Admin: 10/02/19 09:30 Dose: 40 mg Documented by: Polyethylene Glycol (Miralax (For Daily Use) -) 34 gm PO BID [facility] Last Admin: 10/02/19 09:29 Dose: Not Given Documented by: - Objective Vital Signs: Vital Signs Temperature 98.0 F 10/02/19 13:27 Pulse Rate 108 H 10/02/19 13:27 Respiratory Rate 20 10/02/19 13:27 Blood Pressure 100/61 10/02/19 13:27 O2 Sat by Pulse Oximetry (%) 90 L 10/02/19 10:00 Constitutional: Yes: No Distress HENT: Yes: Atraumatic Neck: Yes: Supple Cardiovascular: Yes: Regular Rate and Rhythm Respiratory: Yes: Rhonchi Gastrointestinal: Yes: Normal Bowel Sounds Extremities: Yes: WNL Neurological: Yes: Alert, Oriented Labs: CBC, BMP 10/01/19 08:24 10/01/19 08:24 INR, PTT INR 1.13 (0.83-1.09) H 09/22/19 20:04 Problem List - Problems (1) Compression fracture Assessment/Plan: on pain meds per pain md neurosurgery report reviewed Code(s): OXM0655 - (2) Constipation Assessment/Plan: bowel regimen...constipation resolving Code(s): K59.00 - CONSTIPATION, UNSPECIFIED Qualifiers: Constipation type: drug induced constipation Qualified Code(s): K59.03 - Drug induced constipation (3) Lung cancer Assessment/Plan: as per heme onc had RT all consults reviewed palliative therapy? Code(s): C34.90 - MALIGNANT NEOPLASM OF UNSP PART OF UNSP BRONCHUS OR LUNG (4) Therapeutic opioid induced constipation Code(s): K59.03 - DRUG INDUCED CONSTIPATION; T40.2X5A - ADVERSE EFFECT OF OTHER OPIOIDS, INITIAL ENCOUNTER (5) Acute and chronic respiratory failure Code(s): J96.20 - ACUTE AND CHR RESP FAILURE, UNSP W HYPOXIA OR HYPERCAPNIA Qualifiers: Respiratory failure complication: hypoxia Qualified Code(s): J96.21 - Acute and chronic respiratory failure with hypoxia (6) Back pain Code(s): M54.9 - DORSALGIA, UNSPECIFIED (7) CAD (coronary artery disease) Code(s): I25.10 - ATHSCL HEART DISEASE OF [place] CORONARY ARTERY W/O ANG PCTRS (8) COPD (chronic obstructive pulmonary disease) Code(s): J44.9 - CHRONIC OBSTRUCTIVE PULMONARY DISEASE, UNSPECIFIED (9) Compression fracture of T12 vertebra Code(s): S22.080A - WEDGE COMPRESSION FRACTURE OF T11-T12 VERTEBRA, INIT Qualifiers: Encounter type: initial encounter Qualified Code(s): S22.080A - Wedge compression fracture of T11-T12 vertebra, initial encounter for closed fracture (10) HLD (hyperlipidemia) Assessment/Plan: on lipitor Code(s): E78.5 - HYPERLIPIDEMIA, UNSPECIFIED (11) HTN (hypertension) Assessment/Plan: on meds monitor Code(s): I10 - ESSENTIAL (PRIMARY) HYPERTENSION (12) Interstitial lung disease Code(s): J84.9 - INTERSTITIAL PULMONARY DISEASE, UNSPECIFIED (13) Vertebral fracture Code(s): EOG2784 - (14) Chronic respiratory failure with hypoxia Code(s): J96.11 - CHRONIC RESPIRATORY FAILURE WITH HYPOXIA Assessment/Plan covering for dr mack davison
--- NOTE | 2019-10-02 18:16 | PN.HO ---
Progress Note (short form) - Note Progress Note: Patient seen and examined c/o neck pain radiating to the back of his head Constipation resolving with relistor, miralax and other agents. AFVSS Cor: RSR, No murmurs, Lungs: crackles at bases Abd: Soft, Normal bowel sounds, Ext:No significant edema Labs/Meds reviewed A/P 58 y/o gentleman with severe ILD , O2 dependent for> 1yr. 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 chest wall mass, abdominal adenopathy, liver lesion Dr. Gregory discussed at length with patient -- discussed given his ILD /performance status his treatment options were limited Recommended best supportive care . Patient very keen on pursuing palliative chemotherapy. Discussed uncertain benefits, toxicities, including potentially life threatening sepsis, vital organ damage. He understands risks/benefits and wishes to proceed. Discussed with his , his health care proxy in detail as well. Had an episode of resp. distress on 09/28-- CXR --congestive changes . started medrol 40mg Q 8hrs./Levaquin. Lasix added xanax prn Also recommended biopsy of chest wall mass to send tissue for next gen sequencing Focal bone destruction of C2 with heterogenous signal suspicious for bone metastasis. Bone scan done, reading pending. Consult Rad-Onc requested.
[2019-10-02] MEDS: ATORVASTATIN CA 10 MG TABLET (FP) PO SCH (21:51)
[2019-10-02] MEDS: MINOCYCLINE PO SCH (21:52)
[2019-10-02] MEDS: LIDOCAINE PATCH REMOVAL MC SCH (21:54)
[2019-10-03] MEDS: oxyCODONE HCL 5 MG TABLET PO PRN ×4 (00:10→23:47)
[2019-10-03] MEDS: methylPREDNISolone NA SUCC 40 MG/1 ML VIAL IVPB SCH ×3 (01:15→17:23)
[2019-10-03] MEDS: GABAPENTIN 100 MG CAPSULE PO SCH (04:59)
[2019-10-03] MEDS: CYCLOBENZAPRINE HCL 10 MG TABLET (FP) PO SCH ×3 (04:59→22:10)
[2019-10-03] MEDS: ALBUTEROL SO4 2.5/IPRATROPIUM 0.5 INH SOL 3 ML VIAL.NEB. NEB SCH ×4 (07:36→20:32)
[2019-10-03] MEDS: LIDOCAINE 5% TOPICAL PATCH TP SCH (10:08)
[2019-10-03] MEDS: ENOXAPARIN NA (PORCINE) 40 MG/0.4 ML DISP.SYRIN SQ SCH (10:43)
[2019-10-03] MEDS: PANTOPRAZOLE 40 MG TABLET PO SCH (10:43)
[2019-10-03] MEDS: Methylnaltrexone Bromide 12 MG/0.6 ML KIT SQ SCH (10:43)
[2019-10-03] MEDS: METOPROLOL TARTRATE 50 MG TABLET (FP) PO SCH ×2 (10:43→22:10)
[2019-10-03] MEDS: ALLOPURINOL 300 MG TABLET (FP) PO SCH (10:43)
[2019-10-03] MEDS: FOLIC ACID 1 MG TABLET (FP) PO SCH (10:43)
[2019-10-03] MEDS: CALCIUM 500MG/VIT-D 200 UNITS COMBO TABLET (FP) PO SCH ×2 (10:43→22:10)
[2019-10-03] MEDS: ASPIRIN 81 MG CHEWABLE TABLETS PO SCH (10:43)
[2019-10-03] MEDS: POLYETHYLENE GLYCOL 3350 119 GM BTL PO SCH ×2 (10:44→22:10)
--- NOTE | 2019-10-03 10:44 | PN ---
Progress Note (short form) - Note Progress Note: NEUROSURGERY Seen by rad onc Sitting up in bed PE: AF, VSS General- unremarkable; kyphotic TL junction; B LE venous varicosity; Neck- R sided cervical and retroauricular tenderness CN- intact; Motor- 5/5 B UE/LE; Sensation- intact LT; DTR- 2+; Back- minimal tenderness C spine CT- R C2 anterior lytic lesion with slight vertebral expansion; no canal or posterior element involvement; no C6 or C7 fracture Lung CA (NSC/adeno), stage IV, with R anterior C2 vertebral involvement? Osteoporosis (steroid related) most likely T11 osteoporotic fx, though never did outpatient MRI T spine Neurosurgical intervention not recommended Medical management only; pain management for optimal pain meds regimen Bone scan result with no significant increased uptake Biopsy pending Consider focal RT for palliative tx if imaging positive Ideally should undergo MRI C and T spine with indira prior to RT but patient has been reluctant and non-compliant The above d/w Dr Urbina On Neurontin and Oxycodone per pain management; adjust Neurontin upwards to 300 tid Bowel regimen Pt has opted for chemo All questions answered
--- NOTE | 2019-10-03 11:50 | PN ---
Progress Note, Physician History of Present Illness: pulmonary alert,dyspneic on nasal o2 - Current Medication List Current Medications: Active Medications Acetaminophen (Tylenol -) 650 mg PO Q4H PRN PRN Reason: PAIN LEVEL 5-10 Albuterol/Ipratropium (Duoneb -) 1 amp NEB RQID [facility] Last Admin: 10/03/19 11:29 Dose: 1 amp Documented by: Albuterol/Ipratropium (Duoneb -) 1 amp NEB Q4H PRN PRN Reason: SHORTNESS OF BREATH Last Admin: 09/28/19 21:31 Dose: 1 amp Documented by: Allopurinol (Zyloprim -) 300 mg PO DAILY [facility] Last Admin: 10/03/19 10:43 Dose: 300 mg Documented by: Alprazolam (Xanax -) 0.25 mg PO Q12H PRN PRN Reason: ANXIETY Aspirin (Asa -) 81 mg PO DAILY [facility] Last Admin: 10/03/19 10:43 Dose: 81 mg Documented by: Atorvastatin Calcium (Lipitor -) 10 mg PO HS [facility] Last Admin: 10/02/19 21:51 Dose: 10 mg Documented by: Calcium Carbonate/Cholecalciferol (Os-Faisal 500+D -) 1 tab PO BID [facility] Last Admin: 10/03/19 10:43 Dose: 1 tab Documented by: Cyclobenzaprine HCl (Flexeril -) 10 mg PO TID [facility] Last Admin: 10/03/19 04:59 Dose: 10 mg Documented by: Enoxaparin Sodium (Lovenox -) 40 mg SQ DAILY [facility] Last Admin: 10/03/19 10:43 Dose: 40 mg Documented by: Folic Acid (Folic Acid -) 1 mg PO DAILY [facility] Last Admin: 10/03/19 10:43 Dose: 1 mg Documented by: Gabapentin (Neurontin -) 300 mg PO TID [facility] IV Flush (Deborah-Cath Flush) 10 ml IVPUSH PRN PRN PRN Reason: protocol Levofloxacin (Levaquin 500 Mg Premixed Ivpb -) 500 mg in 100 mls @ 100 mls/hr IVPB DAILY [facility]; Protocol Last Admin: 10/03/19 10:42 Dose: 100 mls/hr Documented by: Lidocaine (Lidoderm Patch -) 1 patch TP DAILY [facility] Last Admin: 10/03/19 10:08 Dose: Not Given Documented by: Methylnaltrexone [place] (Relistor -) 12 mg SQ DAILY [facility] Last Admin: 10/03/19 10:43 Dose: 12 mg Documented by: Methylprednisolone Sodium Succinate (Solu-Medrol -) 40 mg IVPB Q8H-IV [facility] Last Admin: 10/03/19 10:43 Dose: 40 mg Documented by: Metoprolol Tartrate (Lopressor -) 50 mg PO BID [facility] Last Admin: 10/03/19 10:43 Dose: 50 mg Documented by: Miscellaneous (Lidoderm Patch Removal) 1 each MC DAILY@2200 [facility] Last Admin: 10/02/19 21:54 Dose: Not Given Documented by: Minocycline 75mg (Capsule) 1 each PO HS [facility] Last Admin: 10/02/19 21:52 Dose: 1 each Documented by: Oxycodone HCl (Roxicodone -) 10 mg PO Q4H PRN PRN Reason: PAIN LEVEL 5-10 Last Admin: 10/03/19 04:52 Dose: 10 mg Documented by: Pantoprazole Sodium (Protonix -) 40 mg PO DAILY [facility] Last Admin: 10/03/19 10:43 Dose: 40 mg Documented by: Polyethylene Glycol (Miralax (For Daily Use) -) 34 gm PO BID [facility] Last Admin: 10/03/19 10:44 Dose: 17 grams Documented by: - Objective Vital Signs: Vital Signs Temperature 97.6 F 10/03/19 05:00 Pulse Rate 106 H 10/03/19 05:00 Respiratory Rate 20 10/03/19 05:00 Blood Pressure 110/61 10/03/19 05:00 O2 Sat by Pulse Oximetry (%) 93 L 10/03/19 05:00 Constitutional: Yes: Well Nourished, Calm Eyes: Yes: WNL HENT: Yes: WNL Neck: Yes: WNL Cardiovascular: Yes: Regular Rate and Rhythm, S1, S2 Respiratory: Yes: Rales (bilateral crackles) Gastrointestinal: Yes: Normal Bowel Sounds, Soft Extremities: Yes: WNL Edema: No Labs: Problem List - Problems (1) Compression fracture Code(s): [id number] - (2) Constipation Code(s): K59.00 - CONSTIPATION, UNSPECIFIED Qualifiers: Constipation type: drug induced constipation Qualified Code(s): K59.03 - Drug induced constipation (3) Lung cancer Code(s): C34.90 - MALIGNANT NEOPLASM OF UNSP PART OF UNSP BRONCHUS OR LUNG (4) Therapeutic opioid induced constipation Code(s): K59.03 - DRUG INDUCED CONSTIPATION; T40.2X5A - ADVERSE EFFECT OF OTHER OPIOIDS, INITIAL ENCOUNTER (5) Back pain Code(s): M54.9 - DORSALGIA, UNSPECIFIED (6) CAD (coronary artery disease) Code(s): I25.10 - ATHSCL HEART DISEASE OF [place] CORONARY ARTERY W/O ANG PCTRS (7) COPD (chronic obstructive pulmonary disease) Code(s): J44.9 - CHRONIC OBSTRUCTIVE PULMONARY DISEASE, UNSPECIFIED (8) Chronic respiratory failure Code(s): J96.10 - CHRONIC RESPIRATORY FAILURE, UNSP W HYPOXIA OR HYPERCAPNIA (9) Compression fracture of T12 vertebra Code(s): S22.080A - WEDGE COMPRESSION FRACTURE OF T11-T12 VERTEBRA, INIT Qualifiers: Encounter type: initial encounter Qualified Code(s): S22.080A - Wedge compression fracture of T11-T12 vertebra, initial encounter for closed fracture (10) HLD (hyperlipidemia) Code(s): E78.5 - HYPERLIPIDEMIA, UNSPECIFIED (11) HTN (hypertension) Code(s): I10 - ESSENTIAL (PRIMARY) HYPERTENSION (12) Interstitial lung disease Code(s): J84.9 - INTERSTITIAL PULMONARY DISEASE, UNSPECIFIED (13) Vertebral fracture Code(s): [id number] - (14) Chronic respiratory failure with hypoxia Code(s): J96.11 - CHRONIC RESPIRATORY FAILURE WITH HYPOXIA Assessment/Plan IMP CHRONIC HYPOXEMIC RESPIRATORY FAILURE ADVANCED ILD LUNG CA STAGE 111B NON-SMALL CELL H/O TRAUMATIC PTX S/P LUNG BX COPD R BREAST MASS ASHD S/P CABG BACK PAIN SECONDARY TO COMPRESSION FX CONSTIPATION OPIOID INDUCED PLAN SUPPLEMENTAL O2 INHALED BRONCHODILATORS STEROIDS RELISTOR CHEMO PER ONCOLOGY CHEST X-RAY RESULTS OF BREAST BX PENDING DR HANSON Problem List - Problems (1) Compression fracture Code(s): [id number] - (2) Constipation Code(s): K59.00 - CONSTIPATION, UNSPECIFIED Qualifiers: Constipation type: drug induced constipation Qualified Code(s): K59.03 - Drug induced constipation (3) Lung cancer Code(s): C34.90 - MALIGNANT NEOPLASM OF UNSP PART OF UNSP BRONCHUS OR LUNG (4) Therapeutic opioid induced constipation Code(s): K59.03 - DRUG INDUCED CONSTIPATION; T40.2X5A - ADVERSE EFFECT OF OTHER OPIOIDS, INITIAL ENCOUNTER (5) Back pain Code(s): M54.9 - DORSALGIA, UNSPECIFIED (6) CAD (coronary artery disease) Code(s): I25.10 - ATHSCL HEART DISEASE OF [place] CORONARY ARTERY W/O ANG PCTRS (7) COPD (chronic obstructive pulmonary disease) Code(s): J44.9 - CHRONIC OBSTRUCTIVE PULMONARY DISEASE, UNSPECIFIED (8) Chronic respiratory failure Code(s): J96.10 - CHRONIC RESPIRATORY FAILURE, UNSP W HYPOXIA OR HYPERCAPNIA (9) Compression fracture of T12 vertebra Code(s): S22.080A - WEDGE COMPRESSION FRACTURE OF T11-T12 VERTEBRA, INIT Qualifiers: Encounter type: initial encounter Qualified Code(s): S22.080A - Wedge compression fracture of T11-T12 vertebra, initial encounter for closed fracture (10) HLD (hyperlipidemia) Code(s): E78.5 - HYPERLIPIDEMIA, UNSPECIFIED (11) HTN (hypertension) Code(s): I10 - ESSENTIAL (PRIMARY) HYPERTENSION (12) Interstitial lung disease Code(s): J84.9 - INTERSTITIAL PULMONARY DISEASE, UNSPECIFIED (13) Vertebral fracture Code(s): [id number] - (14) Chronic respiratory failure with hypoxia Code(s): J96.11 - CHRONIC RESPIRATORY FAILURE WITH HYPOXIA
--- NOTE | 2019-10-03 13:16 | CON.CARD ---
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 Admitted 09/21 with constipation, back pain. During hospitalization has been managed by onc for progression of lung cancer. Sees Dr. Portillo for cardio. No chest pain. Dyspnea stable but has episodes where it feels worse, especially after using pain meds. Received IV lasix yesterday for dyspnea with congestion on CXR, feels better today. 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[place], [place]) History of Recent Travel: No Home Medications - Allergies Allergies/Adverse Reactions: Allergies Allergy/AdvReac Type Severity Reaction Status Date / Time No Known Allergies Allergy Verified 09/22/19 18:20 Home Medications Medication Instructions Recorded Aspirin 81 mg PO HS 08/24/19 Atorvastatin Ca [Lipitor] 20 mg PO HS 08/24/19 Cyclobenzaprine HCl [Flexeril -] 10 mg PO TID 08/24/19 Metoprolol Tartrate 50 mg PO BID 08/24/19 Prednisone 10 mg PO DAILY 08/24/19 Acetaminophen [Tylenol .Regular 325 mg PO Q6H PRN #90 tablet 08/31/19 Strength -] Calcium 500Mg/Vit-D 200 Units 1 tab PO BID tab 08/31/19 [Os-Faisal 500+D -] Docusate Sodium [Colace -] 100 mg PO TID #90 capsule 08/31/19 Gabapentin [Neurontin -] 100 mg PO BID #60 capsule 08/31/19 Lidocaine 5% Patch [Lidoderm -] 1 patch TP DAILY@1600 #30 patch 08/31/19 Umeclidinium Brm/Vilanterol Tr 1 puff IH DAILY inhaler 08/31/19 [Anoro Ellipta 62.5-25 Mcg INH] Pantoprazole Sodium [Protonix -] 20 mg PO DAILY 09/22/19 Polyethylene Glycol 3350 [Miralax 17 gm PO DAILY 09/22/19 (For Bowel Prep) -] Family Medical History Family History: Unremarkable Review of Systems - Review of Systems Constitutional: reports: No Symptoms Eyes: reports: No Symptoms HENT: reports: No Symptoms Neck: reports: No Symptoms Cardiovascular: reports: No Symptoms Respiratory: reports: No Symptoms Gastrointestinal: reports: No Symptoms Genitourinary: reports: No Symptoms Musculoskeletal: reports: No Symptoms Integumentary: reports: No Symptoms Neurological: reports: No Symptoms Endocrine: reports: No Symptoms Hematology/Lymphatic: reports: No Symptoms Psychiatric: reports: No Symptoms Vital Signs Period Temp Pulse Resp BP Sys/Dodge Pulse Ox Last 24 Hr 97.6 F-98.2 F 100-115 20-20 100-117/61-77 91-94 Constitutional: Yes: No Distress, Calm Eyes: Yes: Conjunctiva Clear, EOM Intact HENT: Yes: Atraumatic, Normocephalic Neck: Yes: Supple, Trachea Midline Respiratory: Yes: Regular, Rales, Wheezes Gastrointestinal: Yes: Normal Bowel Sounds, Soft Cardiovascular: Yes: Regular Rate and Rhythm JVD: No Extremities: No: Cold Edema: Yes Edema: LLE: Trace, RLE: Trace Integumentary: No: Jaundice Neurological: Yes: Alert, Oriented Psychiatric: No: Agitated Laboratory Last Values WBC 11.8 K/mm3 (4.0-10.0) H 10/01/19 08:24 RBC 3.53 M/mm3 (4.00-5.60) L 10/01/19 08:24 Hgb 10.9 GM/dL (11.7-16.9) L 10/01/19 08:24 Hct 32.7 % (35.4-49) L 10/01/19 08:24 MCV 92.9 fl (80-96) 10/01/19 08:24 MCH 30.8 pg (25.7-33.7) 10/01/19 08:24 MCHC 33.2 g/dl (32.0-35.9) 10/01/19 08:24 RDW 17.7 % (11.9-15.9) H 10/01/19 08:24 Plt Count 159 K/MM3 (134-434) 10/01/19 08:24 MPV 7.5 fl (7.5-11.1) 10/01/19 08:24 Absolute Neuts (auto) 10.8 K/mm3 (1.5-8.0) H 10/01/19 08:24 Total Counted 100 10/01/19 08:24 Neutrophils % 91.9 % (42.8-82.8) H 10/01/19 08:24 Neutrophils % (Manual) 89.0 % (42.8-82.8) H 10/01/19 08:24 Band Neutrophils % 0.0 % 09/27/19 05:25 Lymphocytes % 3.0 % (8-40) L 10/01/19 08:24 Lymphocytes % (Manual) 3.0 % (8-40) L D 10/01/19 08:24 Monocytes % 5.1 % (3.8-10.2) 10/01/19 08:24 Monocytes % (Manual) 7 % (3.8-10.2) 10/01/19 08:24 Eosinophils % 0.0 % (0-4.5) D 10/01/19 08:24 Eosinophils % (Manual) 1.0 % (0-4.5) 09/27/19 05:25 Basophils % 0.0 % (0-2.0) 10/01/19 08:24 Basophils % (Manual) 0.0 % (0-2.0) 09/27/19 05:25 Myelocytes % (Man) 0 % (0-2) 09/27/19 05:25 Promyelocytes % (Man) 0 % (0-2) 09/27/19 05:25 Blast Cells % (Manual) 0 % (0-0) 09/27/19 05:25 Nucleated RBC % 0 % (0-0) 10/01/19 08:24 Metamyelocytes 0 % (0-2) 09/27/19 05:25 Hypochromia 0 09/27/19 05:25 Platelet Estimate Adequate 10/01/19 08:24 Platelet Comment Giant platelets 10/01/19 08:24 Polychromasia 1+ 10/01/19 08:24 Poikilocytosis 0 09/27/19 05:25 Anisocytosis 2+ 09/27/19 05:25 Microcytosis 2+ 09/27/19 05:25 Macrocytosis 0 09/27/19 05:25 Spherocytes 1+ 10/01/19 08:24 Ovalocytes 1+ 10/01/19 08:24 PT with INR 13.30 SEC (9.7-13.0) H 09/22/19 20:04 INR 1.13 (0.83-1.09) H 09/22/19 20:04 PTT (Actin FS) 29.6 SECONDS (25.2-36.5) 09/22/19 20:04 Sodium 136 mmol/L (136-145) 10/01/19 08:24 Potassium 4.2 mmol/L (3.5-5.1) 10/01/19 08:24 Chloride 96 mmol/L (98-107) L 10/01/19 08:24 Carbon Dioxide 28 mmol/L (21-32) 10/01/19 08:24 Anion Gap 12 MMOL/L (8-16) 10/01/19 08:24 BUN 28.3 mg/dL (7-18) H 10/01/19 08:24 Creatinine 1.2 mg/dL (0.55-1.3) 10/01/19 08:24 Est GFR (CKD-EPI)AfAm 75.72 10/01/19 08:24 Est GFR (CKD-EPI)NonAf 65.33 10/01/19 08:24 Random Glucose 152 mg/dL (74-106) H 10/01/19 08:24 Uric Acid 7.2 mg/dL (2.6-7.2) 10/01/19 08:24 Calcium 9.3 mg/dL (8.5-10.1) 10/01/19 08:24 Phosphorus 5.1 mg/dL (2.5-4.9) H 09/23/19 07:50 Magnesium 2.3 mg/dL (1.8-2.4) 09/23/19 07:50 Total Bilirubin 0.5 mg/dL (0.2-1) 10/01/19 08:24 AST 90 U/L (15-37) H 10/01/19 08:24 ALT 44 U/L (13-61) 10/01/19 08:24 Alkaline Phosphatase 103 U/L (45-117) 10/01/19 08:24 LD Total > 1000 U/L (87-246) H 10/01/19 08:24 Creatine Kinase 54 U/L (26-308) 09/22/19 20:04 Troponin I < 0.02 ng/ml (0.00-0.05) 09/22/19 20:04 B-Natriuretic Peptide 574.8 pg/ml (5-125) H 09/22/19 20:04 Total Protein 6.8 g/dl (6.4-8.2) 10/01/19 08:24 Albumin 3.3 g/dl (3.4-5.0) L 10/01/19 08:24 Lipase 111 U/L (73-393) 09/22/19 20:04 PTH Intact 6 pg/mL (15-65) L 09/23/19 07:50 COVID-19 (BRITTNEY) Not detected (Not Detected) 09/22/19 15:30 Assessment/Plan EKG: sinus tach, RBBB, RVH stress echo 07/2018 nl EF, no ischemia echo 07/2019 nl LV function, mild LVH, borderline RV size/function, LA mod dilated, tr to mild MR, mild TR COPD, lung adenoca - manage per onc, pulm - lasix PRN for volume overload, likely in setting of steroids, IVF. nl LV function on echo 07/2019 tachycardia - sinus tachycardia likely in the setting of pain - management of pain per primary - cont metoprolol abnormal EKG - EKG with RBBB, RVH likely 2/2 underlying pulmonary dz, stable CAD s/p CABG - cont aspirin, statin, bb, plavix HTN - cont home meds HLD - cont statin
[2019-10-03 13:32] VITALS: BMI 23.7
[2019-10-03] MEDS: GABAPENTIN 300 MG CAPSULE PO SCH ×2 (14:55→22:10)
[2019-10-03] MEDS: ACETAMINOPHEN 325 MG TABLET (FP) PO PRN ×2 (14:55→23:48)
--- NOTE | 2019-10-03 20:10 | PN ---
Progress Note, Physician History of Present Illness: Pt complains of neck pain radiating to head wc is slightly improving - Current Medication List Current Medications: Active Medications Acetaminophen (Tylenol -) 650 mg PO Q4H PRN PRN Reason: PAIN LEVEL 5-10 Last Admin: 10/03/19 14:55 Dose: 650 mg Documented by: Albuterol/Ipratropium (Duoneb -) 1 amp NEB RQID [facility] Last Admin: 10/03/19 15:14 Dose: 1 amp Documented by: Albuterol/Ipratropium (Duoneb -) 1 amp NEB Q4H PRN PRN Reason: SHORTNESS OF BREATH Last Admin: 09/28/19 21:31 Dose: 1 amp Documented by: Allopurinol (Zyloprim -) 300 mg PO DAILY [facility] Last Admin: 10/03/19 10:43 Dose: 300 mg Documented by: Alprazolam (Xanax -) 0.25 mg PO Q12H PRN PRN Reason: ANXIETY Aspirin (Asa -) 81 mg PO DAILY [facility] Last Admin: 10/03/19 10:43 Dose: 81 mg Documented by: Atorvastatin Calcium (Lipitor -) 10 mg PO HS [facility] Last Admin: 10/02/19 21:51 Dose: 10 mg Documented by: Calcium Carbonate/Cholecalciferol (Os-Faisal 500+D -) 1 tab PO BID [facility] Last Admin: 10/03/19 10:43 Dose: 1 tab Documented by: Cyclobenzaprine HCl (Flexeril -) 10 mg PO TID [facility] Last Admin: 10/03/19 14:55 Dose: 10 mg Documented by: Enoxaparin Sodium (Lovenox -) 40 mg SQ DAILY [facility] Last Admin: 10/03/19 10:43 Dose: 40 mg Documented by: Folic Acid (Folic Acid -) 1 mg PO DAILY [facility] Last Admin: 10/03/19 10:43 Dose: 1 mg Documented by: Gabapentin (Neurontin -) 300 mg PO TID [facility] Last Admin: 10/03/19 14:55 Dose: 300 mg Documented by: IV Flush (Deborah-Cath Flush) 10 ml IVPUSH PRN PRN PRN Reason: protocol Levofloxacin (Levaquin 500 Mg Premixed Ivpb -) 500 mg in 100 mls @ 100 mls/hr IVPB DAILY [facility]; Protocol Last Admin: 10/03/19 10:42 Dose: 100 mls/hr Documented by: Lidocaine (Lidoderm Patch -) 1 patch TP DAILY [facility] Last Admin: 10/03/19 10:08 Dose: Not Given Documented by: Methylnaltrexone [place] (Relistor -) 12 mg SQ DAILY [facility] Last Admin: 10/03/19 10:43 Dose: 12 mg Documented by: Methylprednisolone Sodium Succinate (Solu-Medrol -) 40 mg IVPB Q8H-IV [facility] Last Admin: 10/03/19 17:23 Dose: 40 mg Documented by: Metoprolol Tartrate (Lopressor -) 50 mg PO BID [facility] Last Admin: 10/03/19 10:43 Dose: 50 mg Documented by: Miscellaneous (Lidoderm Patch Removal) 1 each MC DAILY@2200 [facility] Last Admin: 10/02/19 21:54 Dose: Not Given Documented by: Minocycline 75mg (Capsule) 1 each PO HS [facility] Last Admin: 10/02/19 21:52 Dose: 1 each Documented by: Oxycodone HCl (Roxicodone -) 10 mg PO Q4H PRN PRN Reason: PAIN LEVEL 5-10 Last Admin: 10/03/19 14:55 Dose: 10 mg Documented by: Pantoprazole Sodium (Protonix -) 40 mg PO DAILY [facility] Last Admin: 10/03/19 10:43 Dose: 40 mg Documented by: Polyethylene Glycol (Miralax (For Daily Use) -) 34 gm PO BID [facility] Last Admin: 10/03/19 10:44 Dose: 17 grams Documented by: - Objective Vital Signs: Vital Signs Temperature 97.6 F 10/03/19 18:20 Pulse Rate 119 H 10/03/19 18:20 Respiratory Rate 20 10/03/19 18:20 Blood Pressure 117/54 L 10/03/19 18:20 O2 Sat by Pulse Oximetry (%) 92 L 10/03/19 18:20 Neck: Yes: WNL, Supple Cardiovascular: Yes: WNL, Regular Rate and Rhythm Respiratory: Yes: WNL, Regular, CTA Bilaterally Gastrointestinal: Yes: WNL, Normal Bowel Sounds, Soft Labs: CBC, BMP 10/01/19 08:24 10/01/19 08:24 INR, PTT INR 1.13 (0.83-1.09) H 09/22/19 20:04 Problem List - Problems (1) Lung cancer Assessment/Plan: As per heme/onc consult S/P chemotx RT consult noted Further RT as outpt Pt is refusing MRI c-spine Mets to C2 Code(s): C34.90 - MALIGNANT NEOPLASM OF UNSP PART OF UNSP BRONCHUS OR LUNG (2) Therapeutic opioid induced constipation Assessment/Plan: Cont relistor/miralax Code(s): K59.03 - DRUG INDUCED CONSTIPATION; T40.2X5A - ADVERSE EFFECT OF OTHER OPIOIDS, INITIAL ENCOUNTER (3) Vertebral fracture Assessment/Plan: Pt still requiring percocet Cont cyclobenzaprine/lidocaine patch Code(s): BBK4386 - (4) COPD (chronic obstructive pulmonary disease) Assessment/Plan: Cont ellipta Code(s): J44.9 - CHRONIC OBSTRUCTIVE PULMONARY DISEASE, UNSPECIFIED (5) Interstitial lung disease Assessment/Plan: Cont prednisone Code(s): J84.9 - INTERSTITIAL PULMONARY DISEASE, UNSPECIFIED (6) HLD (hyperlipidemia) Assessment/Plan: Cont lipitor Code(s): E78.5 - HYPERLIPIDEMIA, UNSPECIFIED (7) HTN (hypertension) Assessment/Plan: BP stable Cont metoprolol Code(s): I10 - ESSENTIAL (PRIMARY) HYPERTENSION (8) CAD (coronary artery disease) Code(s): I25.10 - ATHSCL HEART DISEASE OF [place] CORONARY ARTERY W/O ANG PCTRS
[2019-10-03] MEDS ORDERED: TBO-FILGRASTIM 300 MCG/0.5 ML DISP.SYRINGE SQ ONE (20:30)
[2019-10-03] MEDS ORDERED: SODIUM CHLORIDE 1,000 ML IV SCH (20:30)
[2019-10-03 21:06] LABS: HEMATOCRIT 30.7 % (35.4-49); HEMOGLOBIN 10.3 GM/dL (11.7-16.9); MCH 31.3 pg (25.7-33.7); MCHC 33.6 g/dl (32.0-35.9); MEAN CELL VOLUME 93.1 fl (80-96); MEAN PLT VOLUME 8.2 fl (7.5-11.1); PLATELET COUNT 130 K/MM3 (134-434); RDW 17.8 % (11.9-15.9)
[2019-10-03 21:35] LABS: ALBUMIN 3.1 g/dl (3.4-5.0); BILIRUBIN,TOTAL 0.4 mg/dL (0.2-1); BLOOD UREA NITROGEN 42.4 mg/dL (7-18); CALCIUM 8.8 mg/dL (8.5-10.1); POTASSIUM 4.5 mmol/L (3.5-5.1); TOT PROT 6.3 g/dl (6.4-8.2)
[2019-10-03] MEDS: MINOCYCLINE PO SCH (22:09)
[2019-10-03] MEDS: LIDOCAINE PATCH REMOVAL MC SCH (22:10)
[2019-10-03] MEDS: ATORVASTATIN CA 10 MG TABLET (FP) PO SCH (22:10)
[2019-10-04] MEDS: methylPREDNISolone NA SUCC 40 MG/1 ML VIAL IVPB SCH ×3 (01:01→17:43)
[2019-10-04] MEDS: GABAPENTIN 300 MG CAPSULE PO SCH ×3 (06:08→21:13)
[2019-10-04] MEDS: CYCLOBENZAPRINE HCL 10 MG TABLET (FP) PO SCH ×3 (06:08→21:13)
[2019-10-04] MEDS: ALBUTEROL SO4 2.5/IPRATROPIUM 0.5 INH SOL 3 ML VIAL.NEB. NEB SCH ×2 (07:30→11:22)
[2019-10-04 07:37] LABS: BASO % 0.1 % (0-2.0); HEMATOCRIT 27.4 % (35.4-49); HEMOGLOBIN 9.1 GM/dL (11.7-16.9); LYMPH % 1.4 % (8-40); MCH 30.9 pg (25.7-33.7); MCHC 33.4 g/dl (32.0-35.9); MEAN CELL VOLUME 92.4 fl (80-96); MEAN PLT VOLUME 7.7 fl (7.5-11.1); NEUT % 95.5 % (42.8-82.8); PLATELET COUNT 109 K/MM3 (134-434); RBC 2.97 M/mm3 (4.00-5.60); RDW 17.9 % (11.9-15.9); WHITE BLOOD COUNT 7.9 K/mm3 (4.0-10.0)
[2019-10-04 09:01] LABS: ANISOCYTOSIS 0; MACROCYTOSIS 0; OVALOCYTE 1+; PLATELET ESTIMATE DECREASED
--- NOTE | 2019-10-04 09:32 | PN ---
Progress Note (short form) - Note Progress Note: NEUROSURGERY No H/A o rnew complaint R subccipital/retoauricular pain only periodic Sitting up in chair PE: Tmax 98.4, mildly tachycardic VSS General- unremarkable; kyphotic TL junction/hunched over; Neck- minimal R sided cervical and retroauricular tenderness CN- intact; Motor- 5/5 B UE/LE; Sensation- intact LT; DTR- 2+; Back- minimal tenderness C spine CT- R C2 anterior lytic lesion with slight vertebral expansion; no canal or posterior element involvement; no C6 or C7 fracture Head CT with/without - no fx, no acute bleed, no large territorial stroke, no large enhancing mass Lung CA (NSC/adeno), stage IV, with R anterior C2 vertebral involvement? 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
[2019-10-04] MEDS: ASPIRIN 81 MG CHEWABLE TABLETS PO SCH (11:55)
[2019-10-04] MEDS: PANTOPRAZOLE 40 MG TABLET PO SCH (11:55)
[2019-10-04] MEDS: CALCIUM 500MG/VIT-D 200 UNITS COMBO TABLET (FP) PO SCH ×2 (11:55→21:13)
[2019-10-04] MEDS: FOLIC ACID 1 MG TABLET (FP) PO SCH (11:55)
[2019-10-04] MEDS: POLYETHYLENE GLYCOL 3350 119 GM BTL PO SCH ×2 (11:56→21:11)
[2019-10-04] MEDS: METOPROLOL TARTRATE 50 MG TABLET (FP) PO SCH ×2 (11:56→21:13)
[2019-10-04] MEDS: ENOXAPARIN NA (PORCINE) 40 MG/0.4 ML DISP.SYRIN SQ SCH (11:56)
[2019-10-04] MEDS: ALLOPURINOL 300 MG TABLET (FP) PO SCH (11:56)
[2019-10-04] MEDS ORDERED: FUROSEMIDE 40 MG/4 ML INJECTABLE VIAL IVPUSH ONE (12:00)
--- NOTE | 2019-10-04 12:00 | PN ---
Progress Note (short form) - Note Progress Note: s: no cp palps dizzy; mild sob Current Medications Generic Name Dose Route Start Last Admin Trade Name Freq PRN Reason Stop Dose Admin Acetaminophen 650 mg 10/03/19 09:21 10/03/19 23:48 Tylenol - PO 650 mg Q4H PRN Administration PAIN LEVEL 5-10 Albuterol/Ipratropium 1 amp 09/26/19 12:00 10/04/19 11:22 Duoneb - NEB 1 amp RQID VEENA Administration Albuterol/Ipratropium 1 amp 09/26/19 11:45 09/28/19 21:31 Duoneb - NEB 1 amp Q4H PRN Administration SHORTNESS OF BREATH Allopurinol 300 mg 10/01/19 12:45 10/04/19 11:56 Zyloprim - PO 300 mg DAILY VEENA Administration Alprazolam 0.25 mg 09/29/19 19:49 Xanax - PO Q12H PRN ANXIETY Aspirin 81 mg 09/23/19 10:00 10/04/19 11:55 Asa - PO 81 mg DAILY VEENA Administration Atorvastatin Calcium 10 mg 09/23/19 22:00 10/03/19 22:10 Lipitor - PO 10 mg HS VEENA Administration Calcium Carbonate/Cholecalciferol 1 tab 09/25/19 10:00 10/04/19 11:55 Os-Faisal 500+D - PO 1 tab BID VEENA Administration Cyclobenzaprine HCl 10 mg 09/26/19 14:00 10/04/19 06:08 Flexeril - PO 10 mg TID VEENA Administration Enoxaparin Sodium 40 mg 10/02/19 10:00 10/04/19 11:56 Lovenox - SQ 40 mg DAILY VEENA Administration Folic Acid 1 mg 09/24/19 10:00 10/04/19 11:55 Folic Acid - PO 1 mg DAILY VEENA Administration Furosemide 40 mg 10/04/19 11:58 Lasix Injection - IVPUSH 10/04/19 11:59 ONCE ONE Gabapentin 300 mg 10/03/19 14:00 10/04/19 06:08 Neurontin - PO 300 mg TID VEENA Administration IV Flush 10 ml 09/30/19 19:04 Deborah-Cath Flush IVPUSH PRN PRN protocol Levofloxacin 500 mg in 100 mls @ 100 mls/hr 09/29/19 13:30 10/04/19 11:57 Levaquin 500 Mg Premixed Ivpb - IVPB 100 mls/hr DAILY VEENA Administration Protocol Sodium Chloride 1,000 mls @ 50 mls/hr 10/03/19 20:30 10/03/19 22:09 Normal Saline - IV 10/04/19 20:23 50 mls/hr ASDIR VEENA Administration Lidocaine 1 patch 09/23/19 10:00 10/03/19 10:08 Lidoderm Patch - TP Not Given DAILY VEENA Methylnaltrexone [place] 12 mg 09/23/19 12:15 10/03/19 10:43 Relistor - SQ 12 mg DAILY VEENA Administration Methylprednisolone Sodium Succinate 40 mg 10/02/19 10:00 10/04/19 11:57 Solu-Medrol - IVPB 40 mg Q8H-IV VEENA Administration Metoprolol Tartrate 50 mg 09/23/19 10:00 10/04/19 11:56 Lopressor - PO 50 mg BID VEENA Administration Miscellaneous 1 each 09/23/19 22:00 10/03/19 22:10 Lidoderm Patch Removal MC Not Given DAILY@2200 VEENA Minocycline 75mg 1 each 09/27/19 22:00 10/03/19 22:09 Capsule PO 1 each HS VEENA Administration Oxycodone HCl 10 mg 09/29/19 08:15 10/03/19 23:47 Roxicodone - PO 10 mg Q4H PRN Administration PAIN LEVEL 5-10 Pantoprazole Sodium 40 mg 09/23/19 10:00 10/04/19 11:55 Protonix - PO 40 mg DAILY VEENA Administration Polyethylene Glycol 34 gm 09/25/19 06:18 10/04/19 11:56 Miralax (For Daily Use) - PO Not Given BID VEENA Vital Signs Period Temp Pulse Resp BP Sys/Dodge Pulse Ox Last 24 Hr 97.5 F-98.4 F 101-125 20-22 101-117/54-71 89-94 Constitutional: Yes: No Distress, Calm Eyes: Yes: Conjunctiva Clear Neck: Yes: Supple, Trachea Midline Respiratory: Yes: Regular, Rales, Wheezes Gastrointestinal: Yes: Normal Bowel Sounds, Soft Cardiovascular: Yes: Regular Rate and Rhythm JVD: No Extremities: No: Cold Edema: Yes Edema: LLE: Trace, RLE: Trace Integumentary: No: Jaundice Neurological: Yes: Alert, Oriented Psychiatric: No: Agitated CBC, BMP 10/04/19 06:15 10/03/19 20:00 Assessment/Plan EKG: sinus tach, RBBB, RVH stress echo 07/2018 nl EF, no ischemia echo 07/2019 nl LV function, mild LVH, borderline RV size/function, LA mod dilated, tr to mild MR, mild TR COPD, lung adenoca - manage per onc, pulm - lasix PRN for volume overload, likely in setting of steroids, IVF, will give another dose today iv lasix. nl LV function on echo 07/2019 tachycardia - sinus tachycardia likely in the setting of pain - management of pain per primary - cont metoprolol abnormal EKG - EKG with RBBB, RVH likely 2/2 underlying pulmonary dz, stable CAD s/p CABG - cont aspirin, statin, bb, plavix HTN - cont home meds HLD - cont statin
[2019-10-04] MEDS ORDERED: PT OWN MED DRAWER 7, Y5N ONE ×3 (12:03→20:48)
[2019-10-04] MEDS: LIDOCAINE 5% TOPICAL PATCH TP SCH (12:17)
[2019-10-04] MEDS: Methylnaltrexone Bromide 12 MG/0.6 ML KIT SQ SCH (12:17)
[2019-10-04] MEDS: oxyCODONE HCL 5 MG TABLET PO PRN (12:58)
[2019-10-04] MEDS: ACETAMINOPHEN 325 MG TABLET (FP) PO PRN (12:59)
--- NOTE | 2019-10-04 13:07 | PN ---
Progress Note (short form) - Note Progress Note: PULMONARY States breathing about the same. Dyspnea on exertion. Vital Signs Period Temp Pulse Resp BP Sys/Dodge Pulse Ox Last 24 Hr 97.5 F-98.4 F 101-125 20-22 101-117/54-71 89-94 Gen: tachypneic with exertion Heart: RRR Lung: bibasilar rales Abd: soft, nontender Ext: no edema CBC, BMP 10/04/19 06:15 10/03/19 20:00 Active Medications Acetaminophen (Tylenol -) 650 mg PO Q4H PRN PRN Reason: PAIN LEVEL 5-10 Last Admin: 10/04/19 12:59 Dose: 650 mg Documented by: Albuterol/Ipratropium (Duoneb -) 1 amp NEB RQID [facility] Last Admin: 10/04/19 11:22 Dose: 1 amp Documented by: Albuterol/Ipratropium (Duoneb -) 1 amp NEB Q4H PRN PRN Reason: SHORTNESS OF BREATH Last Admin: 09/28/19 21:31 Dose: 1 amp Documented by: Allopurinol (Zyloprim -) 300 mg PO DAILY [facility] Last Admin: 10/04/19 11:56 Dose: 300 mg Documented by: Alprazolam (Xanax -) 0.25 mg PO Q12H PRN PRN Reason: ANXIETY Aspirin (Asa -) 81 mg PO DAILY [facility] Last Admin: 10/04/19 11:55 Dose: 81 mg Documented by: Atorvastatin Calcium (Lipitor -) 10 mg PO HS [facility] Last Admin: 10/03/19 22:10 Dose: 10 mg Documented by: Calcium Carbonate/Cholecalciferol (Os-Faisal 500+D -) 1 tab PO BID [facility] Last Admin: 10/04/19 11:55 Dose: 1 tab Documented by: Cyclobenzaprine HCl (Flexeril -) 10 mg PO TID [facility] Last Admin: 10/04/19 06:08 Dose: 10 mg Documented by: Enoxaparin Sodium (Lovenox -) 40 mg SQ DAILY [facility] Last Admin: 10/04/19 11:56 Dose: 40 mg Documented by: Folic Acid (Folic Acid -) 1 mg PO DAILY [facility] Last Admin: 10/04/19 11:55 Dose: 1 mg Documented by: Gabapentin (Neurontin -) 300 mg PO TID [facility] Last Admin: 10/04/19 06:08 Dose: 300 mg Documented by: IV Flush (Deborah-Cath Flush) 10 ml IVPUSH PRN PRN PRN Reason: protocol Levofloxacin (Levaquin 500 Mg Premixed Ivpb -) 500 mg in 100 mls @ 100 mls/hr IVPB DAILY VEENA; Protocol Last Admin: 10/04/19 11:57 Dose: 100 mls/hr Documented by: Sodium Chloride (Normal Saline -) 1,000 mls @ 50 mls/hr IV ASDIR [facility] Stop: 10/04/19 20:23 Last Admin: 10/03/19 22:09 Dose: 50 mls/hr Documented by: Lidocaine (Lidoderm Patch -) 1 patch TP DAILY [facility] Last Admin: 10/04/19 12:17 Dose: 1 patch Documented by: Methylnaltrexone [place] (Relistor -) 12 mg SQ DAILY [facility] Last Admin: 10/04/19 12:17 Dose: 12 mg Documented by: Methylprednisolone Sodium Succinate (Solu-Medrol -) 40 mg IVPB Q8H-IV [facility] Last Admin: 10/04/19 11:57 Dose: 40 mg Documented by: Metoprolol Tartrate (Lopressor -) 50 mg PO BID [facility] Last Admin: 10/04/19 11:56 Dose: 50 mg Documented by: Miscellaneous (Lidoderm Patch Removal) 1 each MC DAILY@2200 [facility] Last Admin: 10/03/19 22:10 Dose: Not Given Documented by: Minocycline 75mg (Capsule) 1 each PO HS [facility] Last Admin: 10/03/19 22:09 Dose: 1 each Documented by: Oxycodone HCl (Roxicodone -) 10 mg PO Q4H PRN PRN Reason: PAIN LEVEL 5-10 Last Admin: 10/04/19 12:58 Dose: 10 mg Documented by: Pantoprazole Sodium (Protonix -) 40 mg PO DAILY [facility] Last Admin: 10/04/19 11:55 Dose: 40 mg Documented by: Polyethylene Glycol (Miralax (For Daily Use) -) 34 gm PO BID [facility] Last Admin: 10/04/19 11:56 Dose: Not Given Documented by: A/P Chronic Hypoxic Respiratory Failure Interstitial Lung Disease Metastatic Lung Cancer CAD s/p CABG COPD - continue medrol - lasix today - monitor urine output, creatinine - on antibiotics - inhaled bronchodilators - O2 to keep SpO2 >90% - DVT prophylaxis
--- NOTE | 2019-10-04 13:35 | PN.HO ---
Progress Note (short form) - Note Progress Note: PAtient seen and examined Denies any complaints AFVSS Cor: RSR, No murmurs, Lungs: crackles at bases Abd: Soft, Normal bowel sounds, Ext:No significant edema LAbs/MEds reviewed A/P 58 y/o patient with sever ILD , O2 dependent for> 1yr. 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 chest wall mass, abdominal adenopathy, liver lesion s/p biopsy of chest wall mass -- to send tissue for next gen sequencing c/p C1 carbo./alimta 09/30/19 for neupogen Focal bone destruction of C2 with heterogenous signal suspicious for bone metastasis. Bone scan neg. Ct head negative Will get outpatient open MRI of C/T spine . Patient refusing inpatient MRI
--- NOTE | 2019-10-04 17:48 | PN ---
Progress Note, Physician History of Present Illness: stable - Current Medication List Current Medications: Active Medications Acetaminophen (Tylenol -) 650 mg PO Q4H PRN PRN Reason: PAIN LEVEL 5-10 Last Admin: 10/04/19 12:59 Dose: 650 mg Documented by: Allopurinol (Zyloprim -) 300 mg PO DAILY [facility] Last Admin: 10/04/19 11:56 Dose: 300 mg Documented by: Alprazolam (Xanax -) 0.25 mg PO Q12H PRN PRN Reason: ANXIETY Aspirin (Asa -) 81 mg PO DAILY [facility] Last Admin: 10/04/19 11:55 Dose: 81 mg Documented by: Atorvastatin Calcium (Lipitor -) 10 mg PO HS [facility] Last Admin: 10/03/19 22:10 Dose: 10 mg Documented by: Calcium Carbonate/Cholecalciferol (Os-Faisal 500+D -) 1 tab PO BID [facility] Last Admin: 10/04/19 11:55 Dose: 1 tab Documented by: Cyclobenzaprine HCl (Flexeril -) 10 mg PO TID [facility] Last Admin: 10/04/19 15:21 Dose: 10 mg Documented by: Enoxaparin Sodium (Lovenox -) 40 mg SQ DAILY [facility] Last Admin: 10/04/19 11:56 Dose: 40 mg Documented by: Folic Acid (Folic Acid -) 1 mg PO DAILY [facility] Last Admin: 10/04/19 11:55 Dose: 1 mg Documented by: Gabapentin (Neurontin -) 300 mg PO TID [facility] Last Admin: 10/04/19 15:20 Dose: 300 mg Documented by: IV Flush (Deborah-Cath Flush) 10 ml IVPUSH PRN PRN PRN Reason: protocol Levofloxacin (Levaquin 500 Mg Premixed Ivpb -) 500 mg in 100 mls @ 100 mls/hr IVPB DAILY [facility]; Protocol Last Admin: 10/04/19 11:57 Dose: 100 mls/hr Documented by: Sodium Chloride (Normal Saline -) 1,000 mls @ 50 mls/hr IV ASDIR [facility] Stop: 10/04/19 20:23 Last Admin: 10/03/19 22:09 Dose: 50 mls/hr Documented by: Lidocaine (Lidoderm Patch -) 1 patch TP DAILY [facility] Last Admin: 10/04/19 12:17 Dose: 1 patch Documented by: Methylnaltrexone [place] (Relistor -) 12 mg SQ DAILY [facility] Last Admin: 10/04/19 12:17 Dose: 12 mg Documented by: Methylprednisolone Sodium Succinate (Solu-Medrol -) 30 mg IVPB Q8H-IV [facility] Last Admin: 10/04/19 17:43 Dose: 30 mg Documented by: Metoprolol Tartrate (Lopressor -) 50 mg PO BID [facility] Last Admin: 10/04/19 11:56 Dose: 50 mg Documented by: Miscellaneous (Lidoderm Patch Removal) 1 each MC DAILY@2200 [facility] Last Admin: 10/03/19 22:10 Dose: Not Given Documented by: Minocycline 75mg (Capsule) 1 each PO HS [facility] Last Admin: 10/03/19 22:09 Dose: 1 each Documented by: Oxycodone HCl (Roxicodone -) 10 mg PO Q4H PRN PRN Reason: PAIN LEVEL 5-10 Last Admin: 10/04/19 12:58 Dose: 10 mg Documented by: Pantoprazole Sodium (Protonix -) 40 mg PO DAILY [facility] Last Admin: 10/04/19 11:55 Dose: 40 mg Documented by: Polyethylene Glycol (Miralax (For Daily Use) -) 34 gm PO BID [facility] Last Admin: 10/04/19 11:56 Dose: Not Given Documented by: Tbo-Filgrastim (Granix -) 300 mcg SQ DAILY [facility] - Objective Vital Signs: Vital Signs Temperature 98 F 10/04/19 09:58 Pulse Rate 125 H 10/04/19 09:58 Respiratory Rate 22 H 10/04/19 09:58 Blood Pressure 101/55 L 10/04/19 09:58 O2 Sat by Pulse Oximetry (%) 89 L 10/04/19 09:58 Constitutional: Yes: No Distress HENT: Yes: Atraumatic Neck: Yes: Supple Cardiovascular: Yes: Regular Rate and Rhythm Respiratory: Yes: CTA Bilaterally Gastrointestinal: Yes: Normal Bowel Sounds Extremities: Yes: WNL Edema: No Neurological: Yes: Alert, Oriented Labs: CBC, BMP 10/04/19 06:15 10/03/19 20:00 INR, PTT INR 1.13 (0.83-1.09) H 09/22/19 20:04 Problem List - Problems (1) Compression fracture Assessment/Plan: on pain meds per pain md neurosurgery report reviewed Code(s): KZF2617 - (2) Constipation Assessment/Plan: bowel regimen...constipation resolving Code(s): K59.00 - CONSTIPATION, UNSPECIFIED Qualifiers: Constipation type: drug induced constipation Qualified Code(s): K59.03 - Drug induced constipation (3) Lung cancer Assessment/Plan: as per heme onc had RT all consults reviewed palliative therapy? refusing mri Code(s): C34.90 - MALIGNANT NEOPLASM OF UNSP PART OF UNSP BRONCHUS OR LUNG (4) Therapeutic opioid induced constipation Code(s): K59.03 - DRUG INDUCED CONSTIPATION; T40.2X5A - ADVERSE EFFECT OF OTHER OPIOIDS, INITIAL ENCOUNTER (5) Acute and chronic respiratory failure Code(s): J96.20 - ACUTE AND CHR RESP FAILURE, UNSP W HYPOXIA OR HYPERCAPNIA Qualifiers: Respiratory failure complication: hypoxia Qualified Code(s): J96.21 - Acute and chronic respiratory failure with hypoxia (6) Back pain Code(s): M54.9 - DORSALGIA, UNSPECIFIED (7) CAD (coronary artery disease) Code(s): I25.10 - ATHSCL HEART DISEASE OF [place] CORONARY ARTERY W/O ANG PCTRS (8) COPD (chronic obstructive pulmonary disease) Code(s): J44.9 - CHRONIC OBSTRUCTIVE PULMONARY DISEASE, UNSPECIFIED (9) Compression fracture of T12 vertebra Code(s): S22.080A - [place] COMPRESSION FRACTURE OF T11-T12 VERTEBRA, INIT Qualifiers: Encounter type: initial encounter Qualified Code(s): S22.080A - [place] compression fracture of T11-T12 vertebra, initial encounter for closed fracture (10) HLD (hyperlipidemia) Assessment/Plan: on lipitor Code(s): E78.5 - HYPERLIPIDEMIA, UNSPECIFIED (11) HTN (hypertension) Assessment/Plan: on meds monitor Code(s): I10 - ESSENTIAL (PRIMARY) HYPERTENSION (12) Interstitial lung disease Code(s): J84.9 - INTERSTITIAL PULMONARY DISEASE, UNSPECIFIED (13) Vertebral fracture Code(s): BAO0726 - (14) Chronic respiratory failure with hypoxia Code(s): J96.11 - CHRONIC RESPIRATORY FAILURE WITH HYPOXIA Assessment/Plan covering for dr mack davison
--- NOTE | 2019-10-04 19:34 | PN.HO ---
Progress Note, Physician Chief Complaint: NSCLCa, ILD, on chemotherapy History of Present Illness: Pt with stable SOB, on O2 nc. No significant cough, cp, anb pains, or n/v/d. Afebrile. Remains on abx and steroids. - Current Medication List Current Medications: Active Medications Acetaminophen (Tylenol -) 650 mg PO Q4H PRN PRN Reason: PAIN LEVEL 5-10 Last Admin: 10/04/19 12:59 Dose: 650 mg Documented by: Allopurinol (Zyloprim -) 300 mg PO DAILY [facility] Last Admin: 10/04/19 11:56 Dose: 300 mg Documented by: Alprazolam (Xanax -) 0.25 mg PO Q12H PRN PRN Reason: ANXIETY Aspirin (Asa -) 81 mg PO DAILY [facility] Last Admin: 10/04/19 11:55 Dose: 81 mg Documented by: Atorvastatin Calcium (Lipitor -) 10 mg PO HS [facility] Last Admin: 10/03/19 22:10 Dose: 10 mg Documented by: Calcium Carbonate/Cholecalciferol (Os-Faisal 500+D -) 1 tab PO BID [facility] Last Admin: 10/04/19 11:55 Dose: 1 tab Documented by: Cyclobenzaprine HCl (Flexeril -) 10 mg PO TID [facility] Last Admin: 10/04/19 15:21 Dose: 10 mg Documented by: Enoxaparin Sodium (Lovenox -) 40 mg SQ DAILY [facility] Last Admin: 10/04/19 11:56 Dose: 40 mg Documented by: Folic Acid (Folic Acid -) 1 mg PO DAILY [facility] Last Admin: 10/04/19 11:55 Dose: 1 mg Documented by: Gabapentin (Neurontin -) 300 mg PO TID [facility] Last Admin: 10/04/19 15:20 Dose: 300 mg Documented by: IV Flush (Deborah-Cath Flush) 10 ml IVPUSH PRN PRN PRN Reason: protocol Levofloxacin (Levaquin 500 Mg Premixed Ivpb -) 500 mg in 100 mls @ 100 mls/hr IVPB DAILY [facility]; Protocol Last Admin: 10/04/19 11:57 Dose: 100 mls/hr Documented by: Sodium Chloride (Normal Saline -) 1,000 mls @ 50 mls/hr IV ASDIR [facility] Stop: 10/04/19 20:23 Last Admin: 10/03/19 22:09 Dose: 50 mls/hr Documented by: Lidocaine (Lidoderm Patch -) 1 patch TP DAILY [facility] Last Admin: 10/04/19 12:17 Dose: 1 patch Documented by: Methylnaltrexone [place] (Relistor -) 12 mg SQ DAILY [facility] Last Admin: 10/04/19 12:17 Dose: 12 mg Documented by: Methylprednisolone Sodium Succinate (Solu-Medrol -) 30 mg IVPB Q8H-IV [facility] Last Admin: 10/04/19 17:43 Dose: 30 mg Documented by: Metoprolol Tartrate (Lopressor -) 50 mg PO BID [facility] Last Admin: 10/04/19 11:56 Dose: 50 mg Documented by: Miscellaneous (Lidoderm Patch Removal) 1 each MC DAILY@2200 [facility] Last Admin: 10/03/19 22:10 Dose: Not Given Documented by: Minocycline 75mg (Capsule) 1 each PO HS [facility] Last Admin: 10/03/19 22:09 Dose: 1 each Documented by: Pantoprazole Sodium (Protonix -) 40 mg PO DAILY [facility] Last Admin: 10/04/19 11:55 Dose: 40 mg Documented by: Polyethylene Glycol (Miralax (For Daily Use) -) 34 gm PO BID [facility] Last Admin: 10/04/19 11:56 Dose: Not Given Documented by: Tbo-Filgrastim (Granix -) 300 mcg SQ DAILY [facility] - Objective Vital Signs: Vital Signs Temperature 97.8 F 10/04/19 18:15 Pulse Rate 120 H 10/04/19 18:15 Respiratory Rate 22 H 10/04/19 18:15 Blood Pressure 125/70 10/04/19 18:15 O2 Sat by Pulse Oximetry (%) 90 L 10/04/19 18:15 Constitutional: Yes: Other (fatigued.) Eyes: Yes: Conjunctiva Clear HENT: Yes: WNL Neck: Yes: Supple Cardiovascular: Yes: Regular Rate and Rhythm Respiratory: Yes: Dullness Gastrointestinal: Yes: Normal Bowel Sounds, Soft Musculoskeletal: Yes: WNL Edema: No Integumentary: Yes: WNL Neurological: Yes: Oriented Psychiatric: Yes: WNL Labs: CBC, BMP 10/04/19 06:15 10/03/19 20:00 INR, PTT INR 1.13 (0.83-1.09) H 09/22/19 20:04 Assessment/Plan 58 yo M with ILD , O2 dependent, COPD, CAD with NSCLa adenoca with sarcomatoid features, initial stage IIIC, s/p RT completed 08/23/19. Now with progressive disease, disease to chest wall, liver, bone, and symptomatic C2 mets. PDL1-0%. S/p biopsy of chest wall mass -- to send tissue for next gen seq uencing. S/p C1 carbo./alimta 09/30/19. Bone scan neg. Ct head negative. Stable respiratory symptoms. Plan for outpatient open MRI of C/T spine, then likely palliative RTX to C2 lesion. C/w current bowel regimen. [facility] outpt follow-up. D/w House Staff.
[2019-10-04] MEDS: TBO-FILGRASTIM 300 MCG/0.5 ML DISP.SYRINGE SQ SCH (20:33)
[2019-10-04] MEDS: MINOCYCLINE PO SCH (21:12)
[2019-10-04] MEDS: ATORVASTATIN CA 10 MG TABLET (FP) PO SCH (21:13)
[2019-10-04] MEDS: LIDOCAINE PATCH REMOVAL MC SCH (21:21)
[2019-10-05] MEDS: methylPREDNISolone NA SUCC 40 MG/1 ML VIAL IVPB SCH ×3 (01:48→17:20)
[2019-10-05] MEDS: GABAPENTIN 300 MG CAPSULE PO SCH ×2 (05:39→15:35)
[2019-10-05] MEDS: CYCLOBENZAPRINE HCL 10 MG TABLET (FP) PO SCH ×2 (05:39→15:35)
[2019-10-05] MEDS ORDERED: PT OWN MED DRAWER 7, Y5N ONE (09:16)
[2019-10-05] MEDS: METOPROLOL TARTRATE 50 MG TABLET (FP) PO SCH (09:24)
[2019-10-05] MEDS: CALCIUM 500MG/VIT-D 200 UNITS COMBO TABLET (FP) PO SCH (09:24)
[2019-10-05] MEDS: ASPIRIN 81 MG CHEWABLE TABLETS PO SCH (09:24)
[2019-10-05] MEDS: PANTOPRAZOLE 40 MG TABLET PO SCH (09:24)
[2019-10-05] MEDS: LIDOCAINE 5% TOPICAL PATCH TP SCH (09:24)
[2019-10-05] MEDS: FOLIC ACID 1 MG TABLET (FP) PO SCH (09:24)
[2019-10-05] MEDS: ALLOPURINOL 300 MG TABLET (FP) PO SCH (09:24)
[2019-10-05] MEDS: Methylnaltrexone Bromide 12 MG/0.6 ML KIT SQ SCH (09:25)
[2019-10-05] MEDS: POLYETHYLENE GLYCOL 3350 119 GM BTL PO SCH (09:25)
[2019-10-05] MEDS: ENOXAPARIN NA (PORCINE) 40 MG/0.4 ML DISP.SYRIN SQ SCH (09:25)
[2019-10-05 09:52] VITALS: BP 115/74; PULSE 120; TEMP 98
--- NOTE | 2019-10-05 11:49 | PN ---
Progress Note (short form) - Note Progress Note: PULMONARY Neck pain persists( destructive lesion C2) VSS/AFEBRILE ANICTERIC/PALE DISTANT BUT CLEAR BREATH SOUNDS S1S2 BS+ NO EDEMA LABS/MEDS/NOTES/IMAGES REVIEWED IMP CHRONIC HYPOXEMIC RESPIRATORY FAILURE ADVANCED ILD LUNG CA STAGE 111B NON-SMALL CELL H/O TRAUMATIC PTX S/P LUNG BX COPD R BREAST MASS ASHD S/P CABG BACK PAIN SECONDARY TO COMPRESSION FX CONSTIPATION OPIOID INDUCED PLAN SUPPLEMENTAL O2 INHALED BRONCHODILATORS PREDNISONE RELISTOR CHEMO PER ONCOLOGY PAIN CONTROL ONCO PLAN REVIEWED/LIKELY RT TO C-2 LESION PALLIATIVE R SAQIB DASH
--- NOTE | 2019-10-05 12:49 | DS ---
Physical Examination Vital Signs: Vital Signs Temperature 98 F 10/05/19 09:51 Pulse Rate 120 H 10/05/19 09:51 Respiratory Rate 18 10/05/19 09:51 Blood Pressure 115/74 10/05/19 09:51 O2 Sat by Pulse Oximetry (%) 98 10/05/19 09:51 Constitutional: Yes: No Distress HENT: Yes: WNL Neck: Yes: Supple Cardiovascular: Yes: Regular Rate and Rhythm Respiratory: Yes: Rhonchi Gastrointestinal: Yes: Normal Bowel Sounds Extremities: Yes: WNL Neurological: Yes: Alert, Oriented Labs: CBC, BMP 10/04/19 06:15 10/03/19 20:00 Discharge Summary Problems reviewed: Yes Reason For Visit: COMPRESSION FRACTURE OF T12 VERTEBRA Current Active Problems Chronic respiratory failure with hypoxia (Acute) Compression fracture (Acute) Constipation (Acute) Lung cancer (Acute) Therapeutic opioid induced constipation (Acute) - Instructions Diet, Activity, Other Instructions: see dr honeycutt /dr ryan out patient for further treatment Referrals: Gonzalez Urbina MD [Staff Physician] - Enriqueta Soler MD [Primary Care Provider] - Diogenes Honeycutt MD [Staff Physician] - - Home Medications Comprehensive Discharge Medication List: Ambulatory Orders Aspirin 81 mg PO HS 08/24/19 Atorvastatin Ca [Lipitor] 20 mg PO HS 08/24/19 Cyclobenzaprine HCl [Flexeril -] 10 mg PO TID 08/24/19 Metoprolol Tartrate 50 mg PO BID 08/24/19 Prednisone 10 mg PO DAILY 08/24/19 Acetaminophen [Tylenol .Regular Strength -] 325 mg PO Q6H PRN #90 tablet 08/31/19 Calcium 500Mg/Vit-D 200 Units [Os-Faisal 500+D -] 1 tab PO BID tab 08/31/19 Docusate Sodium [Colace -] 100 mg PO TID #90 capsule 08/31/19 Gabapentin [Neurontin -] 100 mg PO BID #60 capsule 08/31/19 Lidocaine 5% Patch [Lidoderm -] 1 patch TP DAILY@1600 #30 patch 08/31/19 Umeclidinium Brm/Vilanterol Tr [Anoro Ellipta 62.5-25 Mcg INH] 1 puff IH DAILY inhaler 08/31/19 Pantoprazole Sodium [Protonix -] 20 mg PO DAILY 09/22/19 Polyethylene Glycol 3350 [Miralax 255 gm Btl -] 17 gm PO DAILY 09/22/19 Prednisone 40 mg PO ASDIR #30 tablet 10/05/19 DC HOME D/W DR SOLER DC PLAN
--- NOTE | 2019-10-05 13:00 | PN ---
Progress Note, Physician Chief Complaint: no CP, palps, dizziness - Current Medication List Current Medications: Active Medications Acetaminophen (Tylenol -) 650 mg PO Q4H PRN PRN Reason: PAIN LEVEL 5-10 Last Admin: 10/04/19 12:59 Dose: 650 mg Documented by: Allopurinol (Zyloprim -) 300 mg PO DAILY [facility] Last Admin: 10/05/19 09:24 Dose: 300 mg Documented by: Alprazolam (Xanax -) 0.25 mg PO Q12H PRN PRN Reason: ANXIETY Aspirin (Asa -) 81 mg PO DAILY [facility] Last Admin: 10/05/19 09:24 Dose: 81 mg Documented by: Atorvastatin Calcium (Lipitor -) 10 mg PO HS [facility] Last Admin: 10/04/19 21:13 Dose: 10 mg Documented by: Calcium Carbonate/Cholecalciferol (Os-Faisal 500+D -) 1 tab PO BID [facility] Last Admin: 10/05/19 09:24 Dose: 1 tab Documented by: Cyclobenzaprine HCl (Flexeril -) 10 mg PO TID [facility] Last Admin: 10/05/19 05:39 Dose: 10 mg Documented by: Enoxaparin Sodium (Lovenox -) 40 mg SQ DAILY [facility] Last Admin: 10/05/19 09:25 Dose: 40 mg Documented by: Folic Acid (Folic Acid -) 1 mg PO DAILY [facility] Last Admin: 10/05/19 09:24 Dose: 1 mg Documented by: Gabapentin (Neurontin -) 300 mg PO TID [facility] Last Admin: 10/05/19 05:39 Dose: 300 mg Documented by: IV Flush (Deborah-Cath Flush) 10 ml IVPUSH PRN PRN PRN Reason: protocol Levofloxacin (Levaquin 500 Mg Premixed Ivpb -) 500 mg in 100 mls @ 100 mls/hr IVPB DAILY [facility]; Protocol Last Admin: 10/05/19 09:26 Dose: 100 mls/hr Documented by: Lidocaine (Lidoderm Patch -) 1 patch TP DAILY [facility] Last Admin: 10/05/19 09:24 Dose: Not Given Documented by: Methylnaltrexone [place] (Relistor -) 12 mg SQ DAILY [facility] Last Admin: 10/05/19 09:25 Dose: 12 mg Documented by: Methylprednisolone Sodium Succinate (Solu-Medrol -) 30 mg IVPB Q8H-IV [facility] Last Admin: 10/05/19 09:25 Dose: 30 mg Documented by: Metoprolol Tartrate (Lopressor -) 50 mg PO BID [facility] Last Admin: 10/05/19 09:24 Dose: 50 mg Documented by: Miscellaneous (Lidoderm Patch Removal) 1 each MC DAILY@2200 [facility] Last Admin: 10/04/19 21:21 Dose: Not Given Documented by: Minocycline 75mg (Capsule) 1 each PO HS [facility] Last Admin: 10/04/19 21:12 Dose: 1 each Documented by: Pantoprazole Sodium (Protonix -) 40 mg PO DAILY [facility] Last Admin: 10/05/19 09:24 Dose: 40 mg Documented by: Polyethylene Glycol (Miralax (For Daily Use) -) 34 gm PO BID [facility] Last Admin: 10/05/19 09:25 Dose: Not Given Documented by: Tbo-Filgrastim (Granix -) 300 mcg SQ DAILY [facility] Last Admin: 10/04/19 20:33 Dose: 300 mcg Documented by: - Objective Vital Signs: Vital Signs Temperature 98 F 10/05/19 09:51 Pulse Rate 120 H 10/05/19 09:51 Respiratory Rate 18 10/05/19 09:51 Blood Pressure 115/74 10/05/19 09:51 O2 Sat by Pulse Oximetry (%) 98 10/05/19 09:51 Constitutional: Yes: No Distress, Calm Eyes: Yes: Conjunctiva Clear Cardiovascular: Yes: Regular Rate and Rhythm Respiratory: Yes: Rhonchi Gastrointestinal: Yes: Soft Edema: No Peripheral Pulses WNL: Yes Neurological: Yes: Alert, Oriented ...Motor Strength: WNL Labs: CBC, BMP 10/04/19 06:15 10/03/19 20:00 INR, PTT INR 1.13 (0.83-1.09) H 09/22/19 20:04 Assessment/Plan Assessment/Plan EKG: sinus tach, RBBB, RVH stress echo 07/2018 nl EF, no ischemia echo 07/2019 nl LV function, mild LVH, borderline RV size/function, LA mod dilated, tr to mild MR, mild TR COPD, lung adenoca: - manage per onc, pulm - lasix PRN for volume overload, likely in setting of steroids, IVF. nl LV function on echo 07/2019 -Given IV dose yesterday, no sig improvement in sx which are primarily pulmonary. -Will reassess over weekend tachycardia: - sinus tachycardia likely in the setting of pain - management of pain per primary - cont metoprolol abnormal EKG: - EKG with RBBB, RVH likely 2/2 underlying pulmonary dz, stable CAD s/p CABG: - cont aspirin, statin, bb, plavix HTN: - cont home meds HLD: - cont statin
--- NOTE | 2019-10-05 14:42 | PN ---
Progress Note (short form) - Note Progress Note: NEUROSURGERY No H/A R suboccipital/retoauricular pain better Sitting up in bed Seen by cardiology PE: Tmax 98.4, VSS General- unremarkable; kyphotic TL junction/hunched over; Neck- minimal R sided cervical and retroauricular tenderness CN- intact; Motor- 5/5 B UE/LE; Sensation- intact LT; DTR- 2+; Back- minimal tenderness C spine CT- R C2 anterior lytic lesion with slight vertebral expansion; no canal or posterior element involvement; no C6 or C7 fracture Head CT with/without - no fx, no acute bleed, no large territorial stroke, no large enhancing mass Lung CA (NSC/adeno), stage IV, with R anterior C2 vertebral involvement? Osteoporosis (steroid related) with T11 osteoporotic fx, bone scan negative for blastic activity Bone scan: no significant increased uptake Biopsy result pending Consider focal RT for palliative tx if MRI imaging positive (d/w Dr Urbina previously) Should undergo MRI C and T spine with indira prior to RT to ascertain R C2 lesion beforehand but patient has been reluctant and non-compliant On Neurontin and Oxycodone per pain management; adjusted Neurontin upwards to 300mg tid, Cont outpatient Bowel regimen
--- NOTE | 2019-10-05 16:25 | PATH ---
Surgical Pathology Report Patient Name: HARRISON MUHAMMAD Med. Rec. #: [id number] /Age/Gender: 1960 (Age: 58) / M Account: [id number] Location: [facility] MED/SURG Taken: 10/01/2019 Received: 10/02/2019 Reported: 10/05/2019 Physicians: Renan Sotelo M.D. Smitha Mellacheruvu, M.D. 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 Comment: The biopsy shows a high grade malignant epithelioid neoplasm. The tumor cells show morphologic overlap with prior right lung biopsy material ([id number]). Immunohistochemical stained slides demonstrate the tumor is positive for Synaptophysin, Vimentin, AE1/AE 3 (focal, rare), and TTF-1 (focal, scattered); the tumor is negative for p40, CK-HMW, Cam5.2, CK7, CK20, Chromogranin A, CD56, Napsin A, CDH17, and NKX3.1. Ki-67 index is~50%; CD45 highlights scattered inflammatory cells in the background. In summary, in view of known history of lung adenocarcinoma, findings are compatible with a poorly differentiated carcinoma of lung origin with neuroendocrine differentiation. Immunohistochemistry stains Synaptophysin, AE1/AE 3, CK7, CK20, CD45, and TTF-1 performed and interpreted at [facility]. Immunohistochemistry stains p40, CKHMW, Cam5.2, CD56, Napsin A, Vimentin, CDH17, NKX3.1, and Ki-67 performed at [place], [place] ([id number]) and interpreted at [facility]. Positive and negative controls (internal if applicable) show appropriate results. Intradepartmental case review concordance on diagnosis. This case was discussed with Dr. Lin on 10/05/2019. Electronically Signed Sergey Guzman M.D. Gross Description Received in formalin labeled "chest wall biopsy," are 4 guzman, cylindrical portions of soft tissue ranging from 0.9-1.5 cm in length and averaging 0.1 cm in diameter. The specimens are submitted in toto in one cassette. 10/02/2019 [facility]10/02/2019
--- NOTE | 2019-10-05 17:01 | PN.HO ---
Progress Note (short form) - Note Progress Note: 58M with ILD on home O2, Lung adeno with progression of dx to chest wall, liver, bone and symptomatic spinal met (C2) s/p biopsy of chest wall mass with next gen pending; received C1D1 of carbo/alimta on 09/30. Seen by rad onc, planning for outpt xrt to spinal lesion. Social work to set up outpt O2; will also need Pulm to advise on steroid mngmt as outpt. Plan to dc today. Will continue oncology care as outpatient. patient aware to call office on Tuesday to arrange an appointment with us.
[2019-10-05] MEDS: TBO-FILGRASTIM 300 MCG/0.5 ML DISP.SYRINGE SQ SCH (17:21)
--- NOTE | 2019-10-11 23:52 | DS ---
Physical Examination Vital Signs: Vital Signs Temperature 98 F 10/05/19 09:51 Pulse Rate 120 H 10/05/19 09:51 Respiratory Rate 18 10/05/19 09:51 Blood Pressure 115/74 10/05/19 09:51 O2 Sat by Pulse Oximetry (%) 98 10/05/19 09:51 Labs: CBC, BMP 10/04/19 06:15 10/03/19 20:00 Discharge Summary Problems reviewed: Yes Reason For Visit: COMPRESSION FRACTURE OF T12 VERTEBRA - (1) Lung cancer (2) Therapeutic opioid induced constipation (3) Vertebral fracture (4) COPD (chronic obstructive pulmonary disease) (5) Interstitial lung disease (6) HLD (hyperlipidemia) 7) HTN (hypertension) (8) CAD (coronary artery disease) Severe malnutrition Hospital Course: 58 M presents with constipation for 16 days.Pt had a T11 compression fracture that was evaluated by [facility] neurosurgery, and no surgical intervention was indicated. Due to the intense pain, pt used some of the tylenol/codeine from p revious prescriptions given to him during his radiation sessions. Since starting codeine and oxycodone, the pt was unable to have a BM. Coalce and miralax did not improve his symptoms. Pt was given relistor w/ improvement in BM. - Instructions Diet, Activity, Other Instructions: see dr honeycutt /dr ryan out patient for further treatment Referrals: Gonzalez Urbina MD [Staff Physician] - Enriqueta Soler MD [Primary Care Provider] - Diogenes Honeycutt MD [Staff Physician] - Disposition: HOME - Home Medications Comprehensive Discharge Medication List: Ambulatory Orders Aspirin 81 mg PO HS 08/24/19 Atorvastatin Ca [Lipitor] 20 mg PO HS 08/24/19 Cyclobenzaprine HCl [Flexeril -] 10 mg PO TID 08/24/19 Metoprolol Tartrate 50 mg PO BID 08/24/19 Prednisone 10 mg PO DAILY 08/24/19 Acetaminophen [Tylenol .Regular Strength -] 325 mg PO Q6H PRN #90 tablet 0 Calcium 500Mg/Vit-D 200 Units [Os-Faisal 500+D -] 1 tab PO BID tab 08/31/19 Docusate Sodium [Colace -] 100 mg PO TID #90 capsule 08/31/19 Gabapentin [Neurontin -] 100 mg PO BID #60 capsule 08/31/19 Lidocaine 5% Patch [Lidoderm -] 1 patch TP DAILY@1600 #30 patch 08/31/19 Umeclidinium Brm/Vilanterol Tr [Anoro Ellipta 62.5-25 Mcg INH] 1 puff IH DAILY inhaler 08/31/19 Pantoprazole Sodium [Protonix -] 20 mg PO DAILY 09/22/19 Polyethylene Glycol 3350 [Miralax 255 gm Btl -] 17 gm PO DAILY 09/22/19 Cyclobenzaprine HCl [Flexeril -] 10 mg PO TID #90 tablet 10/05/19 Gabapentin 300 mg PO TID #90 capsule 10/05/19 Methylnaltrexone [place] [Relistor -] 12 mg SQ DAILY #30 kit 10/05/19 Miscellaneous Medical Supply [Outpatient Order] 1 each ASDIR #1 misc 10/05/19 Prednisone 40 mg PO ASDIR #30 tablet 10/05/19 Sennosides [Senna] 8.6 mg PO TID #90 tablet 10/05/19
== END 2019-10-05 18:45 | disposition home or self-care (01) | DRG 542 ==
LOC: JER 17:31 → SUPCPDRO 17:31 → JERBED 09-23 02:04 → J6S 09-23 05:14 → J7W 09-25 22:11
PROVIDERS: ADMIT Internal Medicine; ATTEND Internal Medicine
PROC: 0WB83ZX Excision of Chest Wall, Percutaneous Approach, Diagnostic (ICD-10-PCS; principal; 2019-10-01)
DX: M80.88XA Other osteoporosis with current pathological fracture, vertebra(e), initial encounter for fracture (principal); E43 Unspecified severe protein-calorie malnutrition; C34.90 Malignant neoplasm of unspecified part of unspecified bronchus or lung; J84.9 Interstitial pulmonary disease, unspecified; J96.11 Chronic respiratory failure with hypoxia; C78.7 Secondary malignant neoplasm of liver and intrahepatic bile duct; C79.89 Secondary malignant neoplasm of other specified sites; C79.51 Secondary malignant neoplasm of bone; K59.03 Drug induced constipation; I10 Essential (primary) hypertension; J44.9 Chronic obstructive pulmonary disease, unspecified; E78.5 Hyperlipidemia, unspecified; I25.10 Atherosclerotic heart disease of native coronary artery without angina pectoris; Z95.1 Presence of aortocoronary bypass graft; E83.52 Hypercalcemia; K21.9 Gastro-esophageal reflux disease without esophagitis; E66.9 Obesity, unspecified; Z68.23 Body mass index [BMI] 23.0-23.9, adult; R00.0 Tachycardia, unspecified; Z95.5 Presence of coronary angioplasty implant and graft; E86.0 Dehydration
CPT/HCPCS: 32405; 36415; 70470-TC; 71045-TC-FY; 72050-TC-FY; 72125-TC; 74177-TC; 76942-TC; 78306-TC; 80048; 80053; 82550; 83615; 83690; 83735; 83880; 83970; 84100; 84484; 84550; 85025; 85027; 85610; 85730; 87070; 87205; 87899; 88305-TC; 88341-TC; 93005; 93010; 94010; 94640; 99285-25; A9503; J0131; J1447; J1453; J2469; J9305; Q9967; U0003

== ENCOUNTER 2019-10-12 15:08 | Inpatient (IN) | payer OTHER ==
[2019-10-12] MEDS ORDERED: methylPREDNISolone NA SUCC 125 MG/2 ML VIAL IVPB ONE (15:52)
[2019-10-12 16:34] LABS: ARTERIAL BLD GAS O2 SATURATION 96.9 mmHg (95-98); ARTERIAL BLOOD GAS BASE EXCESS 4.3 mmol/L (-2-2); ARTERIAL BLOOD GAS PO2 85.9 mmHg (80-100); ARTERIAL BLOOD GAS pH 7.461 (7.350-7.450)
[2019-10-12] MEDS ORDERED: methylPREDNISolone NA SUCC 125 MG/2 ML VIAL ONE (17:02)
--- NOTE | 2019-10-12 17:05 | PDOC ---
Attending Attestation - Resident Resident Name: Chester Garrison - ED Attending Attestation I have performed the following: I have examined & evaluated the patient, The case was reviewed & discussed with the resident, I agree w/resident's findings & plan - HPI HPI: 10/12/19 17:02 59 YOM with h/o lung ca, constipation 2/2 opioids, COPD on O2, ILD, HTN, HLD, CAD, recent admission thoracic compression fx in August 2019 presenting with SOB o n exertion x several days and hypoxia despite up titration of nasal cannula, which he goes up to 10L with exertion.. Pt was discharged last week after stay for thoracic compression fracture. pt reports sudden increase in oxygen requirement. denies any cough, wheezing, productive or other gutiérrez. 10/12/19 17:05 10/12/19 19:13 - Physicial Exam PE: 10/12/19 17:03 Agree with the resident's HPI and PE as documented in the electronic medical record. short of breath, mild respiratory distress, tachypneic, hypoxic, EOMI, PERRL, nl conjunctiva, anicteric; neck supple. lungs w/bilateral crackles, +tachycardic, sternotomy scar, abdomen soft nontender. No rebound, no guarding. Back nontender. PERSAUD x4, no focal neuro deficits. No peripheral edema. normal color for ethnicity, WWP. - Medical Decision Making 10/12/19 17:04 Vital Signs Temp Pulse Resp BP Pulse Ox 99.1 F 120 H 26 H 111/73 100 10/12/19 15:17 10/12/19 16:43 10/12/19 15:17 10/12/19 15:17 10/12/19 16:43 DDx SOB: ACS, PE, PTX, CHF, COPD exac, pulmonary edema, pleurisy, pneumonia, viral syndrome. effusion. anemia, electrolyte/metabolic derangements. vitals reviewed, +tachy and hypoxic. low grade temp needs rectal temp, _which is 100.3, on O2, uptitrated to NRB, difficult to tolerate even with mask bipap indicated, has h/o copd, abg no retention, no acidosis or alkalosis labs and lytes unremarkable. +thrombocytopenia, however no active bleeding, no petechiae. cardiac profile neg cxr with chronic interstitial lung findings, similar to prior. covid testing stable on bipap CTA to eval for PE given hypoxia and tachycardia. IV vancomycin and zosyn for infection/pneumonia given comorbidities and lung ca, on chemo, immunocompromised state admit to Dr Soler admit to telemetry 10/12/19 19:14 Discharge - Discharge Information Problems reviewed: Yes Clinical Impression/Diagnosis: Acute respiratory failure with hypoxia Condition: Fair - Admission Yes - Follow up/Referral Referrals: Enriqueta Soler MD [Primary Care Provider] - - Patient Discharge Instructions - Post Discharge Activity
[2019-10-12 17:16] LABS: HEMATOCRIT 25.2 % (35.4-49); HEMOGLOBIN 8.6 GM/dL (11.7-16.9); LYMPH % 1.4 % (8-40); MCH 31.4 pg (25.7-33.7); MEAN CELL VOLUME 92.4 fl (80-96); MEAN PLT VOLUME 8.1 fl (7.5-11.1); NEUT % 93.6 % (42.8-82.8); RBC 2.72 M/mm3 (4.00-5.60); RDW 16.8 % (11.9-15.9); WHITE BLOOD COUNT 7.4 K/mm3 (4.0-10.0)
[2019-10-12 17:19] LABS: PLATELET COUNT 29 K/MM3 (134-434)
[2019-10-12 17:23] LABS: INR 1.2 (0.83-1.09); PROTHROMBIN TIME (PATIENT) 14.2 SEC (9.7-13.0)
[2019-10-12 17:26] LABS: ACTIVATED PTT 26.2 SECONDS (25.2-36.5)
--- NOTE | 2019-10-12 17:31 | PDOC ---
History of Present Illness - General Chief Complaint: Respiratory Stated Complaint: RESPIRATORY Time Seen by Provider: 10/12/19 15:25 - History of Present Illness Initial Comments: 10/12/19 17:32 59 yo M with ILD , O2 dependent(7-8L at home) , COPD, CAD s/p CABG, HTN ,HLD , Lung Ca on chemotherapy with presenting with shortness of breath for the last 2 days. Pt was discharged last week after stay for thoracic compression fracture. pt reports sudden increase in oxygen requirement. denies any cough, wheezing, productive or other gutiérrez. pt denies fevers. chills, nausea, vomiting, chest pain, diaphoresis, diarrhea, abdominal pain, oncologist: Dr. Gregory pulmonology Dr. Ron cards: [facility] pcp: Dr. Sp Galloway Past History - Medical History Allergies/Adverse Reactions: Allergies Allergy/AdvReac Type Severity Reaction Status Date / Time No Known Allergies Allergy Verified 10/12/19 15:17 Home Medications: Ambulatory Orders Aspirin 81 mg PO HS 08/24/19 Atorvastatin Ca [Lipitor] 20 mg PO HS 08/24/19 Cyclobenzaprine HCl [Flexeril -] 10 mg PO TID 08/24/19 Metoprolol Tartrate 50 mg PO BID 08/24/19 Prednisone 10 mg PO DAILY 08/24/19 Acetaminophen [Tylenol .Regular Strength -] 325 mg PO Q6H PRN #90 tablet 08/31/19 Calcium 500Mg/Vit-D 200 Units [Os-Faisal 500+D -] 1 tab PO BID tab 08/31/19 Docusate Sodium [Colace -] 100 mg PO TID #90 capsule 08/31/19 Lidocaine 5% Patch [Lidoderm -] 1 patch TP DAILY@1600 #30 patch 08/31/19 Umeclidinium Brm/Vilanterol Tr [Anoro Ellipta 62.5-25 Mcg INH] 1 puff IH DAILY inhaler 08/31/19 Pantoprazole Sodium [Protonix -] 20 mg PO DAILY 09/22/19 Polyethylene Glycol 3350 [Miralax 255 gm Btl -] 17 gm PO DAILY 09/22/19 Cyclobenzaprine HCl [Flexeril -] 10 mg PO TID #90 tablet 10/05/19 Gabapentin 300 mg PO TID #90 capsule 10/05/19 Methylnaltrexone [place] [Relistor -] 12 mg SQ DAILY #30 kit 10/05/19 Miscellaneous Medical Supply [Outpatient Order] 1 each ASDIR #1 misc 10/05/19 Prednisone 40 mg PO ASDIR #30 tablet 10/05/19 Sennosides [Senna] 8.6 mg PO TID #90 tablet 10/05/19 Gabapentin [Neurontin -] 300 mg PO BID 10/13/19 Anemia: No Asthma: No Cancer: (Yes; Lung CA -stage 2) Cardiac Disorders: Yes ([place] 04/06/13 with stent, quadruple bypass 2015 ([facility])) CVA: No COPD: Yes CHF: Yes Dementia: No Diabetes: No GI Disorders: Yes (GERD) Disorders: No HTN: Yes Hypercholesterolemia: Yes Liver Disease: No Seizures: No Thyroid Disease: No Lung CA: Yes (RIGHT) - Surgical History Abdominal Surgery: No Appendectomy: No Cardiac Surgery: Yes (05/2013-CABG 1 stent, angioplasty, 4bypass 2015) Cholecystectomy: No Lung Surgery: No Neurologic Surgery: No Orthopedic Surgery: Yes (1989 Fractured Ankle) - Immunization History Immunization Up to Date: Yes - Psycho-Social/Smoking History Smoking History: Former smoker Have you smoked in the past 12 months: No Number of Cigarettes Smoked Daily: 20 If you are a former smoker, when did you quit?: 2013 Information on smoking cessation initiated: No - Substance Abuse Hx (Audit-C & DAST Scrn) How often the patient has a drink containing alcohol: Never Score: In Men: 4 or > Positive; In Women: 3 or > Positive: 0 Screen Result (Pos requires Nsg. Audit-10AR): Negative Review of Systems - Review of Systems Constitutional: Yes: Fever. No: Chills HEENTM: No: Eye Pain, Blurred Vision Respiratory: Yes: Cough, Shortness of Breath, SOB with Exertion. No: Stridor, Wheezing, Productive cough Cardiac (ROS): Yes: Edema. No: Chest Pain, Palpitations, Syncope ABD/GI: No: Abdominal Distended, Diarrhea, Nausea, Vomiting : No: Burning, Dysuria, Discharge Musculoskeletal: Yes: Back Pain, Muscle Pain, Neck Pain Integumentary: No: Bruising, Change in Color, Lesions Neurological: No: Headache, Numbness Psychiatric: No: Frequent Crying Endocrine: No: Excessive Sweating, Flushing *Physical Exam - Vital Signs Last Vital Signs Temp Pulse Resp BP Pulse Ox 99.1 F 120 H 26 H 111/73 100 10/12/19 15:17 10/12/19 16:43 10/12/19 15:17 10/12/19 15:17 10/12/19 16:43 - Physical Exam General Appearance: Yes: Moderate Distress HEENT: positive: Normal Voice Neck: positive: Trachea midline Respiratory/Chest: positive: Respiratory Distress, Accessory Muscle Use, Labored Respiration, Crackles. negative: Stridor, Wheezing Cardiovascular: positive: S1, S2, Edema, Tachycardia. negative: JVD, Murmur, G allop/S3 Vascular Pulses: Dorsalis-Pedis (R): 1+, Doralis-Pedis (L): 1+ Gastrointestinal/Abdominal: positive: Normal Bowel Sounds, Soft. negative: Te nder, Pulsatile Mass, Distended, Guarding, Rebound, Tenderness, Mass Musculoskeletal: negative: CVA Tenderness, CVA Tenderness (R) Extremity: positive: Normal Capillary Refill, Other (1+ edema bilateral lower extremities to mid calf. ). negative: Tender, Swelling Integumentary: positive: Normal Color, Dry, Warm. negative: Cyanotic, Erythema, Jaundice, Diaphoresis Neurologic: positive: Fully Oriented, Alert, Normal Mood/Affect. negative: EOM Palsy, Facial Droop ED Treatment Course - LABORATORY CBC & Chemistry Diagram: 10/12/19 16:09 10/12/19 16:09 - ADDITIONAL ORDERS Additional order review: Laboratory Results 10/12/19 10/12/19 16:24 16:09 PT with INR 14.20 H INR 1.20 H PTT (Actin FS) 26.2 Anticoagulation Therapy No Result Required. Puncture Site No Result Required. Patient Temperature No Result Required. ABG pH 7.461 H ABG pCO2 40.90 ABG pO2 85.9 ABG HCO3 28.5 H ABG O2 Sat (Measured) 96.9 ABG O2 Content No Result Required. ABG Base Excess 4.3 H Elfego Test Not applicable Patient On Oxygen No Result Required. O2 Delivery Device No Result Required. Oxygen Flow Rate No Result Required. Vent Mode No Result Required. Vent Rate No Result Required. Mechanical Rate No Result Required. PEEP No Result Required. Pressure Support Vent No Result Required. 10/12/19 16:09 RBC 2.72 L MCV 92.4 MCHC 34.0 RDW 16.8 H MPV 8.1 Neutrophils % 93.6 H Lymphocytes % 1.4 L Monocytes % 5.0 Eosinophils % 0.0 Basophils % 0.0 - Medications Given in the ED: ED Medications Discontinued Medications Generic Name Dose Route Start Last Admin Trade Name Freq PRN Reason Stop Dose Admin Methylprednisolone Sodium Succinate 125 mg 10/12/19 15:52 10/12/19 16:49 Solu-Medrol - IVPB 10/12/19 15:53 125 mg ONCE ONE Administration Medical Decision Making - Medical Decision Making 10/12/19 18:05 59 yo M with ILD , O2 dependent(7-8L at home) , COPD, CAD s/p CABG, HTN ,HLD , Lung Ca on chemotherapy with presenting with shortness of breath for the last 2 days. ddx; p.e, pneumonia, acs, copd exacerbation, covid-19, progressive lung Ca/fibrosis workup: cbc, cmp, pt/inr ,ptt, abg, ekg, cta tx; bipap, solumedrol rectal temp : 100.2, scores HEART: 4 WELLS criteria score 7 ED course pt placed on Bipap to aid work of breathing cta to rule out p.e low grade fever of 100.2, tx for pneumonia, due to lung ca status and very recent hospital discharg. , tx with vanc and zosyn labs remarkable for thrombocytopenia, elevated bnp, EKG:sinus tachycardia, RBBB, prolonged qtc 492ms ,possible left atrial enlargem ent. CXR: chronic interstitial lung changes with some super imposed alveolar changes. prominent mediastinum with sternal sutures right jugular port in place. bedside ultrasound showing b-lines in anterior and lung bases bilaterally cta pending done and report pending, pt signed out to night team. 10/13/19 17:31 Discharge - Discharge Information Problems reviewed: Yes Clinical Impression/Diagnosis: Acute respiratory failure with hypoxia Condition: Fair - Follow up/Referral - Patient Discharge Instructions - Post Discharge Activity
[2019-10-12] MEDS ORDERED: VANCOMYCIN 1 GM in D5W (PRE-DOCKED) 1,000 MG/250 ML IVPB ONE (17:45)
[2019-10-12] MEDS ORDERED: PIPERACILLIN/TAZOB 4.5 GM 4.5 GM in DEXTROSE 5%-WATER 100 ML IVPB ONE (17:45)
[2019-10-12 17:46] LABS: N-TERMINAL BNP 2636.2 pg/ml (5-125)
[2019-10-12 17:47] LABS: ALBUMIN 2.7 g/dl (3.4-5.0); BILIRUBIN,TOTAL 0.7 mg/dL (0.2-1); BLOOD UREA NITROGEN 33.1 mg/dL (7-18); CALCIUM 9.1 mg/dL (8.5-10.1); POTASSIUM 4.6 mmol/L (3.5-5.1); TOT PROT 5.9 g/dl (6.4-8.2)
[2019-10-12] MEDS ORDERED: ACETAMINOPHEN 1000 MG/100 ML VIAL (NON FORMULARY) IVPB ONE (17:48)
[2019-10-12 18:01] LABS: ANISOCYTOSIS 2+; MACROCYTOSIS 1+; PLATELET ESTIMATE DECREASED; TARGET CELLS 2+
[2019-10-12] MEDS ORDERED: ACETAMINOPHEN INJECTION 100 ML IVPB ONE (19:54)
[2019-10-12] MEDS ORDERED: PIPERACILLIN/TAZOB 4.5 GM 4.5 GM/100 ML BAG IVPB ONE (19:55)
[2019-10-12] MEDS ORDERED: VANCOMYCIN 1 GRAM (PRE-DOCKED) 1,000 MG/250 ML BAG IVPB ONE (19:55)
--- NOTE | 2019-10-12 20:46 | PDOC ---
*Physical Exam - Vital Signs Last Vital Signs Temp Pulse Resp BP Pulse Ox 99.1 F 125 H 28 H 94/65 99 10/12/19 15:17 10/12/19 20:26 10/12/19 20:26 10/12/19 20:26 10/12/19 20:26 - Physical Exam General Appearance: Yes: Appropriately Dressed, Apparent Distress HEENT: positive: EOMI, Normal Voice Neck: negative: Tender, Rigid Respiratory/Chest: positive: Lungs Clear, Normal Breath Sounds, Respiratory Distress Cardiovascular: positive: Regular Rhythm, Regular Rate, S1, S2. negative: Edema Gastrointestinal/Abdominal: positive: Tender, Flat, Soft Musculoskeletal: positive: Normal Inspection. negative: CVA Tenderness Extremity: positive: Normal Capillary Refill, Normal Inspection, Normal Range of Motion Integumentary: positive: Normal Color, Dry, Warm Neurologic: positive: Fully Oriented, Alert, Normal Mood/Affect ED Treatment Course - LABORATORY CBC & Chemistry Diagram: 10/12/19 16:09 10/12/19 16:09 - ADDITIONAL ORDERS Additional order review: Laboratory Results 10/12/19 10/12/19 10/12/19 16:24 16:09 16:09 PT with INR INR PTT (Actin FS) Anticoagulation Therapy No Result Required. Puncture Site No Result Required. Patient Temperature No Result Required. ABG pH 7.461 H ABG pCO2 40.90 ABG pO2 85.9 ABG HCO3 28.5 H ABG O2 Sat (Measured) 96.9 ABG O2 Content No Result Required. ABG Base Excess 4.3 H Elfego Test Not applicable Patient On Oxygen No Result Required. O2 Delivery Device No Result Required. Oxygen Flow Rate No Result Required. Vent Mode No Result Required. Vent Rate No Result Required. Mechanical Rate No Result Required. PEEP No Result Required. Pressure Support Vent No Result Required. Sodium 137 Potassium 4.6 Chloride 97 L Carbon Dioxide 31 Anion Gap 9 BUN 33.1 H Creatinine 1.0 Est GFR (CKD-EPI)AfAm 93.73 Est GFR (CKD-EPI)NonAf 80.87 Random Glucose 128 H Calcium 9.1 Total Bilirubin 0.7 AST 97 H ALT 21 Alkaline Phosphatase 93 Creatine Kinase 38 Troponin I 0.02 B-Natriuretic Peptide 2636.2 H Total Protein 5.9 L Albumin 2.7 L 10/12/19 16:09 PT with INR 14.20 H INR 1.20 H PTT (Actin FS) 26.2 Anticoagulation Therapy Puncture Site Patient Temperature ABG pH ABG pCO2 ABG pO2 ABG HCO3 ABG O2 Sat (Measured) ABG O2 Content ABG Base Excess Elfego Test Patient On Oxygen O2 Delivery Device Oxygen Flow Rate Vent Mode Vent Rate Mechanical Rate PEEP Pressure Support Vent Sodium Potassium Chloride Carbon Dioxide Anion Gap BUN Creatinine Est GFR (CKD-EPI)AfAm Est GFR (CKD-EPI)NonAf Random Glucose Calcium Total Bilirubin AST ALT Alkaline Phosphatase Creatine Kinase Troponin I B-Natriuretic Peptide Total Protein Albumin 10/12/19 16:09 RBC 2.72 L MCV 92.4 MCHC 34.0 RDW 16.8 H MPV 8.1 Neutrophils % 93.6 H Lymphocytes % 1.4 L Monocytes % 5.0 Eosinophils % 0.0 Basophils % 0.0 - Medications Given in the ED: ED Medications Discontinued Medications Generic Name Dose Route Start Last Admin Trade Name Freq PRN Reason Stop Dose Admin Acetaminophen 1,000 mg 10/12/19 17:48 10/12/19 19:55 Ofirmev Injection - IVPB 10/12/19 17:49 1,000 mg ONCE ONE Administration Piperacillin Sod/Tazobactam 100 mls @ 200 mls/hr 10/12/19 17:45 10/12/19 20:25 Sod 4.5 gm/ Dextrose IVPB 10/12/19 18:14 200 mls/hr ONCE ONE Administration Protocol Methylprednisolone Sodium Succinate 125 mg 10/12/19 15:52 10/12/19 16:49 Solu-Medrol - IVPB 10/12/19 15:53 125 mg ONCE ONE Administration Oxycodone/Acetaminophen 2 combo 10/12/19 20:16 10/12/19 20:18 Percocet 5/325 - PO 10/12/19 20:17 2 combo ONCE ONE Administration Medical Decision Making - Medical Decision Making 59 yo male with PMH of HTN, HLD, COPD, CAD, Lung Ca on chemotherapy, Diastolic CHF presents with 2 day hx of SOB DDx: COPD vs CHF vs PE Xray- consistent with previous CTA- no evidence of PE Platelet 29 Hemoglobin 8.6 BNP 2600 Troponin negative BIPAP O2 50% sating at 99% Tx with Vanc/Zosyn 10/12/19 20:57 Discussed/Admitted with Dr. Soler Discharge - Discharge Information Problems reviewed: Yes Clinical Impression/Diagnosis: Acute respiratory failure with hypoxia Condition: Fair - Admission Yes - Follow up/Referral - Patient Discharge Instructions - Post Discharge Activity
[2019-10-13] MEDS ORDERED: ALBUTEROL SO4 2.5/IPRATROPIUM 0.5 INH SOL 3 ML VIAL.NEB. NEB PRN (01:47)
[2019-10-13] MEDS ORDERED: PIPERACILLIN/TAZOBACTAM 3.375 GM VIAL IVPB ONE ×3 (02:18→17:04)
[2019-10-13] MEDS ORDERED: DEXTROSE 5%-WATER - 50 ML IVPB ONE ×3 (02:18→17:04)
[2019-10-13] MEDS: methylPREDNISolone NA SUCC 40 MG/1 ML VIAL IVPUSH SCH ×3 (02:19→17:46)
[2019-10-13] MEDS: PIPERACILLIN/TAZOB 3.375 GM 3.375 GM in DEXTROSE 5%-WATER - 50 ML IVPB SCH ×3 (02:19→17:46)
[2019-10-13] MEDS: METOPROLOL TARTRATE 50 MG TABLET (FP) PO SCH ×3 (02:19→21:36)
[2019-10-13] MEDS: VANCOMYCIN 1 GRAM (PRE-DOCKED) 1,000 MG/250 ML BAG IVPB SCH ×2 (02:20→14:02)
[2019-10-13] MEDS: DEXTROSE 5%-0.45% SALINE 1,000 ML IV SCH ×2 (02:29→21:32)
[2019-10-13] MEDS: oxyCODONE HCL 5 MG TABLET PO PRN ×3 (04:12→23:38)
[2019-10-13] MEDS: ACETAMINOPHEN 325 MG TABLET (FP) PO PRN ×3 (04:13→23:37)
[2019-10-13] MEDS: DOCUSATE SODIUM 100 MG CAPSULE (FP) PO SCH ×5 (06:01→21:38)
[2019-10-13] MEDS: CYCLOBENZAPRINE HCL 10 MG TABLET (FP) PO SCH ×3 (06:02→21:37)
[2019-10-13] MEDS: SENNOSIDES 8.6MG TABLET (FP) PO SCH ×5 (06:02→21:38)
[2019-10-13] MEDS: GABAPENTIN 300 MG CAPSULE PO SCH ×3 (06:02→21:35)
[2019-10-13] MEDS: Methylnaltrexone Bromide 12 MG/0.6 ML KIT SQ SCH (09:38)
[2019-10-13] MEDS: CALCIUM 500MG/VIT-D 200 UNITS COMBO TABLET (FP) PO SCH ×2 (09:40→21:40)
[2019-10-13] MEDS: POLYETHYLENE GLYCOL 3350 255 GM BTL PO SCH (09:41)
[2019-10-13] MEDS: UMECLIDINIUM/VILANTEROL (ANORO) 62.5/25 MCG INHALER IH SCH (09:42)
--- NOTE | 2019-10-13 09:48 | PN ---
Progress Note (short form) - Note Progress Note: Patient of dr. Portillo. Dr. Portillo informed he will see the patient.
--- NOTE | 2019-10-13 11:19 | CON.CARD ---
Cardiology Consult (text) - Consultation Consultation Note: Chief Complaint: shortness of breath History of Present Illness: 59M h/o CAD s/p CABG, COPD, IPF, HTN, HLD, lung adenoca stage IIA s/p umbrella valve placement p/w sob. Sees Dr. Portillo for cardio. No cp palps dizzy loc pnd orthopnea le edema. Noticed sob and increased o2 requirements at home so came in. Found to have pna, on abx now. 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[place], [place]) History of Recent Travel: No Home Medications - Allergies Allergies/Adverse Reactions: Allergies Allergy/AdvReac Type Severity Reaction Status Date / Time No Known Allergies Allergy Verified 10/12/19 15:17 Ambulatory Orders Aspirin 81 mg PO HS 08/24/19 Atorvastatin Ca [Lipitor] 20 mg PO HS 08/24/19 Cyclobenzaprine HCl [Flexeril -] 10 mg PO TID 08/24/19 Metoprolol Tartrate 50 mg PO BID 08/24/19 Prednisone 10 mg PO DAILY 08/24/19 Acetaminophen [Tylenol .Regular Strength -] 325 mg PO Q6H PRN #90 tablet 08/31/19 Calcium 500Mg/Vit-D 200 Units [Os-Faisal 500+D -] 1 tab PO BID tab 08/31/19 Docusate Sodium [Colace -] 100 mg PO TID #90 capsule 08/31/19 Lidocaine 5% Patch [Lidoderm -] 1 patch TP DAILY@1600 #30 patch 08/31/19 Umeclidinium Brm/Vilanterol Tr [Anoro Ellipta 62.5-25 Mcg INH] 1 puff IH DAILY inhaler 08/31/19 Pantoprazole Sodium [Protonix -] 20 mg PO DAILY 09/22/19 Polyethylene Glycol 3350 [Miralax 255 gm Btl -] 17 gm PO DAILY 09/22/19 Cyclobenzaprine HCl [Flexeril -] 10 mg PO TID #90 tablet 10/05/19 Gabapentin 300 mg PO TID #90 capsule 10/05/19 Methylnaltrexone [place] [Relistor -] 12 mg SQ DAILY #30 kit 10/05/19 Miscellaneous Medical Supply [Outpatient Order] 1 each ASDIR #1 misc 10/05/19 Prednisone 40 mg PO ASDIR #30 tablet 10/05/19 Sennosides [Senna] 8.6 mg PO TID #90 tablet 10/05/19 Gabapentin [Neurontin -] 300 mg PO BID 10/13/19 Family Medical History Family History: Unremarkable Review of Systems per hpi; all others nl Vital Signs Period Temp Pulse Resp BP Sys/Dodge Pulse Ox Last 24 Hr 96.7 F-99.1 F 100-125 16-30 93-111/60-73 85-100 Constitutional: Yes: No Distress, Calm Eyes: Yes: Conjunctiva Clear, EOM Intact HENT: Yes: Atraumatic, Normocephalic Neck: Yes: Supple, Trachea Midline Respiratory: Yes: Regular, . no wheeze, bibasilar rhonchi Gastrointestinal: Yes: Normal Bowel Sounds, Soft Cardiovascular: Yes: Regular Rate and Rhythm JVD: No Extremities: No: Cold Edema: no Integumentary: No: Jaundice Neurological: Yes: Alert, Oriented Psychiatric: No: Agitated Laboratory Last Values WBC 7.4 K/mm3 (4.0-10.0) 10/12/19 16:09 RBC 2.72 M/mm3 (4.00-5.60) L 10/12/19 16:09 Hgb 8.6 GM/dL (11.7-16.9) L 10/12/19 16:09 Hct 25.2 % (35.4-49) L 10/12/19 16:09 MCV 92.4 fl (80-96) 10/12/19 16:09 MCH 31.4 pg (25.7-33.7) 10/12/19 16:09 MCHC 34.0 g/dl (32.0-35.9) 10/12/19 16:09 RDW 16.8 % (11.9-15.9) H 10/12/19 16:09 Plt Count 29 K/MM3 (134-434) L* D 10/12/19 16:09 MPV 8.1 fl (7.5-11.1) 10/12/19 16:09 Absolute Neuts (auto) 6.9 K/mm3 (1.5-8.0) 10/12/19 16:09 Neutrophils % 93.6 % (42.8-82.8) H 10/12/19 16:09 Neutrophils % (Manual) 85.4 % (42.8-82.8) H 10/12/19 16:09 Band Neutrophils % 6.5 % 10/12/19 16:09 Lymphocytes % 1.4 % (8-40) L 10/12/19 16:09 Lymphocytes % (Manual) 4.9 % (8-40) L D 10/12/19 16:09 Monocytes % 5.0 % (3.8-10.2) 10/12/19 16:09 Monocytes % (Manual) 2 % (3.8-10.2) L D 10/12/19 16:09 Eosinophils % 0.0 % (0-4.5) 10/12/19 16:09 Eosinophils % (Manual) 0.0 % (0-4.5) 10/12/19 16:09 Basophils % 0.0 % (0-2.0) 10/12/19 16:09 Basophils % (Manual) 0.0 % (0-2.0) 10/12/19 16:09 Myelocytes % (Man) 1 % (0-2) D 10/12/19 16:09 Promyelocytes % (Man) 0 % (0-2) 10/12/19 16:09 Blast Cells % (Manual) 1 % (0-0) H D 10/12/19 16:09 Nucleated RBC % 0 % (0-0) 10/12/19 16:09 Metamyelocytes 0 % (0-2) 10/12/19 16:09 Hypochromia 2+ 10/12/19 16:09 Platelet Estimate Decreased 10/12/19 16:09 Polychromasia 2+ 10/12/19 16:09 Poikilocytosis 2+ 10/12/19 16:09 Anisocytosis 2+ 10/12/19 16:09 Microcytosis 2+ 10/12/19 16:09 Macrocytosis 1+ 10/12/19 16:09 Target Cells 2+ 10/12/19 16:09 PT with INR 14.20 SEC (9.7-13.0) H 10/12/19 16:09 INR 1.20 (0.83-1.09) H 10/12/19 16:09 PTT (Actin FS) 26.2 SECONDS (25.2-36.5) 10/12/19 16:09 Anticoagulation Therapy No Result Required. 10/12/19 16:24 Puncture Site No Result Required. 10/12/19 16:24 Patient Temperature No Result Required. 10/12/19 16:24 ABG pH 7.461 (7.350-7.450) H 10/12/19 16:24 ABG pCO2 40.90 mmHg (35-45) 10/12/19 16:24 ABG pO2 85.9 mmHg (80-100) 10/12/19 16:24 ABG HCO3 28.5 mmol/L (22-27) H 10/12/19 16:24 ABG O2 Sat (Measured) 96.9 mmHg (95-98) 10/12/19 16:24 ABG O2 Content No Result Required. 10/12/19 16:24 ABG Base Excess 4.3 mmol/L (-2-2) H 10/12/19 16:24 Elfego Test Not applicable 10/12/19 16:24 Patient On Oxygen No Result Required. 10/12/19 16:24 O2 Delivery Device No Result Required. 10/12/19 16:24 Oxygen Flow Rate No Result Required. 10/12/19 16:24 Vent Mode No Result Required. 10/12/19 16:24 Vent Rate No Result Required. 10/12/19 16:24 Mechanical Rate No Result Required. 10/12/19 16:24 PEEP No Result Required. 10/12/19 16:24 Pressure Support Vent No Result Required. 10/12/19 16:24 Sodium 137 mmol/L (136-145) 10/12/19 16:09 Potassium 4.6 mmol/L (3.5-5.1) 10/12/19 16:09 Chloride 97 mmol/L (98-107) L 10/12/19 16:09 Carbon Dioxide 31 mmol/L (21-32) 10/12/19 16:09 Anion Gap 9 MMOL/L (8-16) 10/12/19 16:09 BUN 33.1 mg/dL (7-18) H 10/12/19 16:09 Creatinine 1.0 mg/dL (0.55-1.3) 10/12/19 16:09 Est GFR (CKD-EPI)AfAm 93.73 10/12/19 16:09 Est GFR (CKD-EPI)NonAf 80.87 10/12/19 16:09 Random Glucose 128 mg/dL (74-106) H 10/12/19 16:09 Calcium 9.1 mg/dL (8.5-10.1) 10/12/19 16:09 Total Bilirubin 0.7 mg/dL (0.2-1) 10/12/19 16:09 AST 97 U/L (15-37) H 10/12/19 16:09 ALT 21 U/L (13-61) 10/12/19 16:09 Alkaline Phosphatase 93 U/L (45-117) 10/12/19 16:09 Creatine Kinase 38 U/L (26-308) 10/13/19 06:20 Troponin I 0.05 ng/ml (0.00-0.05) 10/13/19 06:20 B-Natriuretic Peptide 2636.2 pg/ml (5-125) H 10/12/19 16:09 Total Protein 5.9 g/dl (6.4-8.2) L 10/12/19 16:09 Albumin 2.7 g/dl (3.4-5.0) L 10/12/19 16:09 Assessment/Plan EKG: sr, old rbbb, no ischemic changes stress echo 07/2018 nl EF, no ischemia echo 07/2019 nl LV function, mild LVH, borderline RV size/function, LA mod dilated, tr to mild MR, mild TR cta chest: no pe, ?pna tele: sr/sinus tachy sob, hypoxia, pna: -cont 02 -cont abx -no signs vol overload presently -no signs acs COPD, lung adenoca - manage per onc, pulm - lasix PRN for volume overload, appears stable now tachycardia - sinus tachycardia likely in the setting of acute issues - cont metoprolol CAD s/p CABG - cont aspirin, statin, bb, plavix HTN - cont home meds HLD - cont statin
--- NOTE | 2019-10-13 14:59 | EKG ---
Test Reason : Blood Pressure : / mmHG Vent. Rate : 123 BPM Atrial Rate : 123 BPM P-R Int : 128 ms QRS Dur : 140 ms QT Int : 344 ms P-R-T Axes : 020 070 009 degrees QTc Int : 492 ms POOR DATA QUALITY, INTERPRETATION MAY BE ADVERSELY AFFECTED SINUS TACHYCARDIA POSSIBLE LEFT ATRIAL ENLARGEMENT RIGHT BUNDLE BRANCH BLOCK ABNORMAL ECG WHEN COMPARED WITH ECG OF 22-SEP-2019 22:02, PREMATURE VENTRICULAR COMPLEXES ARE NO LONGER PRESENT PREMATURE SUPRAVENTRICULAR COMPLEXES ARE NO LONGER PRESENT Confirmed by Pawan Rocha ([id number]) on 10/13/2019 2:58:35 PM Referred By: Confirmed By:Pawan Rocha
[2019-10-13] MEDS: LIDOCAINE 5% TOPICAL PATCH TP SCH (17:47)
--- NOTE | 2019-10-13 20:17 | CON.HO ---
Consult Consult Specialty:: hematology/oncology Referred by:: Dr. Soler Reason for Consultation:: Thrombocytopenia, lung cancer - History of Present Illness Chief Complaint: SOB History of Present Illness: 58M with COPD, on home O2 (7-8L), CAD, ILD, Stage IIIC lung adenocarcinoma s/p RT 08/21, now metastatic to chest wall, liver, spine C1D1 of carbo/alimta admitted with worsening of chronic SOB and hypoxia. Required BIPAP, now on HFNC. CTPE negative. ?new infiltrates. Started on empiric Abx. Also with platelet coun t 27 (109 on 10/03). No bleeding. Continues to feel SOB, worse with minimal exertion. Denies fever. - Past Medical History Cardio/Vascular: Yes: CAD, HTN, Hyperlipdemia, [place] Pulmonary: Yes: Cancer, COPD, O2 Dependent, Pulmonary Fibrosis, Other (Post biopsy pneumothorax) Gastrointestinal: Yes: GERD Musculoskeletal: Yes: Other (T4 and T11 compression fractures) - Past Surgical History Past Surgical History: Yes: CABG, Hernia Repair, Tonsillectomy - Alcohol/Substance Use Hx Alcohol Use: No History of Substance Use: reports: None - Smoking History Smoking history: Former smoker Have you smoked in the past 12 months: No Aproximately how many cigarettes per day: 20 If you are a former smoker, when did you quit?: 2013 - Social History Usual Living Arrangement: With Spouse 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[employer] [place] History of Recent Travel: No Home Medications - Allergies Allergies/Adverse Reactions: Allergies Allergy/AdvReac Type Severity Reaction Status Date / Time No Known Allergies Allergy Verified 10/12/19 15:17 - Home Medications Home Medications: Ambulatory Orders Aspirin 81 mg PO HS 08/24/19 Atorvastatin Ca [Lipitor] 20 mg PO HS 08/24/19 Cyclobenzaprine HCl [Flexeril -] 10 mg PO TID 08/24/19 Metoprolol Tartrate 50 mg PO BID 08/24/19 Prednisone 10 mg PO DAILY 08/24/19 Acetaminophen [Tylenol .Regular Strength -] 325 mg PO Q6H PRN #90 tablet 08/31/19 Calcium 500Mg/Vit-D 200 Units [Os-Faisal 500+D -] 1 tab PO BID tab 08/31/19 Docusate Sodium [Colace -] 100 mg PO TID #90 capsule 08/31/19 Lidocaine 5% Patch [Lidoderm -] 1 patch TP DAILY@1600 #30 patch 08/31/19 Umeclidinium Brm/Vilanterol Tr [Anoro Ellipta 62.5-25 Mcg INH] 1 puff IH DAILY inhaler 08/31/19 Pantoprazole Sodium [Protonix -] 20 mg PO DAILY 09/22/19 Polyethylene Glycol 3350 [Miralax 255 gm Btl -] 17 gm PO DAILY 09/22/19 Cyclobenzaprine HCl [Flexeril -] 10 mg PO TID #90 tablet 10/05/19 Gabapentin 300 mg PO TID #90 capsule 10/05/19 Methylnaltrexone [place] [Relistor -] 12 mg SQ DAILY #30 kit 10/05/19 Miscellaneous Medical Supply [Outpatient Order] 1 each ASDIR #1 misc 10/05/19 Prednisone 40 mg PO ASDIR #30 tablet 10/05/19 Sennosides [Senna] 8.6 mg PO TID #90 tablet 10/05/19 Gabapentin [Neurontin -] 300 mg PO BID 10/13/19 Family Medical History Family Hx Cardiac Disorders: Mother Family Hx Coronary Artery Disease: Father Review of Systems - Review of Systems Constitutional: denies: Fever, Weakness Cardiovascular: denies: Chest Pain Respiratory: reports: SOB, SOB on Exertion Hematology/Lymphatic: denies: Excessive Bleeding Physical Exam Vital Signs: Vital Signs Temperature 97 F L 10/13/19 06:00 Pulse Rate 126 H 10/13/19 18:00 Respiratory Rate 20 10/13/19 18:00 Blood Pressure 106/73 10/13/19 18:00 O2 Sat by Pulse Oximetry (%) 84 L 10/13/19 18:00 Constitutional: Yes: No Distress, Calm Eyes: Yes: Conjunctiva Clear Respiratory: Yes: Regular, On Nasal O2 (high flow). No: Accessory Muscle Use Edema: No Labs: CBC, BMP 10/12/19 16:09 10/12/19 16:09 Imaging - Results Cat Scan: Report Reviewed Assessment/Plan 58M with COPD, on home O2 (7-8L), CAD, ILD, Stage IIIC lung adenocarcinoma s/p RT 08/21, now metastatic to chest wall, liver, spine C1D1 of carbo/alimta admitted with worsening of chronic SOB and hypoxia. Requiring BIPAP. CTPE negative. Started on empiric Abx. Also with platelet count 27 (109 on 10/03). Peripheral smear without plt clumps, no RBC fraqments. Plt count likely at [place] post chemotherapy. No bleeding. Please continue to monitor CBC.
--- NOTE | 2019-10-13 21:09 | HP ---
Admitting History and Physical - Past Medical History Cardiovascular: Yes: CAD, HTN, Hyperlipdemia, [place] Pulmonary: Yes: Cancer, COPD, O2 Dependent, Pulmonary Fibrosis, Other (Post biopsy pneumothorax) Gastrointestinal: Yes: GERD Musculoskeletal: Yes: Other (T4 and T11 compression fractures) - Past Surgical History Past Surgical History: Yes: CABG, Hernia Repair, Tonsillectomy - Smoking History Smoking history: Former smoker Have you smoked in the past 12 months: No Aproximately how many cigarettes per day: 20 If you are a former smoker, when did you quit?: 2014 - Alcohol/Substance Use Hx Alcohol Use: No History of Substance Use: reports: None - Social History 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[place], [place]) History of Recent Travel: No Home Medications - Allergies Allergies/Adverse Reactions: Allergies Allergy/AdvReac Type Severity Reaction Status Date / Time No Known Allergies Allergy Verified 10/12/19 15:17 - Home Medications Home Medications: Ambulatory Orders Aspirin 81 mg PO HS 08/24/19 Atorvastatin Ca [Lipitor] 20 mg PO HS 08/24/19 Cyclobenzaprine HCl [Flexeril -] 10 mg PO TID 08/24/19 Metoprolol Tartrate 50 mg PO BID 08/24/19 Prednisone 10 mg PO DAILY 08/24/19 Acetaminophen [Tylenol .Regular Strength -] 325 mg PO Q6H PRN #90 tablet 08/31/19 Calcium 500Mg/Vit-D 200 Units [Os-Faisal 500+D -] 1 tab PO BID tab 08/31/19 Docusate Sodium [Colace -] 100 mg PO TID #90 capsule 08/31/19 Lidocaine 5% Patch [Lidoderm -] 1 patch TP DAILY@1600 #30 patch 08/31/19 Umeclidinium Brm/Vilanterol Tr [Anoro Ellipta 62.5-25 Mcg INH] 1 puff IH DAILY inhaler 08/31/19 Pantoprazole Sodium [Protonix -] 20 mg PO DAILY 09/22/19 Polyethylene Glycol 3350 [Miralax 255 gm Btl -] 17 gm PO DAILY 09/22/19 Cyclobenzaprine HCl [Flexeril -] 10 mg PO TID #90 tablet 10/05/19 Gabapentin 300 mg PO TID #90 capsule 10/05/19 Methylnaltrexone [place] [Relistor -] 12 mg SQ DAILY #30 kit 10/05/19 Miscellaneous Medical Supply [Outpatient Order] 1 each ASDIR #1 misc 10/05/19 Prednisone 40 mg PO ASDIR #30 tablet 10/05/19 Sennosides [Senna] 8.6 mg PO TID #90 tablet 10/05/19 Gabapentin [Neurontin -] 300 mg PO BID 10/13/19 Family Medical History Family Hx Cardiac Disorders: Mother Family Hx Coronary Artery Disease: Father Physical Examination Vital Signs: Vital Signs Temperature 97.7 F 10/13/19 20:30 Pulse Rate 113 H 10/13/19 20:30 Respiratory Rate 22 H 10/13/19 20:30 Blood Pressure 107/78 10/13/19 20:30 O2 Sat by Pulse Oximetry (%) 100 10/13/19 20:30 Labs: CBC, BMP 10/12/19 16:09 10/12/19 16:09
[2019-10-13] MEDS: ASPIRIN 81 MG CHEWABLE TABLETS PO SCH (21:36)
[2019-10-13] MEDS: PANTOPRAZOLE 40 MG TABLET PO SCH (21:36)
[2019-10-13] MEDS: ATORVASTATIN CA 20 MG TABLET (FP) PO SCH (21:37)
[2019-10-13] MEDS: FOLIC ACID 1 MG TABLET (FP) PO SCH (21:37)
[2019-10-13] MEDS: ALLOPURINOL 300 MG TABLET (FP) PO SCH (21:37)
[2019-10-13] MEDS: LIDOCAINE PATCH REMOVAL MC SCH (21:49)
[2019-10-14] MEDS ORDERED: PIPERACILLIN/TAZOBACTAM 3.375 GM VIAL IVPB ONE ×3 (01:43→16:07)
[2019-10-14] MEDS ORDERED: DEXTROSE 5%-WATER - 50 ML IVPB ONE ×3 (01:43→16:07)
[2019-10-14] MEDS: PIPERACILLIN/TAZOB 3.375 GM 3.375 GM in DEXTROSE 5%-WATER - 50 ML IVPB SCH ×3 (01:50→18:18)
[2019-10-14] MEDS: methylPREDNISolone NA SUCC 40 MG/1 ML VIAL IVPUSH SCH ×3 (01:50→18:18)
[2019-10-14] MEDS: DEXTROSE 5%-0.45% SALINE 1,000 ML IV SCH (02:27)
[2019-10-14] MEDS: VANCOMYCIN 1 GRAM (PRE-DOCKED) 1,000 MG/250 ML BAG IVPB SCH ×2 (02:44→14:34)
[2019-10-14] MEDS: CYCLOBENZAPRINE HCL 10 MG TABLET (FP) PO SCH ×3 (06:04→21:32)
[2019-10-14] MEDS: GABAPENTIN 300 MG CAPSULE PO SCH ×3 (06:04→21:34)
[2019-10-14] MEDS: DOCUSATE SODIUM 100 MG CAPSULE (FP) PO SCH ×4 (06:10→21:59)
[2019-10-14] MEDS: SENNOSIDES 8.6MG TABLET (FP) PO SCH ×4 (06:10→21:59)
[2019-10-14 07:05] LABS: HEMATOCRIT 21.6 % (35.4-49); HEMOGLOBIN 7.3 GM/dL (11.7-16.9); LYMPH % 1.8 % (8-40); MCH 31.2 pg (25.7-33.7); MCHC 33.7 g/dl (32.0-35.9); MEAN CELL VOLUME 92.4 fl (80-96); MEAN PLT VOLUME 8.9 fl (7.5-11.1); NEUT % 93.2 % (42.8-82.8); RBC 2.34 M/mm3 (4.00-5.60); RDW 16.8 % (11.9-15.9); WHITE BLOOD COUNT 5.3 K/mm3 (4.0-10.0)
--- NOTE | 2019-10-14 07:18 | PN ---
Progress Note (short form) - Note Progress Note: PULMONARY CONSULTATION DICTATED 10/14/19 IMP ACUTE ON CHRONIC HYPOXEMIC RESPIRATORY FAILURE ADVANCE ILD/PULMONARY FIBROSIS COPD MET LUNG CA NON-SMALL CELL ASHD S/P CABG THROMBOCYTOPENIA ANEMIA PLAN SUPPLEMENTAL O2 HFOT INHALED BRONCHODILATORS STEROIDS ABX MONITOR LYTES,CBC,PLT CT F/U CHEST X-RAYS DR HANSON Problem List - Problems (1) Acute and chronic respiratory failure Code(s): J96.20 - ACUTE AND CHR RESP FAILURE, UNSP W HYPOXIA OR HYPERCAPNIA Qualifiers: Respiratory failure complication: hypoxia Qualified Code(s): J96.21 - Acute and chronic respiratory failure with hypoxia (2) CAD (coronary artery disease) Code(s): I25.10 - ATHSCL HEART DISEASE OF [place] CORONARY ARTERY W/O ANG PCTRS (3) Compression fracture of T12 vertebra Code(s): S22.080A - WEDGE COMPRESSION FRACTURE OF T11-T12 VERTEBRA, INIT Qualifiers: Encounter type: initial encounter Qualified Code(s): S22.080A - Wedge comp ression fracture of T11-T12 vertebra, initial encounter for closed fracture (4) HLD (hyperlipidemia) Code(s): E78.5 - HYPERLIPIDEMIA, UNSPECIFIED (5) HTN (hypertension) Code(s): I10 - ESSENTIAL (PRIMARY) HYPERTENSION (6) Interstitial lung disease Code(s): J84.9 - INTERSTITIAL PULMONARY DISEASE, UNSPECIFIED (7) Lung cancer Code(s): C34.90 - MALIGNANT NEOPLASM OF UNSP PART OF UNSP BRONCHUS OR LUNG (8) Vertebral fracture Code(s): TUH8817 - (9) Interstitial lung disease Code(s): J84.9 - INTERSTITIAL PULMONARY DISEASE, UNSPECIFIED
[2019-10-14 07:21] LABS: ALBUMIN 2.6 g/dl (3.4-5.0); BILIRUBIN,TOTAL 0.6 mg/dL (0.2-1); BLOOD UREA NITROGEN 25.9 mg/dL (7-18); CALCIUM 9.2 mg/dL (8.5-10.1); CREATININE 0.8 mg/dL (0.55-1.3); POTASSIUM 4.9 mmol/L (3.5-5.1); TOT PROT 5.5 g/dl (6.4-8.2)
[2019-10-14 07:29] LABS: PLATELET COUNT 29 K/MM3 (134-434)
[2019-10-14] MEDS ORDERED: FUROSEMIDE 40 MG/4 ML INJECTABLE VIAL IVPUSH ONE ×2 (08:52→08:55)
--- NOTE | 2019-10-14 08:56 | RAPID ---
Physical Examination Vital Signs: Vital Signs Temperature 97.7 F 10/14/19 05:10 Pulse Rate 96 H 10/14/19 08:18 Respiratory Rate 22 H 10/14/19 05:10 Blood Pressure 100/74 10/14/19 05:10 O2 Sat by Pulse Oximetry (%) 99 10/14/19 08:18 Labs: CBC, BMP 10/14/19 05:55 10/14/19 05:55 Rapid Response - Rapid Response Assessment: Rapid response was called overhead. 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
[2019-10-14] MEDS ORDERED: FUROSEMIDE 40 MG/4 ML INJECTABLE VIAL ONE (09:00)
[2019-10-14] MEDS: oxyCODONE HCL 5 MG TABLET PO PRN ×3 (09:07→22:55)
[2019-10-14] MEDS: ALLOPURINOL 300 MG TABLET (FP) PO SCH (09:08)
[2019-10-14] MEDS: FOLIC ACID 1 MG TABLET (FP) PO SCH (09:09)
[2019-10-14] MEDS: PANTOPRAZOLE 40 MG TABLET PO SCH (09:09)
[2019-10-14] MEDS: UMECLIDINIUM/VILANTEROL (ANORO) 62.5/25 MCG INHALER IH SCH (09:10)
[2019-10-14] MEDS: POLYETHYLENE GLYCOL 3350 255 GM BTL PO SCH (09:11)
[2019-10-14 09:35] LABS: ANISOCYTOSIS 1+; MACROCYTOSIS 0; PLATELET ESTIMATE DECREASED; TEAR DROP CELLS 1+
[2019-10-14] MEDS ORDERED: predniSONE 20 MG TABLET (UD) PO SCH (10:00)
[2019-10-14] MEDS: ACETAMINOPHEN 325 MG TABLET (FP) PO PRN ×3 (10:01→22:54)
[2019-10-14] MEDS ORDERED: PT OWN MED DRAWER 7, Y5N ONE ×2 (10:05→21:04)
[2019-10-14] MEDS: Methylnaltrexone Bromide 12 MG/0.6 ML KIT SQ SCH (10:06)
[2019-10-14] MEDS: CALCIUM 500MG/VIT-D 200 UNITS COMBO TABLET (FP) PO SCH ×2 (10:07→22:54)
[2019-10-14] MEDS: METOPROLOL TARTRATE 50 MG TABLET (FP) PO SCH ×2 (10:07→21:34)
--- NOTE | 2019-10-14 10:58 | PN ---
Progress Note (short form) - Note Progress Note: s: had sob/hypoxia earlier, ivfs stopped and lasix iv given this AM. pt feeling better, o2 sat improved. no cp palps dizzy Current Medications Generic Name Dose Route Start Last Admin Trade Name Freq PRN Reason Stop Dose Admin Acetaminophen 650 mg 10/13/19 02:10 10/14/19 10:01 Tylenol - PO 650 mg Q6H PRN Administration PAIN LEVEL 1-5 Albuterol/Ipratropium 1 amp 10/13/19 01:47 Duoneb - NEB Q6H PRN SHORTNESS OF BREATH Allopurinol 300 mg 10/13/19 17:45 10/14/19 09:08 Zyloprim - PO 300 mg DAILY VEENA Administration Aspirin 81 mg 10/13/19 22:00 10/13/19 21:36 Asa - PO 81 mg HS VEENA Administration Atorvastatin Calcium 20 mg 10/13/19 22:00 10/13/19 21:37 Lipitor - PO 20 mg HS VEENA Administration Calcium Carbonate/Cholecalciferol 1 tab 10/13/19 10:00 10/14/19 10:07 Os-Faisal 500+D - PO 1 tab BID VEENA Administration Cyclobenzaprine HCl 10 mg 10/13/19 06:00 10/14/19 06:04 Flexeril - PO 10 mg TID VEENA Administration Docusate Sodium 100 mg 10/13/19 06:00 10/14/19 06:10 Colace - PO Not Given TID VEENA Folic Acid 1 mg 10/13/19 17:45 10/14/19 09:09 Folic Acid - PO 1 mg DAILY VEENA Administration Gabapentin 300 mg 10/13/19 06:00 10/14/19 06:04 Neurontin - PO 300 mg TID VEENA Administration Vancomycin HCl 1 gm in 200 mls @ 133.333 mls/hr 10/13/19 01:45 Vancomycin 1 Gm Premix - IVPB Q12H VEENA Piperacillin Sod/Tazobactam 50 mls @ 100 mls/hr 10/13/19 02:00 Sod 3.375 gm/ Dextrose IVPB Q8H-IV VEENA Protocol Piperacillin Sod/Tazobactam 50 mls @ 100 mls/hr 10/14/19 02:00 10/14/19 09:10 Sod 3.375 gm/ Dextrose IVPB 10/14/19 18:29 100 mls/hr Q8H-IV VEENA Administration Protocol Vancomycin HCl 1,000 mg in 250 mls @ 250 mls/hr 10/14/19 02:00 10/14/19 02:44 Vancomycin (Pre-Docked) IVPB 10/14/19 14:59 250 mls/hr Q12H VEENA Administration Lidocaine 1 patch 10/13/19 16:00 10/13/19 17:47 Lidoderm Patch - TP Not Given DAILY@1600 VEENA Methylnaltrexone [place] 12 mg 10/13/19 10:00 10/14/19 10:06 Relistor - SQ 12 mg DAILY VEENA Administration Methylprednisolone Sodium Succinate 40 mg 10/13/19 02:00 10/14/19 09:07 Solu-Medrol - IVPUSH 40 mg Q8H-IV VEENA Administration Metoprolol Tartrate 50 mg 10/13/19 22:00 10/14/19 10:07 Lopressor - PO 50 mg BID VEENA Administration Miscellaneous 1 each 10/13/19 22:00 10/13/19 21:49 Lidoderm Patch Removal MC Not Given DAILY@2200 VEENA Oxycodone HCl 10 mg 10/13/19 02:10 10/14/19 09:07 Roxicodone - PO 10 mg Q6H PRN Administration PAIN LEVEL 6-10 Pantoprazole Sodium 40 mg 10/13/19 17:30 10/14/19 09:09 Protonix - PO 40 mg DAILY VEENA Administration Polyethylene Glycol 17 gm 10/13/19 10:00 10/14/19 09:11 Miralax (For Bowel Prep) - PO 17 gm DAILY VEENA Administration Senna 1 tab 10/13/19 06:00 10/14/19 06:10 Senna - PO Not Given TID VEENA Umeclidinium/Vilanterol 1 puff 10/13/19 10:00 10/14/19 09:10 Anoro Ellipta 62.5-25 Mcg Inh IH 1 puff DAILY VEENA Administration Vital Signs Period Temp Pulse Resp BP Sys/[place] Pulse Ox Last 24 Hr 97.7 F-98.0 F 96-126 20-25 91-107/70-78 84-100 Constitutional: Yes: No Distress, Calm Eyes: Yes: Conjunctiva Clear, EOM Intact HENT: Yes: Atraumatic, Normocephalic Neck: Yes: Supple, Trachea Midline Respiratory: Yes: Regular, . no wheeze, bibasilar rhonchi Gastrointestinal: Yes: Normal Bowel Sounds, Soft Cardiovascular: Yes: Regular Rate and Rhythm JVD: No Extremities: No: Cold Edema: no Integumentary: No: Jaundice Neurological: Yes: Alert, Oriented Psychiatric: No: Agitated Laboratory Last Values WBC 5.3 K/mm3 (4.0-10.0) 10/14/19 05:55 RBC 2.34 M/mm3 (4.00-5.60) L 10/14/19 05:55 Hgb 7.3 GM/dL (11.7-16.9) L 10/14/19 05:55 Hct 21.6 % (35.4-49) L 10/14/19 05:55 MCV 92.4 fl (80-96) 10/14/19 05:55 MCH 31.2 pg (25.7-33.7) 10/14/19 05:55 MCHC 33.7 g/dl (32.0-35.9) 10/14/19 05:55 RDW 16.8 % (11.9-15.9) H 10/14/19 05:55 Plt Count 29 K/MM3 (134-434) L* 10/14/19 05:55 MPV 8.9 fl (7.5-11.1) 10/14/19 05:55 Absolute Neuts (auto) 4.9 K/mm3 (1.5-8.0) 10/14/19 05:55 Neutrophils % 93.2 % (42.8-82.8) H 10/14/19 05:55 Neutrophils % (Manual) 92.1 % (42.8-82.8) H 10/14/19 05:55 Band Neutrophils % 0.0 % 10/14/19 05:55 Lymphocytes % 1.8 % (8-40) L D 10/14/19 05:55 Lymphocytes % (Manual) 1.9 % (8-40) L D 10/14/19 05:55 Monocytes % 5.0 % (3.8-10.2) 10/14/19 05:55 Monocytes % (Manual) 2 % (3.8-10.2) L 10/14/19 05:55 Eosinophils % 0.0 % (0-4.5) 10/14/19 05:55 Eosinophils % (Manual) 0.0 % (0-4.5) 10/14/19 05:55 Basophils % 0.0 % (0-2.0) 10/14/19 05:55 Basophils % (Manual) 0.0 % (0-2.0) 10/14/19 05:55 Myelocytes % (Man) 0 % (0-2) D 10/14/19 05:55 Promyelocytes % (Man) 1 % (0-2) D 10/14/19 05:55 Blast Cells % (Manual) 0 % (0-0) D 10/14/19 05:55 Nucleated RBC % 0 % (0-0) 10/14/19 05:55 Metamyelocytes 1 % (0-2) D 10/14/19 05:55 Hypochromia 0 10/14/19 05:55 Platelet Estimate Decreased 10/14/19 05:55 Polychromasia 1+ 10/14/19 05:55 Poikilocytosis 1+ 10/14/19 05:55 Basophilic Stippling 1+ 10/14/19 05:55 Anisocytosis 1+ 10/14/19 05:55 Microcytosis 1+ 10/14/19 05:55 Macrocytosis 0 10/14/19 05:55 Spherocytes 1+ 10/14/19 05:55 Target Cells 2+ 10/12/19 16:09 Tear Drop Cells 1+ 10/14/19 05:55 PT with INR 14.20 SEC (9.7-13.0) H 10/12/19 16:09 INR 1.20 (0.83-1.09) H 10/12/19 16:09 PTT (Actin FS) 26.2 SECONDS (25.2-36.5) 10/12/19 16:09 Anticoagulation Therapy No Result Required. 10/12/19 16:24 Puncture Site No Result Required. 10/12/19 16:24 Patient Temperature No Result Required. 10/12/19 16:24 ABG pH 7.461 (7.350-7.450) H 10/12/19 16:24 ABG pCO2 40.90 mmHg (35-45) 10/12/19 16:24 ABG pO2 85.9 mmHg (80-100) 10/12/19 16:24 ABG HCO3 28.5 mmol/L (22-27) H 10/12/19 16:24 ABG O2 Sat (Measured) 96.9 mmHg (95-98) 10/12/19 16:24 ABG O2 Content No Result Required. 10/12/19 16:24 ABG Base Excess 4.3 mmol/L (-2-2) H 10/12/19 16:24 Elfego Test Not applicable 10/12/19 16:24 Patient On Oxygen No Result Required. 10/12/19 16:24 O2 Delivery Device No Result Required. 10/12/19 16:24 Oxygen Flow Rate No Result Required. 10/12/19 16:24 Vent Mode No Result Required. 10/12/19 16:24 Vent Rate No Result Required. 10/12/19 16:24 Mechanical Rate No Result Required. 10/12/19 16:24 PEEP No Result Required. 10/12/19 16:24 Pressure Support Vent No Result Required. 10/12/19 16:24 Sodium 139 mmol/L (136-145) 10/14/19 05:55 Potassium 4.9 mmol/L (3.5-5.1) 10/14/19 05:55 Chloride 98 mmol/L (98-107) 10/14/19 05:55 Carbon Dioxide 33 mmol/L (21-32) H 10/14/19 05:55 Anion Gap 8 MMOL/L (8-16) 10/14/19 05:55 BUN 25.9 mg/dL (7-18) H 10/14/19 05:55 Creatinine 0.8 mg/dL (0.55-1.3) 10/14/19 05:55 Est GFR (CKD-EPI)AfAm 111.74 10/14/19 05:55 Est GFR (CKD-EPI)NonAf 96.41 10/14/19 05:55 Random Glucose 114 mg/dL (74-106) H 10/14/19 05:55 Lactic Acid 4.9 mmol/L (0.4-2.0) H* 10/14/19 05:55 Calcium 9.2 mg/dL (8.5-10.1) 10/14/19 05:55 Total Bilirubin 0.6 mg/dL (0.2-1) 10/14/19 05:55 AST 69 U/L (15-37) H 10/14/19 05:55 ALT 19 U/L (13-61) 10/14/19 05:55 Alkaline Phosphatase 81 U/L (45-117) 10/14/19 05:55 Creatine Kinase 37 U/L (26-308) 10/14/19 05:55 Troponin I 0.04 ng/ml (0.00-0.05) 10/14/19 05:55 B-Natriuretic Peptide 2636.2 pg/ml (5-125) H 10/12/19 16:09 Total Protein 5.5 g/dl (6.4-8.2) L 10/14/19 05:55 Albumin 2.6 g/dl (3.4-5.0) L 10/14/19 05:55 Assessment/Plan EKG: sr, old rbbb, no ischemic changes stress echo 07/2018 nl EF, no ischemia echo 07/2019 nl LV function, mild LVH, borderline RV size/function, LA mod dilated, tr to mild MR, mild TR cta chest: no pe, ?pna tele: sr/sinus tachy sob, hypoxia, pna: -cont 02 -cont abx -no signs acs -had sob/hypoxia earlier, ivfs stopped and lasix iv given this AM. pt feeling better, o2 sat improved. hold ivfs, monitor for now. COPD, lung adenoca - manage per onc, pulm tachycardia - sinus tachycardia likely in the setting of acute issues - cont metoprolol CAD s/p CABG - cont aspirin, statin, bb, plavix HTN - cont home meds HLD - cont statin
--- NOTE | 2019-10-14 12:40 | EKG ---
Test Reason : Blood Pressure : / mmHG Vent. Rate : 111 BPM Atrial Rate : 111 BPM P-R Int : 124 ms QRS Dur : 142 ms QT Int : 376 ms P-R-T Axes : 024 170 027 degrees QTc Int : 511 ms POOR DATA QUALITY, INTERPRETATION MAY BE ADVERSELY AFFECTED SINUS TACHYCARDIA WITH PREMATURE ATRIAL COMPLEXES RIGHT BUNDLE BRANCH BLOCK , PLUS RIGHT VENTRICULAR HYPERTROPHY LATERAL INFARCT , AGE UNDETERMINED ABNORMAL ECG WHEN COMPARED WITH ECG OF 12-OCT-2019 15:33, PREMATURE ATRIAL COMPLEXES ARE NOW PRESENT PATIENT HAS BACK PAIN Confirmed by Pawan Rocha ([id number]) on 10/14/2019 12:40:19 PM Referred By: Tyrese MIRZA Confirmed By:Pawan Rocha
--- NOTE | 2019-10-14 15:42 | PN ---
Progress Note, Physician History of Present Illness: stable - Current Medication List Current Medications: Active Medications Acetaminophen (Tylenol -) 650 mg PO Q6H PRN PRN Reason: PAIN LEVEL 1-5 Last Admin: 10/14/19 10:01 Dose: 650 mg Documented by: Albuterol/Ipratropium (Duoneb -) 1 amp NEB Q6H PRN PRN Reason: SHORTNESS OF BREATH Allopurinol (Zyloprim -) 300 mg PO DAILY [facility] Last Admin: 10/14/19 09:08 Dose: 300 mg Documented by: Aspirin (Asa -) 81 mg PO [facility] Last Admin: 10/13/19 21:36 Dose: 81 mg Documented by: Atorvastatin Calcium (Lipitor -) 20 mg PO [facility] Last Admin: 10/13/19 21:37 Dose: 20 mg Documented by: Calcium Carbonate/Cholecalciferol (Os-Faisal 500+D -) 1 tab PO BID [facility] Last Admin: 10/14/19 10:07 Dose: 1 tab Documented by: Cyclobenzaprine HCl (Flexeril -) 10 mg PO TID [facility] Last Admin: 10/14/19 14:29 Dose: 10 mg Documented by: Docusate Sodium (Colace -) 100 mg PO TID [facility] Last Admin: 10/14/19 14:29 Dose: 100 mg Documented by: Folic Acid (Folic Acid -) 1 mg PO DAILY [facility] Last Admin: 10/14/19 09:09 Dose: 1 mg Documented by: Gabapentin (Neurontin -) 300 mg PO TID [facility] Last Admin: 10/14/19 14:30 Dose: 300 mg Documented by: Vancomycin HCl (Vancomycin 1 Gm Premix -) 1 gm in 200 mls @ 133.333 mls/hr IVPB Q12H [facility] Piperacillin Sod/Tazobactam (Sod 3.375 gm/ Dextrose) 50 mls @ 100 mls/hr IVPB Q8H-IV VEENA; Protocol Piperacillin Sod/Tazobactam (Sod 3.375 gm/ Dextrose) 50 mls @ 100 mls/hr IVPB Q8H-IV VEENA; Protocol Stop: 10/14/19 18:29 Last Admin: 10/14/19 09:10 Dose: 100 mls/hr Documented by: Lidocaine (Lidoderm Patch -) 1 patch TP DAILY@1600 [facility] Last Admin: 10/13/19 17:47 Dose: Not Given Documented by: Methylnaltrexone [place] (Relistor -) 12 mg SQ DAILY [facility] Last Admin: 10/14/19 10:06 Dose: 12 mg Documented by: Methylprednisolone Sodium Succinate (Solu-Medrol -) 40 mg IVPUSH Q8H-IV [facility] Last Admin: 10/14/19 09:07 Dose: 40 mg Documented by: Metoprolol Tartrate (Lopressor -) 50 mg PO BID [facility] Last Admin: 10/14/19 10:07 Dose: 50 mg Documented by: Miscellaneous (Lidoderm Patch Removal) 1 each MC DAILY@2200 [facility] Last Admin: 10/13/19 21:49 Dose: Not Given Documented by: Oxycodone HCl (Roxicodone -) 10 mg PO Q6H PRN PRN Reason: PAIN LEVEL 6-10 Last Admin: 10/14/19 09:07 Dose: 10 mg Documented by: Pantoprazole Sodium (Protonix -) 40 mg PO DAILY [facility] Last Admin: 10/14/19 09:09 Dose: 40 mg Documented by: Polyethylene Glycol (Miralax (For Bowel Prep) -) 17 gm PO DAILY [facility] Last Admin: 10/14/19 09:11 Dose: 17 gm Documented by: Senna (Senna -) 1 tab PO TID [facility] Last Admin: 10/14/19 14:29 Dose: 1 tab Documented by: Umeclidinium/Vilanterol (Anoro Ellipta 62.5-25 Mcg Inh) 1 puff IH DAILY [facility] Last Admin: 10/14/19 09:10 Dose: 1 puff Documented by: - Objective Vital Signs: Vital Signs Temperature 97.7 F 10/14/19 05:10 Pulse Rate 96 H 10/14/19 08:18 Respiratory Rate 22 H 10/14/19 05:10 Blood Pressure 100/74 10/14/19 05:10 O2 Sat by Pulse Oximetry (%) 96 10/14/19 13:40 Constitutional: Yes: No Distress HENT: Yes: Atraumatic Neck: Yes: Supple Cardiovascular: Yes: Regular Rate and Rhythm Respiratory: Yes: Rhonchi Gastrointestinal: Yes: Normal Bowel Sounds Extremities: Yes: WNL Neurological: Yes: Alert, Oriented Labs: CBC, BMP 10/14/19 05:55 10/14/19 05:55 INR, PTT INR 1.20 (0.83-1.09) H 10/12/19 16:09 Problem List - Problems (1) Acute respiratory failure with hypoxia Assessment/Plan: on steroids prn nebs continue other meds pulmonary on board Code(s): J96.01 - ACUTE RESPIRATORY FAILURE WITH HYPOXIA (2) Interstitial lung disease Code(s): J84.9 - INTERSTITIAL PULMONARY DISEASE, UNSPECIFIED (3) Back pain Assessment/Plan: on pain meds..prn Code(s): M54.9 - DORSALGIA, UNSPECIFIED (4) COPD (chronic obstructive pulmonary disease) Code(s): J44.9 - CHRONIC OBSTRUCTIVE PULMONARY DISEASE, UNSPECIFIED (5) Compression fracture of T12 vertebra Code(s): S22.080A - WEDGE COMPRESSION FRACTURE OF T11-T12 VERTEBRA, INIT Qualifiers: Encounter type: initial encounter Qualified Code(s): S22.080A - Wedge compression fracture of T11-T12 vertebra, initial encounter for closed fracture (6) HLD (hyperlipidemia) Code(s): E78.5 - HYPERLIPIDEMIA, UNSPECIFIED (7) HTN (hypertension) Assessment/Plan: on meds monitor Code(s): I10 - ESSENTIAL (PRIMARY) HYPERTENSION (8) Lung cancer Assessment/Plan: oncology note reviewed Code(s): C34.90 - MALIGNANT NEOPLASM OF UNSP PART OF UNSP BRONCHUS OR LUNG Assessment/Plan COVERING FOR DR YUNIOR BLAKELY
[2019-10-14] MEDS: LIDOCAINE 5% TOPICAL PATCH TP SCH (16:25)
--- NOTE | 2019-10-14 19:53 | PN.HO ---
Progress Note, Physician History of Present Illness: Feels a little less SOB compared to yesterday, worse with exertion. - Current Medication List Current Medications: Active Medications Acetaminophen (Tylenol -) 650 mg PO Q6H PRN PRN Reason: PAIN LEVEL 1-5 Last Admin: 10/14/19 16:22 Dose: 650 mg Documented by: Albuterol/Ipratropium (Duoneb -) 1 amp NEB Q6H PRN PRN Reason: SHORTNESS OF BREATH Allopurinol (Zyloprim -) 300 mg PO DAILY [facility] Last Admin: 10/14/19 09:08 Dose: 300 mg Documented by: Aspirin (Asa -) 81 mg PO [facility] Last Admin: 10/13/19 21:36 Dose: 81 mg Documented by: Atorvastatin Calcium (Lipitor -) 20 mg PO [facility] Last Admin: 10/13/19 21:37 Dose: 20 mg Documented by: Calcium Carbonate/Cholecalciferol (Os-Faisal 500+D -) 1 tab PO BID [facility] Last Admin: 10/14/19 10:07 Dose: 1 tab Documented by: Cyclobenzaprine HCl (Flexeril -) 10 mg PO TID [facility] Last Admin: 10/14/19 14:29 Dose: 10 mg Documented by: Docusate Sodium (Colace -) 100 mg PO TID [facility] Last Admin: 10/14/19 16:36 Dose: Not Given Documented by: Folic Acid (Folic Acid -) 1 mg PO DAILY [facility] Last Admin: 10/14/19 09:09 Dose: 1 mg Documented by: Gabapentin (Neurontin -) 300 mg PO TID [facility] Last Admin: 10/14/19 14:30 Dose: 300 mg Documented by: Vancomycin HCl (Vancomycin 1 Gm Premix -) 1 gm in 200 mls @ 133.333 mls/hr IVPB Q12H [facility] Piperacillin Sod/Tazobactam (Sod 3.375 gm/ Dextrose) 50 mls @ 100 mls/hr IVPB Q8H-IV [facility]; Protocol Lidocaine (Lidoderm Patch -) 1 patch TP DAILY@1600 [facility] Last Admin: 10/14/19 16:25 Dose: Not Given Documented by: Methylnaltrexone [place] (Relistor -) 12 mg SQ DAILY [facility] Last Admin: 10/14/19 10:06 Dose: 12 mg Documented by: Methylprednisolone Sodium Succinate (Solu-Medrol -) 40 mg IVPUSH Q8H-IV [facility] Last Admin: 10/14/19 18:18 Dose: 40 mg Documented by: Metoprolol Tartrate (Lopressor -) 50 mg PO BID [facility] Last Admin: 10/14/19 10:07 Dose: 50 mg Documented by: Miscellaneous (Lidoderm Patch Removal) 1 each MC DAILY@2200 [facility] Last Admin: 10/13/19 21:49 Dose: Not Given Documented by: Oxycodone HCl (Roxicodone -) 10 mg PO Q6H PRN PRN Reason: PAIN LEVEL 6-10 Last Admin: 10/14/19 16:25 Dose: 10 mg Documented by: Pantoprazole Sodium (Protonix -) 40 mg PO DAILY [facility] Last Admin: 10/14/19 09:09 Dose: 40 mg Documented by: Polyethylene Glycol (Miralax (For Bowel Prep) -) 17 gm PO DAILY [facility] Last Admin: 10/14/19 09:11 Dose: 17 gm Documented by: Senna (Senna -) 1 tab PO TID [facility] Last Admin: 10/14/19 16:36 Dose: Not Given Documented by: Umeclidinium/Vilanterol (Anoro Ellipta 62.5-25 Mcg Inh) 1 puff IH DAILY [facility] Last Admin: 10/14/19 09:10 Dose: 1 puff Documented by: - Objective Vital Signs: Vital Signs Temperature 98.2 F 10/14/19 16:00 Pulse Rate 117 H 10/14/19 16:00 Respiratory Rate 25 H 10/14/19 16:00 Blood Pressure 106/70 10/14/19 16:00 O2 Sat by Pulse Oximetry (%) 97 10/14/19 17:21 Constitutional: Yes: No Distress, Calm Eyes: Yes: Conjunctiva Clear Respiratory: Yes: Regular, Other (on HFNC) Edema: No Labs: CBC, BMP 10/14/19 05:55 10/14/19 05:55 INR, PTT INR 1.20 (0.83-1.09) H 10/12/19 16:09 Assessment/Plan 58M with COPD, on home O2 (7-8L), CAD, ILD, Stage IIIC lung adenocarcinoma s/p RT 08/21, now metastatic to chest wall, liver, spine C1D1 of carbo/alimta admitted with worsening of chronic SOB and hypoxia. Requiring BIPAP. CTPE negative. Started on empiric Abx. Also with platelet count 27 (109 on 10/03). Peripheral smear without plt clumps, no RBC fraqments. Plt count likely at [place] post chemotherapy, stable today. No bleeding. Please continue to monitor CBC.
[2019-10-14] MEDS: ASPIRIN 81 MG CHEWABLE TABLETS PO SCH (21:32)
[2019-10-14] MEDS: ATORVASTATIN CA 20 MG TABLET (FP) PO SCH (21:33)
[2019-10-14] MEDS: LIDOCAINE PATCH REMOVAL MC SCH (21:42)
[2019-10-15] MEDS ORDERED: PIPERACILLIN/TAZOBACTAM 3.375 GM VIAL IVPB ONE ×3 (01:10→16:42)
[2019-10-15] MEDS ORDERED: DEXTROSE 5%-WATER - 50 ML IVPB ONE ×3 (01:10→16:42)
[2019-10-15] MEDS: PIPERACILLIN/TAZOB 3.375 GM 3.375 GM in DEXTROSE 5%-WATER - 50 ML IVPB SCH ×5 (01:17→20:43)
[2019-10-15] MEDS: methylPREDNISolone NA SUCC 40 MG/1 ML VIAL IVPUSH SCH ×3 (01:17→17:00)
[2019-10-15] MEDS: CYCLOBENZAPRINE HCL 10 MG TABLET (FP) PO SCH ×3 (05:24→22:14)
[2019-10-15] MEDS: GABAPENTIN 300 MG CAPSULE PO SCH ×3 (05:25→22:15)
[2019-10-15] MEDS: DOCUSATE SODIUM 100 MG CAPSULE (FP) PO SCH ×3 (05:26→22:14)
[2019-10-15] MEDS: SENNOSIDES 8.6MG TABLET (FP) PO SCH ×3 (05:26→22:15)
[2019-10-15] MEDS: ACETAMINOPHEN 325 MG TABLET (FP) PO PRN ×2 (05:33→18:26)
[2019-10-15] MEDS: oxyCODONE HCL 5 MG TABLET PO PRN ×2 (05:34→18:26)
--- NOTE | 2019-10-15 08:28 | CONS ---
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 Patient denies any chest pain. He does have complaint of back pain. Patient was discharged a week ago secondary to thoracic compression fractures. Since that time he has been maintained on steroids and has required increasing O2 concentration. On admission he was started on bronchodilators, steroids as well as Lasix and broad-spectrum antibiotic for possible infection. Chest CTA performed revealed no evidence of pulmonary emboli. It did show extensive chronic interstitial disease in the middle and lower lung purcell and possible bilateral superimposed interstitial infiltrates. PAST MEDICAL HISTORY: Again, includes advanced interstitial lung disease, pulmonary fibrosis/emphysema on home O2, lung CA non-small stage IV, hypertension, ASHD status post [place], status post CABG; hyperlipidemia. SOCIAL HISTORY: Tobacco use, quit about 5 years ago. No occupational exposures. CURRENT MEDICATIONS: Include Solu-Medrol, Tylenol, piperacillin, vancomycin, Neurontin, Zyloprim, Anoro Ellipta, Lidoderm, DuoNeb, Lopressor and senna and Roxicodone. REVIEW OF SYSTEMS: Positive dyspnea, positive orthopnea, positive back pain. No fever. No chills. No hemoptysis. No abdominal pain. PHYSICAL EXAMINATION: General: Patient is a well-developed, thin male awake, alert, dyspneic in mild distress. Vital Signs: He is afebrile. Heart rate is 110, blood pressure 115/74. Respiratory rate is 28. O2 saturation is 98%. HEENT: Normocephalic, atraumatic. Neck: Supple. Heart: Tachycardic, S1, S2. Chest: Bilateral crackles with rales. Abdomen: Soft. Bowel sounds are positive. Extremities: No cyanosis or edema. LABORATORIES: WBC is 5.3, hemoglobin 7.3, hematocrit 21.6 with a platelet count of 29,000. BUN 25, creatinine 0.8, lactate level is 4.9. Chest CT as noted earlier. IMPRESSION: 1. Tblnb-[id number]-gwewdvh hypoxemic respiratory failure secondary to advanced interstitial lung disease. 2. Pulmonary fibrosis O2 dependent. 3. Chronic obstructive pulmonary disease exacerbation on home O2. 4. Metastatic lung carcinoma, non-small cell. 5. Atherosclerotic heart disease, status post myocardial infarction, status post coronary artery bypass grafting. 6. Anemia. 7. Thrombocytopenia. PLAN: Supplemental O2, high flow O2 to maintain saturation 90% or greater. Inhaled bronchodilators. Continue steroids. Antibiotic therapy. Follow chest x-rays, electrolytes, platelet counts. ANUJ HANSON M.D. [id number]
[2019-10-15] MEDS: UMECLIDINIUM/VILANTEROL (ANORO) 62.5/25 MCG INHALER IH SCH (09:35)
[2019-10-15] MEDS ORDERED: PT OWN MED DRAWER 7, Y5N ONE ×2 (09:39→17:28)
[2019-10-15] MEDS: FOLIC ACID 1 MG TABLET (FP) PO SCH (09:50)
[2019-10-15] MEDS: METOPROLOL TARTRATE 50 MG TABLET (FP) PO SCH ×2 (09:50→22:15)
[2019-10-15] MEDS: Methylnaltrexone Bromide 12 MG/0.6 ML KIT SQ SCH (09:51)
[2019-10-15] MEDS: CALCIUM 500MG/VIT-D 200 UNITS COMBO TABLET (FP) PO SCH ×2 (09:51→22:15)
[2019-10-15] MEDS: PANTOPRAZOLE 40 MG TABLET PO SCH (09:51)
[2019-10-15] MEDS: ALLOPURINOL 300 MG TABLET (FP) PO SCH (09:51)
[2019-10-15] MEDS: POLYETHYLENE GLYCOL 3350 255 GM BTL PO SCH ×2 (10:03→22:16)
--- NOTE | 2019-10-15 10:34 | PN.HO ---
Progress Note (short form) - Note Progress Note: PAtient seen and examined On high flow oxygen Dyspneic with minimal exertion Last Vital Signs Temp Pulse Resp BP Pulse Ox 98.0 F 123 H 27 H 102/77 88 L 10/15/19 10:00 10/15/19 10:00 10/15/19 10:00 10/15/19 10:00 10/15/19 10:21 Cor: RSR, No murmurs, No gallops Lungs: crackles at bases Abd: Soft, Normal bowel sounds, No organomegaly Ext:No significant edema Skin: No rashes, Integument intact Labs/Meds reviewed A/P 59 y/o M with COPD, on home O2 (7-8L), CAD, ILD, Stage IIIC lung adenocarcinoma s/p RT 08/21, now metastatic to chest wall, liver, multiple lung nodules, adenopathy C1 D15 of carbo/alimta admitted with worsening of chronic SOB and hypoxia. Requiring BIPAP. CTPE negative. Started on empiric Abx. Also with platelet count 27 (109 on 10/03). On antibiotis/ steroids diuresing prn pain control --increase neurontin to 600mg PO at mid day and 300mg in AM/PM miralax --increase to bid
--- NOTE | 2019-10-15 10:57 | PN ---
Progress Note (short form) - Note Progress Note: s: no cp palps dizzy. mild sob persists Current Medications Generic Name Dose Route Start Last Admin Trade Name Freq PRN Reason Stop Dose Admin Acetaminophen 650 mg 10/13/19 02:10 10/15/19 05:33 Tylenol - PO 650 mg Q6H PRN Administration PAIN LEVEL 1-5 Albuterol/Ipratropium 1 amp 10/13/19 01:47 Duoneb - NEB Q6H PRN SHORTNESS OF BREATH Allopurinol 300 mg 10/13/19 17:45 10/15/19 09:51 Zyloprim - PO 300 mg DAILY [facility] Administration Aspirin 81 mg 10/13/19 22:00 10/14/19 21:32 Asa - PO 81 mg HS [facility] Administration Atorvastatin Calcium 20 mg 10/13/19 22:00 10/14/19 21:33 Lipitor - PO 20 mg HS [facility] Administration Calcium Carbonate/Cholecalciferol 1 tab 10/13/19 10:00 10/15/19 09:51 Os-Faisal 500+D - PO 1 tab BID [facility] Administration Cyclobenzaprine HCl 10 mg 10/13/19 06:00 10/15/19 05:24 Flexeril - PO 10 mg TID [facility] Administration Docusate Sodium 100 mg 10/13/19 06:00 10/15/19 05:26 Colace - PO Not Given TID [facility] Folic Acid 1 mg 10/13/19 17:45 10/15/19 09:50 Folic Acid - PO 1 mg DAILY [facility] Administration Gabapentin 300 mg 10/13/19 06:00 10/15/19 05:25 Neurontin - PO 300 mg TID [facility] Administration Vancomycin HCl 1 gm in 200 mls @ 133.333 mls/hr 10/13/19 01:45 Vancomycin 1 Gm Premix - IVPB Q12H [facility] Piperacillin Sod/Tazobactam 50 mls @ 100 mls/hr 10/13/19 02:00 Sod 3.375 gm/ Dextrose IVPB Q8H-IV [facility] Protocol Lidocaine 1 patch 10/13/19 16:00 10/14/19 16:25 Lidoderm Patch - TP Not Given DAILY@1600 [facility] Methylnaltrexone [place] 12 mg 10/13/19 10:00 10/15/19 09:51 Relistor - SQ 12 mg DAILY [facility] Administration Methylprednisolone Sodium Succinate 40 mg 10/13/19 02:00 10/15/19 09:32 Solu-Medrol - IVPUSH 40 mg Q8H-IV [facility] Administration Metoprolol Tartrate 50 mg 10/13/19 22:00 10/15/19 09:50 Lopressor - PO 50 mg BID [facility] Administration Miscellaneous 1 each 10/13/19 22:00 10/14/19 21:42 Lidoderm Patch Removal MC Not Given DAILY@2200 [facility] Oxycodone HCl 10 mg 10/13/19 02:10 10/15/19 05:34 Roxicodone - PO 10 mg Q6H PRN Administration PAIN LEVEL 6-10 Pantoprazole Sodium 40 mg 10/13/19 17:30 10/15/19 09:51 Protonix - PO 40 mg DAILY [facility] Administration Polyethylene Glycol 17 gm 10/13/19 10:00 10/15/19 10:03 Miralax (For Bowel Prep) - PO 17 gm DAILY [facility] Administration Senna 1 tab 10/13/19 06:00 10/15/19 05:26 Senna - PO Not Given TID [facility] Umeclidinium/Vilanterol 1 puff 10/13/19 10:00 10/15/19 09:35 Anoro Ellipta 62.5-25 Mcg Inh IH 1 puff DAILY [facility] Administration Vital Signs Period Temp Pulse Resp BP Sys/Dodeg Pulse Ox Last 24 Hr 98.0 F-98.8 F 80-123 18-27 85-117/55-77 88-100 Constitutional: Yes: No Distress, Calm Eyes: Yes: Conjunctiva Clear, EOM Intact HENT: Yes: Atraumatic, Normocephalic Neck: Yes: Supple, Trachea Midline Respiratory: Yes: Regular, . no wheeze, bibasilar rhonchi Gastrointestinal: Yes: Normal Bowel Sounds, Soft Cardiovascular: Yes: Regular Rate and Rhythm JVD: No Extremities: No: Cold Edema: no Integumentary: No: Jaundice Neurological: Yes: Alert, Oriented Psychiatric: No: Agitated CBC, BMP 10/14/19 05:55 10/14/19 05:55 Assessment/Plan EKG: sr, old rbbb, no ischemic changes stress echo 07/2018 nl EF, no ischemia echo 07/2019 nl LV function, mild LVH, borderline RV size/function, LA mod dilated, tr to mild MR, mild TR cta chest: no pe, ?pna tele: sr/sinus tachy sob, hypoxia, pna: -cont 02 -cont abx -no signs acs COPD, lung adenoca - manage per onc, pulm - on IV steroids now tachycardia - sinus tachycardia likely in the setting of acute issues - cont metoprolol CAD s/p CABG - cont aspirin, statin, bb, plavix HTN - cont home meds HLD - cont statin
--- NOTE | 2019-10-15 11:12 | CON.ID ---
Consult Consult Specialty:: infectious diseases Referred by:: dr martin Reason for Consultation:: pneumonia,resp failure - History of Present Illness Chief Complaint: sob History of Present Illness: 59 yo M with ILD , O2 dependent(7-8L at home) , COPD, CAD s/p CABG, HTN ,HLD , Lung Ca on chemotherapy with presenting with shortness of breath for the last 2 days. Pt was discharged last week after stay for thoracic compression fracture. pt reports sudden increase in oxygen requirement. denies any cough, wheezing, productive or other gutiérrez. patient currently on high flow oxygen pt denies fevers. chills, nausea, vomiting, chest pain, diaphoresis, diarrhea, abdominal pain, patient started on empric abx - History Source History Provided By: Patient, Medical Record Limitations to Obtaining History: Clinical Condition - Past Medical History Cardio/Vascular: Yes: CAD, HTN, Hyperlipdemia, [place] Pulmonary: Yes: Cancer, COPD, O2 Dependent, Pulmonary Fibrosis, Other (Post biopsy pneumothorax) Gastrointestinal: Yes: GERD Musculoskeletal: Yes: Other (T4 and T11 compression fractures) - Past Surgical History Past Surgical History: Yes: CABG, Hernia Repair, Tonsillectomy - Alcohol/Substance Use Hx Alcohol Use: No History of Substance Use: reports: None - Smoking History Smoking history: Former smoker Have you smoked in the past 12 months: No Aproximately how many cigarettes per day: 20 If you are a former smoker, when did you quit?: 2013 - Social History Usual Living Arrangement: With Spouse 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 ([place], [place]) History of Recent Travel: No Home Medications - Allergies Allergies/Adverse Reactions: Allergies Allergy/AdvReac Type Severity Reaction Status Date / Time No Known Allergies Allergy Verified 10/12/19 15:17 - Home Medications Home Medications: Ambulatory Orders Aspirin 81 mg PO HS 08/24/19 Atorvastatin Ca [Lipitor] 20 mg PO HS 08/24/19 Cyclobenzaprine HCl [Flexeril -] 10 mg PO TID 08/24/19 Metoprolol Tartrate 50 mg PO BID 08/24/19 Prednisone 10 mg PO DAILY 08/24/19 Acetaminophen [Tylenol .Regular Strength -] 325 mg PO Q6H PRN #90 tablet 08/31/19 Calcium 500Mg/Vit-D 200 Units [Os-Faisal 500+D -] 1 tab PO BID tab 08/31/19 Docusate Sodium [Colace -] 100 mg PO TID #90 capsule 08/31/19 Lidocaine 5% Patch [Lidoderm -] 1 patch TP DAILY@1600 #30 patch 08/31/19 Umeclidinium Brm/Vilanterol Tr [Anoro Ellipta 62.5-25 Mcg INH] 1 puff IH DAILY inhaler 08/31/19 Pantoprazole Sodium [Protonix -] 20 mg PO DAILY 09/22/19 Polyethylene Glycol 3350 [Miralax 255 gm Btl -] 17 gm PO DAILY 09/22/19 Cyclobenzaprine HCl [Flexeril -] 10 mg PO TID #90 tablet 10/05/19 Gabapentin 300 mg PO TID #90 capsule 10/05/19 Methylnaltrexone [place] [Relistor -] 12 mg SQ DAILY #30 kit 10/05/19 Miscellaneous Medical Supply [Outpatient Order] 1 each ASDIR #1 misc 10/05/19 Prednisone 40 mg PO ASDIR #30 tablet 10/05/19 Sennosides [Senna] 8.6 mg PO TID #90 tablet 10/05/19 Gabapentin [Neurontin -] 300 mg PO BID 10/13/19 Family Medical History Family Hx Cardiac Disorders: Mother Family Hx Coronary Artery Disease: Father Review of Systems - Review of Systems Constitutional: reports: No Symptoms Eyes: reports: No Symptoms Neck: reports: No Symptoms Cardiovascular: reports: No Symptoms Respiratory: reports: SOB, SOB on Exertion Gastrointestinal: reports: No Symptoms Genitourinary: reports: No Symptoms Musculoskeletal: reports: No Symptoms Integumentary: reports: No Symptoms Neurological: reports: No Symptoms Endocrine: reports: No Symptoms Hematology/Lymphatic: reports: No Symptoms Psychiatric: reports: No Symptoms Physical Exam Vital Signs: Vital Signs Temperature 98.0 F 10/15/19 10:00 Pulse Rate 123 H 10/15/19 10:00 Respiratory Rate 27 H 10/15/19 10:00 Blood Pressure 102/77 10/15/19 10:00 O2 Sat by Pulse Oximetry (%) 88 L 10/15/19 10:21 Constitutional: Yes: Calm, Mild Distress Eyes: Yes: Conjunctiva Clear HENT: Yes: Atraumatic, Normocephalic Neck: Yes: Supple, Trachea Midline Cardiovascular: Yes: Regular Rate and Rhythm Respiratory: Yes: Other (on hfo) Gastrointestinal: Yes: Normal Bowel Sounds, Soft Musculoskeletal: Yes: WNL Extremities: Yes: WNL Neurological: Yes: Alert, Oriented Psychiatric: Yes: Alert, Oriented Labs: CBC, BMP 10/14/19 05:55 10/14/19 05:55 Assessment/Plan Problem List - Problems (1) Acute respiratory failure with hypoxia Code(s): J96.01 - ACUTE RESPIRATORY FAILURE WITH HYPOXIA (2) Interstitial lung disease Code(s): J84.9 - INTERSTITIAL PULMONARY DISEASE, UNSPECIFIED (3) Back pain Code(s): M54.9 - DORSALGIA, UNSPECIFIED (4) COPD (chronic obstructive pulmonary disease) Code(s): J44.9 - CHRONIC OBSTRUCTIVE PULMONARY DISEASE, UNSPECIFIED (5) Compression fracture of T12 vertebra Code(s): S22.080A - WEDGE COMPRESSION FRACTURE OF T11-T12 VERTEBRA, INIT Qualifiers: Encounter type: initial encounter Qualified Code(s): S22.080A - Wedge comp ression fracture of T11-T12 vertebra, initial encounter for closed fracture (6) HLD (hyperlipidemia) Code(s): E78.5 - HYPERLIPIDEMIA, UNSPECIFIED (7) HTN (hypertension) Code(s): I10 - ESSENTIAL (PRIMARY) HYPERTENSION (8) Lung cancer Code(s): C34.90 - MALIGNANT NEOPLASM OF UNSP PART OF UNSP BRONCHUS OR LUNG Assessment/Plan continue as per icu resp support continue abx await for finalization of the cx rest as per the team cc 40 min
--- NOTE | 2019-10-15 11:49 | PN ---
Progress Note, Physician History of Present Illness: PULMONARY AWAKE,TACHYPNEIC ON HFOT ,DESATURATES TO HIGH 70s WITH MIN EXERTION - Current Medication List Current Medications: Active Medications Acetaminophen (Tylenol -) 650 mg PO Q6H PRN PRN Reason: PAIN LEVEL 1-5 Last Admin: 10/15/19 05:33 Dose: 650 mg Documented by: Albuterol/Ipratropium (Duoneb -) 1 amp NEB Q6H PRN PRN Reason: SHORTNESS OF BREATH Allopurinol (Zyloprim -) 300 mg PO DAILY [facility] Last Admin: 10/15/19 09:51 Dose: 300 mg Documented by: Aspirin (Asa -) [address] [facility] Last Admin: 10/14/19 21:32 Dose: 81 mg Documented by: Atorvastatin Calcium (Lipitor -) [address] [facility] Last Admin: 10/14/19 21:33 Dose: 20 mg Documented by: Calcium Carbonate/Cholecalciferol (Os-Faisal 500+D -) 1 tab PO BID [facility] Last Admin: 10/15/19 09:51 Dose: 1 tab Documented by: Cyclobenzaprine HCl (Flexeril -) 10 mg PO TID [facility] Last Admin: 10/15/19 05:24 Dose: 10 mg Documented by: Docusate Sodium (Colace -) 100 mg PO TID [facility] Last Admin: 10/15/19 05:26 Dose: Not Given Documented by: Folic Acid (Folic Acid -) 1 mg PO DAILY [facility] Last Admin: 10/15/19 09:50 Dose: 1 mg Documented by: Gabapentin (Neurontin -) 300 mg PO TID [facility] Last Admin: 10/15/19 05:25 Dose: 300 mg Documented by: Piperacillin Sod/Tazobactam (Sod 3.375 gm/ Dextrose) 50 mls @ 100 mls/hr IVPB Q8H-IV [facility]; Protocol Lidocaine (Lidoderm Patch -) 1 patch TP DAILY@1600 [facility] Last Admin: 10/14/19 16:25 Dose: Not Given Documented by: Methylnaltrexone [place] (Relistor -) 12 mg SQ DAILY [facility] Last Admin: 10/15/19 09:51 Dose: 12 mg Documented by: Methylprednisolone Sodium Succinate (Solu-Medrol -) 40 mg IVPUSH Q8H-IV [facility] Last Admin: 10/15/19 09:32 Dose: 40 mg Documented by: Metoprolol Tartrate (Lopressor -) 50 mg PO BID [facility] Last Admin: 10/15/19 09:50 Dose: 50 mg Documented by: Miscellaneous (Lidoderm Patch Removal) 1 each MC DAILY@2200 [facility] Last Admin: 10/14/19 21:42 Dose: Not Given Documented by: Oxycodone HCl (Roxicodone -) 10 mg PO Q6H PRN PRN Reason: PAIN LEVEL 6-10 Last Admin: 10/15/19 05:34 Dose: 10 mg Documented by: Pantoprazole Sodium (Protonix -) 40 mg PO DAILY [facility] Last Admin: 10/15/19 09:51 Dose: 40 mg Documented by: Polyethylene Glycol (Miralax (For Bowel Prep) -) 17 gm PO DAILY [facility] Last Admin: 10/15/19 10:03 Dose: 17 gm Documented by: Senna (Senna -) 1 tab PO TID [facility] Last Admin: 10/15/19 05:26 Dose: Not Given Documented by: Umeclidinium/Vilanterol (Anoro Ellipta 62.5-25 Mcg Inh) 1 puff IH DAILY [facility] Last Admin: 10/15/19 09:35 Dose: 1 puff Documented by: - Objective Vital Signs: Vital Signs Temperature 98.0 F 10/15/19 10:00 Pulse Rate 123 H 10/15/19 10:00 Respiratory Rate 27 H 10/15/19 10:00 Blood Pressure 102/77 10/15/19 10:00 O2 Sat by Pulse Oximetry (%) 90 L 10/15/19 11:29 Constitutional: Yes: Well Nourished, Moderate Distress Eyes: Yes: WNL HENT: Yes: WNL Neck: Yes: WNL Cardiovascular: Yes: Regular Rate and Rhythm, S1, S2 Respiratory: Yes: Rales (BILATERAL CRACKLES) Gastrointestinal: Yes: Normal Bowel Sounds, Soft Extremities: Yes: WNL Edema: No Labs: CBC, BMP Problem List - Problems (1) Acute and chronic respiratory failure Code(s): J96.20 - ACUTE AND CHR RESP FAILURE, UNSP W HYPOXIA OR HYPERCAPNIA Qualifiers: Respiratory failure complication: hypoxia Qualified Code(s): J96.21 - Acute and chronic respiratory failure with hypoxia (2) CAD (coronary artery disease) Code(s): I25.10 - ATHSCL HEART DISEASE OF [place] CORONARY ARTERY W/O ANG PCTRS (3) Compression fracture of T12 vertebra Code(s): S22.080A - WEDGE COMPRESSION FRACTURE OF T11-T12 VERTEBRA, INIT Qualifiers: Encounter type: initial encounter Qualified Code(s): S22.080A - Wedge compression fracture of T11-T12 vertebra, initial encounter for closed fracture (4) HLD (hyperlipidemia) Code(s): E78.5 - HYPERLIPIDEMIA, UNSPECIFIED (5) HTN (hypertension) Code(s): I10 - ESSENTIAL (PRIMARY) HYPERTENSION (6) Interstitial lung disease Code(s): J84.9 - INTERSTITIAL PULMONARY DISEASE, UNSPECIFIED (7) Lung cancer Code(s): C34.90 - MALIGNANT NEOPLASM OF UNSP PART OF UNSP BRONCHUS OR LUNG (8) Vertebral fracture Code(s): [id number] - (9) Interstitial lung disease Code(s): J84.9 - INTERSTITIAL PULMONARY DISEASE, UNSPECIFIED Assessment/Plan IMP ACUTE ON CHRONIC HYPOXEMIC RESPIRATORY FAILURE ADVANCE ILD/PULMONARY FIBROSIS COPD ? PNEUMONIA MET LUNG CA NON-SMALL CELL ASHD S/P CABG THROMBOCYTOPENIA ANEMIA PLAN SUPPLEMENTAL O2 TO MAINTAIN O2 SAT 90% HFOT INHALED BRONCHODILATORS STEROIDS ABX MONITOR LYTES,CBC,PLT CT F/U CHEST X-RAYS NORMAL TRANSFUSION THRESHOLD TRANSFER TO ICU DR HANSON Problem List - Problems (1) Acute and chronic respiratory failure Code(s): J96.20 - ACUTE AND CHR RESP FAILURE, UNSP W HYPOXIA OR HYPERCAPNIA Qualifiers: Respiratory failure complication: hypoxia Qualified Code(s): J96.21 - Acute and chronic respiratory failure with hypoxia (2) CAD (coronary artery disease) Code(s): I25.10 - ATHSCL HEART DISEASE OF [place] CORONARY ARTERY W/O ANG PCTRS (3) Compression fracture of T12 vertebra Code(s): S22.080A - WEDGE COMPRESSION FRACTURE OF T11-T12 VERTEBRA, INIT Qualifiers: Encounter type: initial encounter Qualified Code(s): S22.080A - Wedge compression fracture of T11-T12 vertebra, initial encounter for closed fracture (4) HLD (hyperlipidemia) Code(s): E78.5 - HYPERLIPIDEMIA, UNSPECIFIED (5) HTN (hypertension) Code(s): I10 - ESSENTIAL (PRIMARY) HYPERTENSION (6) Interstitial lung disease Code(s): J84.9 - INTERSTITIAL PULMONARY DISEASE, UNSPECIFIED (7) Lung cancer Code(s): C34.90 - MALIGNANT NEOPLASM OF UNSP PART OF UNSP BRONCHUS OR LUNG (8) Vertebral fracture Code(s): [id number] - (9) Interstitial lung disease Code(s): J84.9 - INTERSTITIAL PULMONARY DISEASE, UNSPECIFIED
[2019-10-15 12:17] VITALS: BMI 22.7
--- NOTE | 2019-10-15 12:47 | CONSULT ---
Consultation: REQUESTING PROVIDER: CONSULT REQUEST: We have been asked to medically evaluate this patient for ICU admission HISTORY OF PRESENT ILLNESS: 59 yo M with ILD, COPD (O2 dependent on 7-8L at home), CAD s/p CABG, HTN, HLD, and lung adenocarcinoma currently on chemotherapy presents with SOB initially in the emergency department for 2 days. The patient had a recent hospital encounter for thoracic compression fracture. Patient states that he has been more dependent on the oxygen and using more at home. Currently, the patient is SOB. Denies the following: fevers, chills, chest pain, nausea, vomiting, abdominal pain, dysuria, hematuria, leg pain/swelling. REVIEW OF SYSTEMS: CONSTITUTIONAL: Absent: fever, chills, diaphoresis, generalized weakness, malaise, loss of appetite, weight change HEENT: Absent: rhinorrhea, nasal congestion, throat pain, throat swelling, difficulty swallowing, mouth swelling, ear pain, eye pain, visual changes CARDIOVASCULAR: Absent: chest pain, syncope, palpitations, irregular heart rate, lightheadedness, peripheral edema RESPIRATORY: Absent: cough, shortness of breath, dyspnea with exertion, orthopnea, wheezing, stridor, hemoptysis GASTROINTESTINAL: Absent: abdominal pain, abdominal distension, nausea, vomiting, diarrhea, const ipation, melena, hematochezia GENITOURINARY: Absent: dysuria, frequency, urgency, hesitancy, hematuria, flank pain, genital pain MUSCULOSKELETAL: Absent: myalgia, arthralgia, joint swelling, back pain, neck pain SKIN: Absent: rash, itching, pallor HEMATOLOGIC/IMMUNOLOGIC: Absent: easy bleeding, easy bruising, lymphadenopathy, frequent infections ENDOCRINE: Absent: unexplained weight gain, unexplained weight loss, heat intolerance, cold intolerance NEUROLOGIC: Absent: headache, focal weakness or paresthesias, dizziness, unsteady gait, seizure, mental status changes, bladder or bowel incontinence PSYCHIATRIC: Absent: anxiety, depression, suicidal or homicidal ideation, hallucinations. PHYSICAL EXAMINATION Vital Signs - 24 hr 10/14/19 10/14/19 10/14/19 13:40 15:55 16:00 Temperature 98.2 F Pulse Rate 117 H Respiratory 25 H Rate Blood Pressure 106/70 O2 Sat by Pulse 96 95 97 Oximetry (%) 10/14/19 10/14/19 10/14/19 16:09 17:21 20:10 Temperature Pulse Rate Respiratory Rate Blood Pressure O2 Sat by Pulse 96 97 97 Oximetry (%) 10/14/19 10/14/19 10/14/19 20:15 20:19 21:00 Temperature 98.8 F Pulse Rate 80 Respiratory 20 Rate Blood Pressure 117/71 O2 Sat by Pulse 97 95 95 Oximetry (%) 10/15/19 10/15/19 10/15/19 00:00 00:20 01:24 Temperature 98.0 F Pulse Rate 94 H 99 H Respiratory 19 22 H Rate Blood Pressure 90/55 L 85/70 L O2 Sat by Pulse 100 100 100 Oximetry (%) 10/15/19 10/15/19 10/15/19 02:35 04:15 04:58 Temperature 98.0 F Pulse Rate 92 H 108 H Respiratory 22 H 22 H Rate Blood Pressure 90/61 107/55 L O2 Sat by Pulse 100 99 99 Oximetry (%) 10/15/19 10/15/19 10/15/19 08:00 08:13 09:00 Temperature 98.1 F Pulse Rate 102 H 104 H Respiratory 18 27 H Rate Blood Pressure 91/66 O2 Sat by Pulse 98 96 88 L Oximetry (%) 10/15/19 10/15/19 10/15/19 10:00 10:21 11:29 Temperature 98.0 F Pulse Rate 123 H Respiratory 27 H Rate Blood Pressure 102/77 O2 Sat by Pulse 88 L 88 L 90 L Oximetry (%) 10/15/19 12:00 Temperature 98.1 F Pulse Rate 104 H Respiratory 25 H Rate Blood Pressure 105/88 O2 Sat by Pulse 97 Oximetry (%) GENERAL: Awake, alert, and fully oriented, in no acute distress. HEAD: Normal with no signs of trauma. EYES: Pupils equal, round and reactive to light, extraocular movements intact, sclera anicteric, conjunctiva clear. No lid lag. EARS, NOSE, THROAT: Ears normal, nares patent, oropharynx clear without exudates. Moist mucous membranes. NECK: Normal range of motion, supple without lymphadenopathy, JVD, or masses. LUNGS: Breath sounds equal, clear to auscultation bilaterally. No wheezes, and no crackles. No accessory muscle use. HEART: Regular rate and rhythm, normal S1 and S2 without murmur, rub or gallop. ABDOMEN: Soft, nontender, not distended, normoactive bowel sounds, no guarding, no rebound, no masses. No hepatomegaly or splenomegaly. MUSCULOSKELETAL: Normal range of motion at all joints. No bony deformities or tenderness. No CVA tenderness. UPPER EXTREMITIES: 2+ pulses, warm, well-perfused. No cyanosis. No clubbing. Cap refill <2 seconds. No peripheral edema. LOWER EXTREMITIES: 2+ pulses, warm, well-perfused. No calf tenderness. No peripheral edema. NEUROLOGICAL: Cranial nerves II-XII intact. Normal speech. Normal gait. PSYCHIATRIC: Cooperative. Good eye contact. Appropriate mood and affect. SKIN: Warm, dry, normal turgor, no rashes or lesions noted. Active Medications Generic Name Dose Route Start Last Admin Trade Name Freq PRN Reason Stop Dose Admin Acetaminophen 650 mg 10/13/19 02:10 10/15/19 05:33 Tylenol - PO 650 mg Q6H PRN Administration PAIN LEVEL 1-5 Albuterol/Ipratropium 1 amp 10/13/19 01:47 Duoneb - NEB Q6H PRN SHORTNESS OF BREATH Allopurinol 300 mg 10/13/19 17:45 10/15/19 09:51 Zyloprim - PO 300 mg DAILY [facility] Administration Aspirin 81 mg 10/13/19 22:00 10/14/19 21:32 Asa - PO 81 mg HS [facility] Administration Atorvastatin Calcium 20 mg 10/13/19 22:00 10/14/19 21:33 Lipitor - PO 20 mg HS [facility] Administration Calcium Carbonate/Cholecalciferol 1 tab 10/13/19 10:00 10/15/19 09:51 Os-Faisal 500+D - PO 1 tab BID [facility] Administration Cyclobenzaprine HCl 10 mg 10/13/19 06:00 10/15/19 05:24 Flexeril - PO 10 mg TID [facility] Administration Docusate Sodium 100 mg 10/13/19 06:00 10/15/19 05:26 Colace - PO Not Given TID [facility] Folic Acid 1 mg 10/13/19 17:45 10/15/19 09:50 Folic Acid - PO 1 mg DAILY [facility] Administration Gabapentin 300 mg 10/13/19 06:00 10/15/19 05:25 Neurontin - PO 300 mg TID [facility] Administration Piperacillin Sod/Tazobactam 50 mls @ 100 mls/hr 10/15/19 18:00 Sod 3.375 gm/ Dextrose IVPB Q8H-IV [facility] Protocol Lidocaine 1 patch 10/13/19 16:00 10/14/19 16:25 Lidoderm Patch - TP Not Given DAILY@1600 [facility] Methylnaltrexone [place] 12 mg 10/13/19 10:00 10/15/19 09:51 Relistor - SQ 12 mg DAILY [facility] Administration Methylprednisolone Sodium Succinate 40 mg 10/13/19 02:00 10/15/19 09:32 Solu-Medrol - IVPUSH 40 mg Q8H-IV [facility] Administration Metoprolol Tartrate 50 mg 10/13/19 22:00 10/15/19 09:50 Lopressor - PO 50 mg BID [facility] Administration Miscellaneous 1 each 10/13/19 22:00 10/14/19 21:42 Lidoderm Patch Removal MC Not Given DAILY@2200 [facility] Oxycodone HCl 10 mg 10/13/19 02:10 10/15/19 05:34 Roxicodone - PO 10 mg Q6H PRN Administration PAIN LEVEL 6-10 Pantoprazole Sodium 40 mg 10/13/19 17:30 10/15/19 09:51 Protonix - PO 40 mg DAILY [facility] Administration Polyethylene Glycol 17 gm 10/13/19 10:00 10/15/19 10:03 Miralax (For Bowel Prep) - PO 17 gm DAILY [facility] Administration Senna 1 tab 10/13/19 06:00 10/15/19 05:26 Senna - PO Not Given TID [facility] Umeclidinium/Vilanterol 1 puff 10/13/19 10:00 10/15/19 09:35 Anoro Ellipta 62.5-25 Mcg Inh IH 1 puff DAILY [facility] Administration ASSESSMENT/PLAN: 59 yo M with ILD, COPD (O2 dependent on 7-8L at home), CAD s/p CABG, HTN, HLD, and lung adenocarcinoma currently on chemotherapy presents with SOB initially in the emergency department for 2 days. Neuro: NAD, alert and oriented x3, no sedation, able to converse logically Continue to monitor for acute mental status changes Cardiac: CAD s/p CABG HTN HLD Cardiology follow; appreciate recommendations Patient to be started on plavix? Not located on home medications Patient has EKG that shows sinus tachycardia with atrial complexes and RBBB. No ST elevations or depressions noted Patient to continue home anti-HTN medications: metoprolol Patient received furosemide earlier in admission Continue atorvastatin, aspirin, allopurinol Continuous cardiac monitoring Pulmonary: ILD COPD Acute on chronic hypoxemic respiratory failure Non-small lung adenocarcinoma Currently on HFNC and non rebreather mask with flush saturating at 97-98% O2. No PE on Chest CTA; noted extensive pulmonary changes Patient currently on albuterol, solumedrol Continuous pulse oximetry monitoring ID: CTA of the chest noted possible bibasilar lung infiltrates Dispo: We will continue to follow the patient. Thank you for this consultative opportunity. IMP ACUTE ON CHRONIC HYPOXEMIC RESPIRATORY FAILURE ADVANCE ILD/PULMONARY FIBROSIS COPD ? PNEUMONIA MET LUNG CA NON-SMALL CELL ASHD S/P CABG THROMBOCYTOPENIA ANEMIA PLAN SUPPLEMENTAL O2 HFOT INHALED BRONCHODILATORS STEROIDS ABX MONITOR LYTES,CBC,PLT CT F/U CHEST X-RAYS DR HANSON ATTENDING PHYSICIAN STATEMENT I saw and evaluated the patient. I reviewed the resident's note and discussed the case with the resident. I agree with the resident's findings and plan as documented. SUBJECTIVE: OBJECTIVE: ASSESSMENT AND PLAN:
[2019-10-15] MEDS: LIDOCAINE 5% TOPICAL PATCH TP SCH (16:00)
[2019-10-15] MEDS ORDERED: GABAPENTIN 300 MG CAPSULE PO ONE (16:39)
[2019-10-15 17:30] LABS: HEMATOCRIT 23.7 % (35.4-49); HEMOGLOBIN 8.1 GM/dL (11.7-16.9); LYMPH % 3.9 % (8-40); MCH 31.9 pg (25.7-33.7); MCHC 34.1 g/dl (32.0-35.9); MEAN CELL VOLUME 93.6 fl (80-96); MEAN PLT VOLUME 7.9 fl (7.5-11.1); MONO % 10.7 % (3.8-10.2); NEUT % 85.4 % (42.8-82.8); PLATELET COUNT 42 K/MM3 (134-434); RBC 2.53 M/mm3 (4.00-5.60); RDW 17.1 % (11.9-15.9); WHITE BLOOD COUNT 6.2 K/mm3 (4.0-10.0)
[2019-10-15 18:01] LABS: ALBUMIN 2.8 g/dl (3.4-5.0); ALK PHOS 90 U/L (45-117); ANION GAP 7 MMOL/L (8-16); BILIRUBIN,TOTAL 0.6 mg/dL (0.2-1); BLOOD UREA NITROGEN 34.5 mg/dL (7-18); CALCIUM 8.8 mg/dL (8.5-10.1); CHLORIDE 96 mmol/L (98-107); CO2 34 mmol/L (21-32); CREATININE 0.9 mg/dL (0.55-1.3); GLUCOSE,RANDOM 104 mg/dL (74-106); POTASSIUM 4.2 mmol/L (3.5-5.1); SGOT/AST 68 U/L (15-37); SGPT/ALT 22 U/L (13-61); SODIUM 137 mmol/L (136-145); TOT PROT 5.7 g/dl (6.4-8.2); URIC ACID 3.9 mg/dL (2.6-7.2)
[2019-10-15] MEDS: MUPIROCIN 2% TOPICAL OINTMENT FOR DECOLONIZATION NS SCH ×2 (18:06→22:14)
[2019-10-15 18:07] LABS: LDH > 1000 U/L (87-246)
[2019-10-15] MEDS: VANCOMYCIN 1 GM PREMIX - 1 GM/200 ML BAG IVPB SCH (20:42)
--- NOTE | 2019-10-15 21:28 | PN ---
Progress Note, Physician History of Present Illness: Pt at times hypoxic today and is now on NRB and hi flow O2 - Current Medication List Current Medications: Active Medications Acetaminophen (Tylenol -) 650 mg PO Q6H PRN PRN Reason: PAIN LEVEL 1-5 Last Admin: 10/15/19 18:26 Dose: 650 mg Documented by: Albuterol/Ipratropium (Duoneb -) 1 amp NEB Q6H PRN PRN Reason: SHORTNESS OF BREATH Allopurinol (Zyloprim -) 300 mg PO DAILY [facility] Last Admin: 10/15/19 09:51 Dose: 300 mg Documented by: Aspirin (Asa -) 81 mg PO [facility] Last Admin: 10/14/19 21:32 Dose: 81 mg Documented by: Atorvastatin Calcium (Lipitor -) 20 mg PO [facility] Last Admin: 10/14/19 21:33 Dose: 20 mg Documented by: Calcium Carbonate/Cholecalciferol (Os-Faisal 500+D -) 1 tab PO BID [facility] Last Admin: 10/15/19 09:51 Dose: 1 tab Documented by: Chlorhexidine Gluconate (Hibiclens For Decolonization -) 1 applic TP [facility] Cyclobenzaprine HCl (Flexeril -) 10 mg PO TID [facility] Last Admin: 10/15/19 13:26 Dose: 10 mg Documented by: Docusate Sodium (Colace -) 100 mg PO TID [facility] Last Admin: 10/15/19 13:19 Dose: Not Given Documented by: Folic Acid (Folic Acid -) 1 mg PO DAILY [facility] Last Admin: 10/15/19 09:50 Dose: 1 mg Documented by: Gabapentin (Neurontin -) 300 mg PO BID [facility] Gabapentin (Neurontin -) 600 mg PO DAILY@1600 [facility] Piperacillin Sod/Tazobactam (Sod 3.375 gm/ Dextrose) 50 mls @ 100 mls/hr IVPB Q8H-IV [facility]; Protocol Last Admin: 10/15/19 17:00 Dose: 100 mls/hr Documented by: Lidocaine (Lidoderm Patch -) 1 patch TP DAILY@1600 [facility] Last Admin: 10/15/19 16:00 Dose: Not Given Documented by: Methylnaltrexone [place] (Relistor -) 12 mg SQ DAILY [facility] Last Admin: 10/15/19 09:51 Dose: 12 mg Documented by: Methylprednisolone Sodium Succinate (Solu-Medrol -) 40 mg IVPUSH Q8H-IV [facility] Last Admin: 10/15/19 17:00 Dose: 40 mg Documented by: Metoprolol Tartrate (Lopressor -) 50 mg PO BID [facility] Last Admin: 10/15/19 09:50 Dose: 50 mg Documented by: Miscellaneous (Lidoderm Patch Removal) 1 each MC DAILY@2200 [facility] Last Admin: 10/14/19 21:42 Dose: Not Given Documented by: Mupirocin (Bactroban Ointment (For Decolonization) -) 1 applic NS BID [facility] Stop: 10/20/19 12:59 Last Admin: 10/15/19 18:06 Dose: 1 applic Documented by: Oxycodone HCl (Roxicodone -) 5 mg PO Q6H PRN PRN Reason: PAIN LEVEL 6-10 Last Admin: 10/15/19 18:26 Dose: 5 mg Documented by: Pantoprazole Sodium (Protonix -) 40 mg PO DAILY [facility] Last Admin: 10/15/19 09:51 Dose: 40 mg Documented by: Polyethylene Glycol (Miralax (For Bowel Prep) -) 17 gm PO BID [facility] Senna (Senna -) 1 tab PO TID [facility] Last Admin: 10/15/19 13:20 Dose: Not Given Documented by: Umeclidinium/Vilanterol (Anoro Ellipta 62.5-25 Mcg Inh) 1 puff IH DAILY [facility] Last Admin: 10/15/19 09:35 Dose: 1 puff Documented by: - Objective Vital Signs: Vital Signs Temperature 98.0 F 10/15/19 18:00 Pulse Rate 120 H 10/15/19 21:06 Respiratory Rate 24 H 10/15/19 20:00 Blood Pressure 92/69 10/15/19 20:00 O2 Sat by Pulse Oximetry (%) 98 10/15/19 21:06 Cardiovascular: Yes: WNL, Regular Rate and Rhythm Respiratory: Yes: Diminished Gastrointestinal: Yes: WNL, Normal Bowel Sounds, Soft Labs: CBC, BMP 10/15/19 17:10 10/15/19 17:10 INR, PTT INR 1.20 (0.83-1.09) H 10/12/19 16:09 Problem List - Problems (1) Acute respiratory failure with hypoxia Assessment/Plan: Multifactorial Due to pneumonia/lung ca/ILD/COPD COnt IV antibxs Cont IV solumedrol Cont nebulizers Repeat CXR Code(s): J96.01 - ACUTE RESPIRATORY FAILURE WITH HYPOXIA (2) Lung cancer Assessment/Plan: As per onco S/P Chemotx Thrombocytopenia slowly improving Code(s): C34.90 - MALIGNANT NEOPLASM OF UNSP PART OF UNSP BRONCHUS OR LUNG (3) COPD (chronic obstructive pulmonary disease) Assessment/Plan: Cont ellipta inhaler Code(s): J44.9 - CHRONIC OBSTRUCTIVE PULMONARY DISEASE, UNSPECIFIED (4) Interstitial lung disease Code(s): J84.9 - INTERSTITIAL PULMONARY DISEASE, UNSPECIFIED (5) Constipation Code(s): K59.00 - CONSTIPATION, UNSPECIFIED Qualifiers: Constipation type: drug induced constipation Qualified Code(s): K59.03 - Drug induced constipation (6) HTN (hypertension) Assessment/Plan: Cont metoprolol BP stable Code(s): I10 - ESSENTIAL (PRIMARY) HYPERTENSION (7) HLD (hyperlipidemia) Assessment/Plan: Cont lipitor Code(s): E78.5 - HYPERLIPIDEMIA, UNSPECIFIED (8) Pneumonia Assessment/Plan: Cont IV antibxs Code(s): J18.9 - PNEUMONIA, UNSPECIFIED ORGANISM (9) Vertebral fracture Assessment/Plan: Cont gabapentin/lidocaine patch/oxycodone Code(s): HCV1143 - (10) CAD (coronary artery disease) Code(s): I25.10 - ATHSCL HEART DISEASE OF [place] CORONARY ARTERY W/O ANG PCTRS
[2019-10-15] MEDS: LIDOCAINE PATCH REMOVAL MC SCH (22:14)
[2019-10-15] MEDS: CHLORHEXIDINE GLUCONATE 4% CLEANSER FOR DECOLONIZATION TP SCH (22:14)
[2019-10-15] MEDS: ASPIRIN 81 MG CHEWABLE TABLETS PO SCH (22:14)
[2019-10-15] MEDS: ATORVASTATIN CA 20 MG TABLET (FP) PO SCH (22:15)
[2019-10-16] MEDS ORDERED: PIPERACILLIN/TAZOBACTAM 3.375 GM VIAL IVPB ONE ×3 (00:17→18:28)
[2019-10-16] MEDS ORDERED: DEXTROSE 5%-WATER - 50 ML IVPB ONE ×3 (00:17→18:28)
[2019-10-16] MEDS: ACETAMINOPHEN 325 MG TABLET (FP) PO PRN ×4 (00:51→21:38)
[2019-10-16] MEDS: oxyCODONE HCL 5 MG TABLET PO PRN ×4 (00:52→21:38)
[2019-10-16] MEDS: PIPERACILLIN/TAZOB 3.375 GM 3.375 GM in DEXTROSE 5%-WATER - 50 ML IVPB SCH ×3 (01:30→18:37)
[2019-10-16] MEDS: methylPREDNISolone NA SUCC 40 MG/1 ML VIAL IVPUSH SCH ×3 (02:00→18:37)
[2019-10-16 06:08] LABS: ARTERIAL BLD GAS O2 SATURATION 92.9 mmHg (95-98); ARTERIAL BLOOD GAS BASE EXCESS 5.7 mmol/L (-2-2); ARTERIAL BLOOD GAS PO2 60.3 mmHg (80-100); ARTERIAL BLOOD GAS pH 7.489 (7.350-7.450)
[2019-10-16 06:25] LABS: ALLENS TEST POSITIVE
[2019-10-16] MEDS: CYCLOBENZAPRINE HCL 10 MG TABLET (FP) PO SCH ×3 (06:35→21:23)
[2019-10-16] MEDS: DOCUSATE SODIUM 100 MG CAPSULE (FP) PO SCH ×3 (06:35→21:20)
[2019-10-16] MEDS: SENNOSIDES 8.6MG TABLET (FP) PO SCH ×3 (06:35→21:23)
[2019-10-16 07:20] LABS: EOS % 0.4 % (0-4.5); HEMOGLOBIN 7.5 GM/dL (11.7-16.9); MCH 31.6 pg (25.7-33.7); MCHC 33.9 g/dl (32.0-35.9); MEAN CELL VOLUME 93.2 fl (80-96); MEAN PLT VOLUME 8.5 fl (7.5-11.1); MONO % 10.8 % (3.8-10.2); NEUT % 85.8 % (42.8-82.8); PLATELET COUNT 41 K/MM3 (134-434); RBC 2.36 M/mm3 (4.00-5.60); RDW 17.5 % (11.9-15.9); WHITE BLOOD COUNT 4.4 K/mm3 (4.0-10.0)
[2019-10-16 07:27] LABS: INR 0.98 (0.83-1.09); PROTHROMBIN TIME (PATIENT) 11.6 SEC (9.7-13.0)
[2019-10-16 07:28] LABS: ACTIVATED PTT 19.9 SECONDS (25.2-36.5)
[2019-10-16 07:49] LABS: ALBUMIN 2.8 g/dl (3.4-5.0); BILIRUBIN,TOTAL 0.6 mg/dL (0.2-1); BLOOD UREA NITROGEN 33.9 mg/dL (7-18); CREATININE 0.8 mg/dL (0.55-1.3); MAGNESIUM 2.6 mg/dL (1.8-2.4); PHOSPHOROUS 4.4 mg/dL (2.5-4.9); POTASSIUM 4.8 mmol/L (3.5-5.1); TOT PROT 5.8 g/dl (6.4-8.2)
[2019-10-16] MEDS ORDERED: PT OWN MED DRAWER 7, Y5N ONE ×3 (08:59→20:56)
[2019-10-16] MEDS: MUPIROCIN 2% TOPICAL OINTMENT FOR DECOLONIZATION NS SCH ×2 (09:11→21:21)
[2019-10-16] MEDS: UMECLIDINIUM/VILANTEROL (ANORO) 62.5/25 MCG INHALER IH SCH (09:11)
[2019-10-16] MEDS: FOLIC ACID 1 MG TABLET (FP) PO SCH (09:11)
[2019-10-16] MEDS: ALLOPURINOL 300 MG TABLET (FP) PO SCH (09:12)
[2019-10-16] MEDS: PANTOPRAZOLE 40 MG TABLET PO SCH (09:12)
[2019-10-16] MEDS: METOPROLOL TARTRATE 50 MG TABLET (FP) PO SCH ×2 (09:13→21:23)
[2019-10-16] MEDS: GABAPENTIN 300 MG CAPSULE PO SCH ×3 (09:13→21:22)
[2019-10-16] MEDS: POLYETHYLENE GLYCOL 3350 255 GM BTL PO SCH ×2 (09:13→21:22)
[2019-10-16] MEDS: CALCIUM 500MG/VIT-D 200 UNITS COMBO TABLET (FP) PO SCH ×2 (10:15→23:39)
[2019-10-16] MEDS: Methylnaltrexone Bromide 12 MG/0.6 ML KIT SQ SCH ×2 (10:15→10:17)
--- NOTE | 2019-10-16 13:01 | PN ---
Progress Note (short form) - Note Progress Note: s: no cp palps dizzy. stable dyspnea. Current Medications Generic Name Dose Route Start Last Admin Trade Name Freq PRN Reason Stop Dose Admin Acetaminophen 650 mg 10/13/19 02:10 10/16/19 06:35 Tylenol - PO 650 mg Q6H PRN Administration PAIN LEVEL 1-5 Albuterol/Ipratropium 1 amp 10/13/19 01:47 Duoneb - NEB Q6H PRN SHORTNESS OF BREATH Allopurinol 300 mg 10/13/19 17:45 10/16/19 09:12 Zyloprim - PO 300 mg DAILY [facility] Administration Aspirin 81 mg 10/13/19 22:00 10/15/19 22:14 Asa - PO 81 mg HS [facility] Administration Atorvastatin Calcium 20 mg 10/13/19 22:00 10/15/19 22:15 Lipitor - PO 20 mg HS [facility] Administration Calcium Carbonate/Cholecalciferol 1 tab 10/13/19 10:00 10/16/19 10:15 Os-Faisal 500+D - PO 1 tab BID [facility] Administration Chlorhexidine Gluconate 1 applic 10/15/19 22:00 10/15/19 22:14 Hibiclens For Decolonization - TP 1 applic HS [facility] Administration Cyclobenzaprine HCl 10 mg 10/13/19 06:00 10/16/19 06:35 Flexeril - PO 10 mg TID [facility] Administration Docusate Sodium 100 mg 10/13/19 06:00 10/16/19 06:35 Colace - PO 100 mg TID [facility] Administration Folic Acid 1 mg 10/13/19 17:45 10/16/19 09:11 Folic Acid - PO 1 mg DAILY [facility] Administration Gabapentin 300 mg 10/15/19 22:00 10/16/19 09:13 Neurontin - PO 300 mg BID [facility] Administration Gabapentin 600 mg 10/16/19 16:00 Neurontin - PO DAILY@1600 [facility] Piperacillin Sod/Tazobactam 50 mls @ 100 mls/hr 10/15/19 18:00 10/16/19 09:15 Sod 3.375 gm/ Dextrose IVPB 100 mls/hr Q8H-IV [facility] Administration Protocol Lidocaine 1 patch 10/13/19 16:00 10/15/19 16:00 Lidoderm Patch - TP Not Given DAILY@1600 [facility] Methylnaltrexone [place] 12 mg 10/13/19 10:00 10/16/19 10:17 Relistor - SQ Not Given DAILY [facility] Methylprednisolone Sodium Succinate 40 mg 10/13/19 02:00 10/16/19 09:15 Solu-Medrol - IVPUSH 40 mg Q8H-IV [facility] Administration Metoprolol Tartrate 50 mg 10/13/19 22:00 10/16/19 09:13 Lopressor - PO 50 mg BID [facility] Administration Miscellaneous 1 each 10/13/19 22:00 10/15/19 22:14 Lidoderm Patch Removal MC 1 each DAILY@2200 [facility] Administration Mupirocin 1 applic 10/15/19 13:00 10/16/19 09:11 Bactroban Ointment (For Decolonization) - NS 10/20/19 12:59 1 applic BID [facility] Administration Oxycodone HCl 5 mg 10/15/19 15:01 10/16/19 06:35 Roxicodone - PO 5 mg Q6H PRN Administration PAIN LEVEL 6-10 Pantoprazole Sodium 40 mg 10/13/19 17:30 10/16/19 09:12 Protonix - PO 40 mg DAILY [facility] Administration Polyethylene Glycol 17 gm 10/15/19 22:00 10/16/19 09:13 Miralax (For Bowel Prep) - PO 17 gm BID [facility] Administration Senna 1 tab 10/13/19 06:00 10/16/19 06:35 Senna - PO 1 tab TID [facility] Administration Umeclidinium/Vilanterol 1 puff 10/13/19 10:00 10/16/19 09:11 Anoro Ellipta 62.5-25 Mcg Inh IH 1 puff DAILY [facility] Administration Vital Signs Period Temp Pulse Resp BP Sys/[place]odge Pulse Ox Last 24 Hr 98.0 F-98.4 F 103-129 19-32 92-119/64-84 90-100 Constitutional: Yes: No Distress, Calm Eyes: Yes: Conjunctiva Clear, EOM Intact HENT: Yes: Atraumatic, Normocephalic Neck: Yes: Supple, Trachea Midline Respiratory: Yes: Regular, . no wheeze, bibasilar rhonchi Gastrointestinal: Yes: Normal Bowel Sounds, Soft Cardiovascular: Yes: Regular Rate and Rhythm JVD: No Extremities: No: Cold Edema: no Integumentary: No: Jaundice Neurological: Yes: Alert, Oriented Psychiatric: No: Agitated Assessment/Plan EKG: sr, old rbbb, no ischemic changes stress echo 07/2018 nl EF, no ischemia echo 07/2019 nl LV function, mild LVH, borderline RV size/function, LA mod dilated, tr to mild MR, mild TR cta chest: no pe, ?pna tele: sr/sinus tachy, PACs sob, hypoxia, pna: -cont 02 -cont abx -no signs acs COPD, lung adenoca - manage per onc, pulm - on IV steroids now tachycardia - sinus tachycardia likely in the setting of acute issues - cont metoprolol CAD s/p CABG - cont aspirin, statin, bb, plavix HTN - cont home meds HLD - cont statin
--- NOTE | 2019-10-16 13:40 | PN ---
Progress Note, Physician History of Present Illness: stable still sob - Current Medication List Current Medications: Active Medications Acetaminophen (Tylenol -) 650 mg PO Q6H PRN PRN Reason: PAIN LEVEL 1-5 Last Admin: 10/16/19 06:35 Dose: 650 mg Documented by: Albuterol/Ipratropium (Duoneb -) 1 amp NEB Q6H PRN PRN Reason: SHORTNESS OF BREATH Allopurinol (Zyloprim -) 300 mg PO DAILY [facility] Last Admin: 10/16/19 09:12 Dose: 300 mg Documented by: Aspirin (Asa -) 81 mg PO [facility] Last Admin: 10/15/19 22:14 Dose: 81 mg Documented by: Atorvastatin Calcium (Lipitor -) 20 mg PO [facility] Last Admin: 10/15/19 22:15 Dose: 20 mg Documented by: Calcium Carbonate/Cholecalciferol (Os-Faisal 500+D -) 1 tab PO BID [facility] Last Admin: 10/16/19 10:15 Dose: 1 tab Documented by: Chlorhexidine Gluconate (Hibiclens For Decolonization -) 1 applic TP [facility] Last Admin: 10/15/19 22:14 Dose: 1 applic Documented by: Cyclobenzaprine HCl (Flexeril -) 10 mg PO TID [facility] Last Admin: 10/16/19 06:35 Dose: 10 mg Documented by: Docusate Sodium (Colace -) 100 mg PO TID [facility] Last Admin: 10/16/19 06:35 Dose: 100 mg Documented by: Folic Acid (Folic Acid -) 1 mg PO DAILY [facility] Last Admin: 10/16/19 09:11 Dose: 1 mg Documented by: Gabapentin (Neurontin -) 300 mg PO BID [facility] Last Admin: 10/16/19 09:13 Dose: 300 mg Documented by: Gabapentin (Neurontin -) 600 mg PO DAILY@1600 [facility] Piperacillin Sod/Tazobactam (Sod 3.375 gm/ Dextrose) 50 mls @ 100 mls/hr IVPB Q8H-IV [facility]; Protocol Last Admin: 10/16/19 09:15 Dose: 100 mls/hr Documented by: Lidocaine (Lidoderm Patch -) 1 patch TP DAILY@1600 [facility] Last Admin: 10/15/19 16:00 Dose: Not Given Documented by: Methylnaltrexone [place] (Relistor -) 12 mg SQ DAILY [facility] Last Admin: 10/16/19 10:17 Dose: Not Given Documented by: Methylprednisolone Sodium Succinate (Solu-Medrol -) 40 mg IVPUSH Q8H-IV [facility] Last Admin: 10/16/19 09:15 Dose: 40 mg Documented by: Metoprolol Tartrate (Lopressor -) 50 mg PO BID [facility] Last Admin: 10/16/19 09:13 Dose: 50 mg Documented by: Miscellaneous (Lidoderm Patch Removal) 1 each MC DAILY@2200 [facility] Last Admin: 10/15/19 22:14 Dose: 1 each Documented by: Mupirocin (Bactroban Ointment (For Decolonization) -) 1 applic NS BID [facility] Stop: 10/20/19 12:59 Last Admin: 10/16/19 09:11 Dose: 1 applic Documented by: Oxycodone HCl (Roxicodone -) 5 mg PO Q6H PRN PRN Reason: PAIN LEVEL 6-10 Last Admin: 10/16/19 06:35 Dose: 5 mg Documented by: Pantoprazole Sodium (Protonix -) 40 mg PO DAILY [facility] Last Admin: 10/16/19 09:12 Dose: 40 mg Documented by: Polyethylene Glycol (Miralax (For Bowel Prep) -) 17 gm PO BID [facility] Last Admin: 10/16/19 09:13 Dose: 17 gm Documented by: Senna (Senna -) 1 tab PO TID [facility] Last Admin: 10/16/19 06:35 Dose: 1 tab Documented by: Umeclidinium/Vilanterol (Anoro Ellipta 62.5-25 Mcg Inh) 1 puff IH DAILY [facility] Last Admin: 10/16/19 09:11 Dose: 1 puff Documented by: - Objective Vital Signs: Vital Signs Temperature 98.2 F 10/16/19 06:00 Pulse Rate 119 H 10/16/19 08:00 Respiratory Rate 32 H 10/16/19 08:00 Blood Pressure 119/78 10/16/19 08:00 O2 Sat by Pulse Oximetry (%) 96 10/16/19 09:04 Constitutional: Yes: No Distress, Calm Cardiovascular: Yes: S1, S2 Respiratory: Yes: Poor Air Entry, Other (on high flow oxygen) Gastrointestinal: Yes: Normal Bowel Sounds, Soft Musculoskeletal: Yes: WNL Extremities: Yes: WNL Neurological: Yes: Alert, Oriented Psychiatric: Yes: Alert, Oriented Labs: CBC, BMP 10/16/19 06:20 10/16/19 06:20 INR, PTT INR 0.98 (0.83-1.09) 10/16/19 06:20 Assessment/Plan Problem List - Problems (1) Acute respiratory failure with hypoxia Code(s): J96.01 - ACUTE RESPIRATORY FAILURE WITH HYPOXIA (2) Interstitial lung disease Code(s): J84.9 - INTERSTITIAL PULMONARY DISEASE, UNSPECIFIED (3) Back pain Code(s): M54.9 - DORSALGIA, UNSPECIFIED (4) COPD (chronic obstructive pulmonary disease) Code(s): J44.9 - CHRONIC OBSTRUCTIVE PULMONARY DISEASE, UNSPECIFIED (5) Compression fracture of T12 vertebra Code(s): S22.080A - WEDGE COMPRESSION FRACTURE OF T11-T12 VERTEBRA, INIT Qualifiers: Encounter type: initial encounter Qualified Code(s): S22.080A - Wedge compression fracture of T11-T12 vertebra, initial encounter for closed fracture (6) HLD (hyperlipidemia) Code(s): E78.5 - HYPERLIPIDEMIA, UNSPECIFIED (7) HTN (hypertension) Code(s): I10 - ESSENTIAL (PRIMARY) HYPERTENSION (8) Lung cancer Code(s): C34.90 - MALIGNANT NEOPLASM OF UNSP PART OF UNSP BRONCHUS OR LUNG Assessment/Plan continue as per icu resp support continue abx await for finalization of the cx rest as per the team sputum for pcp cc 40 min
[2019-10-16] MEDS ORDERED: guaiFENesin 600 MG TABLET.ER (FP) PO ONE (13:43)
--- NOTE | 2019-10-16 14:51 | PN ---
Teaching Attending Note Name of Resident: Nani Tian ATTENDING PHYSICIAN STATEMENT I saw and evaluated the patient. I reviewed the resident's note and discussed the case with the resident. I agree with the resident's findings and plan as documented. SUBJECTIVE: Patient seen and examined in the ICU. Mildly tachypneic on HFOT, 40L / 70% FiO2. Desaturates with minimal exertion. Reports breathing is a little better today. No significant change in dry cough. No CP. Intake & Output 10/13/19 10/14/19 10/15/19 10/16/19 23:59 23:59 23:59 23:59 Intake Total 2205 2150 690 Output Total 2150 3600 2440 Balance 55 -1450 -1750 Weight 192 lb 3 oz 187 lb 8 oz 187 lb 187 lb Last Vital Signs Temp Pulse Resp BP Pulse Ox 98.2 F 119 H 32 H 119/78 100 10/16/19 06:00 10/16/19 08:00 10/16/19 08:00 10/16/19 08:00 10/16/19 12:10 Active Medications Acetaminophen (Tylenol -) 650 mg PO Q6H PRN PRN Reason: PAIN LEVEL 1-5 Last Admin: 10/16/19 06:35 Dose: 650 mg Documented by: Albuterol/Ipratropium (Duoneb -) 1 amp NEB Q6H PRN PRN Reason: SHORTNESS OF BREATH Allopurinol (Zyloprim -) 300 mg PO DAILY [facility] Last Admin: 10/16/19 09:12 Dose: 300 mg Documented by: Aspirin (Asa -) 81 mg PO [facility] Last Admin: 10/15/19 22:14 Dose: 81 mg Documented by: Atorvastatin Calcium (Lipitor -) 20 mg PO [facility] Last Admin: 10/15/19 22:15 Dose: 20 mg Documented by: Calcium Carbonate/Cholecalciferol (Os-Faisal 500+D -) 1 tab PO BID [facility] Last Admin: 10/16/19 10:15 Dose: 1 tab Documented by: Chlorhexidine Gluconate (Hibiclens For Decolonization -) 1 applic TP [facility] Last Admin: 10/15/19 22:14 Dose: 1 applic Documented by: Cyclobenzaprine HCl (Flexeril -) 10 mg PO TID [facility] Last Admin: 10/16/19 14:23 Dose: 10 mg Documented by: Docusate Sodium (Colace -) 100 mg PO TID [facility] Last Admin: 10/16/19 14:20 Dose: Not Given Documented by: Folic Acid (Folic Acid -) 1 mg PO DAILY [facility] Last Admin: 10/16/19 09:11 Dose: 1 mg Documented by: Gabapentin (Neurontin -) 300 mg PO BID [facility] Last Admin: 10/16/19 09:13 Dose: 300 mg Documented by: Gabapentin (Neurontin -) 600 mg PO DAILY@1600 [facility] Piperacillin Sod/Tazobactam (Sod 3.375 gm/ Dextrose) 50 mls @ 100 mls/hr IVPB Q8H-IV [facility]; Protocol Last Admin: 10/16/19 09:15 Dose: 100 mls/hr Documented by: Lidocaine (Lidoderm Patch -) 1 patch TP DAILY@1600 [facility] Last Admin: 10/15/19 16:00 Dose: Not Given Documented by: Methylnaltrexone [place] (Relistor -) 12 mg SQ DAILY [facility] Last Admin: 10/16/19 10:17 Dose: Not Given Documented by: Methylprednisolone Sodium Succinate (Solu-Medrol -) 40 mg IVPUSH Q8H-IV [facility] Last Admin: 10/16/19 09:15 Dose: 40 mg Documented by: Metoprolol Tartrate (Lopressor -) 50 mg PO BID [facility] Last Admin: 10/16/19 09:13 Dose: 50 mg Documented by: Miscellaneous (Lidoderm Patch Removal) 1 each MC DAILY@2200 [facility] Last Admin: 10/15/19 22:14 Dose: 1 each Documented by: Mupirocin (Bactroban Ointment (For Decolonization) -) 1 applic NS BID [facility] Stop: 10/20/19 12:59 Last Admin: 10/16/19 09:11 Dose: 1 applic Documented by: Oxycodone HCl (Roxicodone -) 5 mg PO Q6H PRN PRN Reason: PAIN LEVEL 6-10 Last Admin: 10/16/19 06:35 Dose: 5 mg Documented by: Pantoprazole Sodium (Protonix -) 40 mg PO DAILY [facility] Last Admin: 10/16/19 09:12 Dose: 40 mg Documented by: Polyethylene Glycol (Miralax (For Bowel Prep) -) 17 gm PO BID [facility] Last Admin: 10/16/19 09:13 Dose: 17 gm Documented by: Ethan (Senna -) 1 tab PO TID [facility] Last Admin: 10/16/19 14:20 Dose: Not Given Documented by: Umeclidinium/Vilanterol (Anoro Ellipta 62.5-25 Mcg Inh) 1 puff IH DAILY [facility] Last Admin: 10/16/19 09:11 Dose: 1 puff Documented by: Constitutional: Yes: Well Nourished, Mild Distress Eyes: Yes: WNL HENT: Yes: WNL Neck: Yes: WNL Cardiovascular: Yes: Regular Rate and Rhythm, S1, S2 Respiratory: Yes: BILATERAL CRACKLES, no wheeze Gastrointestinal: Yes: Normal Bowel Sounds, Soft Extremities: Yes: WNL Edema: No Labs: Laboratory Results - last 24 hr 10/15/19 10/15/19 10/15/19 09:30 17:03 17:10 WBC 6.2 RBC 2.53 L Hgb 8.1 L Hct 23.7 L MCV 93.6 MCH 31.9 MCHC 34.1 RDW 17.1 H Plt Count 42 L D MPV 7.9 D Absolute Neuts (auto) 5.3 Neutrophils % 85.4 H Lymphocytes % 3.9 L D Monocytes % 10.7 H D Eosinophils % 0.0 Basophils % 0.0 Nucleated RBC % 1 H PT with INR INR PTT (Actin FS) Anticoagulation Therapy Puncture Site Patient Temperature ABG pH ABG pCO2 ABG pO2 ABG HCO3 ABG O2 Sat (Measured) ABG O2 Content ABG Base Excess Elfego Test Patient On Oxygen O2 Delivery Device Oxygen Flow Rate Vent Mode Vent Rate Mechanical Rate PEEP Pressure Support Vent Sodium Potassium Chloride Carbon Dioxide Anion Gap BUN Creatinine Est GFR (CKD-EPI)AfAm Est GFR (CKD-EPI)NonAf POC Glucometer 105 Random Glucose Uric Acid Calcium Phosphorus Magnesium Total Bilirubin AST ALT Alkaline Phosphatase LD Total Creatine Kinase Troponin I Total Protein Albumin COVID-19 (BRITTNEY) Not detected 10/15/19 10/15/19 10/16/19 17:10 21:54 05:30 WBC RBC Hgb Hct MCV MCH MCHC RDW Plt Count MPV Absolute Neuts (auto) Neutrophils % Lymphocytes % Monocytes % Eosinophils % Basophils % Nucleated RBC % PT with INR INR PTT (Actin FS) Anticoagulation Therapy No Result Required. Puncture Site Right radial Patient Temperature No Result Required. ABG pH 7.489 H ABG pCO2 39.70 ABG pO2 60.3 L ABG HCO3 29.5 H ABG O2 Sat (Measured) 92.9 L ABG O2 Content No Result Required. ABG Base Excess 5.7 H Elfego Test Positive Patient On Oxygen Yes O2 Delivery Device Hiflo n/c Oxygen Flow Rate 75% Vent Mode No Result Required. Vent Rate No Result Required. Mechanical Rate No Result Required. PEEP No Result Required. Pressure Support Vent No Result Required. Sodium 137 Potassium 4.2 Chloride 96 L Carbon Dioxide 34 H Anion Gap 7 L BUN 34.5 H Creatinine 0.9 Est GFR (CKD-EPI)AfAm 106.46 Est GFR (CKD-EPI)NonAf 91.86 POC Glucometer 121 Random Glucose 104 Uric Acid 3.9 Calcium 8.8 Phosphorus Magnesium Total Bilirubin 0.6 AST 68 H ALT 22 Alkaline Phosphatase 90 LD Total > 1000 H Creatine Kinase 61 Troponin I 0.04 Total Protein 5.7 L Albumin 2.8 L COVID-19 (BRITTNEY) 10/16/19 10/16/19 10/16/19 06:20 06:20 06:20 WBC 4.4 RBC 2.36 L Hgb 7.5 L Hct 22.0 L MCV 93.2 MCH 31.6 MCHC 33.9 RDW 17.5 H Plt Count 41 L MPV 8.5 Absolute Neuts (auto) 3.7 Neutrophils % 85.8 H Lymphocytes % 3.0 L D Monocytes % 10.8 H Eosinophils % 0.4 D Basophils % 0.0 Nucleated RBC % 1 H PT with INR 11.60 INR 0.98 PTT (Actin FS) 19.9 L Anticoagulation Therapy Puncture Site Patient Temperature ABG pH ABG pCO2 ABG pO2 ABG HCO3 ABG O2 Sat (Measured) ABG O2 Content ABG Base Excess Elfego Test Patient On Oxygen O2 Delivery Device Oxygen Flow Rate Vent Mode Vent Rate Mechanical Rate PEEP Pressure Support Vent Sodium 139 Potassium 4.8 Chloride 95 L Carbon Dioxide 34 H Anion Gap 10 BUN 33.9 H Creatinine 0.8 Est GFR (CKD-EPI)AfAm 111.74 Est GFR (CKD-EPI)NonAf 96.41 POC Glucometer Random Glucose 104 Uric Acid 4.0 Calcium 9.0 Phosphorus 4.4 Magnesium 2.6 H Total Bilirubin 0.6 AST 75 H ALT 22 Alkaline Phosphatase 86 LD Total 2288 H Creatine Kinase Troponin I Total Protein 5.8 L Albumin 2.8 L COVID-19 (BRITTNEY) 10/16/19 10/16/19 06:22 12:17 WBC RBC Hgb Hct MCV MCH MCHC RDW Plt Count MPV Absolute Neuts (auto) Neutrophils % Lymphocytes % Monocytes % Eosinophils % Basophils % Nucleated RBC % PT with INR INR PTT (Actin FS) Anticoagulation Therapy Puncture Site Patient Temperature ABG pH ABG pCO2 ABG pO2 ABG HCO3 ABG O2 Sat (Measured) ABG O2 Content ABG Base Excess Elfego Test Patient On Oxygen O2 Delivery Device Oxygen Flow Rate Vent Mode Vent Rate Mechanical Rate PEEP Pressure Support Vent Sodium Potassium Chloride Carbon Dioxide Anion Gap BUN Creatinine Est GFR (CKD-EPI)AfAm Est GFR (CKD-EPI)NonAf POC Glucometer 78 126 Random Glucose Uric Acid Calcium Phosphorus Magnesium Total Bilirubin AST ALT Alkaline Phosphatase LD Total Creatine Kinase Troponin I Total Protein Albumin COVID-19 (BRITTNEY) Problem List - Problems (1) Acute and chronic respiratory failure Code(s): J96.20 - ACUTE AND CHR RESP FAILURE, UNSP W HYPOXIA OR HYPERCAPNIA Qualifiers: Respiratory failure complication: hypoxia Qualified Code(s): J96.21 - Acute and chronic respiratory failure with hypoxia (2) CAD (coronary artery disease) Code(s): I25.10 - ATHSCL HEART DISEASE OF [place] CORONARY ARTERY W/O ANG PCTRS (3) Compression fracture of T12 vertebra Code(s): S22.080A - WEDGE COMPRESSION FRACTURE OF T11-T12 VERTEBRA, INIT Qualifiers: Encounter type: initial encounter Qualified Code(s): S22.080A - Wedge compression fracture of T11-T12 vertebra, initial encounter for closed fracture (4) HLD (hyperlipidemia) Code(s): E78.5 - HYPERLIPIDEMIA, UNSPECIFIED (5) HTN (hypertension) Code(s): I10 - ESSENTIAL (PRIMARY) HYPERTENSION (6) Interstitial lung disease Code(s): J84.9 - INTERSTITIAL PULMONARY DISEASE, UNSPECIFIED (7) Lung cancer Code(s): C34.90 - MALIGNANT NEOPLASM OF UNSP PART OF UNSP BRONCHUS OR LUNG (8) Vertebral fracture Code(s): FRJ4000 - (9) Interstitial lung disease Code(s): J84.9 - INTERSTITIAL PULMONARY DISEASE, UNSPECIFIED Assessment/Plan IMP ACUTE ON CHRONIC HYPOXEMIC RESPIRATORY FAILURE ADVANCE ILD/PULMONARY FIBROSIS COPD ? PNEUMONIA MET LUNG CA NON-SMALL CELL ASHD S/P CABG THROMBOCYTOPENIA ANEMIA PLAN TITRATE HFOT TOLERATED INHALED BRONCHODILATORS CONTINUE STEROIDS ABX PER ID : DISCUSS IF BACTRIM IS NEEDED DUE TO CHRONIC STEROID USE NORMAL TRANSFUSION THRESHOLD CAN MONITOR ON /4S DR CATES
--- NOTE | 2019-10-16 16:00 | PN ---
Physical Exam: SUBJECTIVE: Patient seen and examined at bedside. Patient on high flow. Reports shortness of breath is improved with the HFNC, worse with exertion. Also reports neck pain. Denies fevers, chills, headache, chest pain, dizziness. OBJECTIVE: Vital Signs Temperature 98.2 F 10/16/19 06:00 Pulse Rate 119 H 10/16/19 08:00 Respiratory Rate 32 H 10/16/19 08:00 Blood Pressure 119/78 10/16/19 08:00 O2 Sat by Pulse Oximetry (%) 100 10/16/19 12:10 GENERAL: The patient is awake, alert, and fully oriented, on HFNC NECK: Normal range of motion, supple LUNGS: bibasilar fine crackles HEART: Regular rate and rhythm, normal S1 and S2 CHEST: port noted on RUQ of right breast ABDOMEN: Soft, nontender, not distended, normoactive bowel sounds MUSCULOSKELETAL: Normal range of motion at all joints. LOWER EXTREMITIES: 2+ pulses, warm, well-perfused. No peripheral edema. SKIN: Warm, dry, normal turgor Laboratory Results - last 24 hr 10/15/19 10/15/19 10/15/19 09:30 17:03 17:10 WBC 6.2 RBC 2.53 L Hgb 8.1 L Hct 23.7 L MCV 93.6 MCH 31.9 MCHC 34.1 RDW 17.1 H Plt Count 42 L D MPV 7.9 D Absolute Neuts (auto) 5.3 Neutrophils % 85.4 H Lymphocytes % 3.9 L D Monocytes % 10.7 H D Eosinophils % 0.0 Basophils % 0.0 Nucleated RBC % 1 H PT with INR INR PTT (Actin FS) Anticoagulation Therapy Puncture Site Patient Temperature ABG pH ABG pCO2 ABG pO2 ABG HCO3 ABG O2 Sat (Measured) ABG O2 Content ABG Base Excess Elfego Test Patient On Oxygen O2 Delivery Device Oxygen Flow Rate Vent Mode Vent Rate Mechanical Rate PEEP Pressure Support Vent Sodium Potassium Chloride Carbon Dioxide Anion Gap BUN Creatinine Est GFR (CKD-EPI)AfAm Est GFR (CKD-EPI)NonAf POC Glucometer 105 Random Glucose Uric Acid Calcium Phosphorus Magnesium Total Bilirubin AST ALT Alkaline Phosphatase LD Total Creatine Kinase Troponin I Total Protein Albumin COVID-19 (BRITTNEY) Not detected 10/15/19 10/15/19 10/16/19 17:10 21:54 05:30 WBC RBC Hgb Hct MCV MCH MCHC RDW Plt Count MPV Absolute Neuts (auto) Neutrophils % Lymphocytes % Monocytes % Eosinophils % Basophils % Nucleated RBC % PT with INR INR PTT (Actin FS) Anticoagulation Therapy No Result Required. Puncture Site Right radial Patient Temperature No Result Required. ABG pH 7.489 H ABG pCO2 39.70 ABG pO2 60.3 L ABG HCO3 29.5 H ABG O2 Sat (Measured) 92.9 L ABG O2 Content No Result Required. ABG Base Excess 5.7 H Elfego Test Positive Patient On Oxygen Yes O2 Delivery Device Hiflo n/c Oxygen Flow Rate 75% Vent Mode No Result Required. Vent Rate No Result Required. Mechanical Rate No Result Required. PEEP No Result Required. Pressure Support Vent No Result Required. Sodium 137 Potassium 4.2 Chloride 96 L Carbon Dioxide 34 H Anion Gap 7 L BUN 34.5 H Creatinine 0.9 Est GFR (CKD-EPI)AfAm 106.46 Est GFR (CKD-EPI)NonAf 91.86 POC Glucometer 121 Random Glucose 104 Uric Acid 3.9 Calcium 8.8 Phosphorus Magnesium Total Bilirubin 0.6 AST 68 H ALT 22 Alkaline Phosphatase 90 LD Total > 1000 H Creatine Kinase 61 Troponin I 0.04 Total Protein 5.7 L Albumin 2.8 L COVID-19 (BRITTNEY) 10/16/19 10/16/19 10/16/19 06:20 06:20 06:20 WBC 4.4 RBC 2.36 L Hgb 7.5 L Hct 22.0 L MCV 93.2 MCH 31.6 MCHC 33.9 RDW 17.5 H Plt Count 41 L MPV 8.5 Absolute Neuts (auto) 3.7 Neutrophils % 85.8 H Lymphocytes % 3.0 L D Monocytes % 10.8 H Eosinophils % 0.4 D Basophils % 0.0 Nucleated RBC % 1 H PT with INR 11.60 INR 0.98 PTT (Actin FS) 19.9 L Anticoagulation Therapy Puncture Site Patient Temperature ABG pH ABG pCO2 ABG pO2 ABG HCO3 ABG O2 Sat (Measured) ABG O2 Content ABG Base Excess Elfego Test Patient On Oxygen O2 Delivery Device Oxygen Flow Rate Vent Mode Vent Rate Mechanical Rate PEEP Pressure Support Vent Sodium 139 Potassium 4.8 Chloride 95 L Carbon Dioxide 34 H Anion Gap 10 BUN 33.9 H Creatinine 0.8 Est GFR (CKD-EPI)AfAm 111.74 Est GFR (CKD-EPI)NonAf 96.41 POC Glucometer Random Glucose 104 Uric Acid 4.0 Calcium 9.0 Phosphorus 4.4 Magnesium 2.6 H Total Bilirubin 0.6 AST 75 H ALT 22 Alkaline Phosphatase 86 LD Total 2288 H Creatine Kinase Troponin I Total Protein 5.8 L Albumin 2.8 L COVID-19 (BRITTNEY) 10/16/19 10/16/19 06:22 12:17 WBC RBC Hgb Hct MCV MCH MCHC RDW Plt Count MPV Absolute Neuts (auto) Neutrophils % Lymphocytes % Monocytes % Eosinophils % Basophils % Nucleated RBC % PT with INR INR PTT (Actin FS) Anticoagulation Therapy Puncture Site Patient Temperature ABG pH ABG pCO2 ABG pO2 ABG HCO3 ABG O2 Sat (Measured) ABG O2 Content ABG Base Excess Elfego Test Patient On Oxygen O2 Delivery Device Oxygen Flow Rate Vent Mode Vent Rate Mechanical Rate PEEP Pressure Support Vent Sodium Potassium Chloride Carbon Dioxide Anion Gap BUN Creatinine Est GFR (CKD-EPI)AfAm Est GFR (CKD-EPI)NonAf POC Glucometer 78 126 Random Glucose Uric Acid Calcium Phosphorus Magnesium Total Bilirubin AST ALT Alkaline Phosphatase LD Total Creatine Kinase Troponin I Total Protein Albumin COVID-19 (BRITTNEY) Active Medications Generic Name Dose Route Start Last Admin Trade Name Freq PRN Reason Stop Dose Admin Acetaminophen 650 mg 10/13/19 02:10 10/16/19 15:09 Tylenol - PO 650 mg Q6H PRN Administration PAIN LEVEL 1-5 Albuterol/Ipratropium 1 amp 10/13/19 01:47 Duoneb - NEB Q6H PRN SHORTNESS OF BREATH Allopurinol 300 mg 10/13/19 17:45 10/16/19 09:12 Zyloprim - PO 300 mg DAILY [facility] Administration Aspirin 81 mg 10/13/19 22:00 10/15/19 22:14 Asa - PO 81 mg HS [facility] Administration Atorvastatin Calcium 20 mg 10/13/19 22:00 10/15/19 22:15 Lipitor - PO 20 mg HS [facility] Administration Calcium Carbonate/Cholecalciferol 1 tab 10/13/19 10:00 10/16/19 10:15 Os-Faisal 500+D - PO 1 tab BID [facility] Administration Chlorhexidine Gluconate 1 applic 10/15/19 22:00 10/15/19 22:14 Hibiclens For Decolonization - TP 1 applic HS [facility] Administration Cyclobenzaprine HCl 10 mg 10/13/19 06:00 10/16/19 14:23 Flexeril - PO 10 mg TID [facility] Administration Docusate Sodium 100 mg 10/13/19 06:00 10/16/19 14:20 Colace - PO Not Given TID [facility] Folic Acid 1 mg 10/13/19 17:45 10/16/19 09:11 Folic Acid - PO 1 mg DAILY [facility] Administration Gabapentin 300 mg 10/15/19 22:00 10/16/19 09:13 Neurontin - PO 300 mg BID [facility] Administration Gabapentin 600 mg 10/16/19 16:00 Neurontin - PO DAILY@1600 [facility] Piperacillin Sod/Tazobactam 50 mls @ 100 mls/hr 10/15/19 18:00 10/16/19 09:15 Sod 3.375 gm/ Dextrose IVPB 100 mls/hr Q8H-IV [facility] Administration Protocol Lidocaine 1 patch 10/13/19 16:00 10/15/19 16:00 Lidoderm Patch - TP Not Given DAILY@1600 [facility] Methylnaltrexone [place] 12 mg 10/13/19 10:00 10/16/19 10:17 Relistor - SQ Not Given DAILY [facility] Methylprednisolone Sodium Succinate 40 mg 10/13/19 02:00 10/16/19 09:15 Solu-Medrol - IVPUSH 40 mg Q8H-IV [facility] Administration Metoprolol Tartrate 50 mg 10/13/19 22:00 10/16/19 09:13 Lopressor - PO 50 mg BID [facility] Administration Miscellaneous 1 each 10/13/19 22:00 10/15/19 22:14 Lidoderm Patch Removal MC 1 each DAILY@2200 [facility] Administration Mupirocin 1 applic 10/15/19 13:00 10/16/19 09:11 Bactroban Ointment (For Decolonization) - NS 10/20/19 12:59 1 applic BID [facility] Administration Oxycodone HCl 5 mg 10/15/19 15:01 10/16/19 15:09 Roxicodone - PO 5 mg Q6H PRN Administration PAIN LEVEL 6-10 Pantoprazole Sodium 40 mg 10/13/19 17:30 10/16/19 09:12 Protonix - PO 40 mg DAILY [facility] Administration Polyethylene Glycol 17 gm 10/15/19 22:00 10/16/19 09:13 Miralax (For Bowel Prep) - PO 17 gm BID [facility] Administration Senna 1 tab 10/13/19 06:00 10/16/19 14:20 Senna - PO Not Given TID [facility] Umeclidinium/Vilanterol 1 puff 10/13/19 10:00 10/16/19 09:11 Anoro Ellipta 62.5-25 Mcg Inh IH 1 puff DAILY [facility] Administration ASSESSMENT/PLAN: Patient is a 58 year old male with past medical history of COPD, HTN, HLD, CAD, [place] s/p CABG, PCI, ILD, st IIIC Lung Cancer, was admitted to the hospital for worsening shortness of breath with minimal exertion. 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 Visit type - Emergency Visit Emergency Visit: Yes ED Registration Date: 10/12/19 Care time: The patient presented to the Emergency Department on the above date and was hospitalized for further evaluation of their emergent condition. - New Patient This patient is new to me today: No - Critical Care Critical Care patient: Yes Total Critical Care Time (in minutes): 35 Critical Care Statement: The care of this patient involved high complexity decision making to prevent further life threatening deterioration of the pa ernie's condition and/or to evaluate & treat vital organ system(s) failure or risk of failure. ATTENDING PHYSICIAN STATEMENT I saw and evaluated the patient. I reviewed the resident's note and discussed the case with the resident. I agree with the resident's findings and plan as documented. SUBJECTIVE: OBJECTIVE: ASSESSMENT AND PLAN:
[2019-10-16] MEDS: LIDOCAINE 5% TOPICAL PATCH TP SCH (16:17)
--- NOTE | 2019-10-16 16:23 | PN ---
Progress Note, Physician History of Present Illness: on nrb - Current Medication List Current Medications: Active Medications Acetaminophen (Tylenol -) 650 mg PO Q6H PRN PRN Reason: PAIN LEVEL 1-5 Last Admin: 10/16/19 15:09 Dose: 650 mg Documented by: Albuterol/Ipratropium (Duoneb -) 1 amp NEB Q6H PRN PRN Reason: SHORTNESS OF BREATH Allopurinol (Zyloprim -) 300 mg PO DAILY [facility] Last Admin: 10/16/19 09:12 Dose: 300 mg Documented by: Aspirin (Asa -) 81 mg PO [facility] Last Admin: 10/15/19 22:14 Dose: 81 mg Documented by: Atorvastatin Calcium (Lipitor -) 20 mg PO [facility] Last Admin: 10/15/19 22:15 Dose: 20 mg Documented by: Calcium Carbonate/Cholecalciferol (Os-Faisal 500+D -) 1 tab PO BID [facility] Last Admin: 10/16/19 10:15 Dose: 1 tab Documented by: Chlorhexidine Gluconate (Hibiclens For Decolonization -) 1 applic TP [facility] Last Admin: 10/15/19 22:14 Dose: 1 applic Documented by: Cyclobenzaprine HCl (Flexeril -) 10 mg PO TID [facility] Last Admin: 10/16/19 14:23 Dose: 10 mg Documented by: Docusate Sodium (Colace -) 100 mg PO TID [facility] Last Admin: 10/16/19 14:20 Dose: Not Given Documented by: Folic Acid (Folic Acid -) 1 mg PO DAILY [facility] Last Admin: 10/16/19 09:11 Dose: 1 mg Documented by: Gabapentin (Neurontin -) 300 mg PO BID [facility] Last Admin: 10/16/19 09:13 Dose: 300 mg Documented by: Gabapentin (Neurontin -) 600 mg PO DAILY@1600 [facility] Last Admin: 10/16/19 16:17 Dose: 600 mg Documented by: Piperacillin Sod/Tazobactam (Sod 3.375 gm/ Dextrose) 50 mls @ 100 mls/hr IVPB Q8H-IV [facility]; Protocol Last Admin: 10/16/19 09:15 Dose: 100 mls/hr Documented by: Lidocaine (Lidoderm Patch -) 1 patch TP DAILY@1600 [facility] Last Admin: 10/16/19 16:17 Dose: Not Given Documented by: Methylnaltrexone [place] (Relistor -) 12 mg SQ DAILY [facility] Last Admin: 10/16/19 10:17 Dose: Not Given Documented by: Methylprednisolone Sodium Succinate (Solu-Medrol -) 40 mg IVPUSH Q8H-IV [facility] Last Admin: 10/16/19 09:15 Dose: 40 mg Documented by: Metoprolol Tartrate (Lopressor -) 50 mg PO BID [facility] Last Admin: 10/16/19 09:13 Dose: 50 mg Documented by: Miscellaneous (Lidoderm Patch Removal) 1 each MC DAILY@2200 [facility] Last Admin: 10/15/19 22:14 Dose: 1 each Documented by: Mupirocin (Bactroban Ointment (For Decolonization) -) 1 applic NS BID [facility] Stop: 10/20/19 12:59 Last Admin: 10/16/19 09:11 Dose: 1 applic Documented by: Oxycodone HCl (Roxicodone -) 5 mg PO Q6H PRN PRN Reason: PAIN LEVEL 6-10 Last Admin: 10/16/19 15:09 Dose: 5 mg Documented by: Pantoprazole Sodium (Protonix -) 40 mg PO DAILY [facility] Last Admin: 10/16/19 09:12 Dose: 40 mg Documented by: Polyethylene Glycol (Miralax (For Bowel Prep) -) 17 gm PO BID [facility] Last Admin: 10/16/19 09:13 Dose: 17 gm Documented by: Senna (Senna -) 1 tab PO TID [facility] Last Admin: 10/16/19 14:20 Dose: Not Given Documented by: Umeclidinium/Vilanterol (Anoro Ellipta 62.5-25 Mcg Inh) 1 puff IH DAILY [facility] Last Admin: 10/16/19 09:11 Dose: 1 puff Documented by: - Objective Vital Signs: Vital Signs Temperature 98.8 F 10/16/19 12:00 Pulse Rate 126 H 10/16/19 16:00 Respiratory Rate 30 H 10/16/19 16:00 Blood Pressure 110/79 10/16/19 16:00 O2 Sat by Pulse Oximetry (%) 100 10/16/19 16:00 Constitutional: Yes: Anxious HENT: Yes: Atraumatic Neck: Yes: Supple Cardiovascular: Yes: Regular Rate and Rhythm Respiratory: Yes: Rhonchi, Wheezes Gastrointestinal: Yes: Normal Bowel Sounds Extremities: Yes: WNL Edema: No Neurological: Yes: Alert, Oriented Labs: CBC, BMP 10/16/19 06:20 10/16/19 06:20 INR, PTT INR 0.98 (0.83-1.09) 10/16/19 06:20 Problem List - Problems (1) Acute respiratory failure with hypoxia Assessment/Plan: on steroids on nrb continue other meds pulmonary on board Code(s): J96.01 - ACUTE RESPIRATORY FAILURE WITH HYPOXIA (2) Interstitial lung disease Code(s): J84.9 - INTERSTITIAL PULMONARY DISEASE, UNSPECIFIED (3) Back pain Assessment/Plan: on pain meds..prn Code(s): M54.9 - DORSALGIA, UNSPECIFIED (4) COPD (chronic obstructive pulmonary disease) Code(s): J44.9 - CHRONIC OBSTRUCTIVE PULMONARY DISEASE, UNSPECIFIED (5) Compression fracture of T12 vertebra Code(s): S22.080A - WEDGE COMPRESSION FRACTURE OF T11-T12 VERTEBRA, INIT Qualifiers: Encounter type: initial encounter Qualified Code(s): S22.080A - [place] compression fracture of T11-T12 vertebra, initial encounter for closed fracture (6) HLD (hyperlipidemia) Code(s): E78.5 - HYPERLIPIDEMIA, UNSPECIFIED (7) HTN (hypertension) Assessment/Plan: on meds monitor Code(s): I10 - ESSENTIAL (PRIMARY) HYPERTENSION (8) Lung cancer Assessment/Plan: oncology note reviewed s/p chemo Code(s): C34.90 - MALIGNANT NEOPLASM OF UNSP PART OF UNSP BRONCHUS OR LUNG (9) Pneumonia Assessment/Plan: on iv abx id on board Code(s): J18.9 - PNEUMONIA, UNSPECIFIED ORGANISM Assessment/Plan COVERING FOR DR YUNIOR BLAKELY CC TIME 35 MIN
--- NOTE | 2019-10-16 17:30 | PN ---
Teaching Attending Note Name of Resident: Alejandra Sheth ATTENDING PHYSICIAN STATEMENT I saw and evaluated the patient. I reviewed the resident's note and discussed the case with the resident. I agree with the resident's findings and plan as documented. SUBJECTIVE: SOB on exertion. Feels better than on admission 10/16/19 06:20 10/16/19 06:20 ASSESSMENT AND PLAN: 59 y/o gentleman with COPD, on home O2 (7-8L), CAD, ILD, Stage IIIC lung adenocarcinoma (sarcomatoid variant) s/p RT 08/21, now metastatic to chest wall, liver, multiple lung nodules, adenopathy C1D1 (09/30) of carbo/pemetrexed admitted with worsening of chronic SOB and hypoxia. Requiring BIPAP. CTPE negative. Started on empiric Abx. Also with platelet count 41K Acute on chronic respiratory failure. On Zosyn/ steroids Diuresing prn pain control miralax
--- NOTE | 2019-10-16 18:34 | HOSP ---
Subjective - Review of Symptoms General: No: Chills, Night Sweats, Fatigue, Malaise, Appetite, Other Pulmonary: Yes: Cough. No: Dyspnea, Pleuritic Chest Pain, Other Cardiovascular: No: Chest Pain, Palpitations, Orthopnea, Paroxysmal Noc. Dyspnea, Edema, Light Headedness, Other Gastrointestinal: No: Nausea, NOSYM, Vomiting, Abdominal Pain, Diarrhea, Constipation, Melena, Hematochezia, Other Genitourinary: No: Dysuria, NOSYM, Frequency, Incontinence, Hematuria, Retention, Other Musculoskeletal: Yes: Back Pain Neurological: No: Weakness, Numbness, Incoordination, Change in speech, Confusion, Seizures, Other Physical Examination Vital Signs: Vital Signs Temperature 98.8 F 10/16/19 12:00 Pulse Rate 126 H 10/16/19 16:00 Respiratory Rate 30 H 10/16/19 16:00 Blood Pressure 110/79 10/16/19 16:00 O2 Sat by Pulse Oximetry (%) 100 10/16/19 16:34 Constitutional: Yes: No Distress, Calm Eyes: Yes: Conjunctiva Clear, EOM Intact HENT: Yes: Atraumatic, Normocephalic Neck: Yes: Supple, Trachea Midline Cardiovascular: Yes: Regular Rate and Rhythm, Rub, S1 Respiratory: Yes: Rhonchi, Other (On highflow o2) Edema: No Labs: CBC, BMP 10/16/19 06:20 10/16/19 06:20 Hospitalist Encounter Assessment: 59 yo M with ILD, COPD (O2 dependent on 7-8L at home), CAD s/p CABG, HTN, HLD, and lung adenocarcinoma currently on chemotherapy, presented to the ED with SOB. Admitted to ICU for acute on chronic hypoxic respiratory failure. Patient treated empirically for PNA with zosyn (day 2). Patient stable on high flow O2. AC therapy being held due to low platelets,likely 2/2 chemotherapy - heme/onc following. Patient been on steroids for over several months. Sputum culture sent for cytology for possible pneumocystis pneumonia. Spoke with ID (Dr. Patel), does not believe necessary to start Bactrim ppx at moment, follow up on cultures. Dispo: Patient now stable to transfer to [facility] for further monitoring and manage ment. Visit type - Emergency Visit Emergency Visit: Yes ED Registration Date: 10/12/19 Care time: The patient presented to the Emergency Department on the above date and was hospitalized for further evaluation of their emergent condition. - New Patient This patient is new to me today: Yes Date on this admission: 10/18/19 - Critical Care Critical Care patient: Yes Total Critical Care Time (in minutes): 36 Critical Care Statement: The care of this patient involved high complexity decision making to prevent further life threatening deterioration of the patient's condition and/or to evaluate & treat vital organ system(s) failure or risk of failure.
[2019-10-16] MEDS ORDERED: LORazepam 2 MG/ML SDV VIAL IVPUSH ONE (20:04)
[2019-10-16] MEDS: ASPIRIN 81 MG CHEWABLE TABLETS PO SCH (21:23)
[2019-10-16] MEDS: CHLORHEXIDINE GLUCONATE 4% CLEANSER FOR DECOLONIZATION TP SCH (21:23)
[2019-10-16] MEDS: ATORVASTATIN CA 20 MG TABLET (FP) PO SCH (21:23)
[2019-10-16] MEDS: LIDOCAINE PATCH REMOVAL MC SCH (21:35)
[2019-10-17] MEDS ORDERED: PIPERACILLIN/TAZOBACTAM 3.375 GM VIAL IVPB ONE ×3 (01:00→18:14)
[2019-10-17] MEDS ORDERED: DEXTROSE 5%-WATER - 50 ML IVPB ONE ×3 (01:00→18:15)
[2019-10-17] MEDS: PIPERACILLIN/TAZOB 3.375 GM 3.375 GM in DEXTROSE 5%-WATER - 50 ML IVPB SCH ×3 (01:02→18:22)
[2019-10-17] MEDS: methylPREDNISolone NA SUCC 40 MG/1 ML VIAL IVPUSH SCH ×3 (01:02→18:22)
[2019-10-17] MEDS: SENNOSIDES 8.6MG TABLET (FP) PO SCH ×3 (05:19→21:51)
[2019-10-17] MEDS: DOCUSATE SODIUM 100 MG CAPSULE (FP) PO SCH ×3 (05:19→21:49)
[2019-10-17] MEDS: CYCLOBENZAPRINE HCL 10 MG TABLET (FP) PO SCH ×3 (05:24→21:44)
[2019-10-17] MEDS ORDERED: PT OWN MED DRAWER 7, Y5N ONE ×2 (05:50→09:06)
[2019-10-17] MEDS: ACETAMINOPHEN 325 MG TABLET (FP) PO PRN ×3 (06:26→18:29)
[2019-10-17] MEDS: oxyCODONE HCL 5 MG TABLET PO PRN ×3 (06:27→18:29)
[2019-10-17 06:42] LABS: MCH 31.7 pg (25.7-33.7); MCHC 33.3 g/dl (32.0-35.9); MEAN CELL VOLUME 95.3 fl (80-96); MEAN PLT VOLUME 8.1 fl (7.5-11.1); PLATELET COUNT 51 K/MM3 (134-434); RBC 2.52 M/mm3 (4.00-5.60); RDW 17.7 % (11.9-15.9); WHITE BLOOD COUNT 3.9 K/mm3 (4.0-10.0)
[2019-10-17 07:03] LABS: BLOOD UREA NITROGEN 45.2 mg/dL (7-18); CREATININE 1.2 mg/dL (0.55-1.3); MAGNESIUM 2.6 mg/dL (1.8-2.4); PHOSPHOROUS 5.4 mg/dL (2.5-4.9); POTASSIUM 4.4 mmol/L (3.5-5.1)
[2019-10-17 08:31] LABS: ARTERIAL BLD GAS O2 SATURATION 89.2 mmHg (95-98); ARTERIAL BLOOD GAS BASE EXCESS 7.5 mmol/L (-2-2); ARTERIAL BLOOD GAS PO2 50.8 mmHg (80-100); ARTERIAL BLOOD GAS pH 7.508 (7.350-7.450)
[2019-10-17 08:32] LABS: ALLENS TEST POSITIVE
[2019-10-17] MEDS: ALLOPURINOL 300 MG TABLET (FP) PO SCH (10:06)
[2019-10-17] MEDS: PANTOPRAZOLE 40 MG TABLET PO SCH (10:06)
[2019-10-17] MEDS: CALCIUM 500MG/VIT-D 200 UNITS COMBO TABLET (FP) PO SCH ×2 (10:06→21:52)
[2019-10-17] MEDS: METOPROLOL TARTRATE 50 MG TABLET (FP) PO SCH ×2 (10:06→21:45)
[2019-10-17] MEDS: MUPIROCIN 2% TOPICAL OINTMENT FOR DECOLONIZATION NS SCH ×2 (10:07→21:36)
[2019-10-17] MEDS: POLYETHYLENE GLYCOL 3350 255 GM BTL PO SCH ×2 (10:07→21:49)
[2019-10-17] MEDS: FOLIC ACID 1 MG TABLET (FP) PO SCH (10:07)
[2019-10-17] MEDS: GABAPENTIN 300 MG CAPSULE PO SCH ×3 (10:07→21:45)
[2019-10-17] MEDS: Methylnaltrexone Bromide 12 MG/0.6 ML KIT SQ SCH (10:08)
[2019-10-17] MEDS: UMECLIDINIUM/VILANTEROL (ANORO) 62.5/25 MCG INHALER IH SCH (10:08)
--- NOTE | 2019-10-17 12:22 | PN ---
Teaching Attending Note Name of Resident: Nani Tian ATTENDING PHYSICIAN STATEMENT I saw and evaluated the patient. I reviewed the resident's note and discussed the case with the resident. I agree with the resident's findings and plan as documented. SUBJECTIVE: Pt seen and examined in the ICU. Remains on HFOT 85% FiO2. States breathing about the same as yesterday. OBJECTIVE: Vital Signs Period Temp Pulse Resp BP Sys/Dodge Pulse Ox Last 24 Hr 98.0 F-99.2 F 97-134 20-36 83-114/61-79 90-100 Intake & Output 10/14/19 10/15/19 10/16/19 10/17/19 23:59 23:59 23:59 23:59 Intake Total 2150 690 580 350 Output Total 3600 2440 1500 420 Balance -1450 -1750 -920 -70 Weight 85.049 kg 84.822 kg 84.822 kg Gen: tachypneic with movement Heart: RRR Lung: basilar rales Abd: soft, nontender Ext: no edema CBC, BMP 10/17/19 06:10 10/17/19 06:10 Active Medications Acetaminophen (Tylenol -) 650 mg PO Q6H PRN PRN Reason: PAIN LEVEL 1-5 Last Admin: 10/17/19 06:26 Dose: 650 mg Documented by: Albuterol/Ipratropium (Duoneb -) 1 amp NEB Q6H PRN PRN Reason: SHORTNESS OF BREATH Allopurinol (Zyloprim -) 300 mg PO DAILY [facility] Last Admin: 10/17/19 10:06 Dose: 300 mg Documented by: Aspirin (Asa -) 81 mg PO [facility] Last Admin: 10/16/19 21:23 Dose: 81 mg Documented by: Atorvastatin Calcium (Lipitor -) 20 mg PO [facility] Last Admin: 10/16/19 21:23 Dose: 20 mg Documented by: Calcium Carbonate/Cholecalciferol (Os-Faisal 500+D -) 1 tab PO BID [facility] Last Admin: 10/17/19 10:06 Dose: 1 tab Documented by: Chlorhexidine Gluconate (Hibiclens For Decolonization -) 1 applic TP [facility] Last Admin: 10/16/19 21:23 Dose: 1 applic Documented by: Cyclobenzaprine HCl (Flexeril -) 10 mg PO TID [facility] Last Admin: 10/17/19 05:24 Dose: 10 mg Documented by: Docusate Sodium (Colace -) 100 mg PO TID [facility] Last Admin: 10/17/19 05:19 Dose: Not Given Documented by: Folic Acid (Folic Acid -) 1 mg PO DAILY [facility] Last Admin: 10/17/19 10:07 Dose: 1 mg Documented by: Gabapentin (Neurontin -) 300 mg PO BID [facility] Last Admin: 10/17/19 10:07 Dose: 300 mg Documented by: Gabapentin (Neurontin -) 600 mg PO DAILY@1600 [facility] Last Admin: 10/16/19 16:17 Dose: 600 mg Documented by: Piperacillin Sod/Tazobactam (Sod 3.375 gm/ Dextrose) 50 mls @ 100 mls/hr IVPB Q8H-IV [facility]; Protocol Last Admin: 10/17/19 10:05 Dose: 100 mls/hr Documented by: Lidocaine (Lidoderm Patch -) 1 patch TP DAILY@1600 [facility] Last Admin: 10/16/19 16:17 Dose: Not Given Documented by: Methylnaltrexone [place] (Relistor -) 12 mg SQ DAILY [facility] Last Admin: 10/17/19 10:08 Dose: Not Given Documented by: Methylprednisolone Sodium Succinate (Solu-Medrol -) 40 mg IVPUSH Q8H-IV [facility] Last Admin: 10/17/19 10:05 Dose: 40 mg Documented by: Metoprolol Tartrate (Lopressor -) 50 mg PO BID [facility] Last Admin: 10/17/19 10:06 Dose: 50 mg Documented by: Miscellaneous (Lidoderm Patch Removal) 1 each MC DAILY@2200 [facility] Last Admin: 10/16/19 21:35 Dose: Not Given Documented by: Mupirocin (Bactroban Ointment (For Decolonization) -) 1 applic NS BID [facility] Stop: 10/20/19 12:59 Last Admin: 10/17/19 10:07 Dose: 1 applic Documented by: Oxycodone HCl (Roxicodone -) 5 mg PO Q6H PRN PRN Reason: PAIN LEVEL 6-10 Last Admin: 10/17/19 06:27 Dose: 5 mg Documented by: Pantoprazole Sodium (Protonix -) 40 mg PO DAILY [facility] Last Admin: 10/17/19 10:06 Dose: 40 mg Documented by: Polyethylene Glycol (Miralax (For Bowel Prep) -) 17 gm PO BID [facility] Last Admin: 10/17/19 10:07 Dose: Not Given Documented by: Senna (Senna -) 1 tab PO TID [facility] Last Admin: 10/17/19 05:19 Dose: Not Given Documented by: Umeclidinium/Vilanterol (Anoro Ellipta 62.5-25 Mcg Inh) 1 puff IH DAILY [facility] Last Admin: 10/17/19 10:08 Dose: 1 puff Documented by: ASSESSMENT AND PLAN: Acute on Chronic Hypoxic Respiratory Failure Metastatic Lung Cancer Acute COPD Exacerbation Interstitial Lung Disease CAD s/p CABG Thrombocytopenia Anemia - continue medrol - inhaled bronchodilators - titrate HFOT to keep Spo2 >90% - continue antibiotics - PO as tolerated - DVT prophylaxis - poor overall prognosis
[2019-10-17] MEDS ORDERED: SODIUM CHLORIDE 1,000 ML IV SCH (13:15)
--- NOTE | 2019-10-17 13:25 | PN ---
Progress Note (short form) - Note Progress Note: s: no cp palps dizzy. stable dyspnea. Current Medications Generic Name Dose Route Start Last Admin Trade Name Freq PRN Reason Stop Dose Admin Acetaminophen 650 mg 10/13/19 02:10 10/17/19 12:32 Tylenol - PO 650 mg Q6H PRN Administration PAIN LEVEL 1-5 Albuterol/Ipratropium 1 amp 10/13/19 01:47 Duoneb - NEB Q6H PRN SHORTNESS OF BREATH Allopurinol 300 mg 10/13/19 17:45 10/17/19 10:06 Zyloprim - PO 300 mg DAILY [facility] Administration Aspirin 81 mg 10/13/19 22:00 10/16/19 21:23 Asa - PO 81 mg HS [facility]NA Administration Atorvastatin Calcium 20 mg 10/13/19 22:00 10/16/19 21:23 Lipitor - PO 20 mg HS [facility]NA Administration Calcium Carbonate/Cholecalciferol 1 tab 10/13/19 10:00 10/17/19 10:06 Os-Faisal 500+D - PO 1 tab BID [facility] Administration Chlorhexidine Gluconate 1 applic 10/15/19 22:00 10/16/19 21:23 Hibiclens For Decolonization - TP 1 applic HS [facility] Administration Cyclobenzaprine HCl 10 mg 10/13/19 06:00 10/17/19 05:24 Flexeril - PO 10 mg TID [facility] Administration Docusate Sodium 100 mg 10/13/19 06:00 10/17/19 05:19 Colace - PO Not Given TID [facility] Folic Acid 1 mg 10/13/19 17:45 10/17/19 10:07 Folic Acid - PO 1 mg DAILY [facility] Administration Gabapentin 300 mg 10/15/19 22:00 10/17/19 10:07 Neurontin - PO 300 mg BID [facility] Administration Gabapentin 600 mg 10/16/19 16:00 10/16/19 16:17 Neurontin - PO 600 mg DAILY@1600 [facility] Administration Piperacillin Sod/Tazobactam 50 mls @ 100 mls/hr 10/15/19 18:00 10/17/19 10:05 Sod 3.375 gm/ Dextrose IVPB 100 mls/hr Q8H-IV [facility] Administration Protocol Sodium Chloride 1,000 mls @ 75 mls/hr 10/17/19 13:15 Normal Saline - IV ASDIR [facility] Lidocaine 1 patch 10/13/19 16:00 10/16/19 16:17 Lidoderm Patch - TP Not Given DAILY@1600 [facility] Methylnaltrexone [place] 12 mg 10/13/19 10:00 10/17/19 10:08 Relistor - SQ Not Given DAILY [facility] Methylprednisolone Sodium Succinate 40 mg 10/13/19 02:00 10/17/19 10:05 Solu-Medrol - IVPUSH 40 mg Q8H-IV [facility] Administration Metoprolol Tartrate 50 mg 10/13/19 22:00 10/17/19 10:06 Lopressor - PO 50 mg BID [facility] Administration Miscellaneous 1 each 10/13/19 22:00 10/16/19 21:35 Lidoderm Patch Removal MC Not Given DAILY@2200 [facility] Mupirocin 1 applic 10/15/19 13:00 10/17/19 10:07 Bactroban Ointment (For Decolonization) - NS 10/20/19 12:59 1 applic BID [facility] Administration Oxycodone HCl 5 mg 10/15/19 15:01 10/17/19 12:31 Roxicodone - PO 5 mg Q6H PRN Administration PAIN LEVEL 6-10 Pantoprazole Sodium 40 mg 10/13/19 17:30 10/17/19 10:06 Protonix - PO 40 mg DAILY [facility] Administration Polyethylene Glycol 17 gm 10/15/19 22:00 10/17/19 10:07 Miralax (For Bowel Prep) - PO Not Given BID [facility] Senna 1 tab 10/13/19 06:00 10/17/19 05:19 Senna - PO Not Given TID [facility] Umeclidinium/Vilanterol 1 puff 10/13/19 10:00 10/17/19 10:08 Anoro Ellipta 62.5-25 Mcg Inh IH 1 puff DAILY [facility] Administration Vital Signs Period Temp Pulse Resp BP Sys/Dodge Pulse Ox Last 24 Hr 98.0 F-99.2 F 97-134 20-36 83-114/61-79 90-100 Constitutional: Yes: No Distress, Calm Eyes: Yes: Conjunctiva Clear, EOM Intact HENT: Yes: Atraumatic, Normocephalic Neck: Yes: Supple, Trachea Midline Respiratory: Yes: Regular, . no wheeze, bibasilar rhonchi Gastrointestinal: Yes: Normal Bowel Sounds, Soft Cardiovascular: Yes: Regular Rate and Rhythm JVD: No Extremities: No: Cold Edema: no Integumentary: No: Jaundice Neurological: Yes: Alert, Oriented Psychiatric: No: Agitated Assessment/Plan EKG: sr, old rbbb, no ischemic changes stress echo 07/2018 nl EF, no ischemia echo 07/2019 nl LV function, mild LVH, borderline RV size/function, LA mod dilated, tr to mild MR, mild TR cta chest: no pe, ?pna tele: sr/sinus tachy, PACs sob, hypoxia, pna: -cont 02 -cont abx -no signs acs COPD, lung adenoca - manage per onc, pulm - on IV steroids tachycardia - sinus tachycardia likely in the setting of acute issues - cont metoprolol CAD s/p CABG - cont aspirin, statin, bb, plavix HTN - cont home meds HLD - cont statin
--- NOTE | 2019-10-17 13:41 | PN ---
Progress Note, Physician History of Present Illness: stable still sob on high flow oxygen - Current Medication List Current Medications: Active Medications Acetaminophen (Tylenol -) 650 mg PO Q6H PRN PRN Reason: PAIN LEVEL 1-5 Last Admin: 10/17/19 12:32 Dose: 650 mg Documented by: Albuterol/Ipratropium (Duoneb -) 1 amp NEB Q6H PRN PRN Reason: SHORTNESS OF BREATH Allopurinol (Zyloprim -) 300 mg PO DAILY [facility] Last Admin: 10/17/19 10:06 Dose: 300 mg Documented by: Aspirin (Asa -) 81 mg PO [facility] Last Admin: 10/16/19 21:23 Dose: 81 mg Documented by: Atorvastatin Calcium (Lipitor -) 20 mg PO [facility] Last Admin: 10/16/19 21:23 Dose: 20 mg Documented by: Calcium Carbonate/Cholecalciferol (Os-Faisal 500+D -) 1 tab PO BID [facility] Last Admin: 10/17/19 10:06 Dose: 1 tab Documented by: Chlorhexidine Gluconate (Hibiclens For Decolonization -) 1 applic TP [facility] Last Admin: 10/16/19 21:23 Dose: 1 applic Documented by: Cyclobenzaprine HCl (Flexeril -) 10 mg PO TID [facility] Last Admin: 10/17/19 05:24 Dose: 10 mg Documented by: Docusate Sodium (Colace -) 100 mg PO TID [facility] Last Admin: 10/17/19 05:19 Dose: Not Given Documented by: Folic Acid (Folic Acid -) 1 mg PO DAILY [facility] Last Admin: 10/17/19 10:07 Dose: 1 mg Documented by: Gabapentin (Neurontin -) 300 mg PO BID [facility] Last Admin: 10/17/19 10:07 Dose: 300 mg Documented by: Gabapentin (Neurontin -) 600 mg PO DAILY@1600 [facility] Last Admin: 10/16/19 16:17 Dose: 600 mg Documented by: Piperacillin Sod/Tazobactam (Sod 3.375 gm/ Dextrose) 50 mls @ 100 mls/hr IVPB Q8H-IV [facility]; Protocol Last Admin: 10/17/19 10:05 Dose: 100 mls/hr Documented by: Sodium Chloride (Normal Saline -) 1,000 mls @ 75 mls/hr IV ASDIR [facility] Lidocaine (Lidoderm Patch -) 1 patch TP DAILY@1600 [facility] Last Admin: 10/16/19 16:17 Dose: Not Given Documented by: Methylnaltrexone [place] (Relistor -) 12 mg SQ DAILY [facility] Last Admin: 10/17/19 10:08 Dose: Not Given Documented by: Methylprednisolone Sodium Succinate (Solu-Medrol -) 40 mg IVPUSH Q8H-IV [facility] Last Admin: 10/17/19 10:05 Dose: 40 mg Documented by: Metoprolol Tartrate (Lopressor -) 50 mg PO BID [facility] Last Admin: 10/17/19 10:06 Dose: 50 mg Documented by: Miscellaneous (Lidoderm Patch Removal) 1 each MC DAILY@2200 [facility] Last Admin: 10/16/19 21:35 Dose: Not Given Documented by: Mupirocin (Bactroban Ointment (For Decolonization) -) 1 applic NS BID [facility] Stop: 10/20/19 12:59 Last Admin: 10/17/19 10:07 Dose: 1 applic Documented by: Oxycodone HCl (Roxicodone -) 5 mg PO Q6H PRN PRN Reason: PAIN LEVEL 6-10 Last Admin: 10/17/19 12:31 Dose: 5 mg Documented by: Pantoprazole Sodium (Protonix -) 40 mg PO DAILY [facility] Last Admin: 10/17/19 10:06 Dose: 40 mg Documented by: Polyethylene Glycol (Miralax (For Bowel Prep) -) 17 gm PO BID [facility] Last Admin: 10/17/19 10:07 Dose: Not Given Documented by: Senna (Senna -) 1 tab PO TID [facility] Last Admin: 10/17/19 05:19 Dose: Not Given Documented by: Umeclidinium/Vilanterol (Anoro Ellipta 62.5-25 Mcg Inh) 1 puff IH DAILY [facility] Last Admin: 10/17/19 10:08 Dose: 1 puff Documented by: - Objective Vital Signs: Vital Signs Temperature 98.7 F 10/17/19 04:00 Pulse Rate 118 H 10/17/19 06:00 Respiratory Rate 32 H 10/17/19 06:00 Blood Pressure 97/71 10/17/19 06:00 O2 Sat by Pulse Oximetry (%) 100 10/17/19 12:27 Constitutional: Yes: Calm, Mild Distress Cardiovascular: Yes: S1, S2 Respiratory: Yes: Regular, Poor Air Entry, Other (on high flow oxygen) Gastrointestinal: Yes: Normal Bowel Sounds, Soft Musculoskeletal: Yes: WNL Extremities: Yes: WNL Neurological: Yes: Alert, Oriented Labs: CBC, BMP 10/17/19 06:10 10/17/19 06:10 INR, PTT INR 0.98 (0.83-1.09) 10/16/19 06:20 Assessment/Plan Problem List - Problems (1) Acute respiratory failure with hypoxia Code(s): J96.01 - ACUTE RESPIRATORY FAILURE WITH HYPOXIA (2) Interstitial lung disease Code(s): J84.9 - INTERSTITIAL PULMONARY DISEASE, UNSPECIFIED (3) Back pain Code(s): M54.9 - DORSALGIA, UNSPECIFIED (4) COPD (chronic obstructive pulmonary disease) Code(s): J44.9 - CHRONIC OBSTRUCTIVE PULMONARY DISEASE, UNSPECIFIED (5) Compression fracture of T12 vertebra Code(s): S22.080A - WEDGE COMPRESSION FRACTURE OF T11-T12 VERTEBRA, INIT Qualifiers: Encounter type: initial encounter Qualified Code(s): S22.080A - Wedge compression fracture of T11-T12 vertebra, initial encounter for closed fracture (6) HLD (hyperlipidemia) Code(s): E78.5 - HYPERLIPIDEMIA, UNSPECIFIED (7) HTN (hypertension) Code(s): I10 - ESSENTIAL (PRIMARY) HYPERTENSION (8) Lung cancer Code(s): C34.90 - MALIGNANT NEOPLASM OF UNSP PART OF UNSP BRONCHUS OR LUNG Assessment/Plan continue as per icu resp support continue abx await for finalization of the cx rest as per the team sputum for pcp cc 40 min
--- NOTE | 2019-10-17 14:25 | PN ---
Physical Exam: SUBJECTIVE: Patient seen and examined bedside. On high flow NC. Still has dyspnea with exertion. Was tachycardic and hypoxic last night and was not able to be transfered to the [facility]. OBJECTIVE: Vital Signs Temp Pulse Resp BP Pulse Ox 98.7 F 118 H 32 H 97/71 100 10/17/19 04:00 10/17/19 06:00 10/17/19 06:00 10/17/19 06:00 10/17/19 12:27 GENERAL: The patient is awake, alert, and fully oriented HEAD: Normal with no signs of trauma. EYES: PERRL, extraocular movements intact ENT: moist mucous membranes. LUNGS: decreased breath sounds at bases BL HEART: tachycardic regular rhythm ABDOMEN: Soft, nontender, nondistended rebound, no hepatosplenomegaly, no masses. EXTREMITIES: 2+ pulses, warm, well-perfused, no edema. NEUROLOGICAL: Cranial nerves II through XII grossly intact. PSYCH: anxious SKIN: Warm, dry, normal turgor, no rashes or lesions noted Laboratory Results - last 24 hr 10/16/19 10/16/19 10/17/19 16:24 21:54 06:10 WBC 3.9 L RBC 2.52 L Hgb 8.0 L Hct 24.0 L MCV 95.3 MCH 31.7 MCHC 33.3 RDW 17.7 H Plt Count 51 L D MPV 8.1 Anticoagulation Therapy Puncture Site Patient Temperature ABG pH ABG pCO2 ABG pO2 ABG HCO3 ABG O2 Sat (Measured) ABG O2 Content ABG Base Excess Elfego Test Patient On Oxygen O2 Delivery Device Oxygen Flow Rate Vent Mode Vent Rate Mechanical Rate PEEP Pressure Support Vent Sodium Potassium Chloride Carbon Dioxide Anion Gap BUN Creatinine Est GFR (CKD-EPI)AfAm Est GFR (CKD-EPI)NonAf POC Glucometer 165 115 Random Glucose Calcium Phosphorus Magnesium 10/17/19 10/17/19 10/17/19 06:10 06:47 07:45 WBC RBC Hgb Hct MCV MCH MCHC RDW Plt Count MPV Anticoagulation Therapy No Result Required. Puncture Site Right radial Patient Temperature No Result Required. ABG pH 7.508 H ABG pCO2 40.20 ABG pO2 50.8 L ABG HCO3 31.2 H ABG O2 Sat (Measured) 89.2 L ABG O2 Content No Result Required. ABG Base Excess 7.5 H Elfego Test Positive Patient On Oxygen Yes O2 Delivery Device Hfnc Oxygen Flow Rate 85 Vent Mode No Result Required. Vent Rate No Result Required. Mechanical Rate No Result Required. PEEP No Result Required. Pressure Support Vent No Result Required. Sodium 136 Potassium 4.4 Chloride 95 L Carbon Dioxide 30 Anion Gap 12 BUN 45.2 H Creatinine 1.2 Est GFR (CKD-EPI)AfAm 75.19 Est GFR (CKD-EPI)NonAf 64.87 POC Glucometer 106 Random Glucose 139 H Calcium 9.0 Phosphorus 5.4 H Magnesium 2.6 H Active Medications Generic Name Dose Route Start Last Admin Trade Name Freq PRN Reason Stop Dose Admin Acetaminophen 650 mg 10/13/19 02:10 10/17/19 12:32 Tylenol - PO 650 mg Q6H PRN Administration PAIN LEVEL 1-5 Albuterol/Ipratropium 1 amp 10/13/19 01:47 Duoneb - NEB Q6H PRN SHORTNESS OF BREATH Allopurinol 300 mg 10/13/19 17:45 10/17/19 10:06 Zyloprim - PO 300 mg DAILY VEENA Administration Aspirin 81 mg 10/13/19 22:00 10/16/19 21:23 Asa - PO 81 mg HS VEENA Administration Atorvastatin Calcium 20 mg 10/13/19 22:00 10/16/19 21:23 Lipitor - PO 20 mg HS VEENA Administration Calcium Carbonate/Cholecalciferol 1 tab 10/13/19 10:00 10/17/19 10:06 Os-Faisal 500+D - PO 1 tab BID VEENA Administration Chlorhexidine Gluconate 1 applic 10/15/19 22:00 10/16/19 21:23 Hibiclens For Decolonization - TP 1 applic HS VEENA Administration Cyclobenzaprine HCl 10 mg 10/13/19 06:00 10/17/19 05:24 Flexeril - PO 10 mg TID VEENA Administration Docusate Sodium 100 mg 10/13/19 06:00 10/17/19 13:41 Colace - PO Not Given TID VEENA Folic Acid 1 mg 10/13/19 17:45 10/17/19 10:07 Folic Acid - PO 1 mg DAILY VEENA Administration Gabapentin 300 mg 10/15/19 22:00 10/17/19 10:07 Neurontin - PO 300 mg BID VEENA Administration Gabapentin 600 mg 10/16/19 16:00 10/16/19 16:17 Neurontin - PO 600 mg DAILY@1600 VEENA Administration Piperacillin Sod/Tazobactam 50 mls @ 100 mls/hr 10/15/19 18:00 10/17/19 10:05 Sod 3.375 gm/ Dextrose IVPB 100 mls/hr Q8H-IV VEENA Administration Protocol Sodium Chloride 1,000 mls @ 75 mls/hr 10/17/19 13:15 10/17/19 13:40 Normal Saline - IV 75 mls/hr ASDIR VEENA Administration Lidocaine 1 patch 10/13/19 16:00 10/16/19 16:17 Lidoderm Patch - TP Not Given DAILY@1600 [facility] Methylnaltrexone [place] 12 mg 10/13/19 10:00 10/17/19 10:08 Relistor - SQ Not Given DAILY [facility] Methylprednisolone Sodium Succinate 40 mg 10/13/19 02:00 10/17/19 10:05 Solu-Medrol - IVPUSH 40 mg Q8H-IV VEENA Administration Metoprolol Tartrate 50 mg 10/13/19 22:00 10/17/19 10:06 Lopressor - PO 50 mg BID VEENA Administration Miscellaneous 1 each 10/13/19 22:00 10/16/19 21:35 Lidoderm Patch Removal MC Not Given DAILY@2200 [facility] Mupirocin 1 applic 10/15/19 13:00 10/17/19 10:07 Bactroban Ointment (For Decolonization) - NS 10/20/19 12:59 1 applic BID VEENA Administration Oxycodone HCl 5 mg 10/15/19 15:01 10/17/19 12:31 Roxicodone - PO 5 mg Q6H PRN Administration PAIN LEVEL 6-10 Pantoprazole Sodium 40 mg 10/13/19 17:30 10/17/19 10:06 Protonix - PO 40 mg DAILY VEENA Administration Polyethylene Glycol 17 gm 10/15/19 22:00 10/17/19 10:07 Miralax (For Bowel Prep) - PO Not Given BID [facility] Senna 1 tab 10/13/19 06:00 10/17/19 13:41 Senna - PO Not Given TID [facility] Umeclidinium/Vilanterol 1 puff 10/13/19 10:00 10/17/19 10:08 Anoro Ellipta 62.5-25 Mcg Inh IH 1 puff DAILY VEENA Administration ASSESSMENT/PLAN: 59 yo M with ILD, COPD (O2 dependent on 7-8L at home), CAD s/p CABG, HTN, HLD, and lung adenocarcinoma currently on chemotherapy presents with SOB initially in the emergency department for 2 days. Admitted to ICU for hypoxic respiratory failure. Neuro - NAD, alert and oriented x3, no sedation, able to converse logically - Continue to monitor for acute mental status changes Cardiac - CAD s/p CABG - HTN, on metoprolol - HLD, on atorvastatin - Cardiology consulted (Dr. Galvin) sinus tachycardia likely in the setting of acute issues cont metoprolol, aspirin, statin, bb, plavix - Patient has EKG that shows sinus tachycardia w/ atrial complexes and RBBB. - continue cardiac monitoring Pulm: Acute on chronic hypoxemic respiratory failure - ILD - COPD, on home O2 - currently on High flow: titrate to keep Spo2 >90% - Non-small lung adenocarcinoma - Patient currently on albuterol, solumedrol - Continuous pulse oximetry monitoring ID - CTA of the chest noted possible bibasilar lung infiltrates - continue abx: zosyn day 3 - await for finalization of the cx - sputum for PCP pending Heme/Onc - Dr. 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 - New Patient This patient is new to me today: No - Critical Care Critical Care patient: Yes Total Critical Care Time (in minutes): 36 Critical Care Statement: The care of this patient involved high complexity decision making to prevent further life threatening deterioration of the patient's condition and/or to evaluate & treat vital organ system(s) failure or risk of failure. - Discharge Referral Referred to [facility] Med [facility].C.: No ATTENDING PHYSICIAN STATEMENT I saw and evaluated the patient. I reviewed the resident's note and discussed the case with the resident. I agree with the resident's findings and plan as documented. SUBJECTIVE: OBJECTIVE: ASSESSMENT AND PLAN:
[2019-10-17] MEDS: LIDOCAINE 5% TOPICAL PATCH TP SCH (15:13)
--- NOTE | 2019-10-17 17:07 | PN ---
Progress Note, Physician - Current Medication List Current Medications: Active Medications Acetaminophen (Tylenol -) 650 mg PO Q6H PRN PRN Reason: PAIN LEVEL 1-5 Last Admin: 10/17/19 12:32 Dose: 650 mg Documented by: Albuterol/Ipratropium (Duoneb -) 1 amp NEB Q6H PRN PRN Reason: SHORTNESS OF BREATH Allopurinol (Zyloprim -) 300 mg PO DAILY [facility] Last Admin: 10/17/19 10:06 Dose: 300 mg Documented by: Aspirin (Asa -) 81 mg PO [facility] Last Admin: 10/16/19 21:23 Dose: 81 mg Documented by: Atorvastatin Calcium (Lipitor -) 20 mg PO [facility] Last Admin: 10/16/19 21:23 Dose: 20 mg Documented by: Calcium Carbonate/Cholecalciferol (Os-Faisal 500+D -) 1 tab PO BID [facility] Last Admin: 10/17/19 10:06 Dose: 1 tab Documented by: Chlorhexidine Gluconate (Hibiclens For Decolonization -) 1 applic TP [facility] Last Admin: 10/16/19 21:23 Dose: 1 applic Documented by: Cyclobenzaprine HCl (Flexeril -) 10 mg PO TID [facility] Last Admin: 10/17/19 15:14 Dose: 10 mg Documented by: Docusate Sodium (Colace -) 100 mg PO TID [facility] Last Admin: 10/17/19 13:41 Dose: Not Given Documented by: Folic Acid (Folic Acid -) 1 mg PO DAILY [facility] Last Admin: 10/17/19 10:07 Dose: 1 mg Documented by: Gabapentin (Neurontin -) 300 mg PO BID [facility] Last Admin: 10/17/19 10:07 Dose: 300 mg Documented by: Gabapentin (Neurontin -) 600 mg PO DAILY@1600 [facility] Last Admin: 10/17/19 15:14 Dose: 600 mg Documented by: Piperacillin Sod/Tazobactam (Sod 3.375 gm/ Dextrose) 50 mls @ 100 mls/hr IVPB Q8H-IV [facility]; Protocol Last Admin: 10/17/19 10:05 Dose: 100 mls/hr Documented by: Sodium Chloride (Normal Saline -) 1,000 mls @ 75 mls/hr IV ASDIR [facility] Last Admin: 10/17/19 13:40 Dose: 75 mls/hr Documented by: Lidocaine (Lidoderm Patch -) 1 patch TP DAILY@1600 [facility] Last Admin: 10/17/19 15:13 Dose: Not Given Documented by: Methylnaltrexone [place] (Relistor -) 12 mg SQ DAILY [facility] Last Admin: 10/17/19 10:08 Dose: Not Given Documented by: Methylprednisolone Sodium Succinate (Solu-Medrol -) 40 mg IVPUSH Q8H-IV [facility] Last Admin: 10/17/19 10:05 Dose: 40 mg Documented by: Metoprolol Tartrate (Lopressor -) 50 mg PO BID [facility] Last Admin: 10/17/19 10:06 Dose: 50 mg Documented by: Miscellaneous (Lidoderm Patch Removal) 1 each MC DAILY@2200 [facility] Last Admin: 10/16/19 21:35 Dose: Not Given Documented by: Mupirocin (Bactroban Ointment (For Decolonization) -) 1 applic NS BID [facility] Stop: 10/20/19 12:59 Last Admin: 10/17/19 10:07 Dose: 1 applic Documented by: Oxycodone HCl (Roxicodone -) 5 mg PO Q6H PRN PRN Reason: PAIN LEVEL 6-10 Last Admin: 10/17/19 12:31 Dose: 5 mg Documented by: Pantoprazole Sodium (Protonix -) 40 mg PO DAILY [facility] Last Admin: 10/17/19 10:06 Dose: 40 mg Documented by: Polyethylene Glycol (Miralax (For Bowel Prep) -) 17 gm PO BID [facility] Last Admin: 10/17/19 10:07 Dose: Not Given Documented by: Senna (Senna -) 1 tab PO TID [facility] Last Admin: 10/17/19 13:41 Dose: Not Given Documented by: Umeclidinium/Vilanterol (Anoro Ellipta 62.5-25 Mcg Inh) 1 puff IH DAILY [facility] Last Admin: 10/17/19 10:08 Dose: 1 puff Documented by: - Objective Vital Signs: Vital Signs Temperature 98.7 F 10/17/19 16:44 Pulse Rate 110 H 10/17/19 16:44 Respiratory Rate 22 H 10/17/19 16:44 Blood Pressure 107/68 10/17/19 16:44 O2 Sat by Pulse Oximetry (%) 97 10/17/19 16:44 Labs: CBC, BMP 10/17/19 06:10 10/17/19 06:10 INR, PTT INR 0.98 (0.83-1.09) 10/16/19 06:20 Problem List - Problems (1) Acute respiratory failure with hypoxia Code(s): J96.01 - ACUTE RESPIRATORY FAILURE WITH HYPOXIA (2) Lung cancer Code(s): C34.90 - MALIGNANT NEOPLASM OF UNSP PART OF UNSP BRONCHUS OR LUNG (3) COPD (chronic obstructive pulmonary disease) Code(s): J44.9 - CHRONIC OBSTRUCTIVE PULMONARY DISEASE, UNSPECIFIED (4) Interstitial lung disease Code(s): J84.9 - INTERSTITIAL PULMONARY DISEASE, UNSPECIFIED (5) Constipation Code(s): K59.00 - CONSTIPATION, UNSPECIFIED Qualifiers: Constipation type: drug induced constipation Qualified Code(s): K59.03 - Drug induced constipation (6) HTN (hypertension) Code(s): I10 - ESSENTIAL (PRIMARY) HYPERTENSION (7) HLD (hyperlipidemia) Code(s): E78.5 - HYPERLIPIDEMIA, UNSPECIFIED (8) Pneumonia Code(s): J18.9 - PNEUMONIA, UNSPECIFIED ORGANISM (9) Vertebral fracture Code(s): [id number] - (10) CAD (coronary artery disease) Code(s): I25.10 - ATHSCL HEART DISEASE OF [place] CORONARY ARTERY W/O ANG PCTRS
[2019-10-17] MEDS: CHLORHEXIDINE GLUCONATE 4% CLEANSER FOR DECOLONIZATION TP SCH (21:37)
[2019-10-17] MEDS: ASPIRIN 81 MG CHEWABLE TABLETS PO SCH (21:43)
[2019-10-17] MEDS: ATORVASTATIN CA 20 MG TABLET (FP) PO SCH (21:45)
[2019-10-17] MEDS: LIDOCAINE PATCH REMOVAL MC SCH ×2 (21:50→22:00)
[2019-10-17] MEDS: METHYL SALICYLATE/MENTHOL OINT 30 GM TUBE TP SCH ×2 (23:13→23:21)
[2019-10-18] MEDS ORDERED: PIPERACILLIN/TAZOBACTAM 3.375 GM VIAL IVPB ONE ×3 (00:50→17:08)
[2019-10-18] MEDS ORDERED: DEXTROSE 5%-WATER - 50 ML IVPB ONE ×3 (00:50→17:08)
[2019-10-18] MEDS: oxyCODONE HCL 5 MG TABLET PO PRN ×4 (00:54→19:09)
[2019-10-18] MEDS: ACETAMINOPHEN 325 MG TABLET (FP) PO PRN ×4 (00:55→19:08)
[2019-10-18] MEDS: PIPERACILLIN/TAZOB 3.375 GM 3.375 GM in DEXTROSE 5%-WATER - 50 ML IVPB SCH ×3 (01:01→18:04)
[2019-10-18] MEDS: methylPREDNISolone NA SUCC 40 MG/1 ML VIAL IVPUSH SCH ×3 (01:01→18:04)
[2019-10-18] MEDS: DOCUSATE SODIUM 100 MG CAPSULE (FP) PO SCH ×3 (06:24→22:18)
[2019-10-18] MEDS: SENNOSIDES 8.6MG TABLET (FP) PO SCH ×3 (06:24→22:17)
[2019-10-18] MEDS: CYCLOBENZAPRINE HCL 10 MG TABLET (FP) PO SCH ×3 (06:25→22:18)
--- NOTE | 2019-10-18 07:29 | PN ---
Progress Note, Physician History of Present Illness: pulmonary awake ,states breathing a little better on hfot, sat 92% - Current Medication List Current Medications: Active Medications Acetaminophen (Tylenol -) 650 mg PO Q6H PRN PRN Reason: PAIN LEVEL 1-5 Last Admin: 10/18/19 07:22 Dose: 650 mg Documented by: Albuterol/Ipratropium (Duoneb -) 1 amp NEB Q6H PRN PRN Reason: SHORTNESS OF BREATH Allopurinol (Zyloprim -) 300 mg PO DAILY [facility] Last Admin: 10/17/19 10:06 Dose: 300 mg Documented by: Aspirin (Asa -) 81 mg PO [facility] Last Admin: 10/17/19 21:43 Dose: 81 mg Documented by: Atorvastatin Calcium (Lipitor -) 20 mg PO [facility] Last Admin: 10/17/19 21:45 Dose: 20 mg Documented by: Calcium Carbonate/Cholecalciferol (Os-Faisal 500+D -) 1 tab PO BID [facility] Last Admin: 10/17/19 21:52 Dose: 1 tab Documented by: Chlorhexidine Gluconate (Hibiclens For Decolonization -) 1 applic TP [facility] Last Admin: 10/17/19 21:37 Dose: Not Given Documented by: Cyclobenzaprine HCl (Flexeril -) 10 mg PO TID [facility] Last Admin: 10/18/19 06:25 Dose: 10 mg Documented by: Docusate Sodium (Colace -) 100 mg PO TID [facility] Last Admin: 10/18/19 06:24 Dose: Not Given Documented by: Folic Acid (Folic Acid -) 1 mg PO DAILY [facility] Last Admin: 10/17/19 10:07 Dose: 1 mg Documented by: Gabapentin (Neurontin -) 300 mg PO BID [facility] Last Admin: 10/17/19 21:45 Dose: 300 mg Documented by: Gabapentin (Neurontin -) 600 mg PO DAILY@1600 [facility] Last Admin: 10/17/19 15:14 Dose: 600 mg Documented by: Piperacillin Sod/Tazobactam (Sod 3.375 gm/ Dextrose) 50 mls @ 100 mls/hr IVPB Q8H-IV [facility]; Protocol Last Admin: 10/18/19 01:01 Dose: 100 mls/hr Documented by: Sodium Chloride (Normal Saline -) 1,000 mls @ 75 mls/hr IV ASDIR [facility] Last Admin: 10/17/19 13:40 Dose: 75 mls/hr Documented by: Lidocaine (Lidoderm Patch -) 1 patch TP DAILY [facility] Methyl Salicylate (Elan-Smith -) 1 applic TP BID [facility] Last Admin: 10/17/19 23:21 Dose: Not Given Documented by: Methylnaltrexone [place] (Relistor -) 12 mg SQ DAILY [facility] Last Admin: 10/17/19 10:08 Dose: Not Given Documented by: Methylprednisolone Sodium Succinate (Solu-Medrol -) 40 mg IVPUSH Q8H-IV [facility] Last Admin: 10/18/19 01:01 Dose: 40 mg Documented by: Metoprolol Tartrate (Lopressor -) 50 mg PO BID [facility] Last Admin: 10/17/19 21:45 Dose: 50 mg Documented by: Miscellaneous (Lidoderm Patch Removal) 1 each MC DAILY@2200 [facility] Last Admin: 10/17/19 22:00 Dose: Not Given Documented by: Mupirocin (Bactroban Ointment (For Decolonization) -) 1 applic NS BID [facility] Stop: 10/20/19 12:59 Last Admin: 10/17/19 21:36 Dose: Not Given Documented by: Oxycodone HCl (Roxicodone -) 5 mg PO Q6H PRN PRN Reason: PAIN LEVEL 6-10 Last Admin: 10/18/19 07:22 Dose: 5 mg Documented by: Pantoprazole Sodium (Protonix -) 40 mg PO DAILY [facility] Last Admin: 10/17/19 10:06 Dose: 40 mg Documented by: Polyethylene Glycol (Miralax (For Bowel Prep) -) 17 gm PO BID [facility] Last Admin: 10/17/19 21:49 Dose: Not Given Documented by: Senna (Senna -) 1 tab PO TID [facility] Last Admin: 10/18/19 06:24 Dose: Not Given Documented by: Umeclidinium/Vilanterol (Anoro Ellipta 62.5-25 Mcg Inh) 1 puff IH DAILY [facility] Last Admin: 10/17/19 10:08 Dose: 1 puff Documented by: - Objective Vital Signs: Vital Signs Temperature 98.2 F 10/18/19 06:00 Pulse Rate 103 H 10/18/19 06:00 Respiratory Rate 20 10/18/19 06:00 Blood Pressure 119/70 10/18/19 06:00 O2 Sat by Pulse Oximetry (%) 100 10/18/19 06:00 Constitutional: Yes: Mild Distress, Thin Eyes: Yes: WNL HENT: Yes: WNL Neck: Yes: WNL Cardiovascular: Yes: Regular Rate and Rhythm, S1, S2 Respiratory: Yes: Rales (bilateral crackles) Gastrointestinal: Yes: Normal Bowel Sounds, Soft Extremities: Yes: WNL Edema: No Labs: INR, PTT Problem List - Problems (1) Acute and chronic respiratory failure Code(s): J96.20 - ACUTE AND CHR RESP FAILURE, UNSP W HYPOXIA OR HYPERCAPNIA Qualifiers: Respiratory failure complication: hypoxia Qualified Code(s): J96.21 - Acute and chronic respiratory failure with hypoxia (2) CAD (coronary artery disease) Code(s): I25.10 - ATHSCL HEART DISEASE OF [place] CORONARY ARTERY W/O ANG PCTRS (3) Compression fracture of T12 vertebra Code(s): S22.080A - WEDGE COMPRESSION FRACTURE OF T11-T12 VERTEBRA, INIT Qualifiers: Encounter type: initial encounter Qualified Code(s): S22.080A - Wedge compression fracture of T11-T12 vertebra, initial encounter for closed fracture (4) HLD (hyperlipidemia) Code(s): E78.5 - HYPERLIPIDEMIA, UNSPECIFIED (5) HTN (hypertension) Code(s): I10 - ESSENTIAL (PRIMARY) HYPERTENSION (6) Interstitial lung disease Code(s): J84.9 - INTERSTITIAL PULMONARY DISEASE, UNSPECIFIED (7) Lung cancer Code(s): C34.90 - MALIGNANT NEOPLASM OF UNSP PART OF UNSP BRONCHUS OR LUNG (8) Vertebral fracture Code(s): [id number] - (9) Interstitial lung disease Code(s): J84.9 - INTERSTITIAL PULMONARY DISEASE, UNSPECIFIED Assessment/Plan IMP ACUTE ON CHRONIC HYPOXEMIC RESPIRATORY FAILURE ADVANCE ILD/PULMONARY FIBROSIS COPD ? PNEUMONIA MET LUNG CA NON-SMALL CELL ASHD S/P CABG THROMBOCYTOPENIA ANEMIA PLAN SUPPLEMENTAL O2 TO MAINTAIN O2 SAT 90% HFOT INHALED BRONCHODILATORS STEROIDS ABX MONITOR LYTES,CBC,PLT CT F/U CHEST X-RAYS NORMAL TRANSFUSION THRESHOLD DR HANSON Problem List - Problems (1) Acute and chronic respiratory failure Code(s): J96.20 - ACUTE AND CHR RESP FAILURE, UNSP W HYPOXIA OR HYPERCAPNIA Qualifiers: Respiratory failure complication: hypoxia Qualified Code(s): J96.21 - Acute and chronic respiratory failure with hypoxia (2) CAD (coronary artery disease) Code(s): I25.10 - ATHSCL HEART DISEASE OF [place] CORONARY ARTERY W/O ANG PCTRS (3) Compression fracture of T12 vertebra Code(s): S22.080A - WEDGE COMPRESSION FRACTURE OF T11-T12 VERTEBRA, INIT Qualifiers: Encounter type: initial encounter Qualified Code(s): S22.080A - Wedge compression fracture of T11-T12 vertebra, initial encounter for closed fracture (4) HLD (hyperlipidemia) Code(s): E78.5 - HYPERLIPIDEMIA, UNSPECIFIED (5) HTN (hypertension) Code(s): I10 - ESSENTIAL (PRIMARY) HYPERTENSION (6) Interstitial lung disease Code(s): J84.9 - INTERSTITIAL PULMONARY DISEASE, UNSPECIFIED (7) Lung cancer Code(s): C34.90 - MALIGNANT NEOPLASM OF UNSP PART OF UNSP BRONCHUS OR LUNG (8) Vertebral fracture Code(s): [id number] - (9) Interstitial lung disease Code(s): J84.9 - INTERSTITIAL PULMONARY DISEASE, UNSPECIFIED
[2019-10-18 07:37] LABS: HEMATOCRIT 24.3 % (35.4-49); MCH 31.6 pg (25.7-33.7); MCHC 32.8 g/dl (32.0-35.9); MEAN CELL VOLUME 96.5 fl (80-96); MEAN PLT VOLUME 8.9 fl (7.5-11.1); PLATELET COUNT 67 K/MM3 (134-434); RBC 2.52 M/mm3 (4.00-5.60); RDW 17.7 % (11.9-15.9); WHITE BLOOD COUNT 5.4 K/mm3 (4.0-10.0)
[2019-10-18] MEDS ORDERED: ALBUTEROL SO4 2.5/IPRATROPIUM 0.5 INH SOL 3 ML VIAL.NEB. NEB PRN (07:39)
[2019-10-18 07:46] LABS: BLOOD UREA NITROGEN 43.8 mg/dL (7-18); CREATININE 1.1 mg/dL (0.55-1.3); MAGNESIUM 2.8 mg/dL (1.8-2.4); POTASSIUM 4.7 mmol/L (3.5-5.1)
--- NOTE | 2019-10-18 08:57 | PN.HO ---
Progress Note (short form) - Note Progress Note: PAtient seen and examined On high flow oxygen Dyspneic with minimal exertion Last Vital Signs Temp Pulse Resp BP Pulse Ox 98.0 F 123 H 27 H 102/77 88 L 10/15/19 10:00 10/15/19 10:00 10/15/19 10:00 10/15/19 10:00 10/15/19 10:21 AFVSS Cor: RSR, No murmurs, No gallops Lungs: crackles at bases Abd: Soft, Normal bowel sounds, No organomegaly Ext:No significant edema Labs/Meds reviewed A/P 59 y/o M with COPD, on home O2 (7-8L), CAD, ILD, Stage IIIC lung adenocarcinoma s/p RT 08/21, now metastatic to chest wall, liver, multiple lung nodules, adenopathy C1 D15 of carbo/alimta admitted with worsening of chronic SOB and hypoxia. Requiring BIPAP. CTPE negative. Started on empiric Abx. Also with platelet count 27 (109 on 10/03). On antibiotis/ steroids diuresing prn pain control --increase neurontin to 600mg PO at mid day and 300mg in AM/PM Discussed overall guarded prognosis with patient and brother. awaiting foundation assay. 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 ongoing discussions regarding overall goals of care
--- NOTE | 2019-10-18 09:36 | PN ---
Progress Note, Physician - Current Medication List Current Medications: Active Medications Acetaminophen (Tylenol -) 650 mg PO Q6H PRN PRN Reason: PAIN LEVEL 1-5 Albuterol/Ipratropium (Duoneb -) 1 amp NEB Q6H PRN PRN Reason: SHORTNESS OF BREATH Allopurinol (Zyloprim -) 300 mg PO DAILY [facility] Aspirin (Asa -) 81 mg PO HS [facility] Atorvastatin Calcium (Lipitor -) 20 mg PO HS [facility] Calcium Carbonate/Cholecalciferol (Os-Faisal 500+D -) 1 tab PO BID [facility] Cyclobenzaprine HCl (Flexeril -) 10 mg PO TID [facility] Docusate Sodium (Colace -) 100 mg PO TID [facility] Folic Acid (Folic Acid -) 1 mg PO DAILY [facility] Gabapentin (Neurontin -) 300 mg PO BID [facility] Gabapentin (Neurontin -) 600 mg PO DAILY@1600 [facility] Piperacillin Sod/Tazobactam (Sod 3.375 gm/ Dextrose) 50 mls @ 100 mls/hr IVPB Q8H-IV [facility]; Protocol Sodium Chloride (Normal Saline -) 1,000 mls @ 75 mls/hr IV ASDIR [facility] Lidocaine (Lidoderm Patch -) 1 patch TP DAILY [facility] Methyl Salicylate (Elan-Smith -) 1 applic TP BID [facility] Last Admin: 10/17/19 23:21 Dose: Not Given Documented by: Methylnaltrexone [place] (Relistor -) 12 mg SQ DAILY [facility] Methylprednisolone Sodium Succinate (Solu-Medrol -) 40 mg IVPUSH Q8H-IV [facility] Metoprolol Tartrate (Lopressor -) 50 mg PO BID [facility] Miscellaneous (Lidoderm Patch Removal) 1 each MC DAILY@2200 [facility] Last Admin: 10/17/19 22:00 Dose: Not Given Documented by: Oxycodone HCl (Roxicodone -) 5 mg PO Q6H PRN PRN Reason: PAIN LEVEL 6-10 Pantoprazole Sodium (Protonix -) 40 mg PO DAILY [facility] Polyethylene Glycol (Miralax (For Bowel Prep) -) 17 gm PO BID [facility] Senna (Senna -) 1 tab PO TID [facility] Umeclidinium/Vilanterol (Anoro Ellipta 62.5-25 Mcg Inh) 1 puff IH DAILY [facility] - Objective Vital Signs: Vital Signs Temperature 98.2 F 10/18/19 06:00 Pulse Rate 103 H 10/18/19 06:00 Respiratory Rate 20 10/18/19 06:00 Blood Pressure 119/70 10/18/19 06:00 O2 Sat by Pulse Oximetry (%) 94 L 10/18/19 07:57 Labs: CBC, BMP 10/18/19 05:18 10/18/19 06:00 INR, PTT INR 0.98 (0.83-1.09) 10/16/19 06:20
[2019-10-18] MEDS: FOLIC ACID 1 MG TABLET (FP) PO SCH (10:22)
[2019-10-18] MEDS: CALCIUM 500MG/VIT-D 200 UNITS COMBO TABLET (FP) PO SCH ×2 (10:22→22:17)
[2019-10-18] MEDS: PANTOPRAZOLE 40 MG TABLET PO SCH (10:22)
[2019-10-18] MEDS: Methylnaltrexone Bromide 12 MG/0.6 ML KIT SQ SCH (10:22)
[2019-10-18] MEDS: ALLOPURINOL 300 MG TABLET (FP) PO SCH (10:22)
[2019-10-18] MEDS: METOPROLOL TARTRATE 50 MG TABLET (FP) PO SCH ×2 (10:23→22:17)
[2019-10-18] MEDS: POLYETHYLENE GLYCOL 3350 255 GM BTL PO SCH ×2 (10:23→22:18)
[2019-10-18] MEDS: GABAPENTIN 300 MG CAPSULE PO SCH ×2 (10:24→22:19)
[2019-10-18] MEDS: UMECLIDINIUM/VILANTEROL (ANORO) 62.5/25 MCG INHALER IH SCH (10:26)
[2019-10-18] MEDS: METHYL SALICYLATE/MENTHOL OINT 30 GM TUBE TP SCH ×2 (10:26→22:21)
[2019-10-18] MEDS: LIDOCAINE 5% TOPICAL PATCH TP SCH (10:26)
[2019-10-18] MEDS ORDERED: PT OWN MED DRAWER 7, Y5N ONE (10:45)
--- NOTE | 2019-10-18 11:59 | PN ---
Progress Note (short form) - Note Progress Note: s: no cp palps dizzy. mild sob persists Current Medications Generic Name Dose Route Start Last Admin Trade Name Freq PRN Reason Stop Dose Admin Acetaminophen 650 mg 10/18/19 07:39 Tylenol - PO Q6H PRN PAIN LEVEL 1-5 Albuterol/Ipratropium 1 amp 10/18/19 07:39 Duoneb - NEB Q6H PRN SHORTNESS OF BREATH Allopurinol 300 mg 10/18/19 10:00 10/18/19 10:22 Zyloprim - PO 300 mg DAILY VEENA Administration Aspirin 81 mg 10/18/19 22:00 Asa - PO HS VEENA Atorvastatin Calcium 20 mg 10/18/19 22:00 Lipitor - PO HS VEENA Calcium Carbonate/Cholecalciferol 1 tab 10/18/19 10:00 10/18/19 10:22 Os-Faisal 500+D - PO 1 tab BID VEENA Administration Cyclobenzaprine HCl 10 mg 10/18/19 14:00 Flexeril - PO TID VEENA Docusate Sodium 100 mg 10/18/19 14:00 Colace - PO TID VEENA Folic Acid 1 mg 10/18/19 10:00 10/18/19 10:22 Folic Acid - PO 1 mg DAILY VEENA Administration Gabapentin 300 mg 10/18/19 10:00 10/18/19 10:24 Neurontin - PO 300 mg BID VEENA Administration Gabapentin 600 mg 10/18/19 16:00 Neurontin - PO DAILY@1600 VEENA Piperacillin Sod/Tazobactam 50 mls @ 100 mls/hr 10/18/19 10:00 10/18/19 10:20 Sod 3.375 gm/ Dextrose IVPB 100 mls/hr Q8H-IV VEENA Administration Protocol Sodium Chloride 1,000 mls @ 75 mls/hr 10/18/19 07:39 Normal Saline - IV ASDIR VEENA Lidocaine 1 patch 10/18/19 10:00 10/18/19 10:26 Lidoderm Patch - TP Not Given DAILY [facility] Methyl Salicylate 1 applic 10/17/19 22:00 10/18/19 10:26 Elan-Smith - TP Not Given BID [facility] Methylnaltrexone [place] 12 mg 10/18/19 10:00 10/18/19 10:22 Relistor - SQ Not Given DAILY [facility] Methylprednisolone Sodium Succinate 40 mg 10/18/19 10:00 10/18/19 10:20 Solu-Medrol - IVPUSH 40 mg Q8H-IV VEENA Administration Metoprolol Tartrate 50 mg 10/18/19 10:00 10/18/19 10:23 Lopressor - PO 50 mg BID VEENA Administration Miscellaneous 1 each 10/17/19 22:00 10/17/19 22:00 Lidoderm Patch Removal MC Not Given DAILY@2200 VEENA Oxycodone HCl 5 mg 10/18/19 07:39 Roxicodone - PO Q6H PRN PAIN LEVEL 6-10 Pantoprazole Sodium 40 mg 10/18/19 10:00 10/18/19 10:22 Protonix - PO 40 mg DAILY VEENA Administration Polyethylene Glycol 17 gm 10/18/19 10:00 10/18/19 10:23 Miralax (For Bowel Prep) - PO Not Given BID VEENA Senna 1 tab 10/18/19 14:00 Senna - PO TID VEENA Umeclidinium/Vilanterol 1 puff 10/18/19 10:00 10/18/19 10:26 Anoro Ellipta 62.5-25 Mcg Inh IH 1 puff DAILY VEENA Administration Vital Signs Period Temp Pulse Resp BP Sys/Dodge Pulse Ox Last 24 Hr 97.8 F-98.9 F 103-117 20-27 93-122/60-80 92-100 Constitutional: Yes: No Distress, Calm Eyes: Yes: Conjunctiva Clear, EOM Intact HENT: Yes: Atraumatic, Normocephalic Neck: Yes: Supple, Trachea Midline Respiratory: Yes: Regular, . no wheeze, bibasilar rhonchi Gastrointestinal: Yes: Normal Bowel Sounds, Soft Cardiovascular: Yes: Regular Rate and Rhythm JVD: No Extremities: No: Cold Edema: no Integumentary: No: Jaundice Neurological: Yes: Alert, Oriented Psychiatric: No: Agitated CBC, BMP 10/18/19 05:18 10/18/19 06:00 Assessment/Plan EKG: sr, old rbbb, no ischemic changes stress echo 07/2018 nl EF, no ischemia echo 07/2019 nl LV function, mild LVH, borderline RV size/function, LA mod dilated, tr to mild MR, mild TR cta chest: no pe, ?pna tele: sr/sinus tachy sob, hypoxia, pna: -cont 02 -cont abx -no signs acs COPD, lung adenoca - manage per onc, pulm - on IV steroids tachycardia - sinus tachycardia likely in the setting of acute issues - cont metoprolol CAD s/p CABG - cont aspirin, statin, bb, plavix HTN - cont home meds HLD - cont statin
[2019-10-18] MEDS: SODIUM CHLORIDE 1,000 ML IV SCH (13:49)
--- NOTE | 2019-10-18 15:02 | PATH ---
Cytology Non-Gynecological Report Patient Name: HARRISON MUHAMMAD Med. Rec. #: [id number] /Age/Gender: 1960 (Age: 59) / M Account: [id number] Location: 4 TELEMETRY U Taken: 10/16/2019 Received: 10/17/2019 Reported: 10/18/2019 Physicians: Renan Carrion M.D. Specimen(s) Received SPUTUM FOR PCP Clinical History Sputum for PCP, Lung cancer Final Diagnosis SPUTUM FOR CYTOLOGY: SATISFACTORY FOR EVALUATION. NEGATIVE FOR MALIGNANT CELLS. ALVEOLAR MACROPHAGES, NUMEROUS NEUTROPHILS, AND SQUAMOUS CELLS PRESENT. GMS SPECIAL STAIN IS NEGATIVE FOR FUNGAL FORMS (PCP). Comment: Suggest clinical correlation. Prior materials are noted. Electronically Signed Morena Trejo M.D. Gross Description Received fresh is approximately 2 cc bloody sputum. One cytospin and cell block performed.
[2019-10-18] MEDS ORDERED: GABAPENTIN 300 MG CAPSULE PO SCH (16:00)
[2019-10-18] MEDS: SODIUM CHLORIDE NASAL SPRAY 44 ML BOTTLE NS SCH ×3 (16:31→22:21)
--- NOTE | 2019-10-18 17:10 | PN ---
Progress Note, Physician History of Present Illness: on nrb - Current Medication List Current Medications: Active Medications Acetaminophen (Tylenol -) 650 mg PO Q6H PRN PRN Reason: PAIN LEVEL 1-5 Last Admin: 10/18/19 13:49 Dose: 650 mg Documented by: Albuterol/Ipratropium (Duoneb -) 1 amp NEB Q6H PRN PRN Reason: SHORTNESS OF BREATH Allopurinol (Zyloprim -) 300 mg PO DAILY [facility] Last Admin: 10/18/19 10:22 Dose: 300 mg Documented by: Aspirin (Asa -) 81 mg PO HS [facility] Atorvastatin Calcium (Lipitor -) 20 mg PO HS [facility] Calcium Carbonate/Cholecalciferol (Os-Faisal 500+D -) 1 tab PO BID [facility] Last Admin: 10/18/19 10:22 Dose: 1 tab Documented by: Cyclobenzaprine HCl (Flexeril -) 10 mg PO TID [facility] Last Admin: 10/18/19 13:48 Dose: 10 mg Documented by: Docusate Sodium (Colace -) 100 mg PO TID [facility] Last Admin: 10/18/19 13:52 Dose: Not Given Documented by: Folic Acid (Folic Acid -) 1 mg PO DAILY [facility] Last Admin: 10/18/19 10:22 Dose: 1 mg Documented by: Gabapentin (Neurontin -) 300 mg PO BID [facility] Last Admin: 10/18/19 10:24 Dose: 300 mg Documented by: Gabapentin (Neurontin -) 600 mg PO DAILY@1600 [facility] Last Admin: 10/18/19 16:44 Dose: 600 mg Documented by: Piperacillin Sod/Tazobactam (Sod 3.375 gm/ Dextrose) 50 mls @ 100 mls/hr IVPB Q8H-IV [facility]; Protocol Last Admin: 10/18/19 10:20 Dose: 100 mls/hr Documented by: Sodium Chloride (Normal Saline -) 1,000 mls @ 75 mls/hr IV ASDIR [facility] Last Admin: 10/18/19 13:49 Dose: 75 mls/hr Documented by: Lidocaine (Lidoderm Patch -) 1 patch TP DAILY [facility] Last Admin: 10/18/19 10:26 Dose: Not Given Documented by: Methyl Salicylate (Elan-Smith -) 1 applic TP BID [facility] Last Admin: 10/18/19 10:26 Dose: Not Given Documented by: Methylnaltrexone [place] (Relistor -) 12 mg SQ DAILY [facility] Last Admin: 10/18/19 10:22 Dose: Not Given Documented by: Methylprednisolone Sodium Succinate (Solu-Medrol -) 40 mg IVPUSH Q8H-IV [facility] Last Admin: 10/18/19 10:20 Dose: 40 mg Documented by: Metoprolol Tartrate (Lopressor -) 50 mg PO BID [facility] Last Admin: 10/18/19 10:23 Dose: 50 mg Documented by: Miscellaneous (Lidoderm Patch Removal) 1 each MC DAILY@2200 [facility] Last Admin: 10/17/19 22:00 Dose: Not Given Documented by: Oxycodone HCl (Roxicodone -) 5 mg PO Q6H PRN PRN Reason: PAIN LEVEL 6-10 Last Admin: 10/18/19 13:48 Dose: 5 mg Documented by: Pantoprazole Sodium (Protonix -) 40 mg PO DAILY [facility] Last Admin: 10/18/19 10:22 Dose: 40 mg Documented by: Polyethylene Glycol (Miralax (For Bowel Prep) -) 17 gm PO BID [facility] Last Admin: 10/18/19 10:23 Dose: Not Given Documented by: Senna (Senna -) 1 tab PO TID [facility] Last Admin: 10/18/19 13:52 Dose: Not Given Documented by: Sodium Chloride ([place] Nasal [place] -) 2 spray NS BID [facility] Last Admin: 10/18/19 16:44 Dose: 2 spray Documented by: Umeclidinium/Vilanterol (Anoro Ellipta 62.5-25 Mcg Inh) 1 puff IH DAILY [facility] Last Admin: 10/18/19 10:26 Dose: 1 puff Documented by: - Objective Vital Signs: Vital Signs Temperature 97.8 F 10/18/19 09:00 Pulse Rate 104 H 10/18/19 11:35 Respiratory Rate 22 H 10/18/19 09:00 Blood Pressure 122/74 10/18/19 09:00 O2 Sat by Pulse Oximetry (%) 91 L 10/18/19 15:52 HENT: Yes: Atraumatic Neck: Yes: Supple Cardiovascular: Yes: Regular Rate and Rhythm Respiratory: Yes: Rhonchi, Wheezes Gastrointestinal: Yes: Normal Bowel Sounds Extremities: Yes: WNL Neurological: Yes: Alert, Oriented Labs: CBC, BMP 10/18/19 05:18 10/18/19 06:00 INR, PTT INR 0.98 (0.83-1.09) 10/16/19 06:20 Problem List - Problems (1) Acute respiratory failure with hypoxia Assessment/Plan: on steroids on nrb continue other meds pulmonary on board Code(s): J96.01 - ACUTE RESPIRATORY FAILURE WITH HYPOXIA (2) Interstitial lung disease Code(s): J84.9 - INTERSTITIAL PULMONARY DISEASE, UNSPECIFIED (3) Back pain Assessment/Plan: on pain meds..prn Code(s): M54.9 - DORSALGIA, UNSPECIFIED (4) COPD (chronic obstructive pulmonary disease) Code(s): J44.9 - CHRONIC OBSTRUCTIVE PULMONARY DISEASE, UNSPECIFIED (5) Compression fracture of T12 vertebra Code(s): S22.080A - WEDGE COMPRESSION FRACTURE OF T11-T12 VERTEBRA, INIT Qualifiers: Encounter type: initial encounter Qualified Code(s): S22.080A - Wedge compression fracture of T11-T12 vertebra, initial encounter for closed fracture (6) HLD (hyperlipidemia) Code(s): E78.5 - HYPERLIPIDEMIA, UNSPECIFIED (7) HTN (hypertension) Assessment/Plan: on meds monitor Code(s): I10 - ESSENTIAL (PRIMARY) HYPERTENSION (8) Lung cancer Assessment/Plan: oncology note reviewed s/p chemo Code(s): C34.90 - MALIGNANT NEOPLASM OF UNSP PART OF UNSP BRONCHUS OR LUNG (9) Pneumonia Assessment/Plan: on iv abx id on board Code(s): J18.9 - PNEUMONIA, UNSPECIFIED ORGANISM Assessment/Plan COVERING FOR DR YUNIOR BLAKELY
[2019-10-18] MEDS ORDERED: ATORVASTATIN CA 20 MG TABLET (FP) PO SCH (22:00)
[2019-10-18] MEDS ORDERED: ASPIRIN 81 MG CHEWABLE TABLETS PO SCH (22:00)
[2019-10-18] MEDS: LIDOCAINE PATCH REMOVAL MC SCH (22:19)
[2019-10-19] MEDS: oxyCODONE HCL 5 MG TABLET PO PRN (01:04)
[2019-10-19] MEDS: ACETAMINOPHEN 325 MG TABLET (FP) PO PRN (01:06)
[2019-10-19] MEDS ORDERED: DEXTROSE 5%-WATER - 50 ML IVPB ONE ×2 (02:02→10:06)
[2019-10-19] MEDS ORDERED: PIPERACILLIN/TAZOBACTAM 3.375 GM VIAL IVPB ONE ×2 (02:02→10:06)
[2019-10-19] MEDS: PIPERACILLIN/TAZOB 3.375 GM 3.375 GM in DEXTROSE 5%-WATER - 50 ML IVPB SCH ×3 (03:47→10:33)
[2019-10-19] MEDS: methylPREDNISolone NA SUCC 40 MG/1 ML VIAL IVPUSH SCH ×3 (03:48→10:34)
--- NOTE | 2019-10-19 05:30 | PN ---
Progress Note, Physician Chief Complaint: Appears thinned On high flow O2 Tachypnea "Im taking it one day at a time but I know I'm not getting better" TELE: ST, short self limited run PSVT History of Present Illness: lung CA PNA CAD s/p CABG Former smoker - Current Medication List Current Medications: Active Medications Acetaminophen (Tylenol -) 650 mg PO Q6H PRN PRN Reason: PAIN LEVEL 1-5 Last Admin: 10/19/19 01:06 Dose: 650 mg Documented by: Albuterol/Ipratropium (Duoneb -) 1 amp NEB Q6H PRN PRN Reason: SHORTNESS OF BREATH Allopurinol (Zyloprim -) 300 mg PO DAILY [facility] Last Admin: 10/18/19 10:22 Dose: 300 mg Documented by: Aspirin (Asa -) 81 mg PO [facility] Last Admin: 10/18/19 22:16 Dose: 81 mg Documented by: Atorvastatin Calcium (Lipitor -) 20 mg PO [facility] Last Admin: 10/18/19 22:16 Dose: 20 mg Documented by: Calcium Carbonate/Cholecalciferol (Os-Faisal 500+D -) 1 tab PO BID [facility] Last Admin: 10/18/19 22:17 Dose: 1 tab Documented by: Cyclobenzaprine HCl (Flexeril -) 10 mg PO TID [facility] Last Admin: 10/18/19 22:18 Dose: 10 mg Documented by: Docusate Sodium (Colace -) 100 mg PO TID [facility] Last Admin: 10/18/19 22:18 Dose: Not Given Documented by: Folic Acid (Folic Acid -) 1 mg PO DAILY [facility] Last Admin: 10/18/19 10:22 Dose: 1 mg Documented by: Gabapentin (Neurontin -) 300 mg PO BID [facility] Last Admin: 10/18/19 22:19 Dose: 300 mg Documented by: Gabapentin (Neurontin -) 600 mg PO DAILY@1600 [facility] Last Admin: 10/18/19 16:44 Dose: 600 mg Documented by: Piperacillin Sod/Tazobactam (Sod 3.375 gm/ Dextrose) 50 mls @ 100 mls/hr IVPB Q8H-IV [facility]; Protocol Last Admin: 10/19/19 04:35 Dose: 100 mls/hr Documented by: Sodium Chloride (Normal Saline -) 1,000 mls @ 75 mls/hr IV ASDIR [facility] Last Admin: 10/18/19 13:49 Dose: 75 mls/hr Documented by: Lidocaine (Lidoderm Patch -) 1 patch TP DAILY [facility] Last Admin: 10/18/19 10:26 Dose: Not Given Documented by: Methyl Salicylate (Elan-Smith -) 1 applic TP BID [facility] Last Admin: 10/18/19 22:21 Dose: Not Given Documented by: Methylnaltrexone [place] (Relistor -) 12 mg SQ DAILY [facility] Last Admin: 10/18/19 10:22 Dose: Not Given Documented by: Methylprednisolone Sodium Succinate (Solu-Medrol -) 40 mg IVPUSH Q8H-IV [facility] Last Admin: 10/19/19 04:36 Dose: 40 mg Documented by: Metoprolol Tartrate (Lopressor -) 50 mg PO BID [facility] Last Admin: 10/18/19 22:17 Dose: 50 mg Documented by: Miscellaneous (Lidoderm Patch Removal) 1 each MC DAILY@2200 [facility] Last Admin: 10/18/19 22:19 Dose: Not Given Documented by: Oxycodone HCl (Roxicodone -) 5 mg PO Q6H PRN PRN Reason: PAIN LEVEL 6-10 Last Admin: 10/19/19 01:04 Dose: 5 mg Documented by: Pantoprazole Sodium (Protonix -) 40 mg PO DAILY [facility] Last Admin: 10/18/19 10:22 Dose: 40 mg Documented by: Polyethylene Glycol (Miralax (For Bowel Prep) -) 17 gm PO BID [facility] Last Admin: 10/18/19 22:18 Dose: Not Given Documented by: Senna (Senna -) 1 tab PO TID [facility] Last Admin: 10/18/19 22:17 Dose: Not Given Documented by: Sodium Chloride ([place] Nasal [place] -) 2 spray NS BID [facility] Last Admin: 10/18/19 22:21 Dose: Not Given Documented by: Umeclidinium/Vilanterol (Anoro Ellipta 62.5-25 Mcg Inh) 1 puff IH DAILY [facility] Last Admin: 10/18/19 10:26 Dose: 1 puff Documented by: - Objective Vital Signs: Vital Signs Temperature 97.4 F L 10/19/19 02:00 Pulse Rate 110 H 10/19/19 02:00 Respiratory Rate 24 H 10/19/19 02:00 Blood Pressure 117/56 L 10/19/19 02:00 O2 Sat by Pulse Oximetry (%) 95 10/19/19 05:21 Constitutional: Yes: Mild Distress, Pallor, Thin Eyes: Yes: Conjunctiva Clear Cardiovascular: Yes: Tachycardia Respiratory: Yes: Diminished, Rhonchi Gastrointestinal: Yes: Soft (nt) Edema: No Neurological: Yes: Alert, Oriented ...Motor Strength: WNL Psychiatric: Yes: WNL Labs: CBC, BMP 10/18/19 05:18 10/18/19 06:00 INR, PTT INR 0.98 (0.83-1.09) 10/16/19 06:20 - ....Imaging EKG: Image Reviewed (TELE: as above) Assessment/Plan DATA: EKG: sr, old rbbb, no ischemic changes stress echo 07/2018 nl EF, no ischemia echo 07/2019 nl LV function, mild LVH, borderline RV size/function, LA mod dilated, tr to mild MR, mild TR cta chest: no pe, ?pna tele: sr/sinus tachy IMP/PlAN: sob, hypoxia, pna: -cont 02 -cont abx -no signs acs COPD, lung adenoca: - manage per onc, pulm - on IV steroids -Would address advanced directives tachycardia: - sinus tachycardia likely in the setting of acute issues, anemia, steroids - cont metoprolol, on chronically for CAD CAD s/p CABG: - cont aspirin, statin, bb, plavix HTN: - cont home meds HLD: - cont statin
[2019-10-19] MEDS: CYCLOBENZAPRINE HCL 10 MG TABLET (FP) PO SCH (06:03)
[2019-10-19] MEDS: DOCUSATE SODIUM 100 MG CAPSULE (FP) PO SCH (06:03)
[2019-10-19] MEDS: SENNOSIDES 8.6MG TABLET (FP) PO SCH (06:07)
[2019-10-19 09:59] VITALS: BP 104/68; PULSE 116; TEMP 98
[2019-10-19] MEDS: METOPROLOL TARTRATE 50 MG TABLET (FP) PO SCH (10:35)
[2019-10-19] MEDS: CALCIUM 500MG/VIT-D 200 UNITS COMBO TABLET (FP) PO SCH (10:35)
[2019-10-19] MEDS: FOLIC ACID 1 MG TABLET (FP) PO SCH (10:35)
[2019-10-19] MEDS: ALLOPURINOL 300 MG TABLET (FP) PO SCH (10:35)
[2019-10-19] MEDS: PANTOPRAZOLE 40 MG TABLET PO SCH (10:35)
[2019-10-19] MEDS: SODIUM CHLORIDE 1,000 ML IV SCH (10:36)
[2019-10-19] MEDS: METHYL SALICYLATE/MENTHOL OINT 30 GM TUBE TP SCH (10:36)
[2019-10-19] MEDS: LIDOCAINE 5% TOPICAL PATCH TP SCH (10:37)
[2019-10-19] MEDS: SODIUM CHLORIDE NASAL SPRAY 44 ML BOTTLE NS SCH (10:39)
[2019-10-19] MEDS: GABAPENTIN 300 MG CAPSULE PO SCH (10:39)
[2019-10-19] MEDS: Methylnaltrexone Bromide 12 MG/0.6 ML KIT SQ SCH (10:39)
[2019-10-19] MEDS: UMECLIDINIUM/VILANTEROL (ANORO) 62.5/25 MCG INHALER IH SCH (12:10)
[2019-10-19] MEDS: POLYETHYLENE GLYCOL 3350 255 GM BTL PO SCH (12:10)
--- NOTE | 2019-10-19 13:32 | PN ---
Progress Note, Physician History of Present Illness: patient became hypoxic coded now - Current Medication List Current Medications: Active Medications Acetaminophen (Tylenol -) 650 mg PO Q6H PRN PRN Reason: PAIN LEVEL 1-5 Last Admin: 10/19/19 01:06 Dose: 650 mg Documented by: Albuterol/Ipratropium (Duoneb -) 1 amp NEB Q6H PRN PRN Reason: SHORTNESS OF BREATH Allopurinol (Zyloprim -) 300 mg PO DAILY [facility] Last Admin: 10/19/19 10:35 Dose: 300 mg Documented by: Aspirin (Asa -) 81 mg PO [facility] Last Admin: 10/18/19 22:16 Dose: 81 mg Documented by: Atorvastatin Calcium (Lipitor -) 20 mg PO [facility] Last Admin: 10/18/19 22:16 Dose: 20 mg Documented by: Calcium Carbonate/Cholecalciferol (Os-Faisal 500+D -) 1 tab PO BID [facility] Last Admin: 10/19/19 10:35 Dose: 1 tab Documented by: Cyclobenzaprine HCl (Flexeril -) 10 mg PO TID [facility] Last Admin: 10/19/19 06:03 Dose: 10 mg Documented by: Docusate Sodium (Colace -) 100 mg PO TID [facility] Last Admin: 10/19/19 06:03 Dose: Not Given Documented by: Folic Acid (Folic Acid -) 1 mg PO DAILY [facility] Last Admin: 10/19/19 10:35 Dose: 1 mg Documented by: Gabapentin (Neurontin -) 300 mg PO BID [facility] Last Admin: 10/19/19 10:39 Dose: 300 mg Documented by: Gabapentin (Neurontin -) 600 mg PO DAILY@1600 [facility] Last Admin: 10/18/19 16:44 Dose: 600 mg Documented by: Piperacillin Sod/Tazobactam (Sod 3.375 gm/ Dextrose) 50 mls @ 100 mls/hr IVPB Q8H-IV [facility]; Protocol Last Admin: 10/19/19 10:33 Dose: 100 mls/hr Documented by: Sodium Chloride (Normal Saline -) 1,000 mls @ 75 mls/hr IV ASDIR [facility] Last Admin: 10/19/19 10:36 Dose: 75 mls/hr Documented by: Lidocaine (Lidoderm Patch -) 1 patch TP DAILY [facility] Last Admin: 09/11/20 10:37 Dose: Not Given Documented by: Methyl Salicylate (Elan-Smith -) 1 applic TP BID [facility] Last Admin: 10/19/19 10:36 Dose: Not Given Documented by: Methylnaltrexone [place] (Relistor -) 12 mg SQ DAILY [facility] Last Admin: 10/19/19 10:39 Dose: 12 mg Documented by: Methylprednisolone Sodium Succinate (Solu-Medrol -) 40 mg IVPUSH Q8H-IV [facility] Last Admin: 10/19/19 10:34 Dose: 40 mg Documented by: Metoprolol Tartrate (Lopressor -) 50 mg PO BID [facility] Last Admin: 10/19/19 10:35 Dose: 50 mg Documented by: Miscellaneous (Lidoderm Patch Removal) 1 each MC DAILY@2200 [facility] Last Admin: 10/18/19 22:19 Dose: Not Given Documented by: Oxycodone HCl (Roxicodone -) 5 mg PO Q6H PRN PRN Reason: PAIN LEVEL 6-10 Last Admin: 10/19/19 01:04 Dose: 5 mg Documented by: Pantoprazole Sodium (Protonix -) 40 mg PO DAILY [facility] Last Admin: 10/19/19 10:35 Dose: 40 mg Documented by: Polyethylene Glycol (Miralax (For Bowel Prep) -) 17 gm PO BID [facility] Last Admin: 10/19/19 12:10 Dose: 17 gm Documented by: Senna (Senna -) 1 tab PO TID [facility] Last Admin: 10/19/19 06:07 Dose: Not Given Documented by: Sodium Chloride ([place] Nasal [place] -) 2 spray NS BID [facility] Last Admin: 10/19/19 10:39 Dose: Not Given Documented by: Umeclidinium/Vilanterol (Anoro Ellipta 62.5-25 Mcg Inh) 1 puff IH DAILY [facility] Last Admin: 10/19/19 12:10 Dose: 1 puff Documented by: - Objective Vital Signs: Vital Signs Temperature 98 F 10/19/19 09:00 Pulse Rate 116 H 10/19/19 09:00 Respiratory Rate 22 H 10/19/19 09:00 Blood Pressure 104/68 10/19/19 09:00 O2 Sat by Pulse Oximetry (%) 94 L 10/19/19 09:00 Constitutional: Yes: Other Cardiovascular: Yes: S1, S2 Respiratory: Yes: Other (on high flow oxygen) Labs: CBC, BMP 10/18/19 05:18 10/18/19 06:00 INR, PTT INR 0.98 (0.83-1.09) 10/16/19 06:20 Assessment/Plan Problem List - Problems (1) Acute respiratory failure with hypoxia Code(s): J96.01 - ACUTE RESPIRATORY FAILURE WITH HYPOXIA (2) Interstitial lung disease Code(s): J84.9 - INTERSTITIAL PULMONARY DISEASE, UNSPECIFIED (3) Back pain Code(s): M54.9 - DORSALGIA, UNSPECIFIED (4) COPD (chronic obstructive pulmonary disease) Code(s): J44.9 - CHRONIC OBSTRUCTIVE PULMONARY DISEASE, UNSPECIFIED (5) Compression fracture of T12 vertebra Code(s): S22.080A - WEDGE COMPRESSION FRACTURE OF T11-T12 VERTEBRA, INIT Qualifiers: Encounter type: initial encounter Qualified Code(s): S22.080A - Wedge compression fracture of T11-T12 vertebra, initial encounter for closed fracture (6) HLD (hyperlipidemia) Code(s): E78.5 - HYPERLIPIDEMIA, UNSPECIFIED (7) HTN (hypertension) Code(s): I10 - ESSENTIAL (PRIMARY) HYPERTENSION (8) Lung cancer Code(s): C34.90 - MALIGNANT NEOPLASM OF UNSP PART OF UNSP BRONCHUS OR LUNG Assessment/Plan continue as per icu resp support continue abx await for finalization of the cx rest as per the team sputum for pcp
--- NOTE | 2019-10-19 14:08 | PROC ---
Intubation - Intubation Reason for Intubation: Respiratory Failure Time of Intubation: 13:45 Intubation Method: orotracheal Blade used: Glidescope Tube Size (cm): 7.5 Tube position @ lip (cm): 24 Tube position confirmed by: Direct visualization, Breath sounds Breath Sounds after Intubation: equal Post Intubation Xray: No (Pt before xray was able to confirm )
--- NOTE | 2019-10-19 14:40 | PN ---
Progress Note (short form) - Note Progress Note: CONFIRMATION OF On 10/19/2019, we were paged overhead via a rapid response to Mr. Cali Basurto's room due to patient being in respiratory distress. Patient was already being bag masked, and subsequently lost a perfusable rhythm. CPR was begun immediately in accordance with ACLS protocol. 3 doses of Epinephrine were given, and pulse checks were completed with no discernable pulse noted and no rhythm noted on monitoring. At no point did patient achieve ROSC. The patient was pronounced by Dr. Rivera Paez at 13:55 on 10/19/2019 after there were no audible heart and lung sounds, no pupillary reflex, no carotid, femoral, radial, or posterior tibial pulses were felt. Family Notified By: Dr. Ambreen West services offered to the family Body to be released to home of family's choice.
--- NOTE | 2019-10-19 15:07 | RAPID ---
Physical Examination Vital Signs: Vital Signs Temperature 98 F 10/19/19 09:00 Pulse Rate 116 H 10/19/19 09:00 Respiratory Rate 22 H 10/19/19 09:00 Blood Pressure 104/68 10/19/19 09:00 O2 Sat by Pulse Oximetry (%) 94 L 10/19/19 09:00 Labs: CBC, BMP 10/18/19 05:18 10/18/19 06:00 Rapid Response - Rapid Response Assessment: Rapid response paged overhead. scallop binder team responded immediately. On arrival, patient was being bag mask ventilated by ICU attending, Dr. Daniel who informed us of patient's desaturation. Patient lost pulse shortly after arrival and ACLS protocol was initiated. See code sheet for full code details. Patient was intubated with Glidescope by ICU team. After 3 rounds of Epinephrine the patient was asystole on monitor with no ROSC. Time of called at 1:55 pm. Family and primary care doctor aware.
--- NOTE | 2019-10-19 16:18 | PN ---
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 Patient unresponsive and cyanotic. CPR started. Patient intubated with Glidescope Mac4 : 7.5 ETT. Full measures provided. No perfusing rhythm. Patient declared . Problem List - Problems (1) Acute and chronic respiratory failure Code(s): J96.20 - ACUTE AND CHR RESP FAILURE, UNSP W HYPOXIA OR HYPERCAPNIA Qualifiers: Respiratory failure complication: hypoxia Qualified Code(s): J96.21 - Acute and chronic respiratory failure with hypoxia (2) CAD (coronary artery disease) Code(s): I25.10 - ATHSCL HEART DISEASE OF [place] CORONARY ARTERY W/O ANG PCTRS (3) Compression fracture of T12 vertebra Code(s): S22.080A - WEDGE COMPRESSION FRACTURE OF T11-T12 VERTEBRA, INIT Qualifiers: Encounter type: initial encounter Qualified Code(s): S22.080A - Wedge compression fracture of T11-T12 vertebra, initial encounter for closed fracture (4) HLD (hyperlipidemia) Code(s): E78.5 - HYPERLIPIDEMIA, UNSPECIFIED (5) HTN (hypertension) Code(s): I10 - ESSENTIAL (PRIMARY) HYPERTENSION (6) Interstitial lung disease Code(s): J84.9 - INTERSTITIAL PULMONARY DISEASE, UNSPECIFIED (7) Lung cancer Code(s): C34.90 - MALIGNANT NEOPLASM OF UNSP PART OF UNSP BRONCHUS OR LUNG (8) Vertebral fracture Code(s): [id number] - (9) Interstitial lung disease Code(s): J84.9 - INTERSTITIAL PULMONARY DISEASE, UNSPECIFIED Dr Daniel
== END 2019-10-19 16:53 | disposition expired | DRG 180 ==
LOC: JER 15:08 → JERBED 18:37 → JICU 23:50 → J4W 10-16 18:51 → JICU 10-16 19:32 → J4W 10-17 16:11
PROVIDERS: ADMIT Internal Medicine; ATTEND Internal Medicine
PROC: 5A09357 Assistance with Respiratory Ventilation, Less than 24 Consecutive Hours, Continuous Positive Airway Pressure (ICD-10-PCS; 2019-10-12)
PROC: 0BH17EZ Insertion of Endotracheal Airway into Trachea, Via Natural or Artificial Opening (ICD-10-PCS; principal; 2019-10-19)
DX: C34.90 Malignant neoplasm of unspecified part of unspecified bronchus or lung (principal); J96.21 Acute and chronic respiratory failure with hypoxia; J18.9 Pneumonia, unspecified organism; I50.32 Chronic diastolic (congestive) heart failure; C78.7 Secondary malignant neoplasm of liver and intrahepatic bile duct; C79.89 Secondary malignant neoplasm of other specified sites; C79.51 Secondary malignant neoplasm of bone; J84.9 Interstitial pulmonary disease, unspecified; M48.54XA Collapsed vertebra, not elsewhere classified, thoracic region, initial encounter for fracture; Z99.81 Dependence on supplemental oxygen; I25.10 Atherosclerotic heart disease of native coronary artery without angina pectoris; I10 Essential (primary) hypertension; E78.5 Hyperlipidemia, unspecified; Z95.1 Presence of aortocoronary bypass graft; Z87.891 Personal history of nicotine dependence; I25.2 Old myocardial infarction; I11.0 Hypertensive heart disease with heart failure; K21.9 Gastro-esophageal reflux disease without esophagitis; C76.1 Malignant neoplasm of thorax; D64.9 Anemia, unspecified; J84.10 Pulmonary fibrosis, unspecified; J43.9 Emphysema, unspecified; K59.00 Constipation, unspecified; D69.59 Other secondary thrombocytopenia; T45.1X5A Adverse effect of antineoplastic and immunosuppressive drugs, initial encounter
CPT/HCPCS: 36415; 36600; 71045-TC-FY; 71275-TC; 80048; 80053; 82550; 82803; 82962; 83605; 83615; 83735; 83880; 84100; 84484; 84550; 85025; 85027; 85610; 85730; 87040; 87086; 88104; 88305-TC; 93005; 93010; 94660; 99285-25; J0131; Q9967; U0003